=== PATIENT | female | born 1990 | race American Indian/Alaskan Native ===

== ENCOUNTER 2016-07-21 16:44 | Emergency (ER) | payer MEDICAID ==
[2016-07-21 17:18] VITALS: BP 130/82
[2016-07-21] MEDS ORDERED: NACL 0.9% 1000 ML IV ONE (18:00)
[2016-07-21] MEDS ORDERED: NACL 0.9% 1000 ML 1,000 ML ONE (18:13)
--- NOTE | 2016-07-21 18:30 | Emergency Department Report ---
Chief Complaint: Nausea/Vomiting/Diarrhea Stated Complaint: VOMITING Time Seen by Provider: 07/21/16 18:22 - HPI History of Present Illness: 26 y/o female arrive by EMS for for vomiting after drinking alcohol in moderate amount .pt current lethargy and not answer any question .pt just state she been drinking and do not feel well . - ROS Review of Systems: per HPI - Exam Vital Signs: Vital Signs 07/21/16 17:01 Temperature 98.2 F Pulse Rate 82 Respiratory 18 Rate Blood Pressure 130/82 O2 Sat by Pulse 100 Oximetry Physical Exam: GENERAL: The patient is well-developed and well-nourished. Patient is in NAD. HENT: Normocephalic. Atraumatic. Patient has moist mucous membranes. Throat: No erythema, swelling or exudates. EYES: Extraocular motions are intact, PERRL NECK: Supple. No meningitic signs are noted. There is no adenopathy noted. CHEST/LUNGS: Clear to auscultation bilaterally. No wheezing, rales or rhonchi noted. There is no respiratory distress noted. HEART/CARDIOVASCULAR: Regular rate and rhythm. Normal S1 S2. No murmurs, rubs , clicks, or gallops. ABDOMEN: Abdomen is soft, nontender.. Bowel sounds normoactive. There is no abdominal distention. Negative rebound tenderness. : Deferred. SKIN: There is no rash. There is no edema. There is no diaphoresis. NEURO: The patient is A&Ox3. The patient has no focal neurologic deficits. MUSCULOSKELETAL: There is no tenderness or deformity. There is no limitation range of motion. PSYCH: Pt has appropriate mood and affect. MSE screening note: Focused history and physical exam performed. Due to findings the following was ordered: ED Disposition for MSE Condition: Stable
[2016-07-21 19:24] LABS: Hematocrit 33.2 % (30.3-42.9); Hemoglobin 10.6 gm/dl (10.1-14.3); Mean Corpuscular HGB Conc 32 % (30-34); Mean Corpuscular Hemoglobin 27 pg (28-32); Mean Corpuscular Volume 85 fl (79-97); Platelet Count 313 K/mm3 (140-440); Red Blood Count 3.93 M/mm3 (3.65-5.03); Red Cell Distribution Width 16.4 % (13.2-15.2); White Blood Count 14.1 K/mm3 (4.5-11.0)
[2016-07-21 19:47] LABS: Alanine Aminotransferase 19 units/L (7-56); Albumin 4.2 g/dL (3.9-5); Albumin/Globulin Ratio 1.3 %; Alkaline Phosphatase 76 units/L (35-129); Amylase 37 units/L (27-131); Bilirubin,Total 0.4 mg/dL (0.1-1.2); Blood Urea Nitrogen 16 mg/dL (7-17); Calcium 8.5 mg/dL (8.4-10.2); Carbon Dioxide 21 mmol/L (22-30); Chloride 99.5 mmol/L (98-107); Glucose 296 mg/dL (65-100); Lipase 17 units/L (13-60); Potassium 4.2 mmol/L (3.6-5.0); Sodium 137 mmol/L (137-145); Total Protein 7.5 g/dL (6.3-8.2)
[2016-07-21 19:52] LABS: Bilirubin,Direct < 0.2 mg/dL (0-0.2); Bilirubin,Indirect 0.2 mg/dL
[2016-07-21 19:53] LABS: Anion Gap 21 mmol/L
[2016-07-21 21:52] LABS: Basophils % (Manual) 0 % (0.0-1.8); Blastocytes % (Manual) 0 %; Eosinophils % (Manual) 0 % (0.0-4.3)
[2016-07-21 21:53] LABS: Anisocytosis 1+; Diff Status Complete; Platelet Estimate Consistent w Auto
[2016-07-21 22:07] LABS: Bilirubin,Urine NEG (Negative); Blood,Urine NEG (Negative); Ketones,Urine 20 mg/dL (Negative); Leukocyte Esterase,Urine NEG (Negative); Nitrite,Urine NEG (Negative); Protein,Urine <15 mg/dL mg/dL (Negative); Urobilinogen,Urine < 2.0 mg/dL (<2.0); WBC,Urine < 1.0 /HPF (0.0-6.0)
--- NOTE | 2016-07-22 14:28 | ED Elopement Review ---
ED Pt Elopement review - Results review Lab results: Laboratory Tests 07/21/16 07/21/16 07/21/16 16:58 19:09 19:09 WBC 14.1 H RBC 3.93 Hgb 10.6 Hct 33.2 MCV 85 MCH 27 L MCHC 32 RDW 16.4 H Plt Count 313 Add Manual Diff Complete Total Counted 100 Seg Neutrophils % [employer] Seg Neuts % (Manual) 92.0 H Band Neutrophils % 0 Lymphocytes % (Manual) 5.0 L Reactive Lymphs % (Man) 0 Monocytes % (Manual) 3.0 Eosinophils % (Manual) 0 Basophils % (Manual) 0 Metamyelocytes % 0 Myelocytes % 0 Promyelocytes % 0 Blast Cells % 0 Nucleated RBC % Not Reportable Seg Neutrophils # Man 13.0 H Band Neutrophils # 0.0 Lymphocytes # (Manual) 0.7 L Abs React Lymphs (Man) 0.0 Monocytes # (Manual) 0.4 Eosinophils # (Manual) 0.0 Basophils # (Manual) 0.0 Metamyelocytes # 0.0 Myelocytes # 0.0 Promyelocytes # 0.0 Blast Cells # 0.0 WBC Morphology Not Reportable Hypersegmented Neuts Not Reportable Hyposegmented Neuts Not Reportable Hypogranular Neuts Not Reportable Smudge Cells Not Reportable Toxic Granulation Not Reportable Toxic Vacuolation Not Reportable Dohle Bodies Not Reportable Pelger-Huet Anomaly Not Reportable Alex Rods Not Reportable Platelet Estimate Consistent w auto Clumped Platelets Not Reportable Plt Clumps, EDTA Not Reportable Large Platelets Not Reportable Giant Platelets Not Reportable Platelet Satelliting Not Reportable Plt Morphology Comment Not Reportable RBC Morphology Not Reportable Dimorphic RBCs Not Reportable Polychromasia Not Reportable Hypochromasia Not Reportable Poikilocytosis Not Reportable Anisocytosis 1+ Microcytosis Not Reportable Macrocytosis Not Reportable Spherocytes Not Reportable Pappenheimer Bodies Not Reportable Sickle Cells Not Reportable Target Cells Not Reportable Tear Drop Cells Not Reportable Ovalocytes Not Reportable Helmet Cells Not Reportable Barillas-Sunsites Bodies Not Reportable [place] Rings Not Reportable [place] Cells Not Reportable Bite Cells Not Reportable Crenated Cell Not Reportable Elliptocytes Not Reportable Acanthocytes (Spur) Not Reportable Rouleaux Not Reportable Hemoglobin C Crystals Not Reportable Schistocytes Not Reportable Malaria parasites Not Reportable Pérez Bodies Not Reportable Hem Pathologist Commnt No Sodium 137 Potassium 4.2 Chloride 99.5 Carbon Dioxide 21 L Anion Gap 21 BUN 16 Creatinine 0.8 Estimated GFR > 60 BUN/Creatinine Ratio 20.00 Glucose 296 H POC Glucose 344 H Calcium 8.5 Total Bilirubin 0.4 Direct Bilirubin < 0.2 Indirect Bilirubin 0.2 AST 35 ALT 19 Alkaline Phosphatase 76 Total Protein 7.5 Albumin 4.2 Albumin/Globulin Ratio 1.3 Amylase 37 Lipase 17 Urine Color Urine Turbidity Urine pH Ur Specific [place] Urine Protein Urine Glucose (UA) Urine Ketones Urine Blood Urine Nitrite Urine Bilirubin Urine Urobilinogen Ur Leukocyte Esterase Urine WBC (Auto) Urine RBC (Auto) U Epithel Cells (Auto) Urine HCG, Qual Plasma/Serum Alcohol 07/21/16 07/21/16 19:09 21:35 WBC RBC Hgb Hct MCV MCH MCHC RDW Plt Count Add Manual Diff Total Counted Seg Neutrophils % Seg Neuts % (Manual) Band Neutrophils % Lymphocytes % (Manual) Reactive Lymphs % (Man) Monocytes % (Manual) Eosinophils % (Manual) Basophils % (Manual) Metamyelocytes % Myelocytes % Promyelocytes % Blast Cells % Nucleated RBC % Seg Neutrophils # Man Band Neutrophils # Lymphocytes # (Manual) Abs React Lymphs (Man) Monocytes # (Manual) Eosinophils # (Manual) Basophils # (Manual) Metamyelocytes # Myelocytes # Promyelocytes # Blast Cells # WBC Morphology Hypersegmented Neuts Hyposegmented Neuts Hypogranular Neuts Smudge Cells Toxic Granulation Toxic Vacuolation Dohle Bodies Pelger-Huet Anomaly Alex Rods Platelet Estimate Clumped Platelets Plt Clumps, EDTA Large Platelets Giant Platelets Platelet Satelliting Plt Morphology Comment RBC Morphology Dimorphic RBCs Polychromasia Hypochromasia Poikilocytosis Anisocytosis Microcytosis Macrocytosis Spherocytes Pappenheimer Bodies Sickle Cells Target Cells Tear Drop Cells Ovalocytes Helmet Cells Barillas-Sunsites Bodies [place] Rings Marci Cells Bite Cells Crenated Cell Elliptocytes Acanthocytes (Spur) Rouleaux Hemoglobin C Crystals Schistocytes Malaria parasites Pérez Bodies Hem Pathologist Commnt Sodium Potassium Chloride Carbon Dioxide Anion Gap BUN Creatinine Estimated GFR BUN/Creatinine Ratio Glucose POC Glucose Calcium Total Bilirubin Direct Bilirubin Indirect Bilirubin AST ALT Alkaline Phosphatase Total Protein Albumin Albumin/Globulin Ratio Amylase Lipase Urine Color Straw Urine Turbidity Clear Urine pH 6.0 Ur Specific [place] 1.028 Urine Protein <15 mg/dl Urine Glucose (UA) >=500 Urine Ketones 20 Urine Blood Neg Urine Nitrite Neg Urine Bilirubin Neg Urine Urobilinogen < 2.0 Ur Leukocyte Esterase Neg Urine WBC (Auto) < 1.0 Urine RBC (Auto) 1.0 U Epithel Cells (Auto) 1.0 Urine HCG, Qual Negative Plasma/Serum Alcohol < 0.01 - Call Back decision Pt Call Back Decision: No action required
== END 2016-07-22 00:52 | disposition left against medical advice (07) ==
LOC: ED 16:44
DX: R11.10 Vomiting, unspecified (principal); F10.10 Alcohol abuse, uncomplicated; Z53.21 Procedure and treatment not carried out due to patient leaving prior to being seen by health care provider
CPT/HCPCS: 36415; 80053; 80074; 81001; 81025; 82150; 82962; 83690; 85007; 85025; G0480; J7030; 80320

== ENCOUNTER 2016-09-07 09:41 | Inpatient (IN) | payer MEDICAID ==
--- NOTE | 2016-09-07 10:48 | Emergency Department Report ---
Chief Complaint: Abdominal Pain Stated Complaint: ABD /N/V Time Seen by Provider: 09/07/16 10:43 - HPI History of Present Illness: 26-year-old -[place] female comes in for nausea vomiting abdominal pains 2 days ago. Does have a past medical history of diabetes. Denies any fever or chills. [id number] glucose 241. Patient reports that she's had morphine and Zofran in the EMS truck. - Exam Vital Signs: Vital Signs 09/07/16 10:31 Temperature 98.5 F Pulse Rate 104 H Respiratory 20 Rate Blood Pressure 126/104 O2 Sat by Pulse 95 Oximetry Physical Exam: Patient is alert and oriented actively vomiting in exam room. Cardio: Tachycardic Respiratory: Clear to auscultation Lung: Tender to touch active bowel sounds nondistended MSE screening note: Focused history and physical exam performed. Due to findings the following was ordered: Labs ordered for patient should be evaluated the main ER ED Disposition for MSE Condition: Stable Instructions: Abdominal Pain (ED)
[2016-09-07 11:18] LABS: Basophils % (Auto) 0.1 % (0.0-1.8); Hematocrit 37.9 % (30.3-42.9); Mean Corpuscular HGB Conc 32 % (30-34); Mean Corpuscular Hemoglobin 26 pg (28-32); Mean Corpuscular Volume 84 fl (79-97); Platelet Count 395 K/mm3 (140-440); Red Blood Count 4.52 M/mm3 (3.65-5.03); White Blood Count 19.3 K/mm3 (4.5-11.0)
[2016-09-07 11:36] LABS: Albumin 4.8 g/dL (3.9-5); Albumin/Globulin Ratio 1.2 %; BUN/Creatinine Ratio 16.25; Bilirubin,Total 0.4 mg/dL (0.1-1.2); Calcium 9.3 mg/dL (8.4-10.2); Chloride 102.4 mmol/L (98-107); Potassium 4.6 mmol/L (3.6-5.0); Total Protein 8.8 g/dL (6.3-8.2)
[2016-09-07] MEDS ORDERED: DILAUDID IV ONE ×2 (11:59→17:04)
[2016-09-07] MEDS ORDERED: ZOFRAN IV ONE ×2 (11:59→17:09)
[2016-09-07] MEDS ORDERED: NACL 0.9% 500 ML IV SCH (12:00)
--- NOTE | 2016-09-07 12:01 | Emergency Department Report ---
ED Abdominal Pain HPI - General Chief Complaint: Abdominal Pain Stated Complaint: ABD /N/V Time Seen by Provider: 09/07/16 10:43 Source: patient Mode of arrival: Wheelchair Limitations: Physical Limitation - History of Present Illness Initial Comments: This is a 26-year-old female. She is previously unknown to me. Past medical history of type 1 diabetes. She reports that her primary care doctor is at the [facility] Patient reports no history of abdominal surgeries. She presents to the ER with diffuse abdominal pain, nausea and vomiting for 3 days. Symptoms are constant. They worsen when she attempts to eat. Decreases with rest. Decrease is laying on her side. Positive lethargy. Denies irritative urinary symptoms. Reports she is not . Has a distant history of chlamydia. The patient is sexually active with one male partner, positive intermittent condom use. MD Complaint: abdominal pain -: Gradual Location: diffuse Severity scale (0 -10): 10 Quality: aching Consistency: constant Improves With: rest Worsens With: eating Associated Symptoms: nausea, vomiting, diarrhea, anorexia - Related Data Home Medications Medication Instructions Recorded Confirmed Last Taken Insulin Glargine [Lantus VIAL] 22 units SUB-Q QHS 09/07/16 09/07/16 Unknown Insulin Lispro [HumaLOG VIAL] 0 units SUB-Q TIDHS 09/07/16 09/07/16 Unknown Allergies Allergy/AdvReac Type Severity Reaction Status Date / Time No Known Allergies Allergy Unverified 07/21/16 17:01 ED Review of Systems ROS: Stated complaint: ABD /N/V Other details as noted in HPI Constitutional: malaise, weakness Eyes: denies: vision change ENT: denies: epistaxis Respiratory: denies: orthopnea Cardiovascular: denies: chest pain Gastrointestinal: abdominal pain, nausea, vomiting Genitourinary: as per HPI. denies: frequency Musculoskeletal: as per HPI Skin: denies: lesions Neurological: weakness Psychiatric: as per HPI ED Past Medical Hx - Medications Home Medications: Home Medications Medication Instructions Recorded Confirmed Last Taken Type Insulin Glargine [Lantus VIAL] 22 units SUB-Q QHS 09/07/16 09/07/16 Unknown History Insulin Lispro [HumaLOG VIAL] 0 units SUB-Q TIDHS 09/07/16 09/07/16 Unknown History ED Physical Exam - General Limitations: No Limitations General appearance: alert, in no apparent distress - Head Head exam: Present: atraumatic, normocephalic - Eye Eye exam: Present: normal appearance, EOMI. Absent: nystagmus - ENT ENT exam: Present: normal exam, normal orophraynx, mucous membranes moist, normal external ear exam - Neck Neck exam: Present: normal inspection, full ROM. Absent: tenderness, meningismus - Respiratory Respiratory exam: Present: normal lung sounds bilaterally. Absent: respiratory distress, wheezes, rales, rhonchi, stridor, decreased breath sounds - Cardiovascular Cardiovascular Exam: Present: normal rhythm, tachycardia, normal heart sounds. Absent: bradycardia, systolic murmur, diastolic murmur, rubs, gallop - GI/Abdominal GI/Abdominal exam: Present: soft, tenderness, normal bowel sounds. Absent: distended, guarding, rebound, rigid, pulsatile mass - External exam: Present: normal external exam Speculum exam: Present: normal speculum exam, other (tampon is removed). Absent : vaginal bleeding Bi-manual exam: Present: normal bi-manual exam, other (escorted by nurse Jerson Duron during gynecologic exam.). Absent: cervical motion tendernes, adnexal tenderness, adnexal mass - Extremities Exam Extremities exam: Present: normal inspection, full ROM, normal capillary refill. Absent: tenderness, pedal edema, joint swelling, calf tenderness - Back Exam Back exam: Present: normal inspection, full ROM. Absent: tenderness, CVA tenderness (R), CVA tenderness (L), muscle spasm, paraspinal tenderness, vertebral tenderness - Neurological Exam Neurological exam: Present: alert, oriented X3, other (Extraocular movements intact. Tongue midline. No facial droop. Facial sensation intact to light touch in the V1, V2, V3 distribution bilaterally. 5 and 5 strength in 4 extremities.. Sensation is intact to light touch in 4 extremities.). Absent: motor sensory deficit - Psychiatric Psychiatric exam: Present: anxious - Skin Skin exam: Present: warm, dry, intact, normal color. Absent: rash ED Course Vital Signs 09/07/16 09/07/16 09/07/16 10:31 11:57 12:56 Temperature 98.5 F Pulse Rate 104 H 91 H Pulse Rate [ Right] Respiratory 20 16 16 Rate Blood Pressure 126/104 Blood Pressure 114/67 [Left] Blood Pressure [Right Arm] O2 Sat by Pulse 95 100 Oximetry 09/07/16 09/07/16 09/07/16 13:11 13:26 14:00 Temperature Pulse Rate 90 Pulse Rate [ Right] Respiratory 16 16 16 Rate Blood Pressure Blood Pressure 138/76 [Left] Blood Pressure [Right Arm] O2 Sat by Pulse 98 100 Oximetry 09/07/16 09/07/16 09/07/16 15:00 17:00 18:10 Temperature 98 F 98 F 98.1 F Pulse Rate 90 88 Pulse Rate [ 80 Right] Respiratory 16 16 16 Rate Blood Pressure Blood Pressure 110/63 116/78 [Left] Blood Pressure 110/72 [Right Arm] O2 Sat by Pulse 100 100 98 Oximetry - Reevaluation(s) Reevaluation #1: 09/07/16 12:10 Differential diagnosis: Diabetic gastroparesis, diabetic ketoacidosis, cyclic vomiting syndrome, cannabinoid hyperemesis syndrome, urinary tract infection, , pelvic inflammatory disease, generalized peritonitis, appendicitis, colitis Assessment and plan: 26-year-old female who probably has new onset diabetic gastroparesis. She is afebrile, tachycardic, has a leukocytosis, and acute renal insufficiency. Bili minimally tender diffusely. She reports that she is not . She is clinically sober. Denies cannabinoid use. We will treat her symptomatically with IV fluids, pain medication, nausea medication. We will perform a gynecologic examination. A noncontrast CT scan of the abdomen and pelvis has been ordered and is pending. Patient will be admitted for intractable nausea and vomiting, acute renal insufficiency, leukocytosis. Reevaluation #2: 09/07/16 13:55 d/w Dr Joseph, who accepts patient to his service Gynecologic examination is benign. Doubt PID. ED Medical Decision Making - Lab Data Result diagrams: 09/07/16 11:03 09/07/16 11:03 Vital Signs 09/07/16 09/07/16 10:31 11:57 Temperature 98.5 F Pulse Rate 104 H 91 H Respiratory 20 16 Rate Blood Pressure 126/104 Blood Pressure 114/67 [Left] O2 Sat by Pulse 95 100 Oximetry Labs 09/07/16 09/07/16 09/07/16 10:34 11:03 11:03 WBC 19.3 H RBC 4.52 Hgb 12.0 Hct 37.9 MCV 84 MCH 26 L MCHC 32 RDW 18.0 H Plt Count 395 Lymph % (Auto) 5.9 L [place] % (Auto) 7.8 H Eos % (Auto) 0.0 Baso % (Auto) 0.1 Lymph # 1.1 L [place] # 1.5 H Eos # 0.0 Baso # 0.0 Seg Neutrophils % 86.2 H Seg Neutrophils # 16.6 H Sodium 144 Potassium 4.6 Chloride 102.4 Carbon Dioxide 17 L Anion Gap 29 BUN 26 H Creatinine 1.6 H Estimated GFR 48 BUN/Creatinine Ratio 16.25 Glucose 238 H POC Glucose 241 H Calcium 9.3 Total Bilirubin 0.4 AST 29 ALT 28 Alkaline Phosphatase 102 Total Protein 8.8 H Albumin 4.8 Albumin/Globulin Ratio 1.2 Lipase 13 - Radiology Data Radiology results: report reviewed, image reviewed Noncontrast CT scan of the abdomen and pelvis is negative for acute disease Critical care attestation.: If time is entered above; I have spent that time in minutes in the direct care of this critically ill patient, excluding procedure time. ED Disposition Clinical Impression: Metabolic acidosis, Renal insufficiency, Abdominal pain Disposition: OP ADMITTED IP TO THIS HOSP Is pt being admited?: Yes Condition: Good
--- NOTE | 2016-09-07 12:07 | Admit Criteria Form ---
Admission Criteria Documentation: ABDOMINAL PAIN Clinical Indications for Admission to Inpatient Care (Place 'X' for any and all applicable criteria): Admission is indicated for ANY ONE of the following(1)(2)(3)(4)(5): [X ]I. Inpatient admission required rather than observation care (Also use Abdominal Pain: Observation Care, as appropriate) because of ANY ONE of the following: [X ]a) Severe pain requiring acute inpatient management [ ]b) Identification of etiology/finding that requires inpatient care (eg, aortic dissection, free air) [ ]c) Absent bowel sounds with complete ileus(6) [ ]d) Suspected toxic megacolon [ ]e) Severe electrolyte abnormalities requiring inpatient care [ ]f) High fever or infection requiring inpatient admission as indicated by ANY ONE of following(7)(8): [ ] i) Appropriate outpatient or observational care antimicrobial treatment unavailable, not effective, or not feasible [ ] ii) Documented bacteremia [ ] iii) Temperature > 104.9 degrees F (oral) [ ] iv) T >103.1 F (oral) or < 96.8 F(rectal) that does not respond to all emergency treatment measures [ ]g) Signs of intestinal obstruction [B] [ ]h) Hemodynamic instability [ ]i) IV fluid to replace significant ongoing losses (greater than 3 L/m2 per day) (12)(13) [ ]j) Percutaneous or open drainage (eg, abscess, biliary tract ) procedures [ ]k) Parenteral nutrition regimen that must be implemented on inpatient basis [ ]l) Other condition,treatment or monitoring requiring inpatient admission. [ ]II. Peritoneal signs present [ ]III. Surgery needed that cannot be performed on an ambulatory basis. [ ]IV. Evaluation requires patient to not eat or drink for extended period ( eg, more than 24 hours). [ ]V. Contraindications and/or Inappropriate clinical situations for Observational Care in patients with abdominal pain, when ANY ONE of the following is required: [ ]a) Thorough evaluation is required to prevent catastrophic events due to delays in diagnosing (e.g.Mesenteric ischemia) 1,3 [ ]b) Patient with severe pathology or with chronic symptoms unlikely to improve in the ED stay (3) [X ]. General contraindications and/or Inappropriate clinical situations for Observational Care in patients with abdominal pain, when ANY ONE of the following is required: [X ]a) Prediction of prolongation of LOS based on ANY ONE of the following may be considered as a contraindication for observational care 2, 3, 4, 5, 6, 7, 8, 9, 10, 11 [ ]i) Age > 65 yrs. [X ]ii) Patient arriving by ambulance [ ]iii) Patient with high acuity [ ]iv) Patient requiring vital sign monitoring [ ]v) Patient on IV medication [ ]b) Systolic blood pressures 180mmHg 3,12 [ ]c) Patient with altered mental status including delirium and other alteration of consciousness, (3) [ ]d) Patient whose discharge disposition will be to a correction home or rehabilitation home should not be managed in Emergency Department Observation Unit. CMS rule requires 3 days hospital stay before such placement.3,13 [ ]e) Patient with failure to thrive due to broad array of etiologies 3,16,17 [ ]f) Inability to ambulate 3,14 Extended stay beyond goal length of stay may be needed for(2)(3): [ ]a) Persistent abdominal pain with suspected intra-abdominal process [ ]b) Diagnosed condition requiring continued stay (e.g., pancreatitis, complicated diverticulitis) [ ]c) Surgery (e.g., colectomy) The original [email or web address] content created by [facility] has been revised. The portions of the content which have been revised are identified through the use of italic text or in bold, and [facility] has neither reviewed nor approved the modified material.All other unmodified content is copyright [facility]. Please see references footnoted in the original [facility] edition 2016 Admission Criteria Met: Yes
[2016-09-07] MEDS ORDERED: NACL 0.9% 1000 ML 1,000 ML ONE (12:55)
--- NOTE | 2016-09-07 14:07 | Cat Scan Report ---
CT ABDOMEN AND PELVIS WITHOUT CONTRAST INDICATION: Abdominal pain. Diabetic ketoacidosis versus cyclic vomiting syndrome. COMPARISON: None similar. FINDINGS: Noncontrast abdomen and pelvis CT performed. LUNG BASES: Normal heart size. Possible anemia. Nonspecific distal esophageal wall thickening, not excluded for gastroesophageal reflux and/or hiatal hernia, amongst others. ABDOMEN: Please note that sensitivity to detect small visceral lesions is limited due to the absence of intravenous or oral contrast. Some motion and streak artifact from extrinsic leads partly limits exam. However, grossly unremarkable unenhanced liver, spleen, gallbladder, pancreas, adrenals, nonaneurysmal abdominal aorta, IVC, kidneys and bowel. Possible normal appendix extending into the right hemipelvis. Usual colonic stool. Slight outward bowing at the umbilicus with subjacent nonobstructive small bowel. PELVIS: Urinary bladder, possibly retroverted uterus and the rectosigmoid grossly unremarkable. No free fluid or size significant adenopathy. Unremarkable bones. CONCLUSION: No acute significant abdomen or pelvic CT abnormality with few incidental findings, as above. Please correlate. Thank you for the opportunity to participate in this patient's care.
[2016-09-07 14:37] LABS: Urine Drugs of Abuse Note Disclamer
[2016-09-07 14:44] LABS: Bilirubin,Urine NEG (Negative); Blood,Urine SM (Negative); Ketones,Urine 80 mg/dL (Negative); Leukocyte Esterase,Urine NEG (Negative); Mucus,Urine FEW /HPF; Nitrite,Urine NEG (Negative); RBC,Urine < 1.0 /HPF (0.0-6.0); Urobilinogen,Urine < 2.0 mg/dL (<2.0)
[2016-09-07] MEDS ORDERED: DILAUDID ONE (17:03)
[2016-09-07] MEDS ORDERED: ZOFRAN ONE (17:03)
[2016-09-07] MEDS ORDERED: D50W (25GM) IV PRN (20:24)
[2016-09-07] MEDS: DILAUDID IV PRN (20:53)
[2016-09-07] MEDS: ZOFRAN IV PRN (20:53)
[2016-09-07] MEDS ORDERED: NACL 0.9% 1000 ML 1,000 ML IV SCH (21:00)
--- NOTE | 2016-09-07 21:14 | Event Note ---
Date: 09/07/16 See H/p in reports
[2016-09-08] MEDS: ZOFRAN IV PRN ×5 (00:38→22:17)
[2016-09-08] MEDS: DILAUDID IV PRN ×4 (00:40→10:53)
[2016-09-08] MEDS: LOVENOX SUB-Q SCH ×2 (00:43→10:53)
[2016-09-08] MEDS: NOVOLOG SUB-Q SCH ×3 (07:28→17:21)
[2016-09-08] MEDS: FLAGYL 500 MG/100 ML 500 MG/100 ML BAG IV SCH ×3 (10:52→23:12)
[2016-09-08 10:58] LABS: Hematocrit 37.1 % (30.3-42.9); Hemoglobin 11.4 gm/dl (10.1-14.3); Mean Corpuscular HGB Conc 31 % (30-34); Mean Corpuscular Hemoglobin 26 pg (28-32); Mean Corpuscular Volume 86 fl (79-97); Platelet Count 350 K/mm3 (140-440); Red Blood Count 4.32 M/mm3 (3.65-5.03); Red Cell Distribution Width 17.6 % (13.2-15.2); White Blood Count 15.1 K/mm3 (4.5-11.0)
[2016-09-08 11:04] LABS: BUN/Creatinine Ratio 11.42; Calcium 9.2 mg/dL (8.4-10.2); Chloride 101.7 mmol/L (98-107)
[2016-09-08] MEDS ORDERED: DILAUDID IV PRN (11:05)
--- NOTE | 2016-09-08 12:01 | History and Physical Report ---
CHIEF COMPLAINT: Abdominal pain for 3 days, nausea and vomiting for 3 days. HISTORY OF PRESENT ILLNESS: A 26-year-old -[place] female with history of insulin-dependent diabetes, comes in for nausea and vomiting for 3 days and severe abdominal pain. Abdominal pain localized to the epigastric region. Pain is about 10 on a scale of 1-10. No SCDs. Had similar symptoms before. No workup for gastroparesis was done. The patient has insulin-dependent diabetes for the past few years, juvenile onset. The patient on Lantus 22 units at nighttime and Humalog before each meal. PAST MEDICAL HISTORY: As mentioned significant for; 1. Insulin-dependent diabetes. 2. Possible gastroparesis. PAST SURGICAL HISTORY: None. FAMILY HISTORY: Significant for hypertension. CURRENT MEDICATIONS: Lantus 22 units and Humalog on a sliding scale before each meal. REVIEW OF SYSTEMS: Significant for; CONSTITUTIONAL: No weight loss, no weight gain. HEENT: No sore throat, no postnasal drip. CARDIOVASCULAR AND RESPIRATORY: No shortness of breath, no chest pain, no palpitations, no cough. GASTROINTESTINAL: As mentioned in history of present illness, epigastric pain, severe, and also nausea and vomiting x 3-4 times. GENITOURINARY: No dysuria, no flank pain. MUSCULOSKELETAL: No joint pains. CENTRAL NERVOUS SYSTEM: No syncope, no seizures. SKIN: No rashes. PSYCHIATRIC: No homicidal or suicidal tendencies. A 14-point review of systems done otherwise negative, other than the history of present illness. PHYSICAL EXAMINATION: GENERAL: Young female, cooperative during examination. VITAL SIGNS: Blood pressure is 116/56, temperature is 98, pulse is 78, respirations are 20. HEENT: Unremarkable. Pupils equal and reactive. NECK: Supple, no lymphadenopathy, no thyromegaly. LUNGS: Clear to auscultation and percussion. Good air entry. CARDIOVASCULAR: S1, S2 heard. No gallop, no murmur, no rub. Apical impulse in left fifth intercostal space in midclavicular line. ABDOMEN: Tenderness present in the epigastric region. Bowel sounds are normal. EXTREMITIES: Good pedal pulses. No pedal edema. CENTRAL NERVOUS SYSTEM: Alert and oriented x 4, nonfocal exam. SKIN: Normal. LABORATORY DATA: Significant for white count of 19,300, H and H is 12 and 37.9, platelet count is 395,000. Glucose is 238, BUN and creatinine is 26 and 1.6, total protein is 8.8. Urine is negative except for glucose of more than 500. Drug screen is positive for marijuana. ASSESSMENT AND PLAN: 1. Acute gastroparesis with dehydration. IV fluids, keep the patient on clear liquids. Gastric emptying scan ordered. 2. Leukocytosis, etiology unclear. CT of the abdomen is negative. 3. Metabolic acidosis, pH is 7.288, mild. We will probably correct with sliding scale insulin and IV fluids. 4. Hypertension, reasonably well controlled. Continue antihypertensives if necessary. 5. Deep venous thrombosis prophylaxis, Lovenox 40 mg subcutaneous daily. 6. Pain management. The patient on Dilaudid 1 mg q.3h. p.r.n. and Zofran 8 mg IV q.4h. p.r.n. In summary, the patient has gastroparesis, leukocytosis of which etiology is not clear. At this point, I feel it is stress induced. No antibiotics were started. We will repeat CBC for the white count. Gastric emptying scan to be checked. Diabetes to be well controlled, so the gastroparesis symptoms do not happen on a recurrent basis PROGNOSIS: Fair. JOB# [id number] LAKEISHA/QUINTEN
--- NOTE | 2016-09-08 12:42 | Progress Note ---
Assessment and Plan Assessment and plan: Acute gastroparesis Nausea/vomiting and abdominal pain, could be gastritis DM type 1 Leukocytosis, likley stress induced LORNA, likley due to dehydration Bacterial vaginosis GI and DVT Px Plan: Cont iv fluid hydration as needed pain meds gastric emptying study Place on reglan, carafate CT abdomen has no acute finding start on clear liquid start on flagyl IV History Interval history: Patient seen and examined. Medical records and medication list reviewed. No acute event overnight noted by the RN. Patient c/o abdominal pain Hospitalist Physical - Physical exam Narrative exam: GENERAL: AAF lying on bed appeared to be in mild discomfort. HEENT: Normocephalic. Atraumatic. No conjunctival congestion or icterus. Patient has moist mucous membranes. NECK: Supple. Trachea midline. CHEST/LUNGS: Clear to auscultated bilaterally, breathing nonlabored. No wheezes crackles or rhonchi. HEART/CARDIOVASCULAR: Regular in rate and rhythm. S1 and S2 positive. ABDOMEN: Abdomen is soft, mild diffuse tender. Patient has normal bowel sounds. SKIN: There is no rash. Warm and dry. NEURO: No focal motor deficit. Follows command. MUSCULOSKELETAL: No joint effusion or tenderness. EXTRIMITY: No edema, no cyanosis or clubbing. PSYCH: Cooperative. - Constitutional Vitals: Temp Pulse Resp BP Pulse Ox 98.6 F 78 16 129/58 98 09/08/16 08:00 09/08/16 08:00 09/08/16 08:00 09/08/16 08:00 09/08/16 08:00 Results - Labs CBC & Chem 7: 09/08/16 10:21 09/08/16 10:21 Labs: Laboratory Last Values WBC 15.1 K/mm3 (4.5-11.0) H 09/08/16 10:21 RBC 4.32 M/mm3 (3.65-5.03) 09/08/16 10:21 Hgb 11.4 gm/dl (10.1-14.3) 09/08/16 10:21 Hct 37.1 % (30.3-42.9) 09/08/16 10:21 MCV 86 fl (79-97) 09/08/16 10:21 MCH 26 pg (28-32) L 09/08/16 10:21 MCHC 31 % (30-34) 09/08/16 10:21 RDW 17.6 % (13.2-15.2) H 09/08/16 10:21 Plt Count 350 K/mm3 (140-440) 09/08/16 10:21 Lymph % (Auto) 5.9 % (13.4-35.0) L 09/07/16 11:03 [place] % (Auto) 7.8 % (0.0-7.3) H 09/07/16 11:03 Eos % (Auto) 0.0 % (0.0-4.3) 09/07/16 11:03 Baso % (Auto) 0.1 % (0.0-1.8) 09/07/16 11:03 Lymph # 1.1 K/mm3 (1.2-5.4) L 09/07/16 11:03 [place] # 1.5 K/mm3 (0.0-0.8) H 09/07/16 11:03 Eos # 0.0 K/mm3 (0.0-0.4) 09/07/16 11:03 Baso # 0.0 K/mm3 (0.0-0.1) 09/07/16 11:03 Seg Neutrophils % 86.2 % (40.0-70.0) H 09/07/16 11:03 Seg Neutrophils # 16.6 K/mm3 (1.8-7.7) H 09/07/16 11:03 VBG pH 7.288 (7.320-7.420) L 09/07/16 12:18 Sodium 139 mmol/L (137-145) 09/08/16 10:21 Potassium 4.0 mmol/L (3.6-5.0) 09/08/16 10:21 Chloride 101.7 mmol/L (98-107) 09/08/16 10:21 Carbon Dioxide 14 mmol/L (22-30) L 09/08/16 10:21 Anion Gap 27 mmol/L 09/08/16 10:21 BUN 16 mg/dL (7-17) 09/08/16 10:21 Creatinine 1.4 mg/dL (0.7-1.2) H 09/08/16 10:21 Estimated GFR 56 ml/min 09/08/16 10:21 BUN/Creatinine Ratio 11.42 % 09/08/16 10:21 Glucose 231 mg/dL (65-100) H 09/08/16 10:21 POC Glucose 330 (70-105) H 09/08/16 12:00 Lactic Acid 1.4 mmol/L (0.7-2.0) 09/07/16 12:18 Calcium 9.2 mg/dL (8.4-10.2) 09/08/16 10:21 Total Bilirubin 0.4 mg/dL (0.1-1.2) 09/07/16 11:03 AST 29 units/L (5-40) 09/07/16 11:03 ALT 28 units/L (7-56) 09/07/16 11:03 Alkaline Phosphatase 102 units/L (35-129) 09/07/16 11:03 Total Protein 8.8 g/dL (6.3-8.2) H 09/07/16 11:03 Albumin 4.8 g/dL (3.9-5) 09/07/16 11:03 Albumin/Globulin Ratio 1.2 % 09/07/16 11:03 Lipase 13 units/L (13-60) 09/07/16 11:03 HCG, Quant < 2 mIU/mL (0-4) 09/07/16 12:18 Urine Color Yellow (Yellow) 09/07/16 13:08 Urine Turbidity Clear (Clear) 09/07/16 13:08 Urine pH 6.0 (5.0-7.0) 09/07/16 13:08 Ur Specific [place] 1.026 (1.003-1.030) 09/07/16 13:08 Urine Protein 100 mg/dl mg/dL (Negative) 09/07/16 13:08 Urine Glucose (UA) >=500 mg/dL (Negative) 09/07/16 13:08 Urine Ketones 80 mg/dL (Negative) 09/07/16 13:08 Urine Blood Sm (Negative) 09/07/16 13:08 Urine Nitrite Neg (Negative) 09/07/16 13:08 Urine Bilirubin Neg (Negative) 09/07/16 13:08 Urine Urobilinogen < 2.0 mg/dL (<2.0) 09/07/16 13:08 Ur Leukocyte Esterase Neg (Negative) 09/07/16 13:08 Urine WBC (Auto) 2.0 /HPF (0.0-6.0) 09/07/16 13:08 Urine RBC (Auto) < 1.0 /HPF (0.0-6.0) 09/07/16 13:08 U Epithel Cells (Auto) 1.0 /HPF (0-13.0) 09/07/16 13:08 Urine Mucus Few /HPF 09/07/16 13:08 Urine Opiates Screen Presumptive negative 09/07/16 13:08 Urine Methadone Screen Presumptive negative 09/07/16 13:08 Ur Barbiturates Screen Presumptive negative 09/07/16 13:08 Ur Phencyclidine Scrn Presumptive negative 09/07/16 13:08 Ur Amphetamines Screen Presumptive negative 09/07/16 13:08 U Benzodiazepines Scrn Presumptive negative 09/07/16 13:08 Urine Cocaine Screen Presumptive negative 09/07/16 13:08 U Marijuana (THC) Screen Presumptive positive 09/07/16 13:08 Drugs of Abuse Note Disclamer 09/07/16 13:08
[2016-09-08] MEDS: REGLAN IV SCH (16:08)
[2016-09-08] MEDS: NACL 0.45% 1000 ML 1,000 ML IV SCH (16:29)
[2016-09-08 17:52] LABS: Creatine Kinase 91 units/L (30-135)
[2016-09-08] MEDS: CARAFATE PO SCH ×2 (18:43→22:17)
[2016-09-08] MEDS ORDERED: INSULIN GLARGINE 22 UNIT SUB-Q SCH (22:00)
[2016-09-08] MEDS: PERCOCET 5/325 PO PRN (22:17)
[2016-09-08] MEDS ORDERED: MORPHINE IV ONE (22:46)
[2016-09-09] MEDS: REGLAN IV SCH ×5 (00:43→21:31)
[2016-09-09] MEDS: NOVOLOG SUB-Q SCH ×5 (01:21→22:57)
[2016-09-09] MEDS: LEVEMIR SUB-Q SCH ×2 (01:22→22:57)
[2016-09-09] MEDS: AMBIEN PO PRN (01:53)
[2016-09-09] MEDS: ZOFRAN IV PRN (05:48)
[2016-09-09] MEDS: FLAGYL 500 MG/100 ML 500 MG/100 ML BAG IV SCH ×3 (05:48→21:30)
[2016-09-09 07:55] LABS: Basophils % (Auto) 0.3 % (0.0-1.8); Hematocrit 36.1 % (30.3-42.9); Hemoglobin 11.3 gm/dl (10.1-14.3); Mean Corpuscular HGB Conc 31 % (30-34); Mean Corpuscular Hemoglobin 26 pg (28-32); Mean Corpuscular Volume 84 fl (79-97); Platelet Count 333 K/mm3 (140-440); Red Blood Count 4.29 M/mm3 (3.65-5.03); White Blood Count 10.9 K/mm3 (4.5-11.0)
[2016-09-09] MEDS: CARAFATE PO SCH ×4 (08:12→22:56)
[2016-09-09] MEDS: NACL 0.45% 1000 ML 1,000 ML IV SCH (08:27)
--- NOTE | 2016-09-09 08:38 | Progress Note ---
Assessment and Plan Assessment and plan: Acute gastroparesis Nausea/vomiting and abdominal pain, could be due to gastritis DM type 1 Leukocytosis, likley stress induced LORNA, likley due to dehydration Bacterial vaginosis GI and DVT Px Plan: Cont iv fluid hydration as needed pain meds gastric emptying study tomorrow cont on reglan, carafate, protonix CT abdomen has no acute finding cont on clear liquid cont on flagyl IV Cont subqu insulin History Interval history: Patient seen and examined. Medical records and medication list reviewed. No acute event overnight noted by the RN. Patient had poor oral intake, but tolerated clear liquid Hospitalist Physical - Physical exam Narrative exam: GENERAL: AAF lying on bed appeared to be in mild discomfort. HEENT: Normocephalic. Atraumatic. No conjunctival congestion or icterus. Patient has moist mucous membranes. NECK: Supple. Trachea midline. CHEST/LUNGS: Clear to auscultated bilaterally, breathing nonlabored. No wheezes crackles or rhonchi. HEART/CARDIOVASCULAR: Regular in rate and rhythm. S1 and S2 positive. ABDOMEN: Abdomen is soft, mild diffuse tender. Patient has normal bowel sounds. SKIN: There is no rash. Warm and dry. NEURO: No focal motor deficit. Follows command. MUSCULOSKELETAL: No joint effusion or tenderness. EXTRIMITY: No edema, no cyanosis or clubbing. PSYCH: Cooperative. - Constitutional Vitals: Temp Pulse Resp BP Pulse Ox 98.4 F 83 18 105/56 97 09/08/16 22:52 09/08/16 22:52 09/08/16 23:08 09/08/16 22:52 09/08/16 22:52 Results - Labs CBC & Chem 7: 09/09/16 06:52 09/08/16 10:21 Labs: Laboratory Last Values WBC 10.9 K/mm3 (4.5-11.0) 09/09/16 06:52 RBC 4.29 M/mm3 (3.65-5.03) 09/09/16 06:52 Hgb 11.3 gm/dl (10.1-14.3) 09/09/16 06:52 Hct 36.1 % (30.3-42.9) 09/09/16 06:52 MCV 84 fl (79-97) 09/09/16 06:52 MCH 26 pg (28-32) L 09/09/16 06:52 MCHC 31 % (30-34) 09/09/16 06:52 RDW 18.0 % (13.2-15.2) H 09/09/16 06:52 Plt Count 333 K/mm3 (140-440) 09/09/16 06:52 Lymph % (Auto) 25.7 % (13.4-35.0) 09/09/16 06:52 [place] % (Auto) 7.6 % (0.0-7.3) H 09/09/16 06:52 Eos % (Auto) 0.0 % (0.0-4.3) 09/09/16 06:52 Baso % (Auto) 0.3 % (0.0-1.8) 09/09/16 06:52 Lymph # 2.8 K/mm3 (1.2-5.4) 09/09/16 06:52 [place] # 0.8 K/mm3 (0.0-0.8) 09/09/16 06:52 Eos # 0.0 K/mm3 (0.0-0.4) 09/09/16 06:52 Baso # 0.0 K/mm3 (0.0-0.1) 09/09/16 06:52 Seg Neutrophils % 66.4 % (40.0-70.0) 09/09/16 06:52 Seg Neutrophils # 7.3 K/mm3 (1.8-7.7) 09/09/16 06:52 VBG pH 7.288 (7.320-7.420) L 09/07/16 12:18 Sodium 139 mmol/L (137-145) 09/08/16 10:21 Potassium 4.0 mmol/L (3.6-5.0) 09/08/16 10:21 Chloride 101.7 mmol/L (98-107) 09/08/16 10:21 Carbon Dioxide 14 mmol/L (22-30) L 09/08/16 10:21 Anion Gap 27 mmol/L 09/08/16 10:21 BUN 16 mg/dL (7-17) 09/08/16 10:21 Creatinine 1.4 mg/dL (0.7-1.2) H 09/08/16 10:21 Estimated GFR 56 ml/min 09/08/16 10:21 BUN/Creatinine Ratio 11.42 % 09/08/16 10:21 Glucose 231 mg/dL (65-100) H 09/08/16 10:21 POC Glucose 148 (70-105) H 09/09/16 06:20 Lactic Acid 1.4 mmol/L (0.7-2.0) 09/07/16 12:18 Calcium 9.2 mg/dL (8.4-10.2) 09/08/16 10:21 Total Bilirubin 0.4 mg/dL (0.1-1.2) 09/07/16 11:03 AST 29 units/L (5-40) 09/07/16 11:03 ALT 28 units/L (7-56) 09/07/16 11:03 Alkaline Phosphatase 102 units/L (35-129) 09/07/16 11:03 Total Creatine Kinase 91 units/L (30-135) 09/08/16 17:14 CK-MB (CK-2) 3.0 ng/mL (0.0-4.0) 09/08/16 17:14 CK-MB (CK-2) Rel Index 3.2 (0-4) 09/08/16 17:14 Troponin T < 0.010 ng/mL (0.00-0.029) 09/08/16 17:14 Total Protein 8.8 g/dL (6.3-8.2) H 09/07/16 11:03 Albumin 4.8 g/dL (3.9-5) 09/07/16 11:03 Albumin/Globulin Ratio 1.2 % 09/07/16 11:03 Lipase 13 units/L (13-60) 09/07/16 11:03 HCG, Quant < 2 mIU/mL (0-4) 09/07/16 12:18 Urine Color Yellow (Yellow) 09/07/16 13:08 Urine Turbidity Clear (Clear) 09/07/16 13:08 Urine pH 6.0 (5.0-7.0) 09/07/16 13:08 Ur Specific [place] 1.026 (1.003-1.030) 09/07/16 13:08 Urine Protein 100 mg/dl mg/dL (Negative) 09/07/16 13:08 Urine Glucose (UA) >=500 mg/dL (Negative) 09/07/16 13:08 Urine Ketones 80 mg/dL (Negative) 09/07/16 13:08 Urine Blood Sm (Negative) 09/07/16 13:08 Urine Nitrite Neg (Negative) 09/07/16 13:08 Urine Bilirubin Neg (Negative) 09/07/16 13:08 Urine Urobilinogen < 2.0 mg/dL (<2.0) 09/07/16 13:08 Ur Leukocyte Esterase Neg (Negative) 09/07/16 13:08 Urine WBC (Auto) 2.0 /HPF (0.0-6.0) 09/07/16 13:08 Urine RBC (Auto) < 1.0 /HPF (0.0-6.0) 09/07/16 13:08 U Epithel Cells (Auto) 1.0 /HPF (0-13.0) 09/07/16 13:08 Urine Mucus Few /HPF 09/07/16 13:08 Urine Opiates Screen Presumptive negative 09/07/16 13:08 Urine Methadone Screen Presumptive negative 09/07/16 13:08 Ur Barbiturates Screen Presumptive negative 09/07/16 13:08 Ur Phencyclidine Scrn Presumptive negative 09/07/16 13:08 Ur Amphetamines Screen Presumptive negative 09/07/16 13:08 U Benzodiazepines Scrn Presumptive negative 09/07/16 13:08 Urine Cocaine Screen Presumptive negative 09/07/16 13:08 U Marijuana (THC) Screen Presumptive positive 09/07/16 13:08 Drugs of Abuse Note Disclamer 09/07/16 13:08 - Imaging and Cardiology CT scan - abdomen: report reviewed
[2016-09-09] MEDS: LOVENOX SUB-Q SCH (10:01)
[2016-09-09] MEDS: D5W/0.45% NACL/KCL 10 MEQ 10 MEQ/1,000 ML BAG IV SCH (14:58)
[2016-09-09] MEDS: PERCOCET 5/325 PO PRN (16:55)
[2016-09-10 05:43] LABS: Anion Gap 20 mmol/L; Blood Urea Nitrogen 12 mg/dL (7-17); Calcium 8.6 mg/dL (8.4-10.2); Carbon Dioxide 22 mmol/L (22-30); Chloride 105.9 mmol/L (98-107); Glucose 176 mg/dL (65-100); Potassium 3.5 mmol/L (3.6-5.0); Sodium 144 mmol/L (137-145)
[2016-09-10] MEDS: FLAGYL 500 MG/100 ML 500 MG/100 ML BAG IV SCH ×3 (05:48→21:56)
[2016-09-10] MEDS: ZOFRAN IV PRN (05:53)
[2016-09-10] MEDS: D5W/0.45% NACL/KCL 10 MEQ 10 MEQ/1,000 ML BAG IV SCH (06:24)
--- NOTE | 2016-09-10 09:44 | Nuclear Medicine Report ---
NUCLEAR MEDICINE GASTRIC EMPTYING SCAN History: Gastroparesis. Findings: Anterior abdominal imaging was performed for 90 minutes following 1 mCi of technetium 99m sulfur colloid in oatmeal. Half life for gastric emptying measures 42 minutes. There is no scintigraphic evidence for reflux disease. Impression: Normal gastric emptying.
[2016-09-10] MEDS: NOVOLOG SUB-Q SCH ×3 (09:48→18:31)
[2016-09-10] MEDS: LOVENOX SUB-Q SCH (09:54)
[2016-09-10] MEDS: PROTONIX IV SCH ×3 (09:54→22:00)
[2016-09-10] MEDS: CARAFATE PO SCH ×4 (09:54→22:00)
[2016-09-10] MEDS: REGLAN IV SCH ×4 (09:54→22:00)
--- NOTE | 2016-09-10 13:54 | Consultation ---
History of Present Illness - Reason for Consult Consult date: 09/10/16 N/V - History of Present Illness See dictation. Medications and Allergies Allergies Allergy/AdvReac Type Severity Reaction Status Date / Time No Known Allergies Allergy Unverified 07/21/16 17:01 Home Medications Medication Instructions Recorded Confirmed Last Taken Type Insulin Glargine [Lantus VIAL] 22 units SUB-Q QHS 09/07/16 09/07/16 Unknown History Insulin Lispro [HumaLOG VIAL] 0 units SUB-Q TIDHS 09/07/16 09/07/16 Unknown History Active Meds: Active Medications Dextrose (D50w (25gm)) 25 gm IV PRN PRN PRN Reason: Hypoglycemia Enoxaparin Sodium (Lovenox) 40 mg SUB-Q QDAY [facility] Last Admin: 09/10/16 09:54 Dose: 40 mg Metronidazole (Flagyl 500 Mg/100 Ml) 500 mg in 100 mls @ 100 mls/hr IV Q8HR [facility] Last Admin: 09/10/16 05:48 Dose: 100 mls/hr Potassium Chloride/Dextrose/Sod Cl (D5w/0.45% Nacl/Kcl 10 Meq) 10 meq in 1,000 mls @ 75 mls/hr IV DIRECT [facility] Last Admin: 09/10/16 06:24 Dose: 75 mls/hr Insulin Aspart (Novolog) 0 units SUB-Q ACHS [facility] PRN Reason: Protocol Last Admin: 09/10/16 12:34 Dose: 4 units Insulin Detemir (Levemir) 22 units SUB-Q QHS [facility] Last Admin: 09/09/16 22:57 Dose: 22 units Metoclopramide HCl (Reglan) 10 mg IV ACHS [facility] Last Admin: 09/10/16 12:44 Dose: 10 mg Ondansetron HCl (Zofran) 8 mg IV Q4H PRN PRN Reason: nausea Last Admin: 09/10/16 05:53 Dose: 8 mg Oxycodone/Acetaminophen (Percocet 5/325) 1 tab PO Q4H PRN PRN Reason: Pain, Moderate (4-6) Last Admin: 09/09/16 16:55 Dose: 1 tab Pantoprazole Sodium (Protonix) 40 mg IV BID [facility] Last Admin: 09/10/16 12:38 Dose: 40 mg Sucralfate (Carafate) 1 gm PO ACHS [facility] Last Admin: 09/10/16 09:54 Dose: 1 gm Zolpidem Tartrate (Ambien) 5 mg PO QHS PRN PRN Reason: Sleep Last Admin: 09/09/16 01:53 Dose: 5 mg Exam - Constitutional Vitals: Temp Pulse Resp BP Pulse Ox 98.7 F 77 18 113/62 99 09/09/16 22:59 09/09/16 22:59 09/09/16 22:59 09/09/16 22:59 09/09/16 22:59 Results - Labs CBC & Chem 7: 09/09/16 06:52 09/10/16 05:01 Labs: Abnormal lab results 09/09/16 09/09/16 09/10/16 Range/Units 17:18 21:22 05:01 Potassium 3.5 L (3.6-5.0) mmol/L Glucose 176 H (65-100) mg/dL POC Glucose 284 H 261 H (70-105) 09/10/16 Range/Units 06:32 Potassium (3.6-5.0) mmol/L Glucose (65-100) mg/dL POC Glucose 228 H (70-105) Assessment and Plan N/V - etiology unclear. No prior hx of DM-associated complications. - check GB ultrasound
--- NOTE | 2016-09-10 16:25 | Progress Note ---
Assessment and Plan Assessment and plan: Nausea/vomiting and abdominal pain, could be due to gastritis Acute gastroparesis, rulled out by normal gastric emptying dtudy DM type 1 Leukocytosis, likley stress induced LORNA, likley due to dehydration/vasomotor nephropathy, resolved Bacterial vaginosis GI and DVT Px Plan: Cont iv fluid hydration as needed pain meds gastric emptying study was normal today cont on reglan, carafate, protonix CT abdomen has no acute finding cont on clear liquid cont on flagyl IV Cont subqu insulin consulted GI today, recommended abdominal US her lipase was normal History Interval history: Patient seen and examined. Medical records and medication list reviewed. No acute event overnight noted by the RN. Patient cont to have poor oral intake, poorly tolerating clear liquid gastric emptying study was normal this am Hospitalist Physical - Physical exam Narrative exam: GENERAL: AAF lying on bed appeared to be in mild discomfort. HEENT: Normocephalic. Atraumatic. No conjunctival congestion or icterus. Patient has moist mucous membranes. NECK: Supple. Trachea midline. CHEST/LUNGS: Clear to auscultated bilaterally, breathing nonlabored. No wheezes crackles or rhonchi. HEART/CARDIOVASCULAR: Regular in rate and rhythm. S1 and S2 positive. ABDOMEN: Abdomen is soft, mild diffuse tender. Patient has normal bowel sounds. SKIN: There is no rash. Warm and dry. NEURO: No focal motor deficit. Follows command. MUSCULOSKELETAL: No joint effusion or tenderness. EXTRIMITY: No edema, no cyanosis or clubbing. PSYCH: Cooperative. - Constitutional Vitals: Temp Pulse Resp BP Pulse Ox 98.7 F 77 18 113/62 99 09/09/16 22:59 09/09/16 22:59 09/09/16 22:59 09/09/16 22:59 09/09/16 22:59 Results - Labs CBC & Chem 7: 09/09/16 06:52 09/10/16 05:01 Labs: Laboratory Last Values WBC 10.9 K/mm3 (4.5-11.0) 09/09/16 06:52 RBC 4.29 M/mm3 (3.65-5.03) 09/09/16 06:52 Hgb 11.3 gm/dl (10.1-14.3) 09/09/16 06:52 Hct 36.1 % (30.3-42.9) 09/09/16 06:52 MCV 84 fl (79-97) 09/09/16 06:52 MCH 26 pg (28-32) L 09/09/16 06:52 MCHC 31 % (30-34) 09/09/16 06:52 RDW 18.0 % (13.2-15.2) H 09/09/16 06:52 Plt Count 333 K/mm3 (140-440) 09/09/16 06:52 Lymph % (Auto) 25.7 % (13.4-35.0) 09/09/16 06:52 [place] % (Auto) 7.6 % (0.0-7.3) H 09/09/16 06:52 Eos % (Auto) 0.0 % (0.0-4.3) 09/09/16 06:52 Baso % (Auto) 0.3 % (0.0-1.8) 09/09/16 06:52 Lymph # 2.8 K/mm3 (1.2-5.4) 09/09/16 06:52 [place] # 0.8 K/mm3 (0.0-0.8) 09/09/16 06:52 Eos # 0.0 K/mm3 (0.0-0.4) 09/09/16 06:52 Baso # 0.0 K/mm3 (0.0-0.1) 09/09/16 06:52 Seg Neutrophils % 66.4 % (40.0-70.0) 09/09/16 06:52 Seg Neutrophils # 7.3 K/mm3 (1.8-7.7) 09/09/16 06:52 VBG pH 7.288 (7.320-7.420) L 09/07/16 12:18 Sodium 144 mmol/L (137-145) 09/10/16 05:01 Potassium 3.5 mmol/L (3.6-5.0) L 09/10/16 05:01 Chloride 105.9 mmol/L (98-107) 09/10/16 05:01 Carbon Dioxide 22 mmol/L (22-30) D 09/10/16 05:01 Anion Gap 20 mmol/L 09/10/16 05:01 BUN 12 mg/dL (7-17) 09/10/16 05:01 Creatinine 1.0 mg/dL (0.7-1.2) 09/10/16 05:01 Estimated GFR > 60 ml/min 09/10/16 05:01 BUN/Creatinine Ratio 12.00 % 09/10/16 05:01 Glucose 176 mg/dL (65-100) H 09/10/16 05:01 POC Glucose 228 (70-105) H 09/10/16 06:32 Lactic Acid 1.4 mmol/L (0.7-2.0) 09/07/16 12:18 Calcium 8.6 mg/dL (8.4-10.2) 09/10/16 05:01 Total Bilirubin 0.4 mg/dL (0.1-1.2) 09/07/16 11:03 AST 29 units/L (5-40) 09/07/16 11:03 ALT 28 units/L (7-56) 09/07/16 11:03 Alkaline Phosphatase 102 units/L (35-129) 09/07/16 11:03 Total Creatine Kinase 91 units/L (30-135) 09/08/16 17:14 CK-MB (CK-2) 3.0 ng/mL (0.0-4.0) 09/08/16 17:14 CK-MB (CK-2) Rel Index 3.2 (0-4) 09/08/16 17:14 Troponin T < 0.010 ng/mL (0.00-0.029) 09/08/16 17:14 Total Protein 8.8 g/dL (6.3-8.2) H 09/07/16 11:03 Albumin 4.8 g/dL (3.9-5) 09/07/16 11:03 Albumin/Globulin Ratio 1.2 % 09/07/16 11:03 Lipase 13 units/L (13-60) 09/07/16 11:03 TSH 1.510 mlU/mL (0.270-4.200) 09/09/16 14:04 HCG, Quant < 2 mIU/mL (0-4) 09/07/16 12:18 Urine Color Yellow (Yellow) 09/07/16 13:08 Urine Turbidity Clear (Clear) 09/07/16 13:08 Urine pH 6.0 (5.0-7.0) 09/07/16 13:08 Ur Specific [place] 1.026 (1.003-1.030) 09/07/16 13:08 Urine Protein 100 mg/dl mg/dL (Negative) 09/07/16 13:08 Urine Glucose (UA) >=500 mg/dL (Negative) 09/07/16 13:08 Urine Ketones 80 mg/dL (Negative) 09/07/16 13:08 Urine Blood Sm (Negative) 09/07/16 13:08 Urine Nitrite Neg (Negative) 09/07/16 13:08 Urine Bilirubin Neg (Negative) 09/07/16 13:08 Urine Urobilinogen < 2.0 mg/dL (<2.0) 09/07/16 13:08 Ur Leukocyte Esterase Neg (Negative) 09/07/16 13:08 Urine WBC (Auto) 2.0 /HPF (0.0-6.0) 09/07/16 13:08 Urine RBC (Auto) < 1.0 /HPF (0.0-6.0) 09/07/16 13:08 U Epithel Cells (Auto) 1.0 /HPF (0-13.0) 09/07/16 13:08 Urine Mucus Few /HPF 09/07/16 13:08 Urine Opiates Screen Presumptive negative 09/07/16 13:08 Urine Methadone Screen Presumptive negative 09/07/16 13:08 Ur Barbiturates Screen Presumptive negative 09/07/16 13:08 Ur Phencyclidine Scrn Presumptive negative 09/07/16 13:08 Ur Amphetamines Screen Presumptive negative 09/07/16 13:08 U Benzodiazepines Scrn Presumptive negative 09/07/16 13:08 Urine Cocaine Screen Presumptive negative 09/07/16 13:08 U Marijuana (THC) Screen Presumptive positive 09/07/16 13:08 Drugs of Abuse Note Disclamer 09/07/16 13:08
[2016-09-10] MEDS: KCL 10MEQ/100ML 10 MEQ/100 ML BAG IV SCH (23:27)
[2016-09-10] MEDS: LEVEMIR SUB-Q SCH (23:31)
[2016-09-11] MEDS: NOVOLOG SUB-Q SCH ×3 (01:05→12:38)
[2016-09-11] MEDS: ZOFRAN IV PRN (01:59)
[2016-09-11] MEDS: PERCOCET 5/325 PO PRN (01:59)
[2016-09-11] MEDS: AMBIEN PO PRN (02:00)
--- NOTE | 2016-09-11 02:28 | Consultation ---
REASON FOR CONSULTATION: Nausea and vomiting. HISTORY OF PRESENT ILLNESS: The patient is a 26-year-old woman with type 1 diabetes since the age of 18. She was in her usual state of good health until 09/06/2016, when she noted feeling weak and then developing recurrent bouts of nausea and vomiting. Because of these ongoing symptoms, she presented to the Emergency Room and was admitted with ketones noted in her urine and an elevated glucose. She had a CT that was normal and she has had a gastric emptying study that was normal as well. She has persistent symptoms and states that anytime she tries to drink liquids, she becomes nauseated and vomits. She had complained of diffuse abdominal discomfort. Of note, she denies any prior similar symptoms. She states that her diabetes has been relatively well controlled in the past. She denies any fried or fatty food intolerance in the past. There has been no GERD symptoms. Her bowel movements are regular on a daily basis with no GI bleeding and no change. There have been no fevers, chills, or sweats. ALLERGIES: She has no known drug allergies. MEDICATIONS: At home, she is on insulin. PAST MEDICAL HISTORY: She denies any other significant past medical or surgical history. FAMILY HISTORY: Notable for diabetes. SOCIAL HISTORY: She denies ethanol usage and tobacco usage. REVIEW OF SYSTEMS: Essentially as noted above. Negative for cough, hemoptysis, dysuria, hematuria, chest pain, weight loss, or shortness of breath. PHYSICAL EXAMINATION: GENERAL: This is a young black female lying in bed in no apparent distress. VITAL SIGNS: Temperature 97.4, pulse 80, blood pressure 120/69. HEENT: She is anicteric and pupils are round and reactive. Oropharynx is clear. LUNGS: Clear bilaterally to auscultation. CARDIOVASCULAR: Regular with no extra heart sounds. ABDOMEN: Soft with good bowel sounds and no organomegaly or tenderness to palpation. RECTAL: Deferred. EXTREMITIES: Reveal no cyanosis, clubbing, or edema. NEUROLOGIC: She is alert, oriented x 3. Grossly nonfocal. LABORATORY DATA: White count is , hemoglobin 11.3, hematocrit 36.1, MCV of 84, platelet count of 333,000. Earlier in the admission, her white count was 19.3 on 09/07/2016. Sodium is 144, potassium 3.5, chloride 106, bicarbonate 22, BUN is 12, creatinine 1.0, glucose is 176. Liver enzymes were normal on admission with an AST of 29, ALT of 28, alkaline phosphatase 102, and a total bilirubin of 0.4. Her albumin was 4.8, lipase was normal at 13 on admission. Tox screen was positive for marijuana. CT was normal of the abdomen and pelvis. IMPRESSION: Nausea/vomiting -- etiology unclear. The patient is a diabetic and diabetic enteropathy or neuropathy certainly needs to be considered. However, other possibilities including biliary colic also need to be excluded. Peptic ulcer disease is less likely though I agree with empiric use of the pantoprazole. No other clear etiology is noted. PLAN: 1. Check gallbladder ultrasound. 2. Continue IV hydration and conservative management. 3. If ultrasound negative, we will do a HIDA scan with CCK. 4. May consider possible EGD in the future. JOB# [id number] HRC/NTS
[2016-09-11] MEDS: KCL 10MEQ/100ML 10 MEQ/100 ML BAG IV SCH (03:28)
[2016-09-11] MEDS: FLAGYL 500 MG/100 ML 500 MG/100 ML BAG IV SCH (05:33)
[2016-09-11 06:49] LABS: Anion Gap 20 mmol/L; Blood Urea Nitrogen 10 mg/dL (7-17); Calcium 8.4 mg/dL (8.4-10.2); Carbon Dioxide 22 mmol/L (22-30); Chloride 106.7 mmol/L (98-107); Glucose 128 mg/dL (65-100); Potassium 3.2 mmol/L (3.6-5.0); Sodium 145 mmol/L (137-145)
[2016-09-11] MEDS ORDERED: POTASSIUM CHLORIDE PO ONE (08:00)
--- NOTE | 2016-09-11 08:24 | Ultrasound Report ---
RIGHT UPPER QUADRANT ULTRASOUND: HISTORY: Nausea and vomiting. Technique: Transabdominal ultrasound imaging with Doppler interrogation. FINDINGS: The gallbladder is sonolucent with no evidence of stones, polyps or wall thickening. The common duct is normal in caliber. Images of the liver parenchyma, pancreas, right kidney and aorta are within normal limits. No perihepatic ascites. IMPRESSION: Unremarkable right upper quadrant ultrasound.
[2016-09-11] MEDS: CARAFATE PO SCH (10:24)
[2016-09-11] MEDS: PROTONIX IV SCH (10:25)
[2016-09-11] MEDS: REGLAN IV SCH (10:25)
--- NOTE | 2016-09-11 10:32 | Discharge Summary ---
Providers - Providers Date of Admission: 09/07/16 13:56 Date of discharge: 09/11/16 Attending physician: PANCHO RODRIGUEZ 09/10/16 10:34 Consult to Physician [CONS] Routine Consulting Provider: ANNE GALLARDO Reason For Exam: intractable nausea and vomiting Place consult to:: pest control supervisor GI Notified:: yes Phone number called:: [phone] Was contact made?: Yes If yes, spoke with:: Juan Time called:: 10:42 Primary care physician: [employer] Hospitalization Condition: Good Hospital course: Nausea/vomiting and abdominal pain, could be due to gastritis Acute gastroparesis, normal gastric emptying study but on Reglan, so false negative is possible DM type 1 Leukocytosis, likley stress induced==>SIRS poa LORNA, likley due to dehydration/vasomotor nephropathy, resolved Bacterial vaginosis GI and DVT Px Disposition: STILL A PATIENT Time spent for discharge: 32 minutes Core Measure Documentation - Palliative Care Palliative Care/ Comfort Measures: Not Applicable - Core Measures Any of the following diagnoses?: none - VTE Discharge Requirements Deep Vein Thrombosis/Pulmonary Embolism Present on Admission: No Has pt received <5 days of overlap therapy or INR<2.0: No Anticoagulant overlap therapy prescribed at discharge: No Contraindication No Overlap Therapy order at DC: Not Indicated Exam - Physical Exam Narrative exam: Pt asked, "can i go home today?" tolerating a diet - Constitutional Vitals: Temp Pulse Resp BP Pulse Ox 98.2 F 70 16 102/59 98 09/11/16 07:44 09/11/16 07:44 09/11/16 07:44 09/11/16 07:44 09/11/16 07:44 General appearance: Present: no acute distress - EENT Eyes: Present: PERRL, EOM intact ENT: hearing intact, clear oral mucosa, dentition normal - Neck Neck: Present: supple, normal ROM - Respiratory Respiratory effort: normal Respiratory: bilateral: CTA - Cardiovascular Rhythm: regular Heart Sounds: Present: S1 & S2 - Extremities Extremities: no ischemia, No edema Peripheral Pulses: within normal limits - Abdominal General gastrointestinal: Present: soft, tender, non-distended, normal bowel sounds. Absent: distended, rigid Localized gastrointestinal: tender: diffuse - Integumentary Integumentary: Present: clear, warm, dry - Musculoskeletal Musculoskeletal: strength equal bilaterally - Psychiatric Psychiatric: appropriate mood/affect - Neurologic Neurologic: CNII-XII intact, no focal deficits - Allied Health Allied health notes reviewed: nursing Plan Activity: advance as tolerated (no strenous activity until cleared by pcp) Diet: diabetic, clear liquids, advance as tolerated Follow up with: PRIMARY CARE, [Primary Care Provider] - 3-5 Days Prescriptions: oxyCODONE /ACETAMINOPHEN [Percocet 5/325 mg] 1 tab PO Q4H PRN #30 tablet PRN Reason: Pain , Severe (7-10) Pantoprazole [Protonix] 40 mg PO QDAY #30 tablet Sucralfate [Carafate] 1 gm PO ACHS #1 bottle
[2016-09-11] MEDS: LOVENOX SUB-Q SCH (10:34)
[2016-09-11] MEDS: POTASSIUM CHLORIDE PO ONE ×2 (11:21→11:26)
--- NOTE | 2016-09-11 11:24 | Gastroenterology Progress Note ---
Assessment and Plan 1. N/V Unclear etiology but appears to have resolved on clears. Last WBC WNL. No further N/V. Advance diet as rick. GB US negative. GES negative ( on Reglan). Patient wants to go home and has discharge orders. Office information provided to patient and she will follow up in office in 2 weeks. All questions answered. Subjective Date of service: 09/11/16 Interval history: Patient reports she is having no further N/V. Tolerating clear liquid diet well. Wants to go home. Objective - Constitutional Vitals: Temp Pulse Resp BP Pulse Ox 98.2 F 70 16 102/59 98 09/11/16 07:44 09/11/16 07:44 09/11/16 07:44 09/11/16 07:44 09/11/16 07:44 General appearance: no acute distress - Respiratory Respiratory: bilateral: CTA - Cardiovascular Rhythm: regular Heart Sounds: Present: S1 & S2 - Gastrointestinal General gastrointestinal: Present: soft, non-tender, normal bowel sounds - Integumentary Integumentary: Present: warm, dry - Psychiatric Psychiatric: cooperative - Labs CBC & Chem 7: 09/09/16 06:52 09/11/16 06:11 Labs: Laboratory Results - last 24 hr 09/10/16 09/10/16 09/11/16 12:26 17:23 00:53 Sodium Potassium Chloride Carbon Dioxide Anion Gap BUN Creatinine Estimated GFR BUN/Creatinine Ratio Glucose POC Glucose 248 H 312 H 272 H Calcium 09/11/16 09/11/16 06:11 06:32 Sodium 145 Potassium 3.2 L Chloride 106.7 Carbon Dioxide 22 Anion Gap 20 BUN 10 Creatinine 1.0 Estimated GFR > 60 BUN/Creatinine Ratio 10.00 Glucose 128 H POC Glucose 123 H Calcium 8.4
[2016-09-11 13:22] VITALS: BP 127/74
== END 2016-09-11 14:00 | disposition home or self-care (01) | DRG 391 ==
LOC: ED 09:41 → 3A 13:56
PROVIDERS: ADMIT Internal Medicine; ATTEND Internal Medicine
DX: K29.70 Gastritis, unspecified, without bleeding (principal); N17.0 Acute kidney failure with tubular necrosis; E10.43 Type 1 diabetes mellitus with diabetic autonomic (poly)neuropathy; K31.84 Gastroparesis; N76.0 Acute vaginitis; E86.0 Dehydration; D72.829 Elevated white blood cell count, unspecified; K27.9 Peptic ulcer, site unspecified, unspecified as acute or chronic, without hemorrhage or perforation; F12.90 Cannabis use, unspecified, uncomplicated; R65.10 Systemic inflammatory response syndrome (SIRS) of non-infectious origin without acute organ dysfunction; Z79.4 Long term (current) use of insulin; Z82.49 Family history of ischemic heart disease and other diseases of the circulatory system
CPT/HCPCS: 36415; 74176; 76705; 78264; 80048; 80053; 80307; 81001; 82140; 82550; 82553; 82805; 82962; 83690; 84443; 84484; 84702; 85025; 85027; 87210; 87591; 93005; 93010; 96361; 96374; 96375; 96376; A9541; C9113; J1170; J1650; J1815; J1818; J2270; J2405; J2765; J3480; J7030; J7040

== ENCOUNTER 2016-10-11 15:03 | Inpatient (IN) | payer MEDICAID ==
[2016-10-11] MEDS ORDERED: ATIVAN IV ONE (15:33)
[2016-10-11] MEDS ORDERED: NACL 0.9% 1000 ML 1,000 ML IV ONE ×4 (15:33→17:29)
[2016-10-11] MEDS ORDERED: D50W (25GM) IV PRN ×2 (15:41→22:28)
[2016-10-11 16:41] LABS: Mean Corpuscular HGB Conc 26 % (30-34); Mean Corpuscular Volume 99 fl (79-97); Platelet Count 403 K/mm3 (140-440); Red Blood Count 4.12 M/mm3 (3.65-5.03); Red Cell Distribution Width 18.2 % (13.2-15.2)
[2016-10-11 16:43] LABS: INR 1.35 (0.87-1.13)
[2016-10-11 16:44] LABS: Partial Thromboplastin Time 27.7 Sec. (24.2-36.6)
[2016-10-11 16:45] LABS: Alanine Aminotransferase 27 units/L (7-56); Albumin 4.7 g/dL (3.9-5); Albumin/Globulin Ratio 1.4 %; Alkaline Phosphatase 133 units/L (35-129); Bilirubin,Total 0.2 mg/dL (0.1-1.2); Hematocrit 40.6 % (30.3-42.9); Hemoglobin 10.6 gm/dl (10.1-14.3); Mean Corpuscular Hemoglobin 26 pg (28-32); Phosphorous 11.6 mg/dL (2.5-4.5); White Blood Count 56.1 K/mm3 (4.5-11.0)
[2016-10-11 16:47] LABS: Bilirubin,Direct < 0.2 mg/dL (0-0.2)
[2016-10-11 16:49] LABS: Urine Drugs of Abuse Note Disclamer
--- NOTE | 2016-10-11 16:54 | XRay Report ---
CHEST ONE VIEW INDICATION: Difficulty breathing. COMPARISON: None similar. FINDINGS: Portable, single, frontal chest radiograph demonstrates normal cardiomediastinal silhouette. Clear lungs. Mild patient tilt. Unremarkable bones. Extrinsic EKG leads. CONCLUSION: No acute disease in the chest. Thank you for the opportunity to participate in this patient's care.
[2016-10-11 16:55] LABS: Anion Gap 49 mmol/L; BUN/Creatinine Ratio 15.45; Blood Urea Nitrogen 34 mg/dL (7-17); Chloride 80.6 mmol/L (98-107); Sodium 126 mmol/L (137-145)
[2016-10-11 16:56] LABS: Calcium 8.8 mg/dL (8.4-10.2)
[2016-10-11 16:59] LABS: Carbon Dioxide 4 mmol/L (22-30); Glucose 1061 mg/dL (65-100); Potassium 7.9 mmol/L (3.6-5.0)
[2016-10-11] MEDS ORDERED: VANCOMYCIN PHARMACY TO DOSE IV SCH (17:00)
[2016-10-11] MEDS ORDERED: NovoLIN R 100 UNITS in NACL 0.9% 99 ML IV SCH (17:00)
--- NOTE | 2016-10-11 17:03 | Admit Criteria Form ---
Admission Criteria Documentation: INTENSIVE CARE UNIT ADMISSION Intensive Care Admission Guidelines ( Place 'X' for any and all applicable criteria): Admission to ICU may be indicated when need is demonstrated by ANY ONE of the following (1)(2)(3)(4)(5)(6)(7)(8)(9) : [ ]I. Vital sign abnormalities, including ANY ONE of the following: [ ]a) Systolic arterial pressure less than 90 mm Hg, or 20 mm Hg below the patient's usual pressure [ ]b) Diastolic arterial pressure greater than 120 mm Hg [ ]c) Mean arterial pressure less than 70 mm Hg [A] [ ]d) Pulse less than 40 or greater than 140 beats per minute (in adult) [ ]e) Respiratory rate greater than 35 or less than 8 breaths per minute [X]II. Laboratory findings (new), including ANY ONE of the following (10): [ ]a) Saturation of arterial oxygen less than 88% or partial pressure of oxygen less than 60 mm Hg (8.0 kPa) despite oxygen supplementation [ ]b) Rising partial pressure of carbon dioxide with respiratory acidosis [ ]c) pH less than 7.2 or greater than 7.65 [X]d) Serum glucose greater than 800 mg/dL (44.4 mmol/L) [ ]e) Serum sodium less than 110 mEq/L (mmol/L) or greater than 160 mEq/L (mmol/L) [X]f) Serum potassium less than 2 mEq/L (mmol/L) or greater than 7 mEq /L (mmol/L) [ ]g) Serum calcium greater than 15 mg/dL (3.75 mmol/L) [ ]h) Serum phosphorus less than 1 mg/dL (0.32 mmol/L) [ ]i) Toxic drug level or poisoning causing or likely to cause neurologic or Hemodynamic instability [ ]j) Less severe laboratory abnormalities contributing to ANY ONE of the following: [ ]i) Seizure [ ]ii) Altered mental status [ ]iii) Muscle weakness [ ]iv) Arrhythmias [ ]v) Hemodynamic instability [ ]vi) Other significant clinical manifestations [ ]III. Electrocardiogram (or cardiac monitoring) findings, including ANY ONE of the following: [ ]a) Inherently unstable or life-threatening arrhythmia (eg, sustained ventricular tachycardia, ventricular fibrillation, asystole) [ ]b) Arrhythmia causing severe hypotension (eg, bradycardia, tachycardia) [ ]c) Complete heart block causing severe hypotension [ ]d) Other findings indicative of a need for intensive care (eg , GA) [ ]IV.Physical findings, including ANY ONE of the following: [ ]a) Threatened airway [ ]b) Sudden altered mental status [ ]c) Repeated or prolonged seizures [ ]d) Coma [ ]e) New-onset anuria (urine output <0.1 mL/kg/hr over 4 h) [ ]f) Cyanosis (new) [ ]g) Cardiac tamponade [ ]h) Status post respiratory or cardiac arrest [ ]i) Severe bolanos (eg, partial thickness bolanos over more than 10% of body surface, third-degree bolanos) [ ]j) Findings consistent with abdominal emergency (eg, peritoneal signs) [ ]V.Imaging findings, such as dissecting aneurysm or ruptured viscus [ ].Specific intervention or monitoring needed, as indicated by ANY ONE of the following: [ ]a) New need for assisted ventilation, invasive or noninvasive(11) [ ]b) New need for intubation (eg, to protect airway) [ ]c) New tracheostomy (less than 48 hours old) [ ]d) Hourly vital signs or neurologic checks [ ]e) Pulmonary artery line monitoring needed [ ]f) Continuous arterial line monitoring needed [ ]g) Continuous IV vasoactive drugs [ ]h) Continuous IV antiarrhythmics [ ]i) Large volume IV fluid resuscitation (eg, greater than 6 L per day ) [ ]j) Large or rapid transfusion needs (eg, more than 6 units within 24 hours) [ ]k) High-risk IV treatment, such as bolus IV medicatns or mannitol infusion [ ]l) Acute cardiac pacing [ ]m) Intra-aortic balloon pump [ ]n) Ventricular assist device [ ]o) Cardioversion [ ]p) Pericardiocentesis [ ]q) Hemodialysis in unstable patient [ ]r) Continuous renal replacement therapy (eg, continuous veno-venous hemofiltration) [ ]s) Peritoneal dialysis initiation [ ]t) Emergency bronchoscopic therapy (eg, for hemoptysis) [ ]u) Emergency endoscopic therapy for bleeding [ ]v) Balloon tamponade for variceal bleeding [ ]w) Intracranial pressure monitoring or tissue oxygen monitoring [ ]x) Ventriculostomy monitoring [ ]y) Treatment of ongoing seizures [ ]z) Induced hypothermia or coma [ ]aa) Ongoing frequent testing and treatment for acute conditions, including ANY ONE of the following: [ ]i) Correction of severe metabolic acidosis/ alkalosis [ ]ii). Severe fluid overload [ ]iii) Cerebral edema [ ]iv) Monitoring or suctioning for respiratory insufficiency or acidosis [ ]v) Monitoring for active bleeding [ ]bb) Rapid desensitization for high-risk hypersensitivity reaction to required medication (eg, penicillin)(12) [ ]cc) Other need for treatment or monitoring not available outside the ICU [ ]VII.Cardiology diagnoses or procedures, including ANY ONE of the following (13)(14)(15)(16)(17): [ ]a) Chest pain with ANY ONE of the following: [ ]i) Hemodynamic instability [ ]ii) Suspicion of diagnoses needing ICU care (eg, aortic dissection) [ ]iii) New unstable or symptomatic arrhythmia or ECG finding (eg, ventricular tachycardia, ventricular fibrillation, advanced heart block) [ ]iv) Syncope or near-syncope [ ]v) SBP less than 100 mm Hg [ ]vi) Pulmonary edema thought to be due to ischemia [ ]vii) New or worsening mitral regurgitation murmur, S3 , or rales [ ]b) Acute GA with complications as indicated by ANY ONE of the following: [ ]i) Persistent chest pain [ ]ii) Hemodynamic instability [ ]iii) New unstable or symptomatic arrhythmia or ECG finding (eg, ventricular tachycardia, ventricular fibrillation, advanced heart block) [ ]iv) Syncope or near-syncope [ ]v) Pulmonary edema thought to be due to ischemia [ ]vi) New or worsening mitral regurgitation murmur, S3 , or rales [ ]vii) New-onset bundle branch block [ ]viii) Hemorrhagic complication (eg, intracranial or access site bleed following thrombolysis) [ ]c) Cardiac arrhythmia or conduction defect with Hemodynamic instability [ ]d) Complication of cardiac ablation, including ANY ONE of the following(18): [ ]i) Pericardial tamponade [ ]ii) Hemodynamic instability [ ]iii) Thromboembolic stroke [ ]iv) Aortic valve injury [ ]v) Vascular injuries [ ]vi) Esophageal perforation [ ]vii) Severe arrhythmia [ ]viii) Air embolism [ ]ix) Other severe complication [ ]e) Cardiogenic shock [ ]f) Hypertensive emergency, with need for ANY ONE of the following(19): [ ]i) IV antihypertensive therapy [ ]ii) Invasive hemodynamic monitoring (eg, arterial line) [ ]g) Pericardial tamponade [ ]h) Severe heart failure, with ANY ONE of the following(15): [ ]i) Respiratory failure [ ]ii) Cardiogenic shock [ ]iii) Severe arrhythmias [ ]iv) Evidence of cardiac ischemia [ ]i Myocarditis, with ANY ONE of the following [ ]i) Hemodynamic instability [ ]ii) Respiratory failure [ ]iii) Severe arrhythmias [ ]iv) Need for cardiac assist device (eg, left ventricular assist device or extracorporeal membrane oxygenator) [ ]j) Status post cardiac arrest(20) [ ]VIII. Cardiovascular Surgery diagnoses or procedures, including ANY ONE of the following.(21)(22): [ ]a) Acute aortic dissection [ ]b) Aortic surgery for ANY ONE of the following: [ ]i) Thoracic aneurysm [ ]ii) Abdominal aneurysm with ANY ONE of the following(23): [ ]1) Emergency repair [ ]2) Severe cardiopulmonary disease [ ]3) Dialysis-dependent renal failure [ ]4) Need for IV blood pressure control [ ]5) Need for ongoing ventilatory support [ ]6) Perioperative complications, including ANY ONE of the following: [ ]A. Sustained Hemodynamic instability [ ]B. Cardiac ischemia or arrhythmia [ ]C. Hypothermia (less than 35 degrees C (95 degrees F)) [ ]D. Blood transfusion greater than 3 L [ ]iii) Aortic coarctation operative excision or repair [ ]iv) Aortofemoral or aortoiliac bypass with ANY ONE of the following: [ ]1) Continued intubation [ ]2) Hemodynamic instability [ ]3) Need for IV blood pressure control [ ]4) Severe cardiopulmonary disease [ ]c) Cardiac surgery [ ]d) Carotid endarterectomy or stent placement with ANY ONE of the following: [ ]i) Blood pressure <100/60 mm Hg or >160/90 mm Hg despite 4 h of postanesthetic management [ ]ii) New or progressive neurologic defect [ ]iii) Chest pain [ ]iv) Continued intubation [ ]v) Heart failure [ ]vi) Airway compromise by hematoma or vocal cord paralysis [ ]vi) Need for IV blood pressure control [ ]e) Heart transplant [ ]f) Infrainguinal peripheral vascular surgery with ANY ONE of the following: [ ]i) Hemodynamic instability [ ]ii) Acute complications such as persistent chest pain or respiratory distress [ ]iii) Requirement for IV antiarrhythmic or vasoactive agent [ ]iv) Requirement for pulmonary artery catheter [ ]v) Severe hypertension despite 6 hours of recovery room management [ ]g) Complications of any surgery requiring ICU intervention as indicated by ANY ONE of the following(24): [ ]i) Hemodynamic instability [ ]ii) Myocardial infarction with complications (eg, severe arrhythmia, hypotension) [ ]iii) Excessive bleeding or severe coagulopathy [ ]iv) Respiratory failure [ ]v) Renal failure [ ]vi) Airway instability or obstruction [ ]vii) Neurologic deterioration [ ]viii) Infection with likelihood of sepsis syndrome or significant fluid shifts [ ]IX.Endocrinology diagnoses or procedures, including ANY ONE of the following(25)(26): [ ]a) Adrenal crisis with Hemodynamic instability(27) [ ]b) Pheochromocytoma with ANY ONE of the following(28): [ ]i) Hypertensive crisis [ ]ii) Postoperative Hemodynamic instability [ ]iii) Need for IV vasoactive therapy [ ]iv) Need for invasive arterial or central venous pressure monitoring [ ]v) Organ ischemia [ ]c) Diabetic hyperosmolar state with obtundation or coma [X]d) Diabetic ketoacidosis with ANY ONE of the following: [ ]i) Serum pH less than 7.10 or bicarbonate level less than 10 mEq/L (mmol/L) [X]ii) Rapidly changing electrolytes [ ]iii) Hypotension [X]iv) Requirement for large-volume fluid resuscitation [ ]v) Respiratory insufficiency [ ]vi) Life-threatening cardiac dysrhythmias [ ]vii) Obtundation [X]viii) Severe precipitating condition such as sepsis, stroke, or acute GA [ ]e) Severe hypoglycemia requiring continuous glucose infusion with frequent adjustment or glucagon infusion [ ]f) Hyperthyroidism associated with thyroid storm (also known as thyrotoxic crisis)(29) [ ]g) Myxedema with life-threatening neurologic, cardiovascular, electrolyte, or renal dysfunction(29) [ ]h) Diabetes insipidus that cannot be controlled with routine medication (30) [ ]X. Gastroenterology diagnoses or procedures, including ANY ONE of the following: [ ]a) Esophageal perforation(31) [ ]b) Severe caustic esophageal injury(31) [ ]c) Liver disease complications with ANY ONE of the following(32): [ ]i) Severe hepatic encephalopathy (eg, stage 3 (somnolent) or higher) [ ]ii) Type 1 hepatorenal syndrome [ ]iii) Other cirrhosis-associated causes of acute renal failure ( eg, severe hypovolemia, acute tubular necrosis, abdominal compartment syndrome) [ ]iv) Hemodynamic instability [ ]v) Respiratory insufficiency due to severe ascites [ ]vi) Sepsis due to spontaneous bacterial peritonitis [ ]d) Fulminant hepatic failure when aggressive intervention or transplant is anticipated (32) [ ]e) Gastrointestinal hemorrhage (upper or lower) with ANY ONE of the following(33)(34): [ ]i) Active ongoing bleeding [ ]ii) Transfusion requirement greater than 2 units of packed red cells [ ]iii) Bleeding ulcer or nonbleeding visible vessel seen on endoscopy [ ]iv) Bleeding ulcer, visible blood vessel, bleeding (or recently bleeding) esophageal varices seen on endoscopy [ ]v) Hypotension [ ]vi) Syncope [ ]vii) Coagulopathy [ ]viii) Hepatic cirrhosis [ ]ix) Abnormal mental status [ ]x) Unstable comorbid condition or end organ dysfunction [ ]xi) Ischemia due to poor perfusion [ ]xii) Need for hemodynamic monitoring (eg, for patients with heart failure or valvular disease) [ ]f) Severe pancreatitis indicated by ANY ONE of the following (35)(36): [ ]i) Requirement for aggressive fluid resuscitation [ ]ii) Life-threatening electrolyte abnormality [ ]iii) SBP less than 90 mm Hg [ ]iv) Persistent tachycardia greater than 120 beats per minute [ ]v) Patients at high risk of rapid deterioration, including ANY ONE of the following: [ ]1) Calculated Frankford II score greater than 8 [ ]2) Age older than 55 years [ ]3) BMI greater than 30 [ ]4) Greater than 30% pancreatic necrosis on CT scan [ ]5) Admission hematocrit greater than 47% (0.47) [ ]vi) Organ failure as indicated by ANY ONE of the following: [ ]1) Serum creatinine greater than 1.9 mg/dL (168 micromoles/L) [ ]2) Requirement for mechanical ventilation [ ]3) Urine output less than 50 mL/hour [ ]4) Arterial partial pressure of oxygen less than 60 mm Hg (8.0 kPa) despite supplemental oxygen [ ]5) PiO2/FiO2 ratio less than 300 [ ]vii) Expanding pseudocyst [ ]viii) Infected pancreas [ ]ix) Pleural effusion [ ]x) Encephalopathy [ ]xi) Severe comorbidities [ ]XI. General Surgery diagnoses or procedures, including ANY ONE of the following (9)(24)(37): [ ]a) Acute abdominal catastrophe (eg, ischemic bowel, perforated viscus, abdominal compartment syndrome) [ ]b) Complications of any surgery requiring ICU intervention as indicated by ANY ONE of the following: [ ]i) Hemodynamic instability [ ]ii) GA with complications (eg, severe arrhythmia, hypotension) [ ]iii) Excessive bleeding or severe coagulopathy [ ]iv) Respiratory failure [ ]v) Renal failure [ ]vi) Airway instability or obstruction [ ]vii) Neurologic deterioration [ ]viii) Infection with likelihood of sepsis syndrome or significant fluid shifts [ ]c) Multiple trauma with complicating features as indicated by ANY ONE of the following(38): [ ]i) Impending acute respiratory failure due to lung contusion, unstable chest wall, aspiration, or hemorrhage [ ]ii) Facial or neck injury threatening airway patency [ ]iii) Cardiac contusion [ ]iv) Pericardial effusion [ ]v) Bronchial tear [ ]vi) Hemodynamic instability [ ]vii) Rhabdomyolisis requiring large volume IV fluid resuscitation [ ]viii)Other significant complicating feature [ ]d) Organ transplant(39)(40) [ ]e) Esophagectomy(31) [ ]f) Whipple procedure [ ]g) Preoperative or postoperative patients requiring ICU intervention, such as hemodynamic optimization, pulmonary artery monitoring, mechanical ventilation, or extensive nursing care [ ]h) Obesity surgery patients with ANY ONE of the following(41): [ ]i) ICU management needs for comorbid conditions, such as sleep apnea or airway management needs [ ]ii) Failed postoperative extubation [ ]iii) Intraoperative complications [X]XII. Nephrology diagnoses or procedures, including acute, or acute on chronic renal insufficiency with ANY ONE of the following(44)(45): [X]a) Life-threatening electrolyte or acid-base disorder [ ]b) Acute pulmonary edema [ ]c) Hypotension or significant volume depletion [ ]d) Hypertensive emergency [ ]e) Underlying critical illness contributing to renal failure (eg, septic shock, hepatorenal syndrome) [ ]f) Need for continuous renal replacement therapy [ ]XIII. Neurology diagnoses or procedures, including ANY ONE of the following (46)(47) [B] : [ ]a) Intracranial hypertension requiring ANY ONE of the following(49 ): [ ]i) Induced barbiturate coma [ ]ii) Pharmacologic paralysis or deep sedation and mechanical ventilation [ ]iii) Intracranial pressure or cerebral perfusion pressure monitoring [ ]iv) IV mannitol or hypertonic saline [ ]v) Frequent serum osmolality measurements [ ]b) Seizures with ANY ONE of the following(50): [ ]i) Status epilepticus [ ]ii) Airway compromise requiring or likely to require mechanical ventilation [ ]iii) Severe electrolyte abnormalities causing seizures [ ]c) Progressive acute neurologic dysfunction requiring or likely to require ANY ONE of the following: [ ]i) Mechanical ventilation [ ]ii) Intracranial pressure or cerebral perfusion pressure monitoring [ ]d) Meningitis with obtundation or respiratory insufficiency [C])(51 ) [ ]e) Stroke with ANY ONE of the following(52)(53): [ ]i) Need for observation after thrombolysis [ ]ii) Altered mental status [ ]iii) Need for mechanical ventilation [ ]iv) Elevated intracranial pressure [ ]v) Hypertensive emergency [ ]vi) High risk of progressive infarction or deterioration based on CT scan or MRI [ ]vii) Hemorrhage [ ]f) Acute coma [ ]g) Acute spontaneous intracranial hemorrhage(53)(54) [ ]h) Drug ingestion with ANY ONE of the following(56)(57): [ ]i) Hemodynamic instability [ ]ii) Respiratory depression (partial pressure of carbon dioxide >45 mm Hg (6.0 kPa), new) [ ]iii) Patient requires or is likely to require mechanical ventilation. [ ]iv) Arrhythmias [ ]v) Seizures [ ]vi) Altered mental status (Renault coma scale score less than 12, new) [ ]vii) Significant risk for acute deterioration (eg, toxic level of hypotension or arrhythmia-producing drug) [ ]viii) Drug-induced hypothermia or hyperthermia [ ]ix) Increasing metabolic acidosis [ ]x) Severe hypoglycemia requiring glucose infusion with frequent adjustment or glucagon administration [ ]xi) Ongoing antidote administration (eg, continuous naloxone infusion, organophosphate toxicity treatment) [ ]xii) Emergency intervention need (eg, dialysis, hemoperfusion, restraints) [ ]i) Brain with preparation for organ donation [ ]j) Traumatic brain injury with ANY ONE of the following(55): [ ]i) Altered mental status (eg, new onset Elma coma scale score less than 10) [ ]ii) Cerebral edema [ ]iii) Cerebral hemorrhage [ ]iv) Increased intracranial pressure [ ]XIV. Neurosurgery diagnoses or procedures, including ANY ONE of the following(49)(58)(59): [ ]a) Emergency craniotomy for tumor, hematoma, or trauma [ ]b) Elective craniotomy for posterior fossa tumor [ ]c) Elective craniotomy (supratentorial) for tumor with ANY ONE of the following: [ ]i) Postoperative neurologic deficit or impaired consciousness 6 hours after completion of procedure [ ]ii) SBP less than 110 mm Hg or greater than 180 mm Hg despite therapy [ ]iii) Extensive operative blood loss [ ]iv) High anesthesia risk (eg, [place] [employer] score greater than 3 [ ]d) Craniotomy for aneurysm with ANY ONE of the following: [ ]i) Postoperative neurologic deficit or impaired consciousness 6 hours after completion of procedure [ ]ii) Preoperative Wong-Martínez grade 3 or higher [ ]iii) SBP less than 110 mm Hg or greater than 180 mm Hg despite therapy [ ]iv) Intracranial pressure monitoring [ ]e) Acute spinal cord injury [ ]f) Subarachnoid hemorrhage [ ]g) Traumatic brain injury with ANY ONE of the following: [ ]i) Acute mental status change (Renault coma scale score less than 10) [ ]ii) CT scan showing cerebral edema or hemorrhage [ ]iii) Intracranial pressure monitoring [ ]h) Complications of any surgery requiring ICU intervention as indicated by ANY ONE of the following(60): [ ]i) Hemodynamic instability [ ]ii) GA with complications (eg, severe arrhythmia, hypotension) [ ]iii) Excessive bleeding or severe coagulopathy [ ]iv) Respiratory failure [ ] v) Renal failure [ ]vi) Airway instability or obstruction [ ]vii) Neurologic deterioration [ ]viii) Infection with likelihood of sepsis syndrome or significant fluid shifts [ ]i) Preoperative or postoperative patients requiring ICU intervention, such as hemodynamic optimization, pulmonary artery monitoring, mechanical ventilation, or extensive nursing care [ ]XV.Obstetrics and Gynecology diagnoses or procedures, including ANY ONE of the ffg. (61)(62)(63): [ ]a) Severe peripartum condition as indicated by ANY ONE of the following: [ ]i) Eclampsia [ ]ii) Hypertensive emergency [ ]iii) HELLP syndrome (hemolysis, elevated liver enzymes, and low platelet count) [ ]iv) Pulmonary edema [ ]v) Respiratory failure [ ]vi) Pulmonary embolism [ ]vii) Anaphylactoid syndrome of (amniotic fluid embolus) [ ]viii) Ovarian hyperstimulation syndrome [D] [ ]ix) Acute fatty liver of (hepatic failure) [ ]x) Complications such as placental abruption or severe hemorrhage [ ]xi) Sepsis (eg, puerperal sepsis, chorioamnionitis, septic ) [ ]xii) cardiomyopathy with severe congestive heart failure (eg, respiratory failure, cardiogenic shock) [ ]b) Ruptured ectopic [ ]c) Complications of any surgery requiring ICU intervention as indicated by ANY ONE of the following: [ ]i) Hemodynamic instability [ ]ii) GA with complications (eg, severe arrhythmia, hypotension) [ ]iii) Excessive bleeding or severe coagulopathy [ ]iv) Respiratory failure [ ]v) Renal failure [ ]vi) Airway instability or obstruction [ ]vii) Neurologic deterioration [ ]viii) Infection with likelihood of sepsis syndrome or significant fluid shifts [ ]d) Preoperative or postoperative patients requiring ICU intervention , such as hemodynamic optimization, pulmonary artery monitoring, mechanical ventilation, or extensive nursing care [ ]XVI.Ophthalmology diagnoses or procedures, including ANY ONE of the following (64): [ ]a) Complications of any surgery requiring ICU intervention, such as ANY ONE of the following: [ ]i) Hemodynamic instability [ ]ii) GA with complications (eg, severe arrhythmia, hypotension) [ ]iii) Excessive bleeding or severe coagulopathy [ ]iv) Respiratory failure [ ]v) Renal failure [ ]vi) Airway instability or obstruction [ ]vii) Neurologic deterioration [ ]viii) Infection with likelihood of sepsis syndrome or significant fluid shifts [ ]b) Preoperative or postoperative patients requiring ICU intervention , such as hemodynamic optimization, pulmonary artery monitoring, mechanical ventilation, or extensive nursing care [ ]XVII.Orthopedics diagnoses or procedures, including ANY ONE of the following [phone]): [ ]a) Complications of any surgery requiring ICU intervention as indicated by ANY ONE of the following: [ ]i) Hemodynamic instability [ ]ii) GA with complications (eg, severe arrhythmia, hypotension) [ ]iii) Excessive bleeding or severe coagulopathy [ ]iv) Respiratory failure [ ]v) Renal failure [ ]vi) Airway instability or obstruction [ ] vii) Neurologic deterioration [ ]viii) Infection with likelihood of sepsis syndrome or significant fluid shifts [ ]b) Multiple trauma with complicating features as indicated by ANY ONE of the following(38): [ ]i) Impending acute respiratory failure due to lung contusion, unstable chest wall, pneumothorax, aspiration, or hemorrhage [ ]ii) Facial or neck injury threatening airway patency [ ]iii) Cardiac contusion [ ]iv) Rhabdomyolysis requiring large volume IV fluid resuscitation [ ]v) Pericardial effusion [ ]vi) Bronchial tear [ ]vii) Hemodynamic instability [ ]viii) Other significant complicating feature [ ]c) Threatened compartment syndrome [ ]d) Severe bolanos with ANY ONE of the following(68)(69)(70): [ ]i) Hypotension or requirement for aggressive fluid resuscitation [ ]ii) Respiratory insufficiency with requirement for high- flow oxygen or mechanical ventilation [ ]iii) Carbon monoxide poisoning [ ]iv) Life-threatening cardiac, renal, pulmonary, or neurologic dysfunction [ ]v) High-voltage (eg, 1000 volts or more) electrical burn [ ]vi) Requirement for frequent or intensive debridement and dressing changes; examples include: [ ]1) Partial thickness bolanos greater than 10% of body surface [ ]2) Bolanos on face, hands, feet, genitalia, perineum , or major joints [ ]3) Third-degree bolanos [ ]4) Any burn greater than 15% of body surface area [ ]vii) Inhalation lung injury [ ]viii) Concomitant trauma or other medical condition requiring ICU care [ ]e) Preoperative or postoperative patients requiring ICU intervention , such as hemodynamic optimization, pulmonary artery monitoring, mechanical ventilation, or extensive nursing care [ ]XVIII.Otolaryngology diagnoses or procedures, including ANY ONE of the following (71)(72): [ ]a) Complications of any surgery requiring ICU intervention as indicated by ANY ONE of the following: [ ]i) Hemodynamic instability [ ]ii) GA with complications (eg, severe arrhythmia, hypotension) [ ]iii) Excessive bleeding or severe coagulopathy [ ]iv) Respiratory failure [ ]v) Renal failure [ ]vi) Airway instability or obstruction [ ]vii) Neurologic deterioration [ ]viii) Infection with likelihood of sepsis syndrome or significant fluid shifts [ ]b) Airway or hemodynamic compromise that persists after 3 hours of observation in postanesthesia care unit following nasal, palate (eg, uvulopalatopharyngoplasty or palatoplasty), or tongue surgery for sleep apnea [ ]c) Preoperative or postoperative patient requiring ICU intervention, such as hemodynamic optimization, pulmonary artery monitoring, mechanical ventilation, or extensive nursing care [ ]d) Symptomatic upper airway compromise (eg, laryngeal edema, mass) [ ]e) Other airway-compromising procedure (eg, posterior nasal packing) [ ]XIX.Thoracic Surgery and Pulmonary Disease Diagnosis or procedures, including ANY ONE of the following(6): [ ]a) Asthma with ANY ONE of the following(73)(74): [ ]i) Impending or actual respiratory arrest [ ]ii) Need for mechanical ventilation [ ]iii) Peak expiratory flow rate less than 30% of predicted or personal best [ ]iv) Peak expiratory flow rate or FEV1 less than 40% predicted after 1 hour of initial treatment [ ]v) Acidosis [ ]vi) Persistent or worsening hypoxia after initial treatment [ ]vii) Hypercapnia (eg, partial pressure of carbon dioxide greater than 43 mm Hg (5.7 kPa)) [ ]viii) Severe drowsiness, confusion, or coma [ ]ix) Requiring continuous inhaled bronchodilator [ ]b) COPD with ANY ONE of the following(75): [ ]i) Need for assisted ventilation [ ]ii) Hemodynamic instability [ ]iii) Severe dyspnea unresponsive to initial treatment [ ]iv) Change in level of consciousness [ ]v) Persistent findings despite oxygen and outpatient management, including ANY ONE of the following: [ ]1) Partial pressure of oxygen less than 40 mm Hg ( 5.3 kPa) [ ]2) Partial pressure of carbon dioxide greater than 60 mm Hg (8.0 kPa) [ ]3) pH less than 7.25 [ ]4) Worsening hypoxemia or acidosis [ ]c) Cor pulmonale with ANY ONE of the following(75)(76)(77): [ ]i) Hemodynamic instability [ ]ii) Need for IV inotropic or vasoactive agent [ ]iii) Need for invasive hemodynamic monitoring (eg, central venous, pulmonary artery, or arterial catheter) [ ]iv) Hypoxemia with partial pressure of oxygen less than 40 mm Hg (5.3 kPa) [ ]v) Worsening hypoxemia or acidosis despite oxygen therapy [ ]vi) Need for assisted ventilation [ ]vii) Need for right ventricular assist device [ ]viii) Unstable atrial tachyarrhythmia [ ]ix) Need for inhaled nitric oxide [ ]d) Aspiration pneumonia with ANY ONE of the following(78): [ ]i) Acute respiratory distress syndrome (PaO2/FiO2 ratio of 300 or less) [ ]ii) Impending or actual respiratory arrest [ ]iii) Need for invasive or noninvasive mechanical ventilation [ ]e) Pneumocystis jiroveci pneumonia with ANY ONE of the following(79): [ ]i) Impending or actual respiratory arrest [ ]ii) Hypoxia (eg, PO260 mmGh (8.0 kPa) or less despite oxygen therapy) [ ]iii) Need for invasive or noninvasive mechanical ventilation [ ]f) Pneumonia with ANY ONE of the following(80)(81)(82): [ ]i) Need for invasive or noninvasive assisted ventilation [ ]ii) Hemodynamic instability [ ]iii) Severity factors as indicated by 3 or MORE of the following: [ ]1) Respiratory rate 30 breaths per minute or greater [ ]2) PaO2/FiO2 ratio of 250 or less [ ]3) Multilobed infiltrates [ ]4) Altered mental status [ ]5) BUN 20 mg/dL (7.1 mmol/L) or greater [ ]6) WBC count less than 4000/mm3 (4 x109/L) [ ]7) Platelet count <100,000/mm3 (100 x109/L) [ ]8) Temperature less than 36 degrees C (96.8 degrees F ) [ ]9) Hypotension requiring aggressive fluid resuscitation [ ]g) Pulmonary hypertension requiring initiation of parenteral pulmonary vasodilator or trial of inhaled nitric oxide (eg, need for right heart catheterization)(76) [ ]h) Impending respiratory failure as indicated by ANY ONE of the following: [ ]i) Respiratory rate greater than 30 or partial pressure of oxygen less than 60 mm Hg (8.0 kPa) on 50% oxygen or more [ ]ii) Partial pressure of carbon dioxide greater than 45 mm Hg (6.0 kPa) with pH less than 7.35 [ ]i) Respiratory failure with ANY ONE of the following (47): [ ]i) Need for invasive or noninvasive mechanical ventilation [ ]ii) High likelihood of requiring mechanical ventilation within 24 hours [ ]iii) Observation in the first several hours immediately after extubation from mechanical ventilation [ ]iv) Need for close observation and aggressive therapy, such as suctioning, chest physiotherapy, or inhalation treatments at intervals less than 1 hour [ ]v) Pharmacologic ventilatory paralysis [ ]j) Venous thromboembolism with need for systemic or catheter- directed thrombolysis (eg, for limb-threatening thrombosis, phlegmasia cerulea dolens) (83) [ ]k) Pulmonary embolus with ANY ONE of the following(83): [ ]i) Hypotension [ ]ii) Severe hypoxia [ ]iii) Dangerous arrhythmia [ ]iv) Bleeding [ ]v) Need for systemic or catheter-directed thrombolysis [ ]l) Lobectomy or other major thoracic surgery [ ]m) Lung transplant [ ]n) Symptomatic upper airway obstruction (eg, laryngeal edema, mass) [ ]o) Massive hemoptysis [ ]p) Infection or thrombosis of an intravenous device with ANY ONE of the following(6)(84): [ ]i) Hemodynamic instability [ ]ii) Requirement for frequent hemodynamic measurements [ ]iii) Shock [ ]iv) End organ dysfunction [ ] v) Acute renal failure due to missed dialysis [ ]vi) Unstable acute complication (eg, pericardial tamponade , tension pneumothorax) [ ]q) Traumatic rib fracture or fractures with ANY ONE of the following(85): [ ]i) Injury severity score of 19 or greater [ ]ii) Respiratory insufficiency [ ]iii) Flail chest [ ]iv) Sternum fracture [ ]v) Vascular injury (eg, heart or great vessels) [ ]r) Pleural effusion with ANY ONE of the following(86): [ ]i) Respiratory insufficiency [ ]ii) Hemothorax with active ongoing bleeding [ ]iii) Hemodynamic instability [ ]iv) Unstable comorbid condition (eg, sepsis or heart failure [ ]XX. Urology diagnoses or procedures, including ANY ONE of the following ( 87)(88): [ ]a) Renal transplant [ ]b) Complications of any surgery requiring ICU intervention as indicated by ANY ONE of the following: [ ]i) Hemodynamic instability [ ]ii) GA with complications (eg, severe arrhythmia, hypotension) [ ]iii) Excessive bleeding or severe coagulopathy [ ]iv) Respiratory failure [ ]v) Renal failure [ ]vi) Airway instability or obstruction [ ]vii) Neurologic deterioration [ ]viii) Infection with likelihood of sepsis syndrome or significant fluid shifts [ ]c) Preoperative or postoperative patients requiring ICU intervention , such as hemodynamic optimization, pulmonary artery monitoring, mechanical ventilation , or extensive nursing care [ ]XXI.Infectious Disease diagnoses or procedures, with ANY ONE of the following (6)(43): [ ]a) Hemodynamic instability [ ]b) Shock [ ]c) Requirement for frequent hemodynamic measurements (eg, arterial catheter, pulmonary artery catheter) [X]d) Sepsis or suspected sepsis with end organ dysfunction (eg, acute kidney injury, acute respiratory distress syndrome) [ ]e) Necrotizing soft tissue infection [ ] XXII.Hematology - Oncology diagnoses or procedures, including chemotherapy administration with ANY ONE of the following(42): [ ]a) Hemodynamic instability [ ]b) Tumor lysis syndrome with ANY ONE of the following : [ ]1) Acute kidney injury [ ]2) Severe electrolyte abnormality [ ]3) Cardiac dysrhythmia [ X]XXIII. Systemic conditions, including ANY ONE of the following: [X ]a) Severe electrolyte or metabolic disturbance causing or likely to cause ANY ONE of the following(10)(89)(90): [ ]i) Life-threatening cardiac dysrhythmia [ ]ii) Respiratory insufficiency [X ]iii) Altered mental status [ ]iv) Seizures [ ]v) Hemodynamic instability [ ]vi) Muscular weakness [ ]b) Environmental injuries such as hypothermia, hyperthermia, electrical injuries, or near drowning(70)(91)(92) The original [employer] content created by [employer] has been revised. The portions of the content which have been revised are identified through the use of italic text or in bold, and [facility] has neither reviewed nor approved the modified material. All other unmodified content is copyright [facility]. Please see references footnoted in the original [facility] edition 2016 Admission Criteria Met: Yes
[2016-10-11 17:07] LABS: Basophils % (Manual) 0 % (0.0-1.8); Blastocytes % (Manual) 0 %; Eosinophils % (Manual) 0 % (0.0-4.3); Total Cells Counted Percent 6.5
[2016-10-11 17:08] LABS: Anisocytosis 1+; Elliptocytes 1+; Giant Platelets Few
--- NOTE | 2016-10-11 17:08 | Emergency Department Report ---
ED General Adult HPI - General Chief complaint: Altered Mental Status Stated complaint: ALTERED MENTAL STATUS Time Seen by Provider: 10/11/16 15:22 Source: EMS Mode of arrival: Stretcher Limitations: Altered Mental Status - History of Present Illness Initial comments: The patient is unable to provide any historical information. She is altered and does not really respond even to name. She has however awake and moving all her extremities. According to triage "EMS states the family said patient has not been feeling well for a couple of days." Apparently she is a type I diabetic. Is uncertain whether she has been compliant with her insulin but this would appear to be doubtful. It is surprising that she went into the medical system with this degree of illness on the above basis. Is unknown as to what her home situation is. -: days(s) - Related Data Home Medications Medication Instructions Recorded Confirmed Last Taken Insulin Glargine [Lantus VIAL] 22 units SUB-Q QHS 09/07/16 09/07/16 Unknown Insulin Lispro [HumaLOG VIAL] 0 units SUB-Q TIDHS 09/07/16 09/07/16 Unknown Previous Rx's Medication Instructions Recorded Last Taken Type Pantoprazole [Protonix] 40 mg PO QDAY #30 tablet 09/11/16 Unknown Rx Sucralfate [Carafate] 1 gm PO ACHS #1 bottle 09/11/16 Unknown Rx oxyCODONE /ACETAMINOPHEN [Percocet 1 tab PO Q4H PRN #30 tablet 09/11/16 Unknown Rx 5/325 mg] Allergies Allergy/AdvReac Type Severity Reaction Status Date / Time No Known Allergies Allergy Unverified 07/21/16 17:01 ED Review of Systems ROS: Stated complaint: ALTERED MENTAL STATUS Other details as noted in HPI Comment: Unobtainable due to pts medical conditions ED Past Medical Hx - Past Medical History Previous Medical History?: Yes Hx Diabetes: Yes - Surgical History Past Surgical History?: No - Social History Smoking Status: Unknown if ever smoked Substance Use Type: Other (unknown) Other Social History: Current information is that the patient resides with family - Medications Home Medications: Home Medications Medication Instructions Recorded Confirmed Last Taken Type Insulin Glargine [Lantus VIAL] 22 units SUB-Q QHS 09/07/16 09/07/16 Unknown History Insulin Lispro [HumaLOG VIAL] 0 units SUB-Q TIDHS 09/07/16 09/07/16 Unknown History Pantoprazole [Protonix] 40 mg PO QDAY #30 tablet 09/11/16 Unknown Rx Sucralfate [Carafate] 1 gm PO ACHS #1 bottle 09/11/16 Unknown Rx oxyCODONE /ACETAMINOPHEN [Percocet 1 tab PO Q4H PRN #30 tablet 09/11/16 Unknown Rx 5/325 mg] ED Physical Exam - General Limitations: Altered Mental Status General appearance: lethargic - Head Head exam: Present: atraumatic, normocephalic - Eye Eye exam: Present: PERRL, EOMI, scleral icterus - ENT ENT exam: Present: mucous membranes dry - Neck Neck exam: Present: normal inspection. Absent: tenderness, meningismus - Respiratory Respiratory exam: Present: normal lung sounds bilaterally, other (tachypnea) - Cardiovascular Cardiovascular Exam: Present: tachycardia. Absent: systolic murmur, diastolic murmur - GI/Abdominal GI/Abdominal exam: Present: soft, normal bowel sounds. Absent: distended, tenderness, guarding, rebound, rigid - Extremities Exam Extremities exam: Present: normal inspection. Absent: calf tenderness - Back Exam Back exam: Present: normal inspection - Neurological Exam Neurological exam: Present: altered, CN II-XII intact (as testable). Absent: motor sensory deficit (right being movements extremities appear to have normal strength. Which are all to stimuli.) - Psychiatric Psychiatric exam: Present: agitated, flat affect - Skin Skin exam: Present: warm, dry, intact, normal color. Absent: rash ED Course Vital Signs 10/11/16 10/11/16 15:13 16:51 Temperature 97.4 F L Pulse Rate 121 H Respiratory 32 H Rate Blood Pressure 140/56 O2 Sat by Pulse 99 100 Oximetry - Reevaluation(s) Reevaluation #1: The patient was given a fluid bolus. An EKG showed evidence of hyperkalemia. Thereby I immediately ordered an insulin drip as the patient was obviously in sparkle DKA. Unfortunately this did not arrive in the emergency department as soon as I would have liked it to. Therefore I gave the patient 10 units of IV insulin prior to the initiation of the triple. Patient really is quite acidotic and her sugar is extremely high. I think the bolus will be of benefit anyway. The patient had a remarkable elevation of her lactic acid level. Her chest x- ray shows no evidence of infection. I do not have a urinalysis result as of yet. She was treated empirically with Zosyn and vancomycin. On reexamination, the patient appears able to maintain her airway. Her pulse oximetry is 100%. Blood pressure is normal. She is tachycardic. She will be admitted to the ICU by Dr. Nichole. She will be closely monitored. 10/11/16 17:59 ED Medical Decision Making - Lab Data Result diagrams: 10/11/16 15:36 10/11/16 15:36 Laboratory Results - last 24 hr 10/11/16 10/11/16 10/11/16 15:36 15:36 15:36 WBC 56.1 H* RBC 4.12 Hgb 10.6 Hct 40.6 MCV 99 H MCH 26 L MCHC 26 L RDW 18.2 H Plt Count 403 Lymph # Book Canvasser PT INR APTT Sodium Potassium Chloride Carbon Dioxide Anion Gap BUN Creatinine Estimated GFR BUN/Creatinine Ratio Glucose Lactic Acid 8.1 H* Calcium Phosphorus Magnesium 2.9 H Total Bilirubin Direct Bilirubin Indirect Bilirubin AST ALT Alkaline Phosphatase NT-Pro-B Natriuret Pep Total Protein Albumin Albumin/Globulin Ratio TSH Salicylates Acetaminophen Plasma/Serum Alcohol 10/11/16 10/11/16 10/11/16 15:36 15:36 15:36 WBC RBC Hgb Hct MCV MCH MCHC RDW Plt Count Lymph # PT INR APTT Sodium Potassium Chloride Carbon Dioxide Anion Gap BUN Creatinine Estimated GFR BUN/Creatinine Ratio Glucose Lactic Acid Calcium Phosphorus Magnesium Total Bilirubin Direct Bilirubin Indirect Bilirubin AST ALT Alkaline Phosphatase NT-Pro-B Natriuret Pep Total Protein Albumin Albumin/Globulin Ratio TSH 1.060 Salicylates < 0.3 L Acetaminophen < 15.0 Plasma/Serum Alcohol 10/11/16 10/11/16 10/11/16 15:36 15:36 15:36 WBC RBC Hgb Hct MCV MCH MCHC RDW Plt Count Lymph # PT 16.6 H INR 1.35 H APTT 27.7 Sodium Potassium Chloride Carbon Dioxide Anion Gap BUN Creatinine Estimated GFR BUN/Creatinine Ratio Glucose Lactic Acid Calcium Phosphorus Magnesium Total Bilirubin Direct Bilirubin Indirect Bilirubin AST ALT Alkaline Phosphatase NT-Pro-B Natriuret Pep 176.4 Total Protein Albumin Albumin/Globulin Ratio TSH Salicylates Acetaminophen Plasma/Serum Alcohol < 0.01 10/11/16 15:36 WBC RBC Hgb Hct MCV MCH MCHC RDW Plt Count Lymph # PT INR APTT Sodium 126 L Potassium 7.9 H* Chloride 80.6 L Carbon Dioxide 4 L* Anion Gap 49 BUN 34 H Creatinine 2.2 H Estimated GFR 33 BUN/Creatinine Ratio 15.45 Glucose 1061 H* Lactic Acid Calcium 8.8 Phosphorus 11.6 H Magnesium Total Bilirubin 0.2 Direct Bilirubin < 0.2 Indirect Bilirubin 0.0 AST 47 H ALT 27 Alkaline Phosphatase 133 H NT-Pro-B Natriuret Pep Total Protein 8.0 Albumin 4.7 Albumin/Globulin Ratio 1.4 TSH Salicylates Acetaminophen Plasma/Serum Alcohol - EKG Data -: EKG Interpreted by Me EKG shows normal: sinus rhythm Rate: tachycardia - EKG Data Interpretation: other (incomplete right bundle branch block with evidence of hyperkalemia) - Radiology Data interpreted by me: Chest x-ray shows no acute disease Critical Care Time: Yes Critical care time in (mins) excluding proc time.: 90 Critical care attestation.: If time is entered above; I have spent that time in minutes in the direct care of this critically ill patient, excluding procedure time. ED Disposition Clinical Impression: Lactic acidosis, Hyperkalemia, Renal insufficiency DKA, type 1 Qualifiers: Diabetes mellitus complication detail: with coma Qualified Code(s): E10.11 - Type 1 diabetes mellitus with ketoacidosis with coma Leukocytosis Qualifiers: Leukocytosis type: unspecified Qualified Code(s): D72.829 - Elevated white blood cell count, unspecified Altered mental status Qualifiers: Altered mental status type: delirium Qualified Code(s): R41.0 - Disorientation , unspecified Disposition: OP ADMITTED IP TO THIS HOSP Is pt being admited?: Yes Does the pt Need Aspirin: Yes Condition: Stable Instructions: Diabetes Mellitus Type 2 in Adults (ED) Referrals: PRIMARY CARE, [Primary Care Provider] - 3-5 Days Time of Disposition: 18:04
[2016-10-11 17:09] LABS: Diff Status Complete; Platelet Estimate Consistent w Auto; Poikilocytosis 1+
[2016-10-11] MEDS ORDERED: MILK OF MAGNESIA PO PRN (17:17)
[2016-10-11] MEDS ORDERED: TYLENOL PO PRN (17:17)
[2016-10-11] MEDS ORDERED: DULCOLAX PR PRN (17:17)
--- NOTE | 2016-10-11 17:21 | History and Physical Report ---
History of Present Illness Chief complaint: confused History of present illness: 26 YO Female with DM, GERD presents to ED for evaluation. Pt is confused and unable to provide history. Pt seen and evaluated in ED and found to be in acute distress. Pt found to have DKA with serum glucose of 1061. Pt started on insulin drip and admitted to ICU. Pt is able to protect her airwary, Pt has positive gag reflex. Past History Past Medical History: GERD, hypertension Past Surgical History: No surgical history, Other (reviewed) Social history: single. denies: smoking, alcohol abuse Family history: diabetes, hypertension Medications and Allergies Allergies Allergy/AdvReac Type Severity Reaction Status Date / Time No Known Allergies Allergy Unverified 07/21/16 17:01 Home Medications Medication Instructions Recorded Confirmed Last Taken Type Insulin Glargine [Lantus VIAL] 22 units SUB-Q QHS 09/07/16 09/07/16 Unknown History Insulin Lispro [HumaLOG VIAL] 0 units SUB-Q TIDHS 09/07/16 09/07/16 Unknown History Pantoprazole [Protonix] 40 mg PO QDAY #30 tablet 09/11/16 Unknown Rx Sucralfate [Carafate] 1 gm PO ACHS #1 bottle 09/11/16 Unknown Rx oxyCODONE /ACETAMINOPHEN [Percocet 1 tab PO Q4H PRN #30 tablet 09/11/16 Unknown Rx 5/325 mg] Active Meds: Active Medications Acetaminophen (Tylenol) 650 mg PO Q4H PRN PRN Reason: Pain MILD(1-3)/Fever >100.5/HAHN Bisacodyl (Dulcolax) 10 mg RI QDAY PRN PRN Reason: Constipation unrelieved by MOM Dextrose (D50w (25gm)) 0 ml IV ONCE PRN PRN Reason: Hypoglycemia Insulin Human Regular 100 (units/ Sodium Chloride) 100 mls @ 1 mls/hr IV TITR NAREN; 1 UNITS/HR PRN Reason: Protocol Piperacillin Sod/Tazobactam Sod (Zosyn/Ns 3.375gm/50ml) 3.375 gm in 50 mls @ 100 mls/hr IV Q6HR NAREN PRN Reason: Protocol Vancomycin HCl (Vancomycin/Ns 1 Gm/250 Ml) 1 gm in 250 mls @ 166.667 mls/hr IV ONCE ONE Stop: 10/11/16 19:29 Levofloxacin/Dextrose (Levaquin 750mg/150ml) 750 mg in 150 mls @ 100 mls/hr IV Q24HR NAREN PRN Reason: Protocol Sodium Chloride (Nacl 0.9% 1000 Ml) 1,000 mls @ 999 mls/hr IV BOLUS ONE Stop: 10/11/16 18:15 Piperacillin Sod/Tazobactam Sod (Zosyn/Ns 4.5gm/100ml) 4.5 gm in 100 mls @ 200 mls/hr IV Q6HR NAREN PRN Reason: Protocol Magnesium Hydroxide (Milk Of Magnesia) 30 ml PO Q4H PRN PRN Reason: Constipation Ondansetron HCl (Zofran) 4 mg IV Q8H PRN PRN Reason: N/V unrelieved by Penny Vancomycin HCl (Vancomycin Pharmacy To Dose) 1 each IV PKCONSULT NAREN PRN Reason: Protocol Review of Systems ROS unobtainable: due to mental status Exam - Constitutional Vitals: Temp Pulse Resp BP Pulse Ox 97.4 F L 121 H 32 H 140/56 100 10/11/16 15:13 10/11/16 15:13 10/11/16 15:13 10/11/16 15:13 10/11/16 16:51 General appearance: Present: severe distress - EENT Eyes: Present: PERRL ENT: hearing intact, clear oral mucosa - Neck Neck: Present: supple, normal ROM - Respiratory Respiratory: bilateral: diminished - Cardiovascular Heart Sounds: Present: S1 & S2. Absent: rub, click - Extremities Extremities: pulses symmetrical, No edema Peripheral Pulses: within normal limits - Abdominal General gastrointestinal: Present: soft, non-tender, non-distended, normal bowel sounds Female genitourinary: Present: normal - Integumentary Integumentary: Present: clear, warm, dry, decreased turgor - Musculoskeletal Musculoskeletal: generalized weakness - Psychiatric Psychiatric: no intact judgment & insight, no memory intact - Neurologic Neurologic: CNII-XII intact, moves all extremities Results - Labs CBC & Chem 7: 10/11/16 15:36 10/11/16 15:36 Labs: Abnormal lab results 10/11/16 10/11/16 10/11/16 Range/Units 15:36 15:36 15:36 WBC 56.1 H* (4.5-11.0) K/mm3 MCV 99 H (79-97) fl MCH 26 L (28-32) pg MCHC 26 L (30-34) % RDW 18.2 H (13.2-15.2) % Lymphocytes % (Manual) 12.5 L (13.4-35.0) % Seg Neutrophils # Man 37.6 H (1.8-7.7) K/mm3 Lymphocytes # (Manual) 7.0 H (1.2-5.4) K/mm3 Monocytes # (Manual) 2.0 H (0.0-0.8) K/mm3 PT (12.2-14.9) Sec. INR (0.87-1.13) Sodium (137-145) mmol/L Potassium (3.6-5.0) mmol/L Chloride (98-107) mmol/L Carbon Dioxide (22-30) mmol/L BUN (7-17) mg/dL Creatinine (0.7-1.2) mg/dL Glucose (65-100) mg/dL Lactic Acid 8.1 H* (0.7-2.0) mmol/L Phosphorus (2.5-4.5) mg/dL Magnesium 2.9 H (1.7-2.3) mg/dL AST (5-40) units/L Alkaline Phosphatase (35-129) units/L Salicylates (2.8-20.0) mg/dL 10/11/10/11/16 10/11/16 Range/Units 15:36 15:36 15:36 WBC (4.5-11.0) K/mm3 MCV (79-97) fl MCH (28-32) pg MCHC (30-34) % RDW (13.2-15.2) % Lymphocytes % (Manual) (13.4-35.0) % Seg Neutrophils # Man (1.8-7.7) K/mm3 Lymphocytes # (Manual) (1.2-5.4) K/mm3 Monocytes # (Manual) (0.0-0.8) K/mm3 PT 16.6 H (12.2-14.9) Sec. INR 1.35 H (0.87-1.13) Sodium 126 L (137-145) mmol/L Potassium 7.9 H* (3.6-5.0) mmol/L Chloride 80.6 L (98-107) mmol/L Carbon Dioxide 4 L* (22-30) mmol/L BUN 34 H (7-17) mg/dL Creatinine 2.2 H (0.7-1.2) mg/dL Glucose 1061 H* (65-100) mg/dL Lactic Acid (0.7-2.0) mmol/L Phosphorus 11.6 H (2.5-4.5) mg/dL Magnesium (1.7-2.3) mg/dL AST 47 H (5-40) units/L Alkaline Phosphatase 133 H (35-129) units/L Salicylates < 0.3 L (2.8-20.0) mg/dL Assessment and Plan - Patient Problems (1) Sepsis Current Visit: Yes Status: Acute Qualifiers: Sepsis type: S Plan to address problem: Sepsis Protocol: IV ABX, IVF, supportive care, uop q shift, serial lactate level (2) DKA (diabetic ketoacidoses) Current Visit: Yes Status: Acute Qualifiers: Diabetes mellitus type: D Diabetes mellitus complication detail: D Plan to address problem: DKA protocol, Insulin drip, monitor anion gap, IVF, supportive care. (3) Lactic acidosis Current Visit: Yes Status: Acute Plan to address problem: Treat DKA and sepsis, serial lactate levels (4) Acute renal failure (ARF) Current Visit: Yes Status: Acute Qualifiers: Acute renal failure type: A Plan to address problem: IVF, uop q shift, supportive care, repeat bmp in am. (5) Metabolic encephalopathy Current Visit: Yes Status: Acute Plan to address problem: Treat DKA/Sepsis, restraints, supportive care. (6) Hyperkalemia Current Visit: Yes Status: Acute Plan to address problem: treat dka, recheck with serial bmp (7) DVT prophylaxis Current Visit: Yes Status: Acute
[2016-10-11 17:31] LABS: Bilirubin,Urine NEG (Negative); Blood,Urine MOD (Negative); Ketones,Urine 80 mg/dL (Negative); Leukocyte Esterase,Urine NEG (Negative); Mucus,Urine FEW /HPF; Nitrite,Urine NEG (Negative); Protein,Urine <15 mg/dL mg/dL (Negative); Urobilinogen,Urine < 2.0 mg/dL (<2.0); WBC,Urine < 1.0 /HPF (0.0-6.0)
[2016-10-11] MEDS ORDERED: ZOSYN/NS 4.5GM/100ML 4.5 GM/100 ML VIAL IV SCH (18:00)
[2016-10-11] MEDS ORDERED: VANCOMYCIN/NS 1 GM/250 ML 1 GM/250 ML BAG IV ONE ×2 (18:00→18:15)
[2016-10-11 19:29] LABS: Calcium 8.4 mg/dL (8.4-10.2); Chloride 135.6 mmol/L (98-107)
[2016-10-11] MEDS: ZOSYN/NS 3.375GM/50ML 3.375 GM/50 ML BAG IV SCH (19:33)
[2016-10-11 19:36] LABS: Potassium 8.2 mmol/L (3.6-5.0)
[2016-10-11] MEDS ORDERED: LEVAQUIN 750MG/150ML 750 MG/150 ML BAG IV SCH (20:00)
[2016-10-11 20:18] LABS: Mean Corpuscular HGB Conc 29 % (30-34); Mean Corpuscular Volume 89 fl (79-97); Platelet Count 306 K/mm3 (140-440); Red Blood Count 3.59 M/mm3 (3.65-5.03); Red Cell Distribution Width 17.3 % (13.2-15.2)
[2016-10-11 20:31] LABS: Hemoglobin 9.2 gm/dl (10.1-14.3)
[2016-10-11 20:32] LABS: Mean Corpuscular Hemoglobin 26 pg (28-32)
[2016-10-11 20:35] LABS: White Blood Count 51.7 K/mm3 (4.5-11.0)
[2016-10-11 20:36] LABS: Hematocrit 31.8 % (30.3-42.9)
[2016-10-11 20:52] LABS: Albumin 3.7 g/dL (3.9-5); Albumin/Globulin Ratio 1.4 %; Alkaline Phosphatase 95 units/L (35-129); BUN/Creatinine Ratio 17.64; Bilirubin,Total < 0.2 mg/dL (0.1-1.2); Blood Urea Nitrogen 30 mg/dL (7-17); Calcium 7.1 mg/dL (8.4-10.2); Chloride 107.1 mmol/L (98-107); Total Protein 6.3 g/dL (6.3-8.2)
[2016-10-11 20:58] LABS: Sodium 139 mmol/L (137-145)
[2016-10-11 20:59] LABS: Anion Gap 34 mmol/L; Carbon Dioxide 4 mmol/L (22-30); Potassium 6.3 mmol/L (3.6-5.0)
[2016-10-11 21:00] LABS: Alanine Aminotransferase 22 units/L (7-56); Glucose 551 mg/dL (65-100)
[2016-10-11 21:21] LABS: Anisocytosis 1+; Basophils % (Manual) 0 % (0.0-1.8); Blastocytes % (Manual) 0 %; Eosinophils % (Manual) 0 % (0.0-4.3); Hypochromasia 1+; Poikilocytosis 1+; Total Cells Counted Percent 5.5
[2016-10-11 21:22] LABS: Diff Status Complete; Elliptocytes 1+; Platelet Estimate Consistent w Auto
--- NOTE | 2016-10-11 22:47 | Consultation ---
History of Present Illness - History of Present Illness thank you for the consultation Patient was evaluated in the ER at 945 Case was also discussed with patient's mother at bedside and ER nurse As well as treating physician Dr. Nichole Renal failure likely acute in a patient who has been admitted with severe hyperglycemia and diabetic ketoacidosis Severe hyperkalemia with EKG changes currently improving with correction of acidosis as well as insulin deficiency Diabetic ketoacidosis severe with lactic acidosis; patient needs more IV hydration normal saline peripheral 200 cc an hour as tolerated, she also needs initiation off insulin drip at 4 units an hour at least for now, her gap needs to be corrected over the next several hours her electrolytes should be checked every 4 hours, close monitoring is required Encephalopathy likely resulting from above Severe leukocytosis patient likely will benefit from dai culture empiric antibiotic, very likely could be a stress response and dehydration issue When her blood sugars around 200 range it can be changed to D5 to continue for correction of Maintain strict intake and output avoid any follow-up nonsteroidal drugs including Vikram inhibitors and angiotensin receptor kirstie Patient has history of diabetes mellitus type 1 which has been followed at [facility] when she was young, she will need to establish an internal medicine physician as well as an manager materials management locally as well discussed with mother Severe volume depletion resulting from diabetic ketoacidosis as well as dehydration \patient does not require renal replacement therapy at this time Her overall prognosis is guarded she is critically ill, mortality risk is high this was clearly discussedwith patient's mother who was clearly explained about this Continue with supportive care We'll continue to follow and make recommendation from renal standpoint Past History Past Medical History: GERD, hypertension Past Surgical History: No surgical history, Other (reviewed) Social history: single. denies: smoking, alcohol abuse Family history: diabetes, hypertension Medications and Allergies Allergies Allergy/AdvReac Type Severity Reaction Status Date / Time No Known Allergies Allergy Unverified 07/21/16 17:01 Home Medications Medication Instructions Recorded Confirmed Last Taken Type Insulin Glargine [Lantus VIAL] 22 units SUB-Q QHS 09/07/16 09/07/16 Unknown History Insulin Lispro [HumaLOG VIAL] 0 units SUB-Q TIDHS 09/07/16 09/07/16 Unknown History Pantoprazole [Protonix] 40 mg PO QDAY #30 tablet 09/11/16 Unknown Rx Sucralfate [Carafate] 1 gm PO ACHS #1 bottle 09/11/16 Unknown Rx oxyCODONE /ACETAMINOPHEN [Percocet 1 tab PO Q4H PRN #30 tablet 09/11/16 Unknown Rx 5/325 mg] Active Meds: Active Medications Acetaminophen (Tylenol) 650 mg PO Q4H PRN PRN Reason: Pain MILD(1-3)/Fever >100.5/HAHN Bisacodyl (Dulcolax) 10 mg RI QDAY PRN PRN Reason: Constipation unrelieved by MOM Dextrose (D50w (25gm)) 0 ml IV ONCE PRN PRN Reason: Hypoglycemia Piperacillin Sod/Tazobactam Sod (Zosyn/Ns 3.375gm/50ml) 3.375 gm in 50 mls @ 100 mls/hr IV Q6HR NAREN PRN Reason: Protocol Last Admin: 10/11/16 19:33 Dose: 100 mls/hr Levofloxacin/Dextrose (Levaquin 750mg/150ml) 750 mg in 150 mls @ 100 mls/hr IV Q48H NAREN PRN Reason: Protocol Last Admin: 10/11/16 20:37 Dose: 100 mls/hr Vancomycin HCl 750 mg/ Sodium (Chloride) 250 mls @ 166.667 mls/hr IV Q36H NAREN Insulin Human Regular 100 (units/ Sodium Chloride) 100 mls @ 1 mls/hr IV TITR NAREN; 1 UNITS/HR PRN Reason: Protocol Dextrose/Sodium Chloride (D5/0.45ns) 1,000 mls @ 125 mls/hr IV DIRECT NAREN Magnesium Hydroxide (Milk Of Magnesia) 30 ml PO Q4H PRN PRN Reason: Constipation Ondansetron HCl (Zofran) 4 mg IV Q8H PRN PRN Reason: N/V unrelieved by Reglan Vancomycin HCl (Vancomycin Pharmacy To Dose) 1 each IV PKCONSULT NAREN PRN Reason: Protocol Exam - Vital Signs Vital signs: Vital Signs Temp Pulse Resp BP Pulse Ox 97.4 F L 121 H 32 H 140/56 99 10/11/16 15:13 10/11/16 15:13 10/11/16 15:13 10/11/16 15:13 10/11/16 15:13 Results - Lab Results 10/11/16 20:00 10/11/16 20:00 Most recent lab results Calcium 7.1 mg/dL (8.4-10.2) L D 10/11/16 20:00 Phosphorus 11.6 mg/dL (2.5-4.5) H 10/11/16 15:36 Magnesium 2.9 mg/dL (1.7-2.3) H 10/11/16 15:36
[2016-10-12] MEDS: NovoLIN R 100 UNITS in NACL 0.9% 99 ML IV SCH ×2 (00:10→21:26)
[2016-10-12 00:21] LABS: Albumin 4.4 g/dL (3.9-5); Albumin/Globulin Ratio 1.8 %; BUN/Creatinine Ratio 15.62; Bilirubin,Total 0.2 mg/dL (0.1-1.2); Calcium 8.2 mg/dL (8.4-10.2); Chloride 108.9 mmol/L (98-107); Total Protein 6.8 g/dL (6.3-8.2)
[2016-10-12] MEDS ORDERED: NACL 0.9% 500 ML 500 ML ONE (00:24)
[2016-10-12 00:25] LABS: Potassium 6.6 mmol/L (3.6-5.0)
[2016-10-12 00:35] LABS: Magnesium 2.3 mg/dL (1.7-2.3); Phosphorous 2.8 mg/dL (2.5-4.5)
[2016-10-12] MEDS ORDERED: STERILE WATER IV SCH (01:00)
[2016-10-12] MEDS ORDERED: SODIUM BICARBONATE IV SCH (01:00)
[2016-10-12] MEDS ORDERED: ATIVAN IV PRN (01:09)
[2016-10-12] MEDS: MORPHINE IV PRN ×2 (02:02→13:35)
[2016-10-12] MEDS: ZOSYN/NS 3.375GM/50ML 3.375 GM/50 ML BAG IV SCH ×2 (02:41→07:09)
[2016-10-12 05:20] LABS: BUN/Creatinine Ratio 14.11; Calcium 8.7 mg/dL (8.4-10.2); Potassium 5.9 mmol/L (3.6-5.0)
[2016-10-12 07:52] LABS: BUN/Creatinine Ratio 12.94; Calcium 9.1 mg/dL (8.4-10.2); Chloride 117.3 mmol/L (98-107)
[2016-10-12 08:13] LABS: BUN/Creatinine Ratio 14.37; Chloride 117.4 mmol/L (98-107); Potassium 4.9 mmol/L (3.6-5.0)
[2016-10-12] MEDS ORDERED: SODIUM BICARBONATE 150 MEQ in D5W 1,000 ML IV SCH (09:00)
--- NOTE | 2016-10-12 09:07 | Progress Note ---
Assessment and Plan Assessment and plan: --Diabetic ketoacidosis With high anion, continue nothing by mouth status, insulin drip per protocol Rigorous IV hydration, closely monitor her electrolytes and correct as needed Hemoglobin A1c, supportive care --Hyperkalemia Corrected, closely monitor potassium levels --Acute renal failure pre renal secondary to ATN Mild improvement, closely monitor renal function, rigorous IV hydration Avoid nephrotoxic medications, nephrology following --Hypernatremia; corrected Continue current management --Leukocytosis, trending down Rule out sepsis, empiric IV antibiotics, blood and urine cultures --Lactic acidosis, supportive care Secondary to sepsis --Non-compliance Counseling done patient strongly advised to comply with diet and medications --DVT prophylaxis; with heparin DC planning per case management Closely monitor the patient had just the management as needed consults and recommendations noted and appreciated Patient's condition treatment plan discussed in detail with the patient family member at the bedside as well as the nurse Critical care time 31 minutes History Interval history: patient seen and evaluated in ICU this morning medical records reviewed Patient is admitted with severe diabetic ketoacidosis, insulin drip nothing by mouth status Multiple electrolyte abnormalities Patient is sleeping easily awakens, dehydrated not in acute distress Denies any nausea vomiting, denies headache or dizziness Hospitalist Physical - Constitutional Vitals: Temp Pulse Resp BP Pulse Ox 98.3 F 100 H 20 97/39 100 10/12/16 08:00 10/12/16 08:23 10/12/16 08:23 10/12/16 08:10 10/12/16 08:23 General appearance: Present: mild distress, well-nourished, other (dehydrated) - EENT Eyes: Present: PERRL, EOM intact - Neck Neck: Present: supple, normal ROM - Respiratory Respiratory effort: normal Respiratory: bilateral: diminished, negative: rales, rhonchi, wheezing - Cardiovascular Rhythm: regular Heart Sounds: Present: S1 & S2 - Extremities Extremities: no ischemia, pulses intact, pulses symmetrical Peripheral Pulses: within normal limits - Abdominal General gastrointestinal: soft, non-tender, non-distended, normal bowel sounds - Integumentary Integumentary: Present: clear, warm - Psychiatric Psychiatric: appropriate mood/affect, cooperative - Neurologic Neurologic: CNII-XII intact, moves all extremities Results - Labs CBC & Chem 7: 10/12/16 14:04 10/12/16 07:43 Labs: Laboratory Last Values WBC 51.7 K/mm3 (4.5-11.0) H* 10/11/16 20:00 RBC 3.59 M/mm3 (3.65-5.03) L 10/11/16 20:00 Hgb 9.2 gm/dl (10.1-14.3) L 10/11/16 20:00 Hct 31.8 % (30.3-42.9) D 10/11/16 20:00 MCV 89 fl (79-97) D 10/11/16 20:00 MCH 26 pg (28-32) L 10/11/16 20:00 MCHC 29 % (30-34) L 10/11/16 20:00 RDW 17.3 % (13.2-15.2) H 10/11/16 20:00 Plt Count 306 K/mm3 (140-440) 10/11/16 20:00 Lymph # Vp Transportation 10/11/16 20:00 Add Manual Diff Complete 10/11/16 20:00 Total Counted 200 10/11/16 20:00 Seg Neuts % (Manual) 72.0 % (40.0-70.0) H 10/11/16 20:00 Band Neutrophils % 9.5 % 10/11/16 20:00 Lymphocytes % (Manual) 12.0 % (13.4-35.0) L 10/11/16 20:00 Reactive Lymphs % (Man) 0 % 10/11/16 20:00 Monocytes % (Manual) 3.0 % (0.0-7.3) 10/11/16 20:00 Eosinophils % (Manual) 0 % (0.0-4.3) 10/11/16 20:00 Basophils % (Manual) 0 % (0.0-1.8) 10/11/16 20:00 Metamyelocytes % 2.5 % 10/11/16 20:00 Myelocytes % 1.0 % 10/11/16 20:00 Promyelocytes % 0 % 10/11/16 20:00 Blast Cells % 0 % 10/11/16 20:00 Nucleated RBC % Not Reportable 10/11/16 20:00 Seg Neutrophils # Man 37.2 K/mm3 (1.8-7.7) H 10/11/16 20:00 Band Neutrophils # 4.9 K/mm3 03/30/17 20:00 Lymphocytes # (Manual) 6.2 K/mm3 (1.2-5.4) H 10/11/16 20:00 Abs React Lymphs (Man) 0.0 K/mm3 10/11/16 20:00 Monocytes # (Manual) 1.6 K/mm3 (0.0-0.8) H 10/11/16 20:00 Eosinophils # (Manual) 0.0 K/mm3 (0.0-0.4) 10/11/16 20:00 Basophils # (Manual) 0.0 K/mm3 (0.0-0.1) 10/11/16 20:00 Metamyelocytes # 1.3 K/mm3 10/11/16 20:00 Myelocytes # 0.5 K/mm3 10/11/16 20:00 Promyelocytes # 0.0 K/mm3 10/11/16 20:00 Blast Cells # 0.0 K/mm3 10/11/16 20:00 WBC Morphology Not Reportable 10/11/16 20:00 Hypersegmented Neuts Not Reportable 10/11/16 20:00 Hyposegmented Neuts Not Reportable 10/11/16 20:00 Hypogranular Neuts Not Reportable 10/11/16 20:00 Smudge Cells Not Reportable 10/11/16 20:00 Toxic Granulation Not Reportable 10/11/16 20:00 Toxic Vacuolation Not Reportable 10/11/16 20:00 Dohle Bodies Not Reportable 10/11/16 20:00 Pelger-Huet Anomaly Not Reportable 10/11/16 20:00 Alex Rods Not Reportable 10/11/16 20:00 Platelet Estimate Consistent w auto 10/11/16 20:00 Clumped Platelets Not Reportable 10/11/16 20:00 Plt Clumps, EDTA Not Reportable 10/11/16 20:00 Large Platelets Not Reportable 10/11/16 20:00 Giant Platelets Not Reportable 10/11/16 20:00 Platelet Satelliting Not Reportable 10/11/16 20:00 Plt Morphology Comment Not Reportable 10/11/16 20:00 RBC Morphology Not Reportable 10/11/16 20:00 Dimorphic RBCs Not Reportable 10/11/16 20:00 Polychromasia Not Reportable 10/11/16 20:00 Hypochromasia 1+ 10/11/16 20:00 Poikilocytosis 1+ 10/11/16 20:00 Anisocytosis 1+ 10/11/16 20:00 Microcytosis Not Reportable 10/11/16 20:00 Macrocytosis Not Reportable 10/11/16 20:00 Spherocytes Not Reportable 10/11/16 20:00 Pappenheimer Bodies Not Reportable 10/11/16 20:00 Sickle Cells Not Reportable 10/11/16 20:00 Target Cells Not Reportable 10/11/16 20:00 Tear Drop Cells Not Reportable 10/11/16 20:00 Ovalocytes Not Reportable 10/11/16 20:00 Helmet Cells Not Reportable 10/11/16 20:00 [place] Bodies Not Reportable 10/11/16 20:00 [place] Rings Not Reportable 10/11/16 20:00 [place] Cells Not Reportable 10/11/16 20:00 Bite Cells Not Reportable 10/11/16 20:00 Crenated Cell Not Reportable 10/11/16 20:00 Elliptocytes 1+ 10/11/16 20:00 Acanthocytes (Spur) Not Reportable 10/11/16 20:00 Rouleaux Not Reportable 10/11/16 20:00 Hemoglobin C Crystals Not Reportable 10/11/16 20:00 Schistocytes Not Reportable 10/11/16 20:00 Malaria parasites Not Reportable 10/11/16 20:00 Pérez Bodies Not Reportable 10/11/16 20:00 Hem Pathologist Commnt No 10/11/16 20:00 PT 16.6 Sec. (12.2-14.9) H 10/11/16 15:36 INR 1.35 (0.87-1.13) H 10/11/16 15:36 APTT 27.7 Sec. (24.2-36.6) 10/11/16 15:36 Sodium 149 mmol/L (137-145) H 10/12/16 07:43 Potassium 4.9 mmol/L (3.6-5.0) 10/12/16 07:43 Chloride 117.4 mmol/L (98-107) H 10/12/16 07:43 Carbon Dioxide 6 mmol/L (22-30) L* 10/12/16 07:43 Anion Gap 31 mmol/L 10/12/16 07:43 BUN 23 mg/dL (7-17) H 10/12/16 07:43 Creatinine 1.6 mg/dL (0.7-1.2) H 10/12/16 07:43 Estimated GFR 48 ml/min 10/12/16 07:43 BUN/Creatinine Ratio 14.37 % 10/12/16 07:43 Glucose 104 mg/dL (65-100) H 10/12/16 07:43 POC Glucose < 40 (70-105) L 10/12/16 07:49 Lactic Acid 3.1 mmol/L (0.7-2.0) H* 10/11/16 20:00 Calcium 9.0 mg/dL (8.4-10.2) 10/12/16 07:43 Phosphorus 2.8 mg/dL (2.5-4.5) D 10/11/16 23:43 Magnesium 2.3 mg/dL (1.7-2.3) 10/11/16 23:43 Total Bilirubin 0.2 mg/dL (0.1-1.2) 10/11/16 23:43 Direct Bilirubin < 0.2 mg/dL (0-0.2) 10/11/16 15:36 Indirect Bilirubin 0.0 mg/dL 10/11/16 15:36 AST 37 units/L (5-40) 10/11/16 23:43 ALT 22 units/L (7-56) 10/11/16 23:43 Alkaline Phosphatase 105 units/L (35-129) 10/11/16 23:43 NT-Pro-B Natriuret Pep 176.4 pg/mL (0-450) 10/11/16 15:36 Total Protein 6.8 g/dL (6.3-8.2) 10/11/16 23:43 Albumin 4.4 g/dL (3.9-5) 10/11/16 23:43 Albumin/Globulin Ratio 1.8 % 10/11/16 23:43 TSH 1.060 mlU/mL (0.270-4.200) 10/11/16 15:36 Urine Color Colorless (Yellow) 10/11/16 16:25 Urine Turbidity Clear (Clear) 10/11/16 16:25 Urine pH 5.0 (5.0-7.0) 10/11/16 16:25 Ur Specific [place] 1.017 (1.003-1.030) 10/11/16 16:25 Urine Protein <15 mg/dl mg/dL (Negative) 10/11/16 16:25 Urine Glucose (UA) >=500 mg/dL (Negative) 10/11/16 16:25 Urine Ketones 80 mg/dL (Negative) 10/11/16 16:25 Urine Blood Mod (Negative) 10/11/16 16:25 Urine Nitrite Neg (Negative) 10/11/16 16:25 Urine Bilirubin Neg (Negative) 10/11/16 16:25 Urine Urobilinogen < 2.0 mg/dL (<2.0) 10/11/16 16:25 Ur Leukocyte Esterase Neg (Negative) 10/11/16 16:25 Urine WBC (Auto) < 1.0 /HPF (0.0-6.0) 10/11/16 16:25 Urine RBC (Auto) 1.0 /HPF (0.0-6.0) 10/11/16 16:25 Urine Mucus Few /HPF 10/11/16 16:25 Urine HCG, Qual Negative (Negative) 10/11/16 16:25 Salicylates < 0.3 mg/dL (2.8-20.0) L 10/11/16 15:36 Urine Opiates Screen Presumptive negative 10/11/16 16:25 Urine Methadone Screen Presumptive negative 10/11/16 16:25 Acetaminophen < 15.0 ug/mL (10.0-30.0) 10/11/16 15:36 Ur Barbiturates Screen Presumptive negative 10/11/16 16:25 Ur Phencyclidine Scrn Presumptive negative 10/11/16 16:25 Ur Amphetamines Screen Presumptive negative 10/11/16 16:25 U Benzodiazepines Scrn Presumptive negative 10/11/16 16:25 Urine Cocaine Screen Presumptive negative 10/11/16 16:25 U Marijuana (THC) Screen Presumptive negative 10/11/16 16:25 Drugs of Abuse Note Disclamer 10/11/16 16:25 Plasma/Serum Alcohol < 0.01 gm% (0-0.07) 10/11/16 15:36 Blood Type B POSITIVE 10/11/16 15:53 Antibody Screen Positive 10/11/16 15:53 Antibody Identification Anti-E 10/11/16 15:53 Crossmatch See Detail 10/11/16 15:53
--- NOTE | 2016-10-12 09:11 | Event Note ---
Date: 10/12/16 Reviewed notes from nephrology. No need for hemodialysis at this time. Please reconsult [facility] if this changes for dialysis catheter access.
[2016-10-12] MEDS ORDERED: LEVAQUIN 750MG/150ML 750 MG/150 ML BAG IV SCH (10:00)
--- NOTE | 2016-10-12 11:43 | Progress Note ---
Assessment and Plan Acute kidney failure in a patient who has history of long-standing poorly controlled diabetes type 1 severe hyperkalemia currently improving well metabolic acidosis mostly resulting from diabetic ketoacidosis Severe dehydration clinically improving may need increase hydration Plan of care was discussed with patient's grandmother Overall prognosis is guarded at this time severe diabetic ketoacidosis suggest correcting acidosis with ongoing insulin drip as well as D5 or D10 solution whatever is needed Encephalopathy appears to be multifactorial at this time Overall patient appears to be doing better from renal standpoint no need for acute emergent renal replacement therapy her diabetes ketoacidosis needs to be treated aggressively Subjective Interval history: patient was seen today for follow up in the ICU setting Her grandmother is at the bedside Events of 24 hours vitals labs intake output medications were reviewed Patient presented with severe hyperkalemia and metabolic acidosis and encephalopathy Has a history of long-standing type 1 diabetes she has been out of her medication for last 2 days Objective - Vital Signs Vital signs: Vital Signs - 12hr 10/11/16 10/12/16 10/12/16 23:50 00:00 00:10 Temperature Pulse Rate 123 H 125 H 123 H Pulse Rate [ From Monitor] Respiratory 31 H 21 31 H Rate Blood Pressure 121/43 123/51 123/51 O2 Sat by Pulse 100 100 100 Oximetry 10/12/16 10/12/16 10/12/16 00:15 00:20 00:30 Temperature 98.5 F Pulse Rate 121 H 131 H 123 H Pulse Rate [ From Monitor] Respiratory 20 21 29 H Rate Blood Pressure 129/51 123/51 123/51 O2 Sat by Pulse 100 100 100 Oximetry 10/12/16 10/12/16 10/12/16 00:40 00:45 00:50 Temperature 98.5 F 98.2 F Pulse Rate 126 H 120 H 123 H Pulse Rate [ From Monitor] Respiratory 28 H 21 27 H Rate Blood Pressure 129/49 129/49 129/49 O2 Sat by Pulse 100 100 100 Oximetry 10/12/16 10/12/16 10/12/16 01:00 01:10 01:20 Temperature Pulse Rate 126 H 126 H 123 H Pulse Rate [ From Monitor] Respiratory 36 H 25 H 20 Rate Blood Pressure 124/52 124/52 124/52 O2 Sat by Pulse 100 100 100 Oximetry 10/12/16 10/12/16 10/12/16 01:30 01:40 01:50 Temperature Pulse Rate 121 H 123 H 126 H Pulse Rate [ From Monitor] Respiratory 30 H 36 H 37 H Rate Blood Pressure 124/52 124/52 124/52 O2 Sat by Pulse 100 100 100 Oximetry 10/12/16 10/12/16 10/12/16 02:00 02:10 02:20 Temperature Pulse Rate 121 H 121 H 121 H Pulse Rate [ From Monitor] Respiratory 24 32 H 31 H Rate Blood Pressure 131/52 131/52 131/52 O2 Sat by Pulse 100 100 100 Oximetry 10/12/16 10/12/16 10/12/16 02:30 02:32 02:40 Temperature Pulse Rate 121 H 122 H Pulse Rate [ From Monitor] Respiratory 27 H 15 31 H Rate Blood Pressure 131/52 131/52 O2 Sat by Pulse 100 100 Oximetry 10/12/16 10/12/16 10/12/16 02:50 03:00 03:10 Temperature Pulse Rate 123 H 123 H 122 H Pulse Rate [ From Monitor] Respiratory 21 24 31 H Rate Blood Pressure 131/52 145/72 145/72 O2 Sat by Pulse 100 100 100 Oximetry 10/12/16 10/12/16 10/12/16 03:20 03:30 03:40 Temperature Pulse Rate 121 H 118 H 117 H Pulse Rate [ From Monitor] Respiratory 31 H 28 H 28 H Rate Blood Pressure 145/72 145/72 145/72 O2 Sat by Pulse 100 100 100 Oximetry 10/12/16 10/12/16 10/12/16 03:50 04:00 04:10 Temperature Pulse Rate 118 H 116 H 116 H Pulse Rate [ From Monitor] Respiratory 27 H 25 H 25 H Rate Blood Pressure 145/72 120/70 120/70 O2 Sat by Pulse 100 100 Oximetry 10/12/16 10/12/16 10/12/16 04:20 04:21 04:30 Temperature 98.3 F Pulse Rate 119 H 115 H Pulse Rate [ From Monitor] Respiratory 20 22 Rate Blood Pressure 120/70 120/70 O2 Sat by Pulse 100 100 Oximetry 10/12/16 10/12/16 10/12/16 04:40 04:50 05:00 Temperature Pulse Rate 112 H 114 H 113 H Pulse Rate [ From Monitor] Respiratory 22 22 21 Rate Blood Pressure 120/70 120/70 113/64 O2 Sat by Pulse 100 100 Oximetry 0310/12/16 10/12/16 05:10 05:20 05:30 Temperature Pulse Rate 114 H 112 H 113 H Pulse Rate [ From Monitor] Respiratory 23 21 21 Rate Blood Pressure 113/64 113/64 113/64 O2 Sat by Pulse 100 100 100 Oximetry 10/12/16 10/12/16 10/12/16 05:40 05:50 06:00 Temperature Pulse Rate 112 H 113 H 110 H Pulse Rate [ From Monitor] Respiratory 19 21 15 Rate Blood Pressure 113/64 113/64 115/60 O2 Sat by Pulse 100 100 100 Oximetry 10/12/16 10/12/16 10/12/16 06:10 06:20 06:30 Temperature Pulse Rate 113 H 110 H 108 H Pulse Rate [ From Monitor] Respiratory 20 22 19 Rate Blood Pressure 115/60 115/60 115/60 O2 Sat by Pulse 100 100 100 Oximetry 10/12/16 10/12/16 10/12/16 06:40 06:50 07:00 Temperature Pulse Rate 106 H 108 H 107 H Pulse Rate [ From Monitor] Respiratory 21 20 19 Rate Blood Pressure 115/60 115/60 115/61 O2 Sat by Pulse 100 100 Oximetry 10/12/16 10/12/16 10/12/16 07:10 07:20 07:30 Temperature Pulse Rate 106 H 107 H 105 H Pulse Rate [ From Monitor] Respiratory 17 19 17 Rate Blood Pressure 115/61 115/61 115/61 O2 Sat by Pulse 100 100 100 Oximetry 10/12/16 10/12/16 10/12/16 07:40 07:50 08:00 Temperature 98.3 F Pulse Rate 107 H 107 H 101 H Pulse Rate [ From Monitor] Respiratory 24 25 H 22 Rate Blood Pressure 115/61 115/61 97/39 O2 Sat by Pulse 100 100 99 Oximetry 10/12/16 10/12/16 10/12/16 08:10 08:23 09:29 Temperature Pulse Rate 98 H Pulse Rate [ 100 H From Monitor] Respiratory 21 20 Rate Blood Pressure 97/39 O2 Sat by Pulse 100 100 100 Oximetry - General Appearance General appearance: appears stated age EENT: mucous membranes moist Neck: no JVD Respiratory: Present: Clear to Ascultation Cardiology: regular Gastrointestinal: normal (nontender abdomen) Neurologic: other (encephalopathic) - Lab 10/12/16 14:04 10/12/16 17:02 Most recent lab results Calcium 9.0 mg/dL (8.4-10.2) 10/12/16 07:43 Phosphorus 2.8 mg/dL (2.5-4.5) D 10/11/16 23:43 Magnesium 2.3 mg/dL (1.7-2.3) 10/11/16 23:43
[2016-10-12] MEDS ORDERED: PROVENTIL IH ONE (12:00)
[2016-10-12] MEDS: ZOFRAN IV PRN (12:22)
[2016-10-12] MEDS: D5/0.45NS 1,000 ML IV SCH ×2 (12:29→20:28)
--- NOTE | 2016-10-12 13:39 | Consultation ---
History of Present Illness - Reason for Consult Consult date: 10/12/16 DKA Requesting physician: LUIS FELIPE PEREZ - History of Present Illness 26 y/o female, admitted with DKA Past History Past Medical History: GERD, hypertension Past Surgical History: No surgical history, Other (reviewed) Social history: single. denies: smoking, alcohol abuse Family history: diabetes, hypertension Medications and Allergies Allergies Allergy/AdvReac Type Severity Reaction Status Date / Time No Known Allergies Allergy Unverified 07/21/16 17:01 Home Medications Medication Instructions Recorded Confirmed Last Taken Type Insulin Glargine [Lantus VIAL] 22 units SUB-Q QHS 09/07/16 09/07/16 Unknown History Insulin Lispro [HumaLOG VIAL] 0 units SUB-Q TIDHS 09/07/16 09/07/16 Unknown History Pantoprazole [Protonix] 40 mg PO QDAY #30 tablet 09/11/16 Unknown Rx Sucralfate [Carafate] 1 gm PO ACHS #1 bottle 09/11/16 Unknown Rx oxyCODONE /ACETAMINOPHEN [Percocet 1 tab PO Q4H PRN #30 tablet 09/11/16 Unknown Rx 5/325 mg] Active Meds: Active Medications Acetaminophen (Tylenol) 650 mg PO Q4H PRN PRN Reason: Pain MILD(1-3)/Fever >100.5/HAHN Bisacodyl (Dulcolax) 10 mg [place] QDAY PRN PRN Reason: Constipation unrelieved by MOM Dextrose (D50w (25gm)) 0 ml IV ONCE PRN PRN Reason: Hypoglycemia Last Admin: 10/12/16 07:59 Dose: 50 ml Insulin Human Regular 100 (units/ Sodium Chloride) 100 mls @ 1 mls/hr IV TITR NAREN; 1 UNITS/HR PRN Reason: Protocol Last Titration: 10/12/16 12:00 Dose: 11 units/hr, 11 mls/hr Dextrose/Sodium Chloride (D5/0.45ns) 1,000 mls @ 125 mls/hr IV DIRECT NAREN Last Admin: 10/12/16 12:29 Dose: 125 mls/hr Levofloxacin/Dextrose (Levaquin 750mg/150ml) 750 mg in 150 mls @ 100 mls/hr IV Q24HR NAREN PRN Reason: Protocol Last Admin: 10/12/16 10:16 Dose: 100 mls/hr Lorazepam (Ativan) 1 mg IV Q4H PRN PRN Reason: Agitation Last Admin: 10/12/16 02:01 Dose: 1 mg Magnesium Hydroxide (Milk Of Magnesia) 30 ml PO Q4H PRN PRN Reason: Constipation Morphine Sulfate (Morphine) 2 mg IV Q4H PRN PRN Reason: Pain, Moderate (4-6) Last Admin: 10/12/16 13:35 Dose: 2 mg Ondansetron HCl (Zofran) 4 mg IV Q8H PRN PRN Reason: N/V unrelieved by Penny Last Admin: 10/12/16 12:22 Dose: 4 mg Exam - Constitutional Vitals: Temp Pulse Resp BP Pulse Ox 98.4 F 101 H 22 127/82 100 10/12/16 12:00 10/12/16 13:10 10/12/16 13:10 10/12/16 13:10 10/12/16 13:10 Results - Labs CBC & Chem 7: 10/11/16 20:00 10/12/16 07:43 Labs: Abnormal lab results 10/11/16 10/11/16 10/11/16 Range/Units 18:42 18:43 18:43 WBC (4.5-11.0) K/mm3 RBC (3.65-5.03) M/mm3 Hgb (10.1-14.3) gm/dl MCH (28-32) pg MCHC (30-34) % RDW (13.2-15.2) % Seg Neuts % (Manual) (40.0-70.0) % Lymphocytes % (Manual) (13.4-35.0) % Seg Neutrophils # Man (1.8-7.7) K/mm3 Lymphocytes # (Manual) (1.2-5.4) K/mm3 Monocytes # (Manual) (0.0-0.8) K/mm3 Sodium 172 H* D (137-145) mmol/L Potassium 8.2 H* (3.6-5.0) mmol/L Chloride 135.6 H (98-107) mmol/L Carbon Dioxide 3 L* (22-30) mmol/L BUN 34 H (7-17) mg/dL Creatinine 2.0 H (0.7-1.2) mg/dL Glucose 855 H* (65-100) mg/dL POC Glucose > 500 H (70-105) Lactic Acid 4.7 H* (0.7-2.0) mmol/L Calcium (8.4-10.2) mg/dL AST (5-40) units/L Albumin (3.9-5) g/dL 10/11/16 10/11/16 10/11/16 Range/Units 20:00 20:00 20:00 WBC 51.7 H* (4.5-11.0) K/mm3 RBC 3.59 L (3.65-5.03) M/mm3 Hgb 9.2 L (10.1-14.3) gm/dl MCH 26 L (28-32) pg MCHC 29 L (30-34) % RDW 17.3 H (13.2-15.2) % Seg Neuts % (Manual) 72.0 H (40.0-70.0) % Lymphocytes % (Manual) 12.0 L (13.4-35.0) % Seg Neutrophils # Man 37.2 H (1.8-7.7) K/mm3 Lymphocytes # (Manual) 6.2 H (1.2-5.4) K/mm3 Monocytes # (Manual) 1.6 H (0.0-0.8) K/mm3 Sodium (137-145) mmol/L Potassium 6.3 H* D (3.6-5.0) mmol/L Chloride 107.1 H (98-107) mmol/L Carbon Dioxide 4 L* (22-30) mmol/L BUN 30 H (7-17) mg/dL Creatinine 1.7 H (0.7-1.2) mg/dL Glucose 551 H* (65-100) mg/dL POC Glucose (70-105) Lactic Acid 3.1 H* (0.7-2.0) mmol/L Calcium 7.1 L D (8.4-10.2) mg/dL AST 48 H (5-40) units/L Albumin 3.7 L (3.9-5) g/dL 10/11/16 10/11/16 10/11/16 Range/Units 20:52 22:58 23:43 WBC (4.5-11.0) K/mm3 RBC (3.65-5.03) M/mm3 Hgb (10.1-14.3) gm/dl MCH (28-32) pg MCHC (30-34) % RDW (13.2-15.2) % Seg Neuts % (Manual) (40.0-70.0) % Lymphocytes % (Manual) (13.4-35.0) % Seg Neutrophils # Man (1.8-7.7) K/mm3 Lymphocytes # (Manual) (1.2-5.4) K/mm3 Monocytes # (Manual) (0.0-0.8) K/mm3 Sodium (137-145) mmol/L Potassium 6.6 H* (3.6-5.0) mmol/L Chloride 108.9 H (98-107) mmol/L Carbon Dioxide 4 L* (22-30) mmol/L BUN 25 H (7-17) mg/dL Creatinine 1.6 H (0.7-1.2) mg/dL Glucose 456 H (65-100) mg/dL POC Glucose > 500 H 381 H (70-105) Lactic Acid (0.7-2.0) mmol/L Calcium 8.2 L D (8.4-10.2) mg/dL AST (5-40) units/L Albumin (3.9-5) g/dL 10/12/16 10/12/16 10/12/16 Range/Units 00:17 01:32 03:37 WBC (4.5-11.0) K/mm3 RBC (3.65-5.03) M/mm3 Hgb (10.1-14.3) gm/dl MCH (28-32) pg MCHC (30-34) % RDW (13.2-15.2) % Seg Neuts % (Manual) (40.0-70.0) % Lymphocytes % (Manual) (13.4-35.0) % Seg Neutrophils # Man (1.8-7.7) K/mm3 Lymphocytes # (Manual) (1.2-5.4) K/mm3 Monocytes # (Manual) (0.0-0.8) K/mm3 Sodium (137-145) mmol/L Potassium (3.6-5.0) mmol/L Chloride (98-107) mmol/L Carbon Dioxide (22-30) mmol/L BUN (7-17) mg/dL Creatinine (0.7-1.2) mg/dL Glucose (65-100) mg/dL POC Glucose 409 H 438 H 327 H (70-105) Lactic Acid (0.7-2.0) mmol/L Calcium (8.4-10.2) mg/dL AST (5-40) units/L Albumin (3.9-5) g/dL 10/12/16 10/12/16 10/12/16 Range/Units 04:19 04:27 06:46 WBC (4.5-11.0) K/mm3 RBC (3.65-5.03) M/mm3 Hgb (10.1-14.3) gm/dl MCH (28-32) pg MCHC (30-34) % RDW (13.2-15.2) % Seg Neuts % (Manual) (40.0-70.0) % Lymphocytes % (Manual) (13.4-35.0) % Seg Neutrophils # Man (1.8-7.7) K/mm3 Lymphocytes # (Manual) (1.2-5.4) K/mm3 Monocytes # (Manual) (0.0-0.8) K/mm3 Sodium 146 H (137-145) mmol/L Potassium 5.9 H (3.6-5.0) mmol/L Chloride 113.0 H (98-107) mmol/L Carbon Dioxide 3 L* (22-30) mmol/L BUN 24 H (7-17) mg/dL Creatinine 1.7 H (0.7-1.2) mg/dL Glucose 313 H (65-100) mg/dL POC Glucose 297 H 205 H (70-105) Lactic Acid (0.7-2.0) mmol/L Calcium (8.4-10.2) mg/dL AST (5-40) units/L Albumin (3.9-5) g/dL 10/12/16 10/12/16 10/12/16 Range/Units 07:09 07:43 07:49 WBC (4.5-11.0) K/mm3 RBC (3.65-5.03) M/mm3 Hgb (10.1-14.3) gm/dl MCH (28-32) pg MCHC (30-34) % RDW (13.2-15.2) % Seg Neuts % (Manual) (40.0-70.0) % Lymphocytes % (Manual) (13.4-35.0) % Seg Neutrophils # Man (1.8-7.7) K/mm3 Lymphocytes # (Manual) (1.2-5.4) K/mm3 Monocytes # (Manual) (0.0-0.8) K/mm3 Sodium 148 H 149 H (137-145) mmol/L Potassium (3.6-5.0) mmol/L Chloride 117.3 H 117.4 H (98-107) mmol/L Carbon Dioxide 8 L* 6 L* (22-30) mmol/L BUN 22 H 23 H (7-17) mg/dL Creatinine 1.7 H 1.6 H (0.7-1.2) mg/dL Glucose 104 H (65-100) mg/dL POC Glucose < 40 L (70-105) Lactic Acid (0.7-2.0) mmol/L Calcium (8.4-10.2) mg/dL AST (5-40) units/L Albumin (3.9-5) g/dL 10/12/16 10/12/16 10/12/16 Range/Units 08:24 09:02 12:06 WBC (4.5-11.0) K/mm3 RBC (3.65-5.03) M/mm3 Hgb (10.1-14.3) gm/dl MCH (28-32) pg MCHC (30-34) % RDW (13.2-15.2) % Seg Neuts % (Manual) (40.0-70.0) % Lymphocytes % (Manual) (13.4-35.0) % Seg Neutrophils # Man (1.8-7.7) K/mm3 Lymphocytes # (Manual) (1.2-5.4) K/mm3 Monocytes # (Manual) (0.0-0.8) K/mm3 Sodium (137-145) mmol/L Potassium (3.6-5.0) mmol/L Chloride (98-107) mmol/L Carbon Dioxide (22-30) mmol/L BUN (7-17) mg/dL Creatinine (0.7-1.2) mg/dL Glucose (65-100) mg/dL POC Glucose 161 H 144 H 118 H (70-105) Lactic Acid (0.7-2.0) mmol/L Calcium (8.4-10.2) mg/dL AST (5-40) units/L Albumin (3.9-5) g/dL Assessment and Plan 26 y/o female with diabetic ketoacidosis, electrolyte imbalance, acute renal failure and severe metabolic acidosis 1. Continue insulin drip until anion gap closes 2. Once closed then, start long acting insulin 3. Continue NPO status 4. Follow up renal recs 5. Correct hyperkalemia CCT 31 minutes
[2016-10-12] MEDS ORDERED: HALDOL IV PRN (14:09)
[2016-10-12 14:33] LABS: Mean Corpuscular HGB Conc 30 % (30-34); Mean Corpuscular Hemoglobin 26 pg (28-32); Mean Corpuscular Volume 86 fl (79-97); Platelet Count 292 K/mm3 (140-440); Red Cell Distribution Width 16.8 % (13.2-15.2)
[2016-10-12 14:39] LABS: Hematocrit 43.2 % (30.3-42.9); Hemoglobin 13.2 gm/dl (10.1-14.3); White Blood Count 41.7 K/mm3 (4.5-11.0)
[2016-10-12 16:19] LABS: Basophils % (Manual) 0 % (0.0-1.8); Blastocytes % (Manual) 0 %; Eosinophils % (Manual) 0 % (0.0-4.3); Total Cells Counted Percent 4.5
[2016-10-12 16:20] LABS: Ovalocytes 1+
[2016-10-12 16:21] LABS: Anisocytosis 1+; Diff Status Complete; Platelet Estimate Consistent w Auto
[2016-10-12 17:44] LABS: Calcium 8.8 mg/dL (8.4-10.2); Chloride 112.7 mmol/L (98-107)
[2016-10-13 00:19] LABS: BUN/Creatinine Ratio 10.71; Calcium 8.9 mg/dL (8.4-10.2); Chloride 112.9 mmol/L (98-107); Potassium 3.8 mmol/L (3.6-5.0)
[2016-10-13] MEDS: D5/0.45NS 1,000 ML IV SCH ×3 (05:29→22:25)
[2016-10-13 05:31] LABS: Alanine Aminotransferase 20 units/L (7-56); Albumin 3.8 g/dL (3.9-5); Albumin/Globulin Ratio 1.4 %; Alkaline Phosphatase 89 units/L (35-129); Anion Gap 21 mmol/L; Bilirubin,Total 0.3 mg/dL (0.1-1.2); Blood Urea Nitrogen 12 mg/dL (7-17); Calcium 8.8 mg/dL (8.4-10.2); Carbon Dioxide 15 mmol/L (22-30); Chloride 115.6 mmol/L (98-107); Glucose 107 mg/dL (65-100); Magnesium 1.7 mg/dL (1.7-2.3); Potassium 3.5 mmol/L (3.6-5.0); Sodium 148 mmol/L (137-145); Total Protein 6.6 g/dL (6.3-8.2)
[2016-10-13] MEDS ORDERED: VANCOMYCIN VIAL 750 MG in NACL 0.9% 250ML 250 ML IV SCH (08:00)
[2016-10-13 08:58] LABS: Alanine Aminotransferase 20 units/L (7-56); Albumin 3.8 g/dL (3.9-5); Albumin/Globulin Ratio 1.5 %; Alkaline Phosphatase 84 units/L (35-129); Anion Gap 16 mmol/L; BUN/Creatinine Ratio 9.16; Bilirubin,Total 0.3 mg/dL (0.1-1.2); Blood Urea Nitrogen 11 mg/dL (7-17); Calcium 8.7 mg/dL (8.4-10.2); Carbon Dioxide 17 mmol/L (22-30); Chloride 116.5 mmol/L (98-107); Glucose 97 mg/dL (65-100); Potassium 3.1 mmol/L (3.6-5.0); Sodium 146 mmol/L (137-145); Total Protein 6.3 g/dL (6.3-8.2)
[2016-10-13] MEDS ORDERED: LOVENOX SUB-Q SCH (10:00)
[2016-10-13] MEDS ORDERED: D50W (25GM) IV PRN (10:41)
[2016-10-13] MEDS: LOVENOX SUB-Q SCH (10:50)
[2016-10-13] MEDS: LEVAQUIN 500MG/100ML 500 MG/100 ML BAG IV SCH (10:50)
[2016-10-13] MEDS: PROTONIX IV SCH (10:51)
--- NOTE | 2016-10-13 11:32 | Consultation ---
REASON FOR CONSULTATION: Management of acute renal failure with severe hyperkalemia, metabolic acidosis in a patient who is currently admitted with uncontrolled diabetes, severe metabolic acidosis and diabetic ketoacidosis. SOURCE OF INFORMATION: From the patient's mother as well as the ER physician, and Dr. Nichole. HISTORY OF PRESENT ILLNESS: The patient is a 26-year-old -[place] female, who used to be followed by [facility] for diabetes mellitus type 1. The patient has been out of her medication according to mother the last 2 days and was brought in to the ER with altered mental status. Further workup revealed that the patient was in acute severe renal failure with creatinine of 2.2, potassium was noted to be 7.9 with a bicarbonate of 4. Blood sugar was noted to be around 1061. White cell count was 56.1 thousand. The patient received large amount of IV fluids, was hemodynamically stable, but was not able to provide any history. Most of the history was obtained from the patient's mother. The patient does not have any prior history of chronic kidney disease, any known hematuria, proteinuria, or pyuria, etc. PAST MEDICAL HISTORY: Significant for type 1 diabetes mellitus. CURRENT ALLERGIES: None. HOME MEDICATIONS: Insulin as well as pantoprazole, Carafate, oxycodone in the past. SOCIAL HISTORY: Unable to obtain. FAMILY HISTORY: Unable to obtain due to encephalopathy. REVIEW OF SYSTEMS: Unable to obtain due encephalopathy, but according to mother the patient has not had any fever, chills, or any signs of infection; otherwise, complete review of systems is obtained, pertinent positive mentioned above in review of systems. PHYSICAL EXAMINATION: GENERAL: The patient is a 26-year-old -[place] female, who is lying comfortably in bed, does not appear in acute distress. VITAL SIGNS: Reviewed from this admission. HEENT: Normocephalic and atraumatic skull. Extraocular movements could not be tested. The patient appears to be encephalopathic. NECK: Supple without any thyromegaly or JVD. CHEST: Essentially clear to auscultation anteriorly and posteriorly. HEART: Regular rate. S1, S2 heard. No S3 or S4. ABDOMEN: Soft, nontender. No voluntary guarding or rebound. No organomegaly. No masses. EXTREMITIES: The patient does not have any edema. Peripheral pulses are palpable. No acute discoloration or cyanosis. ENDOCRINE: Thyroid not enlarged. PSYCHIATRIC: The patient does not appear to be exhibiting any evidence of agitation or aggression noted at this time. LABORATORY DATA: Labs and x-rays were reviewed from this admission as mentioned above also other labs are reviewed from the chart as well. ASSESSMENT AND PLAN: 1. Renal failure, likely acute in nature. The patient who has been admitted with severe hyperglycemia and diabetic ketoacidosis, needs aggressive hydration, which is currently being provided. 2. Severe hyperkalemia with EKG changes, currently improving, correction of acidosis as well as insulin deficiency needs to be rectified immediately and aggressively. 3. Diabetic ketoacidosis with lactic acidosis. The patient requires more IV hydration, suggest on starting her on 200 mL of normal saline as tolerated. Followup on labs every 2-4 hours. She is also in need for initiation of insulin drip at least units an hour to adjust depending on her anion gap that needs to be corrected. 4. Encephalopathy, likely resulting from above. 5. Severe leukocytosis, likely resulting from severe dehydration, could be signs of infection, suggest panculture and antibiotic; could also be due to . 6. When blood sugar is around 200 her IV fluid should be changed to D5 or D10 depending on the rate of correction of acidosis. This can be adjusted. 7. Maintain strict intake and output, currently it does not require any form of renal replacement therapy. Discussed with the patient's mother. Plan of care discussed at length with the patient's nurse, ICU. The patient's nurse, patient's mother at the bedside at this time, I have suggested that the patient should be started on 200 mL of normal saline for now, repeat electrolytes, frequently her potassium is coming down satisfactory. As far as acidosis is concerned, this needs to be corrected aggressively with ongoing use of insulin as well as dextrose as needed per ICU team as well as Hospital Medicine. We will continue to monitor renal function, intake and output; avoid any form of nonsteroidal drug, WILFRED inhibitors, angiotensin receptor kirstie. We will continue to follow and make recommendations from Renal standpoint. Case was specifically discussed with Dr. Milo Nichole, about the plan of care. JOB# [id number] SS/NTS
--- NOTE | 2016-10-13 11:40 | Progress Note ---
Assessment and Plan Impression * Nonoliguric acute kidney injury secondary to prerenal azotemia due to dehydration * Dehydration * Severe hyperkalemia - resolved * Metabolic acidosis secondary to diabetic ketoacidosis * Encephalopathy Plan: * Renal function stable, lightly improved * Continue IVF - D5W 1/2 NS * Tight glyecmic control * Avoid nephrotoxins * Strict I/O Subjective Date of service: 10/13/16 Interval history: No acute events overnight. Objective - Vital Signs Vital signs: Vital Signs - 12hr 10/12/16 10/12/16 10/13/16 23:40 23:50 00:00 Temperature 98.2 F Pulse Rate 107 H 108 H 103 H Respiratory 19 19 14 Rate Blood Pressure 109/65 109/65 105/60 O2 Sat by Pulse 99 99 98 Oximetry 10/13/16 10/13/16 10/13/16 00:10 00:20 00:30 Temperature Pulse Rate 97 H 104 H 103 H Respiratory 14 18 16 Rate Blood Pressure 105/60 105/60 105/60 O2 Sat by Pulse 100 100 100 Oximetry 10/13/16 10/13/16 10/13/16 00:40 00:50 01:00 Temperature Pulse Rate 100 H 97 H 105 H Respiratory 20 17 17 Rate Blood Pressure 105/60 105/60 117/74 O2 Sat by Pulse 100 100 100 Oximetry 10/13/16 10/13/16 10/13/16 01:10 01:20 01:30 Temperature Pulse Rate 101 H 97 H 104 H Respiratory 19 29 H 19 Rate Blood Pressure 117/74 117/74 117/74 O2 Sat by Pulse 100 99 99 Oximetry 10/13/16 10/13/16 10/13/16 01:40 01:50 02:00 Temperature Pulse Rate 105 H 106 H 105 H Respiratory 19 20 19 Rate Blood Pressure 117/74 117/74 107/57 O2 Sat by Pulse 99 99 Oximetry 10/13/16 10/13/16 10/13/16 02:10 02:20 02:30 Temperature Pulse Rate 103 H 98 H 96 H Respiratory 19 18 18 Rate Blood Pressure 107/57 107/57 107/57 O2 Sat by Pulse 99 100 100 Oximetry 10/13/16 10/13/16 10/13/16 02:40 02:50 03:00 Temperature Pulse Rate 97 H 98 H 96 H Respiratory 19 18 18 Rate Blood Pressure 107/57 107/57 118/65 O2 Sat by Pulse 100 100 Oximetry 10/13/16 10/13/16 10/13/16 03:10 03:20 03:30 Temperature Pulse Rate 102 H 96 H 93 H Respiratory 16 18 14 Rate Blood Pressure 118/65 118/65 118/65 O2 Sat by Pulse 100 100 100 Oximetry 10/13/16 10/13/16 10/13/16 03:40 03:50 04:00 Temperature 99.0 F Pulse Rate 96 H 97 H 96 H Respiratory 19 18 17 Rate Blood Pressure 118/65 118/65 109/67 O2 Sat by Pulse 98 100 Oximetry 10/13/16 10/13/16 10/13/16 04:10 04:20 04:30 Temperature Pulse Rate 93 H 96 H 98 H Respiratory 13 19 19 Rate Blood Pressure 109/67 109/67 109/67 O2 Sat by Pulse 100 100 99 Oximetry 10/13/16 10/13/16 10/13/16 04:40 04:50 04:53 Temperature Pulse Rate 102 H 102 H Respiratory 19 20 Rate Blood Pressure 109/67 109/67 O2 Sat by Pulse 98 98 98 Oximetry 10/13/16 10/13/16 10/13/16 05:00 05:10 05:20 Temperature Pulse Rate 101 H 103 H 105 H Respiratory 19 19 10 L Rate Blood Pressure 115/62 115/62 115/62 O2 Sat by Pulse 96 98 98 Oximetry 10/13/16 10/13/16 10/13/16 05:30 05:40 05:50 Temperature Pulse Rate 106 H 98 H 97 H Respiratory 13 17 19 Rate Blood Pressure 115/62 115/62 115/62 O2 Sat by Pulse 98 99 98 Oximetry 10/13/16 10/13/16 10/13/16 06:00 06:10 06:20 Temperature Pulse Rate 96 H 98 H 96 H Respiratory 16 17 17 Rate Blood Pressure 109/62 109/62 109/62 O2 Sat by Pulse 97 98 98 Oximetry 10/13/16 10/13/16 10/13/16 06:30 06:40 06:50 Temperature Pulse Rate 95 H 96 H 93 H Respiratory 15 15 16 Rate Blood Pressure 109/62 109/62 109/62 O2 Sat by Pulse 98 98 99 Oximetry 10/13/16 10/13/16 10/13/16 07:00 07:10 07:20 Temperature Pulse Rate 91 H 97 H 97 H Respiratory 15 18 18 Rate Blood Pressure 107/68 107/68 107/68 O2 Sat by Pulse 98 98 98 Oximetry 10/13/16 10/13/16 10/13/16 07:30 07:40 07:50 Temperature Pulse Rate 97 H 97 H 97 H Respiratory 17 22 15 Rate Blood Pressure 107/68 107/68 107/68 O2 Sat by Pulse 98 98 99 Oximetry 10/13/16 10/13/16 10/13/16 08:00 08:10 08:20 Temperature 98.7 F Pulse Rate 92 H 96 H 93 H Respiratory 16 16 17 Rate Blood Pressure 115/65 115/65 115/65 O2 Sat by Pulse 98 99 99 Oximetry 10/13/16 10/13/16 10/13/16 08:30 08:40 08:50 Temperature Pulse Rate 89 92 H 90 Respiratory 16 16 16 Rate Blood Pressure 115/65 115/65 115/65 O2 Sat by Pulse 100 98 99 Oximetry 10/13/16 10/13/16 10/13/16 09:00 09:10 09:20 Temperature Pulse Rate 91 H 94 H 93 H Respiratory 17 13 20 Rate Blood Pressure 106/65 106/65 115/65 O2 Sat by Pulse 98 100 99 Oximetry 10/13/16 10/13/16 10/13/16 09:30 09:40 09:50 Temperature Pulse Rate 92 H 86 86 Respiratory 18 12 17 Rate Blood Pressure 115/65 115/65 106/65 O2 Sat by Pulse 100 100 100 Oximetry 10/13/16 10/13/16 10/13/16 10:00 10:10 10:20 Temperature Pulse Rate 85 89 88 Respiratory 17 18 16 Rate Blood Pressure 118/70 118/70 118/70 O2 Sat by Pulse 100 99 Oximetry 10/13/16 10/13/16 10:30 10:40 Temperature Pulse Rate 90 89 Respiratory 17 17 Rate Blood Pressure 118/70 118/70 O2 Sat by Pulse 100 100 Oximetry - General Appearance General appearance: well-developed, well-nourished EENT: ATNC Respiratory: Present: Clear to Ascultation Cardiology: regular, S1S2 Gastrointestinal: normal Integumentary: no rash Neurologic: other (unresponsive) Musculoskeletal: other (no edema) - Lab 10/12/16 14:04 10/13/16 08:26 Most recent lab results Calcium 8.7 mg/dL (8.4-10.2) 10/13/16 08:26 Phosphorus 1.0 mg/dL (2.5-4.5) L D 10/13/16 04:13 Magnesium 1.7 mg/dL (1.7-2.3) 10/13/16 04:13
--- NOTE | 2016-10-13 12:43 | Progress Note ---
Assessment and Plan 26 y/o female with diabetic ketoacidosis, electrolyte imbalance, acute renal failure and severe metabolic acidosis 1. Start long acting insulin 2. Feed patient 3. Supplies for cycle 4. Stable for transfer out of unit CCT 31 minutes Subjective Date of service: 10/13/16 Interval history: No acute events. Anion Gap has closed. Per family/friend, patient has just started her cycle as well. Objective - Constitutional Vitals: Vital Signs - 12hr 10/13/16 10/13/16 10/13/16 00:50 01:00 01:10 Temperature Pulse Rate 97 H 105 H 101 H Respiratory 17 17 19 Rate Blood Pressure 105/60 117/74 117/74 O2 Sat by Pulse 100 100 100 Oximetry 10/13/16 10/13/16 10/13/16 01:20 01:30 01:40 Temperature Pulse Rate 97 H 104 H 105 H Respiratory 29 H 19 19 Rate Blood Pressure 117/74 117/74 117/74 O2 Sat by Pulse 99 99 99 Oximetry 10/13/16 10/13/16 10/13/16 01:50 02:00 02:10 Temperature Pulse Rate 106 H 105 H 103 H Respiratory 20 19 19 Rate Blood Pressure 117/74 107/57 107/57 O2 Sat by Pulse 99 99 Oximetry 10/13/16 10/13/16 10/13/16 02:20 02:30 02:40 Temperature Pulse Rate 98 H 96 H 97 H Respiratory 18 18 19 Rate Blood Pressure 107/57 107/57 107/57 O2 Sat by Pulse 100 100 100 Oximetry 10/13/16 10/13/16 10/13/16 02:50 03:00 03:10 Temperature Pulse Rate 98 H 96 H 102 H Respiratory 18 18 16 Rate Blood Pressure 107/57 118/65 118/65 O2 Sat by Pulse 100 100 Oximetry 10/13/16 10/13/16 10/13/16 03:20 03:30 03:40 Temperature Pulse Rate 96 H 93 H 96 H Respiratory 18 14 19 Rate Blood Pressure 118/65 118/65 118/65 O2 Sat by Pulse 100 100 98 Oximetry 10/13/16 10/13/16 10/13/16 03:50 04:00 04:10 Temperature 99.0 F Pulse Rate 97 H 96 H 93 H Respiratory 18 17 13 Rate Blood Pressure 118/65 109/67 109/67 O2 Sat by Pulse 100 100 Oximetry 10/13/16 10/13/16 10/13/16 04:20 04:30 04:40 Temperature Pulse Rate 96 H 98 H 102 H Respiratory 19 19 19 Rate Blood Pressure 109/67 109/67 109/67 O2 Sat by Pulse 100 99 98 Oximetry 10/13/16 10/13/16 10/13/16 04:50 04:53 05:00 Temperature Pulse Rate 102 H 101 H Respiratory 20 19 Rate Blood Pressure 109/67 115/62 O2 Sat by Pulse 98 98 96 Oximetry 10/13/16 10/13/16 10/13/16 05:10 05:20 05:30 Temperature Pulse Rate 103 H 105 H 106 H Respiratory 19 10 L 13 Rate Blood Pressure 115/62 115/62 115/62 O2 Sat by Pulse 98 98 98 Oximetry 10/13/16 10/13/16 10/13/16 05:40 05:50 06:00 Temperature Pulse Rate 98 H 97 H 96 H Respiratory 17 19 16 Rate Blood Pressure 115/62 115/62 109/62 O2 Sat by Pulse 99 98 97 Oximetry 10/13/16 10/13/16 10/13/16 06:10 06:20 06:30 Temperature Pulse Rate 98 H 96 H 95 H Respiratory 17 17 15 Rate Blood Pressure 109/62 109/62 109/62 O2 Sat by Pulse 98 98 98 Oximetry 10/13/16 10/13/16 10/13/16 06:40 06:50 07:00 Temperature Pulse Rate 96 H 93 H 91 H Respiratory 15 16 15 Rate Blood Pressure 109/62 109/62 107/68 O2 Sat by Pulse 98 99 98 Oximetry 10/13/16 10/13/16 10/13/16 07:10 07:20 07:30 Temperature Pulse Rate 97 H 97 H 97 H Respiratory 18 18 17 Rate Blood Pressure 107/68 107/68 107/68 O2 Sat by Pulse 98 98 98 Oximetry 10/13/16 10/13/16 10/13/16 07:40 07:50 08:00 Temperature 98.7 F Pulse Rate 97 H 97 H 92 H Respiratory 22 15 16 Rate Blood Pressure 107/68 107/68 115/65 O2 Sat by Pulse 98 99 98 Oximetry 10/13/16 10/13/16 10/13/16 08:10 08:20 08:30 Temperature Pulse Rate 96 H 93 H 89 Respiratory 16 17 16 Rate Blood Pressure 115/65 115/65 115/65 O2 Sat by Pulse 99 99 100 Oximetry 10/13/16 10/13/16 10/13/16 08:40 08:50 09:00 Temperature Pulse Rate 92 H 90 91 H Respiratory 16 16 17 Rate Blood Pressure 115/65 115/65 106/65 O2 Sat by Pulse 98 99 98 Oximetry 10/13/16 10/13/16 10/13/16 09:10 09:20 09:30 Temperature Pulse Rate 94 H 93 H 92 H Respiratory 13 20 18 Rate Blood Pressure 106/65 115/65 115/65 O2 Sat by Pulse 100 99 100 Oximetry 10/13/16 10/13/16 10/13/16 09:40 09:50 10:00 Temperature Pulse Rate 86 86 85 Respiratory 12 17 17 Rate Blood Pressure 115/65 106/65 118/70 O2 Sat by Pulse 100 100 Oximetry 10/13/16 10/13/16 10/13/16 10:10 10:20 10:30 Temperature Pulse Rate 89 88 90 Respiratory 18 16 17 Rate Blood Pressure 118/70 118/70 118/70 O2 Sat by Pulse 100 99 100 Oximetry 10/13/16 10:40 Temperature Pulse Rate 89 Respiratory 17 Rate Blood Pressure 118/70 O2 Sat by Pulse 100 Oximetry - Labs CBC & Chem 7: 10/12/16 14:04 10/13/16 08:26 Labs: Abnormal lab results 10/12/16 10/12/16 10/12/16 Range/Units 13:38 14:04 14:33 WBC 41.7 H* (4.5-11.0) K/mm3 Hct 43.2 H D (30.3-42.9) % MCH 26 L (28-32) pg RDW 16.8 H (13.2-15.2) % Seg Neuts % (Manual) 86.5 H (40.0-70.0) % Lymphocytes % (Manual) 5.0 L (13.4-35.0) % Seg Neutrophils # Man 36.1 H (1.8-7.7) K/mm3 Monocytes # (Manual) 1.3 H (0.0-0.8) K/mm3 Sodium (137-145) mmol/L Potassium (3.6-5.0) mmol/L Chloride (98-107) mmol/L Carbon Dioxide (22-30) mmol/L BUN (7-17) mg/dL Creatinine (0.7-1.2) mg/dL Glucose (65-100) mg/dL POC Glucose 187 H 211 H (70-105) Hemoglobin A1c (4-6) % Phosphorus (2.5-4.5) mg/dL Albumin (3.9-5) g/dL 10/12/16 10/12/16 10/12/16 Range/Units 15:05 15:52 17:02 WBC (4.5-11.0) K/mm3 Hct (30.3-42.9) % MCH (28-32) pg RDW (13.2-15.2) % Seg Neuts % (Manual) (40.0-70.0) % Lymphocytes % (Manual) (13.4-35.0) % Seg Neutrophils # Man (1.8-7.7) K/mm3 Monocytes # (Manual) (0.0-0.8) K/mm3 Sodium (137-145) mmol/L Potassium (3.6-5.0) mmol/L Chloride (98-107) mmol/L Carbon Dioxide 13 L D (22-30) mmol/L BUN 18 H (7-17) mg/dL Creatinine 1.5 H (0.7-1.2) mg/dL Glucose 169 H (65-100) mg/dL POC Glucose 192 H 184 H (70-105) Hemoglobin A1c (4-6) % Phosphorus (2.5-4.5) mg/dL Albumin (3.9-5) g/dL 10/12/16 10/12/16 10/12/16 Range/Units 17:02 17:06 18:01 WBC (4.5-11.0) K/mm3 Hct (30.3-42.9) % MCH (28-32) pg RDW (13.2-15.2) % Seg Neuts % (Manual) (40.0-70.0) % Lymphocytes % (Manual) (13.4-35.0) % Seg Neutrophils # Man (1.8-7.7) K/mm3 Monocytes # (Manual) (0.0-0.8) K/mm3 Sodium (137-145) mmol/L Potassium (3.6-5.0) mmol/L Chloride (98-107) mmol/L Carbon Dioxide (22-30) mmol/L BUN (7-17) mg/dL Creatinine (0.7-1.2) mg/dL Glucose (65-100) mg/dL POC Glucose 189 H 168 H (70-105) Hemoglobin A1c 10.1 H (4-6) % Phosphorus (2.5-4.5) mg/dL Albumin (3.9-5) g/dL 10/12/16 10/12/16 10/12/16 Range/Units 19:55 21:01 22:01 WBC (4.5-11.0) K/mm3 Hct (30.3-42.9) % MCH (28-32) pg RDW (13.2-15.2) % Seg Neuts % (Manual) (40.0-70.0) % Lymphocytes % (Manual) (13.4-35.0) % Seg Neutrophils # Man (1.8-7.7) K/mm3 Monocytes # (Manual) (0.0-0.8) K/mm3 Sodium (137-145) mmol/L Potassium (3.6-5.0) mmol/L Chloride (98-107) mmol/L Carbon Dioxide (22-30) mmol/L BUN (7-17) mg/dL Creatinine (0.7-1.2) mg/dL Glucose (65-100) mg/dL POC Glucose 227 H 302 H 296 H (70-105) Hemoglobin A1c (4-6) % Phosphorus (2.5-4.5) mg/dL Albumin (3.9-5) g/dL 10/12/16 10/12/16 10/13/16 Range/Units 23:05 23:19 00:13 WBC (4.5-11.0) K/mm3 Hct (30.3-42.9) % MCH (28-32) pg RDW (13.2-15.2) % Seg Neuts % (Manual) (40.0-70.0) % Lymphocytes % (Manual) (13.4-35.0) % Seg Neutrophils # Man (1.8-7.7) K/mm3 Monocytes # (Manual) (0.0-0.8) K/mm3 Sodium 148 H (137-145) mmol/L Potassium (3.6-5.0) mmol/L Chloride 112.9 H (98-107) mmol/L Carbon Dioxide 12 L (22-30) mmol/L BUN (7-17) mg/dL Creatinine 1.4 H (0.7-1.2) mg/dL Glucose 276 H (65-100) mg/dL POC Glucose 259 H 191 H (70-105) Hemoglobin A1c (4-6) % Phosphorus (2.5-4.5) mg/dL Albumin (3.9-5) g/dL 10/13/16 10/13/16 10/13/16 Range/Units 01:09 02:18 03:23 WBC (4.5-11.0) K/mm3 Hct (30.3-42.9) % MCH (28-32) pg RDW (13.2-15.2) % Seg Neuts % (Manual) (40.0-70.0) % Lymphocytes % (Manual) (13.4-35.0) % Seg Neutrophils # Man (1.8-7.7) K/mm3 Monocytes # (Manual) (0.0-0.8) K/mm3 Sodium (137-145) mmol/L Potassium (3.6-5.0) mmol/L Chloride (98-107) mmol/L Carbon Dioxide (22-30) mmol/L BUN (7-17) mg/dL Creatinine (0.7-1.2) mg/dL Glucose (65-100) mg/dL POC Glucose 143 H 110 H 109 H (70-105) Hemoglobin A1c (4-6) % Phosphorus (2.5-4.5) mg/dL Albumin (3.9-5) g/dL 10/13/16 10/13/16 10/13/16 Range/Units 04:04 04:13 06:25 WBC (4.5-11.0) K/mm3 Hct (30.3-42.9) % MCH (28-32) pg RDW (13.2-15.2) % Seg Neuts % (Manual) (40.0-70.0) % Lymphocytes % (Manual) (13.4-35.0) % Seg Neutrophils # Man (1.8-7.7) K/mm3 Monocytes # (Manual) (0.0-0.8) K/mm3 Sodium 148 H (137-145) mmol/L Potassium 3.5 L (3.6-5.0) mmol/L Chloride 115.6 H (98-107) mmol/L Carbon Dioxide 15 L (22-30) mmol/L BUN (7-17) mg/dL Creatinine (0.7-1.2) mg/dL Glucose 107 H (65-100) mg/dL POC Glucose 115 H 131 H (70-105) Hemoglobin A1c (4-6) % Phosphorus 1.0 L D (2.5-4.5) mg/dL Albumin 3.8 L (3.9-5) g/dL 10/13/16 10/13/16 10/13/16 Range/Units 08:26 09:43 10:34 WBC (4.5-11.0) K/mm3 Hct (30.3-42.9) % MCH (28-32) pg RDW (13.2-15.2) % Seg Neuts % (Manual) (40.0-70.0) % Lymphocytes % (Manual) (13.4-35.0) % Seg Neutrophils # Man (1.8-7.7) K/mm3 Monocytes # (Manual) (0.0-0.8) K/mm3 Sodium 146 H (137-145) mmol/L Potassium 3.1 L (3.6-5.0) mmol/L Chloride 116.5 H (98-107) mmol/L Carbon Dioxide 17 L (22-30) mmol/L BUN (7-17) mg/dL Creatinine (0.7-1.2) mg/dL Glucose (65-100) mg/dL POC Glucose 148 H 223 H (70-105) Hemoglobin A1c (4-6) % Phosphorus (2.5-4.5) mg/dL Albumin 3.8 L (3.9-5) g/dL
[2016-10-13] MEDS: ZOFRAN IV PRN (14:20)
[2016-10-13] MEDS ORDERED: K-DUR PO ONE (16:39)
[2016-10-13] MEDS: LEVEMIR SUB-Q SCH (22:27)
[2016-10-14] MEDS: ZOFRAN IV PRN ×2 (05:36→23:47)
[2016-10-14] MEDS: MORPHINE IV PRN ×3 (05:36→23:47)
[2016-10-14] MEDS: D5/0.45NS 1,000 ML IV SCH ×2 (09:46→19:28)
[2016-10-14] MEDS: LEVAQUIN 500MG/100ML 500 MG/100 ML BAG IV SCH (09:47)
[2016-10-14] MEDS: LOVENOX SUB-Q SCH (09:48)
[2016-10-14] MEDS: PROTONIX IV SCH (09:49)
--- NOTE | 2016-10-14 09:54 | Progress Note ---
Assessment and Plan Assessment and plan: 1. DKA. Patient has been transferred from the ICU to medical floor. Patient currently off IV insulin drip and tolerating long-acting insulin. 2. Sepsis. Etiology is unknown. Patient with a significant leukocytosis of greater than 40,000. Blood cultures thus far negative. Continue to follow blood and urine cultures. 3. Toxic metabolic encephalopathy. Etiology secondary to 1 and 2. Continue to treat underlying causes. Improving. History Interval history: 26-year-old female admitted with sepsis and DKA. Patient transferred to the floor on 10/13/16. No new issues overnight. Hospitalist Physical - Constitutional Vitals: Temp Pulse Resp BP Pulse Ox 98.1 F 82 20 123/64 100 10/14/16 08:15 10/14/16 08:15 10/14/16 08:15 10/14/16 08:15 10/14/16 08:15 General appearance: Present: mild distress, well-nourished, other (dehydrated) - EENT Eyes: Present: PERRL, EOM intact ENT: hearing intact, clear oral mucosa, dentition normal - Neck Neck: Present: supple, normal ROM - Respiratory Respiratory effort: normal Respiratory: bilateral: CTA - Cardiovascular Rhythm: regular Heart Sounds: Present: S1 & S2. Absent: gallop, rub - Extremities Extremities: no ischemia, No edema, Full ROM - Abdominal General gastrointestinal: soft, non-tender, non-distended, normal bowel sounds - Integumentary Integumentary: Present: clear, warm, dry - Neurologic Neurologic: CNII-XII intact, moves all extremities Results - Labs CBC & Chem 7: 10/12/16 14:04 10/13/16 08:26 Labs: Laboratory Last Values WBC 41.7 K/mm3 (4.5-11.0) H* 10/12/16 14:04 RBC 5.00 M/mm3 (3.65-5.03) 10/12/16 14:04 Hgb 13.2 gm/dl (10.1-14.3) D 10/12/16 14:04 Hct 43.2 % (30.3-42.9) H D 10/12/16 14:04 MCV 86 fl (79-97) D 10/12/16 14:04 MCH 26 pg (28-32) L 10/12/16 14:04 MCHC 30 % (30-34) 10/12/16 14:04 RDW 16.8 % (13.2-15.2) H 10/12/16 14:04 Plt Count 292 K/mm3 (140-440) 10/12/16 14:04 Lymph # Director Voice 10/11/16 20:00 Add Manual Diff Complete 10/12/16 14:04 Total Counted 200 10/12/16 14:04 Seg Neuts % (Manual) 86.5 % (40.0-70.0) H 10/12/16 14:04 Band Neutrophils % 3.5 % 10/12/16 14:04 Lymphocytes % (Manual) 5.0 % (13.4-35.0) L 10/12/16 14:04 Reactive Lymphs % (Man) 0 % 10/12/16 14:04 Monocytes % (Manual) 3.0 % (0.0-7.3) 10/12/16 14:04 Eosinophils % (Manual) 0 % (0.0-4.3) 10/12/16 14:04 Basophils % (Manual) 0 % (0.0-1.8) 10/12/16 14:04 Metamyelocytes % 1.5 % 10/12/16 14:04 Myelocytes % 0.5 % 10/12/16 14:04 Promyelocytes % 0 % 10/12/16 14:04 Blast Cells % 0 % 10/12/16 14:04 Nucleated RBC % Not Reportable 10/12/16 14:04 Seg Neutrophils # Man 36.1 K/mm3 (1.8-7.7) H 10/12/16 14:04 Band Neutrophils # 1.5 K/mm3 10/12/16 14:04 Lymphocytes # (Manual) 2.1 K/mm3 (1.2-5.4) 10/12/16 14:04 Abs React Lymphs (Man) 0.0 K/mm3 10/12/16 14:04 Monocytes # (Manual) 1.3 K/mm3 (0.0-0.8) H 10/12/16 14:04 Eosinophils # (Manual) 0.0 K/mm3 (0.0-0.4) 10/12/16 14:04 Basophils # (Manual) 0.0 K/mm3 (0.0-0.1) 10/12/16 14:04 Metamyelocytes # 0.6 K/mm3 10/12/16 14:04 Myelocytes # 0.2 K/mm3 10/12/16 14:04 Promyelocytes # 0.0 K/mm3 10/12/16 14:04 Blast Cells # 0.0 K/mm3 10/12/16 14:04 Pathologist Review 10/11/16 15:36 WBC Morphology Not Reportable 10/12/16 14:04 Hypersegmented Neuts Not Reportable 10/12/16 14:04 Hyposegmented Neuts Not Reportable 10/12/16 14:04 Hypogranular Neuts Not Reportable 10/12/16 14:04 Smudge Cells Not Reportable 10/12/16 14:04 Toxic Granulation Not Reportable 10/12/16 14:04 Toxic Vacuolation Not Reportable 10/12/16 14:04 Dohle Bodies Not Reportable 10/12/16 14:04 Pelger-Huet Anomaly Not Reportable 10/12/16 14:04 Alex Rods Not Reportable 10/12/16 14:04 Platelet Estimate Consistent w auto 10/12/16 14:04 Clumped Platelets Not Reportable 10/12/16 14:04 Plt Clumps, EDTA Not Reportable 10/12/16 14:04 Large Platelets Not Reportable 10/12/16 14:04 Giant Platelets Not Reportable 10/12/16 14:04 Platelet Satelliting Not Reportable 10/12/16 14:04 Plt Morphology Comment Not Reportable 10/12/16 14:04 RBC Morphology Not Reportable 10/12/16 14:04 Dimorphic RBCs Not Reportable 10/12/16 14:04 Polychromasia Not Reportable 10/12/16 14:04 Hypochromasia Not Reportable 10/12/16 14:04 Poikilocytosis Not Reportable 10/12/16 14:04 Anisocytosis 1+ 10/12/16 14:04 Microcytosis Not Reportable 10/12/16 14:04 Macrocytosis Not Reportable 10/12/16 14:04 Spherocytes Not Reportable 10/12/16 14:04 Pappenheimer Bodies Not Reportable 10/12/16 14:04 Sickle Cells Not Reportable 10/12/16 14:04 Target Cells Not Reportable 10/12/16 14:04 Tear Drop Cells Not Reportable 10/12/16 14:04 Ovalocytes 1+ 10/12/16 14:04 Helmet Cells Not Reportable 10/12/16 14:04 [place] Bodies Not Reportable 10/12/16 14:04 [place] Rings Not Reportable 10/12/16 14:04 Marci Cells Not Reportable 10/12/16 14:04 Bite Cells Not Reportable 10/12/16 14:04 Crenated Cell Not Reportable 10/12/16 14:04 Elliptocytes Not Reportable 10/12/16 14:04 Acanthocytes (Spur) Not Reportable 10/12/16 14:04 Rouleaux Not Reportable 10/12/16 14:04 Hemoglobin C Crystals Not Reportable 10/12/16 14:04 Schistocytes Not Reportable 10/12/16 14:04 Malaria parasites Not Reportable 10/12/16 14:04 Pérez Bodies Not Reportable 10/12/16 14:04 Hem Pathologist Commnt No 10/12/16 14:04 PT 16.6 Sec. (12.2-14.9) H 10/11/16 15:36 INR 1.35 (0.87-1.13) H 10/11/16 15:36 APTT 27.7 Sec. (24.2-36.6) 10/11/16 15:36 Sodium 146 mmol/L (137-145) H 10/13/16 08:26 Potassium 3.1 mmol/L (3.6-5.0) L 10/13/16 08:26 Chloride 116.5 mmol/L (98-107) H 10/13/16 08:26 Carbon Dioxide 17 mmol/L (22-30) L 10/13/16 08:26 Anion Gap 16 mmol/L 10/13/16 08:26 BUN 11 mg/dL (7-17) 10/13/16 08:26 Creatinine 1.2 mg/dL (0.7-1.2) 10/13/16 08:26 Estimated GFR > 60 ml/min 10/13/16 08:26 BUN/Creatinine Ratio 9.16 % 10/13/16 08:26 Glucose 97 mg/dL (65-100) 10/13/16 08:26 POC Glucose 291 (70-105) H 10/14/16 06:52 Hemoglobin A1c 10.1 % (4-6) H 10/12/16 17:02 Lactic Acid 1.1 mmol/L (0.7-2.0) 10/13/16 04:13 Calcium 8.7 mg/dL (8.4-10.2) 10/13/16 08:26 Phosphorus 1.0 mg/dL (2.5-4.5) L D 10/13/16 04:13 Magnesium 1.7 mg/dL (1.7-2.3) 10/13/16 04:13 Total Bilirubin 0.3 mg/dL (0.1-1.2) 10/13/16 08:26 Direct Bilirubin < 0.2 mg/dL (0-0.2) 10/11/16 15:36 Indirect Bilirubin 0.0 mg/dL 10/11/16 15:36 AST 39 units/L (5-40) 10/13/16 08:26 ALT 20 units/L (7-56) 10/13/16 08:26 Alkaline Phosphatase 84 units/L (35-129) 10/13/16 08:26 NT-Pro-B Natriuret Pep 176.4 pg/mL (0-450) 10/11/16 15:36 Total Protein 6.3 g/dL (6.3-8.2) 10/13/16 08:26 Albumin 3.8 g/dL (3.9-5) L 10/13/16 08:26 Albumin/Globulin Ratio 1.5 % 10/13/16 08:26 TSH 1.060 mlU/mL (0.270-4.200) 10/11/16 15:36 Urine Color Colorless (Yellow) 10/11/16 16:25 Urine Turbidity Clear (Clear) 10/11/16 16:25 Urine pH 5.0 (5.0-7.0) 10/11/16 16:25 Ur Specific [place] 1.017 (1.003-1.030) 10/11/16 16:25 Urine Protein <15 mg/dl mg/dL (Negative) 10/11/16 16:25 Urine Glucose (UA) >=500 mg/dL (Negative) 10/11/16 16:25 Urine Ketones 80 mg/dL (Negative) 10/11/16 16:25 Urine Blood Mod (Negative) 10/11/16 16:25 Urine Nitrite Neg (Negative) 10/11/16 16:25 Urine Bilirubin Neg (Negative) 10/11/16 16:25 Urine Urobilinogen < 2.0 mg/dL (<2.0) 10/11/16 16:25 Ur Leukocyte Esterase Neg (Negative) 10/11/16 16:25 Urine WBC (Auto) < 1.0 /HPF (0.0-6.0) 10/11/16 16:25 Urine RBC (Auto) 1.0 /HPF (0.0-6.0) 10/11/16 16:25 Urine Mucus Few /HPF 10/11/16 16:25 Urine HCG, Qual Negative (Negative) 10/11/16 16:25 Salicylates < 0.3 mg/dL (2.8-20.0) L 10/11/16 15:36 Urine Opiates Screen Presumptive negative 10/11/16 16:25 Urine Methadone Screen Presumptive negative 10/11/16 16:25 Acetaminophen < 15.0 ug/mL (10.0-30.0) 10/11/16 15:36 Ur Barbiturates Screen Presumptive negative 10/11/16 16:25 Ur Phencyclidine Scrn Presumptive negative 10/11/16 16:25 Ur Amphetamines Screen Presumptive negative 10/11/16 16:25 U Benzodiazepines Scrn Presumptive negative 10/11/16 16:25 Urine Cocaine Screen Presumptive negative 10/11/16 16:25 U Marijuana (THC) Screen Presumptive negative 10/11/16 16:25 Drugs of Abuse Note Disclamer 10/11/16 16:25 Plasma/Serum Alcohol < 0.01 gm% (0-0.07) 10/11/16 15:36 Blood Type B POSITIVE 10/11/16 15:53 Antibody Screen Positive 10/11/16 15:53 Antibody Identification Anti-E 10/11/16 15:53 Crossmatch See Detail 10/11/16 15:53
--- NOTE | 2016-10-14 09:56 | Progress Note ---
Assessment and Plan 1. DKA. Patient will be transitioned from IV insulin to long-acting insulin. Patient will be transferred to the floor. 2. Sepsis. Etiology is unknown. Patient with a significant leukocytosis. Blood cultures thus far negative. Continue to follow blood and urine cultures. 3. Toxic metabolic encephalopathy. Etiology secondary to 1 and 2. Continue to treat underlying causes. Improving. Subjective Date of service: 10/13/16 Principal diagnosis: sepsis and DKA Interval history: 26-year-old female admitted with sepsis and DKA. Patient transferred to the floor on 10/13/16. No new issues overnight. Objective - Constitutional Vitals: Vital Signs - 12hr 10/14/16 10/14/16 04:00 08:15 Temperature 98.1 F 98.1 F Pulse Rate [ 82 From Monitor] Pulse Rate [ 79 Right] Respiratory 18 20 Rate Blood Pressure 134/87 Blood Pressure 123/64 [Left Arm] O2 Sat by Pulse 100 Oximetry General appearance: Present: no acute distress, well-nourished - EENT Eyes: PERRL, EOM intact ENT: hearing intact, clear oral mucosa Ears: bilateral: normal - Neck Neck: supple, normal ROM - Respiratory Respiratory effort: normal Respiratory: bilateral: CTA - Breasts Breasts: normal - Cardiovascular Rhythm: regular Heart Sounds: Present: S1 & S2. Absent: gallop, rub Extremities: pulses intact, No edema, normal color, Full ROM - Gastrointestinal General gastrointestinal: Present: soft, non-tender, non-distended, normal bowel sounds - Genitourinary Female genitourinary: normal - Integumentary Integumentary: clear, warm, dry - Musculoskeletal Musculoskeletal: 1, strength equal bilaterally - Neurologic Neurologic: moves all extremities - Psychiatric Psychiatric: memory intact, appropriate mood/affect, intact judgment & insight - Labs CBC & Chem 7: 10/12/16 14:04 10/13/16 08:26 Labs: Abnormal lab results 10/13/16 10/13/16 10/14/16 Range/Units 10:34 21:12 06:52 POC Glucose 223 H 254 H 291 H (70-105)
[2016-10-14 11:16] LABS: Basophils % (Auto) 0.6 % (0.0-1.8); Hematocrit 41.5 % (30.3-42.9); Hemoglobin 13.4 gm/dl (10.1-14.3); Mean Corpuscular HGB Conc 32 % (30-34); Mean Corpuscular Hemoglobin 27 pg (28-32); Mean Corpuscular Volume 82 fl (79-97); Platelet Count 258 K/mm3 (140-440); Red Blood Count 5.03 M/mm3 (3.65-5.03); Red Cell Distribution Width 17.6 % (13.2-15.2); White Blood Count 11.4 K/mm3 (4.5-11.0)
[2016-10-14 11:27] LABS: Anion Gap 19 mmol/L; Blood Urea Nitrogen 12 mg/dL (7-17); Calcium 8.5 mg/dL (8.4-10.2); Carbon Dioxide 20 mmol/L (22-30); Chloride 107.8 mmol/L (98-107); Glucose 339 mg/dL (65-100); Potassium 3.6 mmol/L (3.6-5.0); Sodium 143 mmol/L (137-145)
--- NOTE | 2016-10-14 11:30 | Progress Note ---
Assessment and Plan Impression * Nonoliguric acute kidney injury secondary to prerenal azotemia due to dehydration * Dehydration * Severe hyperkalemia - resolved * Metabolic acidosis secondary to diabetic ketoacidosis * Encephalopathy Plan: * Renal function stable,improved * Continue IVF - D5W 1/2 NS * Tight glyecmic control * Avoid nephrotoxins * Strict I/O * Will follow peripherally Subjective Date of service: 10/14/16 Principal diagnosis: sepsis and DKA Interval history: Patient seen without complaint. Objective - Vital Signs Vital signs: Vital Signs - 12hr 10/14/16 10/14/16 04:00 08:15 Temperature 98.1 F 98.1 F Pulse Rate [ 82 From Monitor] Pulse Rate [ 79 Right] Respiratory 18 20 Rate Blood Pressure 134/87 Blood Pressure 123/64 [Left Arm] O2 Sat by Pulse 100 Oximetry - General Appearance General appearance: well-developed, well-nourished EENT: ATNC Respiratory: Present: Clear to Ascultation Cardiology: regular, S1S2 Gastrointestinal: normal, no tenderness, no distended Integumentary: no rash Psychiatric: cooperative - Lab 10/14/16 10:21 10/14/16 10:21 Most recent lab results Calcium 8.5 mg/dL (8.4-10.2) 10/14/16 10:21 Phosphorus 1.0 mg/dL (2.5-4.5) L D 10/13/16 04:13 Magnesium 1.7 mg/dL (1.7-2.3) 10/13/16 04:13
[2016-10-14] MEDS: LEVEMIR SUB-Q SCH (23:37)
[2016-10-15] MEDS: D5/0.45NS 1,000 ML IV SCH ×2 (02:05→23:19)
[2016-10-15] MEDS: MORPHINE IV PRN ×4 (04:11→23:16)
--- NOTE | 2016-10-15 08:14 | Discharge Summary ---
Providers - Providers Date of Admission: 10/11/16 16:17 Date of discharge: 10/16/16 Attending physician: FANY DAMON 10/11/16 19:38 Consult to Physician [CONS] Routine Consulting Provider: KATALINA MANCILLA Reason For Exam: ARF, Hypernatremia Place consult to:: Nephrology Notified:: dr woods Phone number called:: -- Was contact made?: Yes Time called:: 08:42 10/11/16 19:55 Consult to Physician [CONS] Routine Consulting Provider: MARIE GLASS Reason For Exam: dialysis access Place consult to:: answering service Notified:: yes Time called:: 19:58 Primary care physician: [employer]ER Hospitalization Reason for admission: DKA Condition: Stable Hospital course: This is a 29-year-old female with significant past medical history of diabetes mellitus who presented through the [facility] department with sepsis, toxic metabolic encephalopathy, LORNA and DKA. Patient was initially treated with IV fluid hydration and IV drip. Patient was transitioned to long-acting insulin once the anion gap closed and was transferred to the floor. Patient was treated with IV antibiotics and blood cultures were found to be negative. Patient was seen by nephrology consultation for non-oliguric acute kidney injury secondary to prerenal azotemia/vasomotor nephropathy due to dehydration. Patient's encephalopathy resolved after the DKA, LORNA and sepsis were adequately treated. Patient is felt to have received maximal hospital benefit to be discharged home. Dedicated discharge time 32 minutes. Disposition: DISCHARGED TO HOME OR SELFCARE Time spent for discharge: 32 - Discharge Diagnoses (1) Acute renal failure (ARF) Status: Acute Qualifiers: Acute renal failure type: A (2) Altered mental status Status: Acute Qualifiers: Altered mental status type: delirium Coma depth: C Coma timing: C Qualified Code(s): R41.0 - Disorientation, unspecified (3) DKA (diabetic ketoacidoses) Status: Acute Qualifiers: Diabetes mellitus type: D Diabetes mellitus complication detail: D (4) DKA, type 1 Status: Acute Qualifiers: Diabetes mellitus complication detail: with coma Qualified Code(s): E10.11 - Type 1 diabetes mellitus with ketoacidosis with coma (5) Metabolic encephalopathy Status: Acute (6) Sepsis Status: Acute Qualifiers: Sepsis type: S (7) Renal insufficiency Status: Acute (8) LORNA (acute kidney injury) Status: Acute (9) Vasomotor nephropathy Status: Acute Core Measure Documentation - Palliative Care Palliative Care/ Comfort Measures: Not Applicable - Core Measures Any of the following diagnoses?: none Exam - Constitutional Vitals: Temp Pulse Resp BP Pulse Ox 98.6 F 78 20 102/59 100 10/14/16 20:00 10/14/16 20:00 10/14/16 20:00 10/14/16 20:00 10/14/16 20:00 General appearance: Present: no acute distress, well-nourished - EENT Eyes: Present: PERRL ENT: hearing intact, clear oral mucosa - Neck Neck: Present: supple, normal ROM - Respiratory Respiratory effort: normal Respiratory: bilateral: CTA - Cardiovascular Heart Sounds: Present: S1 & S2. Absent: rub, click - Extremities Extremities: pulses symmetrical, No edema Peripheral Pulses: within normal limits - Abdominal General gastrointestinal: Present: soft, non-tender, non-distended, normal bowel sounds Female genitourinary: Present: normal - Integumentary Integumentary: Present: clear, warm, dry - Musculoskeletal Musculoskeletal: gait normal, strength equal bilaterally - Psychiatric Psychiatric: appropriate mood/affect, intact judgment & insight - Neurologic Neurologic: CNII-XII intact, moves all extremities Plan Activity: no restrictions Weight Bearing Status: Full Weight Bearing Diet: diabetic Follow up with: PRIMARY CARE, [Primary Care Provider] - 3-5 Days Prescriptions: Cefuroxime Axetil [Ceftin] 500 mg PO Q12H #14 tablet Insulin Detemir [Levemir] 22 units SUB-Q QHS #30 units oxyCODONE /ACETAMINOPHEN [Percocet 5/325 mg] 1 tab PO Q4H PRN #30 tablet PRN Reason: Pain , Severe (7-10) Pantoprazole [Protonix TAB] 40 mg PO QDAY #30 tablet Sucralfate [Carafate] 1 gm PO ACHS #1 bottle
[2016-10-15 08:30] LABS: Basophils % (Auto) 0.3 % (0.0-1.8); Eosinophils % (Auto) 0.3 % (0.0-4.3); Hemoglobin 12.7 gm/dl (10.1-14.3); Mean Corpuscular HGB Conc 33 % (30-34); Mean Corpuscular Hemoglobin 26 pg (28-32); Mean Corpuscular Volume 81 fl (79-97); Platelet Count 218 K/mm3 (140-440); Red Blood Count 4.82 M/mm3 (3.65-5.03); Red Cell Distribution Width 16.7 % (13.2-15.2); White Blood Count 8.9 K/mm3 (4.5-11.0)
[2016-10-15 08:49] LABS: Anion Gap 15 mmol/L; BUN/Creatinine Ratio 11.25; Blood Urea Nitrogen 9 mg/dL (7-17); Calcium 8.5 mg/dL (8.4-10.2); Carbon Dioxide 23 mmol/L (22-30); Chloride 108.2 mmol/L (98-107); Glucose 233 mg/dL (65-100); Sodium 143 mmol/L (137-145)
[2016-10-15] MEDS: LEVAQUIN 500MG/100ML 500 MG/100 ML BAG IV SCH (09:21)
[2016-10-15] MEDS: LOVENOX SUB-Q SCH (09:23)
[2016-10-15] MEDS: PROTONIX PO SCH (09:24)
[2016-10-15] MEDS: ZOFRAN IV PRN ×2 (09:26→23:17)
--- NOTE | 2016-10-15 14:15 | Progress Note ---
Assessment and Plan Assessment and plan: 1. DKA. Continue long-acting insulin and sliding scale. 2. Sepsis. Etiology is unknown. Patient with a significant leukocytosis that is now resolving. Blood cultures thus far negative. Continue to follow blood and urine cultures. 3. Toxic metabolic encephalopathy. Etiology secondary to 1 and 2. Continue to treat underlying causes. Improving. 4. Nausea and vomiting. Antiemetics and check KUB to rule out obstruction. 5. Dyspnea. Patient saturating well. Check chest x-ray. - Patient Problems (1) Acute renal failure (ARF) Current Visit: Yes Status: Acute Qualifiers: Acute renal failure type: A (2) Altered mental status Current Visit: Yes Status: Acute Qualifiers: Altered mental status type: delirium Coma depth: C Coma timing: C Qualified Code(s): R41.0 - Disorientation, unspecified (3) DKA (diabetic ketoacidoses) Current Visit: Yes Status: Acute Qualifiers: Diabetes mellitus type: D Diabetes mellitus complication detail: D (4) DKA, type 1 Current Visit: Yes Status: Acute Qualifiers: Diabetes mellitus complication detail: with coma Qualified Code(s): E10.11 - Type 1 diabetes mellitus with ketoacidosis with coma (5) Metabolic encephalopathy Current Visit: Yes Status: Acute (6) Sepsis Current Visit: Yes Status: Acute Qualifiers: Sepsis type: S (7) Renal insufficiency Current Visit: No Status: Acute (8) LORNA (acute kidney injury) Current Visit: Yes Status: Acute (9) Vasomotor nephropathy Current Visit: Yes Status: Acute History Interval history: 26-year-old female admitted with sepsis and DKA. Patient was planned for discharge today however had nausea and vomiting 3. Nursing reports bilious vomiting of approximately 200 mL. Patient also complains of shortness of breath. Hospitalist Physical - Constitutional Vitals: Temp Pulse Resp BP Pulse Ox 98.7 F 66 18 124/85 98 10/15/16 08:00 10/15/16 08:00 10/15/16 08:00 10/15/16 08:00 10/15/16 08:00 General appearance: Present: no acute distress, well-nourished Results - Labs CBC & Chem 7: 10/15/16 08:01 10/15/16 08:01 Labs: Laboratory Last Values WBC 8.9 K/mm3 (4.5-11.0) 10/15/16 08:01 RBC 4.82 M/mm3 (3.65-5.03) 10/15/16 08:01 Hgb 12.7 gm/dl (10.1-14.3) 10/15/16 08:01 Hct 39.0 % (30.3-42.9) 10/15/16 08:01 MCV 81 fl (79-97) 10/15/16 08:01 MCH 26 pg (28-32) L 10/15/16 08:01 MCHC 33 % (30-34) 10/15/16 08:01 RDW 16.7 % (13.2-15.2) H 10/15/16 08:01 Plt Count 218 K/mm3 (140-440) 10/15/16 08:01 Lymph % (Auto) 21.3 % (13.4-35.0) 10/15/16 08:01 [place] % (Auto) 3.9 % (0.0-7.3) 10/15/16 08:01 Eos % (Auto) 0.3 % (0.0-4.3) 10/15/16 08:01 Baso % (Auto) 0.3 % (0.0-1.8) 10/15/16 08:01 Lymph # 1.9 K/mm3 (1.2-5.4) 10/15/16 08:01 [place] # 0.4 K/mm3 (0.0-0.8) 10/15/16 08:01 Eos # 0.0 K/mm3 (0.0-0.4) 10/15/16 08:01 Baso # 0.0 K/mm3 (0.0-0.1) 10/15/16 08:01 Add Manual Diff Complete 10/12/16 14:04 Total Counted 200 10/12/16 14:04 Seg Neutrophils % 74.2 % (40.0-70.0) H 10/15/16 08:01 Seg Neuts % (Manual) 86.5 % (40.0-70.0) H 10/12/16 14:04 Band Neutrophils % 3.5 % 10/12/16 14:04 Lymphocytes % (Manual) 5.0 % (13.4-35.0) L 10/12/16 14:04 Reactive Lymphs % (Man) 0 % 10/12/16 14:04 Monocytes % (Manual) 3.0 % (0.0-7.3) 10/12/16 14:04 Eosinophils % (Manual) 0 % (0.0-4.3) 10/12/16 14:04 Basophils % (Manual) 0 % (0.0-1.8) 10/12/16 14:04 Metamyelocytes % 1.5 % 10/12/16 14:04 Myelocytes % 0.5 % 10/12/16 14:04 Promyelocytes % 0 % 10/12/16 14:04 Blast Cells % 0 % 10/12/16 14:04 Nucleated RBC % Not Reportable 10/12/16 14:04 Seg Neutrophils # 6.6 K/mm3 (1.8-7.7) 10/15/16 08:01 Seg Neutrophils # Man 36.1 K/mm3 (1.8-7.7) H 10/12/16 14:04 Band Neutrophils # 1.5 K/mm3 10/12/16 14:04 Lymphocytes # (Manual) 2.1 K/mm3 (1.2-5.4) 10/12/16 14:04 Abs React Lymphs (Man) 0.0 K/mm3 10/12/16 14:04 Monocytes # (Manual) 1.3 K/mm3 (0.0-0.8) H 10/12/16 14:04 Eosinophils # (Manual) 0.0 K/mm3 (0.0-0.4) 10/12/16 14:04 Basophils # (Manual) 0.0 K/mm3 (0.0-0.1) 10/12/16 14:04 Metamyelocytes # 0.6 K/mm3 10/12/16 14:04 Myelocytes # 0.2 K/mm3 10/12/16 14:04 Promyelocytes # 0.0 K/mm3 10/12/16 14:04 Blast Cells # 0.0 K/mm3 10/12/16 14:04 Pathologist Review 10/11/16 15:36 WBC Morphology Not Reportable 10/12/16 14:04 Hypersegmented Neuts Not Reportable 10/12/16 14:04 Hyposegmented Neuts Not Reportable 10/12/16 14:04 Hypogranular Neuts Not Reportable 10/12/16 14:04 Smudge Cells Not Reportable 10/12/16 14:04 Toxic Granulation Not Reportable 10/12/16 14:04 Toxic Vacuolation Not Reportable 10/12/16 14:04 Dohle Bodies Not Reportable 10/12/16 14:04 Pelger-Huet Anomaly Not Reportable 10/12/16 14:04 Alex Rods Not Reportable 10/12/16 14:04 Platelet Estimate Consistent w auto 10/12/16 14:04 Clumped Platelets Not Reportable 10/12/16 14:04 Plt Clumps, EDTA Not Reportable 10/12/16 14:04 Large Platelets Not Reportable 10/12/16 14:04 Giant Platelets Not Reportable 10/12/16 14:04 Platelet Satelliting Not Reportable 10/12/16 14:04 Plt Morphology Comment Not Reportable 10/12/16 14:04 RBC Morphology Not Reportable 10/12/16 14:04 Dimorphic RBCs Not Reportable 10/12/16 14:04 Polychromasia Not Reportable 10/12/16 14:04 Hypochromasia Not Reportable 10/12/16 14:04 Poikilocytosis Not Reportable 10/12/16 14:04 Anisocytosis 1+ 10/12/16 14:04 Microcytosis Not Reportable 10/12/16 14:04 Macrocytosis Not Reportable 10/12/16 14:04 Spherocytes Not Reportable 10/12/16 14:04 Pappenheimer Bodies Not Reportable 10/12/16 14:04 Sickle Cells Not Reportable 10/12/16 14:04 Target Cells Not Reportable 10/12/16 14:04 Tear Drop Cells Not Reportable 10/12/16 14:04 Ovalocytes 1+ 10/12/16 14:04 Helmet Cells Not Reportable 10/12/16 14:04 [place] Bodies Not Reportable 10/12/16 14:04 [place] Rings Not Reportable 10/12/16 14:04 Marci Cells Not Reportable 10/12/16 14:04 Bite Cells Not Reportable 10/12/16 14:04 Crenated Cell Not Reportable 10/12/16 14:04 Elliptocytes Not Reportable 10/12/16 14:04 Acanthocytes (Spur) Not Reportable 10/12/16 14:04 Rouleaux Not Reportable 10/12/16 14:04 Hemoglobin C Crystals Not Reportable 10/12/16 14:04 Schistocytes Not Reportable 10/12/16 14:04 Malaria parasites Not Reportable 10/12/16 14:04 Pérze Bodies Not Reportable 10/12/16 14:04 Hem Pathologist Commnt No 10/12/16 14:04 PT 16.6 Sec. (12.2-14.9) H 10/11/16 15:36 INR 1.35 (0.87-1.13) H 10/11/16 15:36 APTT 27.7 Sec. (24.2-36.6) 10/11/16 15:36 Sodium 143 mmol/L (137-145) 10/15/16 08:01 Potassium 3.0 mmol/L (3.6-5.0) L 10/15/16 08:01 Chloride 108.2 mmol/L (98-107) H 10/15/16 08:01 Carbon Dioxide 23 mmol/L (22-30) 10/15/16 08:01 Anion Gap 15 mmol/L 10/15/16 08:01 BUN 9 mg/dL (7-17) 10/15/16 08:01 Creatinine 0.8 mg/dL (0.7-1.2) 10/15/16 08:01 Estimated GFR > 60 ml/min 10/15/16 08:01 BUN/Creatinine Ratio 11.25 % 10/15/16 08:01 Glucose 233 mg/dL (65-100) H 10/15/16 08:01 POC Glucose 226 (70-105) H 10/15/16 05:42 Hemoglobin A1c 10.1 % (4-6) H 10/12/16 17:02 Lactic Acid 1.1 mmol/L (0.7-2.0) 10/13/16 04:13 Calcium 8.5 mg/dL (8.4-10.2) 10/15/16 08:01 Phosphorus 1.0 mg/dL (2.5-4.5) L D 10/13/16 04:13 Magnesium 1.7 mg/dL (1.7-2.3) 10/13/16 04:13 Total Bilirubin 0.3 mg/dL (0.1-1.2) 10/13/16 08:26 Direct Bilirubin < 0.2 mg/dL (0-0.2) 10/11/16 15:36 Indirect Bilirubin 0.0 mg/dL 10/11/16 15:36 AST 39 units/L (5-40) 10/13/16 08:26 ALT 20 units/L (7-56) 10/13/16 08:26 Alkaline Phosphatase 84 units/L (35-129) 10/13/16 08:26 NT-Pro-B Natriuret Pep 176.4 pg/mL (0-450) 10/11/16 15:36 Total Protein 6.3 g/dL (6.3-8.2) 10/13/16 08:26 Albumin 3.8 g/dL (3.9-5) L 10/13/16 08:26 Albumin/Globulin Ratio 1.5 % 10/13/16 08:26 TSH 1.060 mlU/mL (0.270-4.200) 10/11/16 15:36 Urine Color Colorless (Yellow) 10/11/16 16:25 Urine Turbidity Clear (Clear) 10/11/16 16:25 Urine pH 5.0 (5.0-7.0) 10/11/16 16:25 Ur Specific [place] 1.017 (1.003-1.030) 10/11/16 16:25 Urine Protein <15 mg/dl mg/dL (Negative) 10/11/16 16:25 Urine Glucose (UA) >=500 mg/dL (Negative) 10/11/16 16:25 Urine Ketones 80 mg/dL (Negative) 10/11/16 16:25 Urine Blood Mod (Negative) 10/11/16 16:25 Urine Nitrite Neg (Negative) 10/11/16 16:25 Urine Bilirubin Neg (Negative) 10/11/16 16:25 Urine Urobilinogen < 2.0 mg/dL (<2.0) 10/11/16 16:25 Ur Leukocyte Esterase Neg (Negative) 10/11/16 16:25 Urine WBC (Auto) < 1.0 /HPF (0.0-6.0) 10/11/16 16:25 Urine RBC (Auto) 1.0 /HPF (0.0-6.0) 10/11/16 16:25 Urine Mucus Few /HPF 10/11/16 16:25 Urine HCG, Qual Negative (Negative) 10/11/16 16:25 Salicylates < 0.3 mg/dL (2.8-20.0) L 10/11/16 15:36 Urine Opiates Screen Presumptive negative 10/11/16 16:25 Urine Methadone Screen Presumptive negative 10/11/16 16:25 Acetaminophen < 15.0 ug/mL (10.0-30.0) 10/11/16 15:36 Ur Barbiturates Screen Presumptive negative 10/11/16 16:25 Ur Phencyclidine Scrn Presumptive negative 10/11/16 16:25 Ur Amphetamines Screen Presumptive negative 10/11/16 16:25 U Benzodiazepines Scrn Presumptive negative 10/11/16 16:25 Urine Cocaine Screen Presumptive negative 10/11/16 16:25 U Marijuana (THC) Screen Presumptive negative 10/11/16 16:25 Drugs of Abuse Note Disclamer 10/11/16 16:25 Plasma/Serum Alcohol < 0.01 gm% (0-0.07) 10/11/16 15:36 Blood Type B POSITIVE 10/11/16 15:53 Antibody Screen Positive 10/11/16 15:53 Antibody Identification Anti-E 10/11/16 15:53 Crossmatch See Detail 10/11/16 15:53
--- NOTE | 2016-10-15 16:23 | XRay Report ---
One: History: Abdominal pain nausea and vomiting. Findings: No radiopaque calculus or abnormal calcification. No bowel distention or wall thickening. Impression: Essentially negative abdomen.
--- NOTE | 2016-10-15 16:24 | XRay Report ---
Chest 2 views: Compared to 10/01/16. Next History: Difficulty breathing. Findings: Normal cardiomediastinal silhouette. Trachea is midline. No consolidation, pneumothorax or pleural effusion. Impression: No acute cardiopulmonary findings.
[2016-10-15] MEDS: LEVEMIR SUB-Q SCH (22:56)
[2016-10-16 08:59] VITALS: BP 110/69
[2016-10-16] MEDS: LEVAQUIN 500MG/100ML 500 MG/100 ML BAG IV SCH (09:46)
[2016-10-16] MEDS: PROTONIX PO SCH (09:47)
[2016-10-16] MEDS: LOVENOX SUB-Q SCH (09:47)
[2016-10-17] MEDS ORDERED: LEVAQUIN PO SCH (10:00)
== END 2016-10-16 13:40 | disposition home or self-care (01) | DRG 871 ==
LOC: ED 15:03 → CC1 16:17 → 3A 10-13 14:06
PROVIDERS: ADMIT Internal Medicine; ATTEND Hospitalist
PROC: 30233N1 Transfusion of Nonautologous Red Blood Cells into Peripheral Vein, Percutaneous Approach (ICD-10-PCS; principal; 2016-10-11)
DX: A41.9 Sepsis, unspecified organism (principal); E10.11 Type 1 diabetes mellitus with ketoacidosis with coma; N17.0 Acute kidney failure with tubular necrosis; G92 Toxic encephalopathy; E87.5 Hyperkalemia; K21.9 Gastro-esophageal reflux disease without esophagitis; I10 Essential (primary) hypertension; E87.0 Hyperosmolality and hypernatremia; R11.2 Nausea with vomiting, unspecified; Z79.4 Long term (current) use of insulin; Z91.14 Patient's other noncompliance with medication regimen; Z82.49 Family history of ischemic heart disease and other diseases of the circulatory system; Z83.3 Family history of diabetes mellitus
CPT/HCPCS: 36415; 71010; 71020; 74000; 80048; 80053; 80074; 80307; 80320; 81001; 81025; 82010; 82140; 82962; 83036; 83735; 83880; 84100; 84443; 85007; 85025; 85610; 85730; 86850; 86870; 86900; 86901; 86902; 86922; 87040; 87086; 93005; 93010; 96361; 96365; 96366; 96367; 96368; 96375; 96376; 99291; 99292; C9113; G0480; J1630; J1650; J1815; J1818; J1956; J2060; J2270; J2405; J2543; J3370; J7030; J7040; J7070; P9016

== ENCOUNTER 2017-06-14 13:31 | Inpatient (IN) | payer MEDICAID ==
[2017-06-14 14:50] LABS: Basophils % (Auto) 0.4 % (0.0-1.8); Hematocrit 34.8 % (30.3-42.9); Hemoglobin 11.5 gm/dl (10.1-14.3); Mean Corpuscular HGB Conc 33 % (30-34); Mean Corpuscular Hemoglobin 29 pg (28-32); Mean Corpuscular Volume 88 fl (79-97); Platelet Count 170 K/mm3 (140-440); Red Blood Count 3.93 M/mm3 (3.65-5.03); Red Cell Distribution Width 12.7 % (13.2-15.2); White Blood Count 8.8 K/mm3 (4.5-11.0)
[2017-06-14 15:01] LABS: Bacteria,Urine 2+ /HPF (Negative); Bilirubin,Urine NEG (Negative); Blood,Urine LG (Negative); Ketones,Urine 20 mg/dL (Negative); Leukocyte Esterase,Urine SM (Negative); Mucus,Urine FEW /HPF; Nitrite,Urine NEG (Negative); Protein,Urine <15 mg/dL mg/dL (Negative); Urobilinogen,Urine < 2.0 mg/dL (<2.0)
[2017-06-14 15:14] LABS: Alanine Aminotransferase 23 units/L (7-56); Albumin 4.1 g/dL (3.9-5); Albumin/Globulin Ratio 1.5 %; Alkaline Phosphatase 66 units/L (35-129); Anion Gap 24 mmol/L; BUN/Creatinine Ratio 13; Blood Urea Nitrogen 10 mg/dL (7-17); Calcium 7.7 mg/dL (8.4-10.2); Carbon Dioxide 16 mmol/L (22-30); Chloride 103.5 mmol/L (98-107); Glucose 422 mg/dL (65-100); Potassium 3.7 mmol/L (3.6-5.0); Sodium 140 mmol/L (137-145); Total Protein 6.8 g/dL (6.3-8.2)
[2017-06-14] MEDS ORDERED: ZOFRAN IV ONE ×2 (16:32→21:18)
[2017-06-14] MEDS ORDERED: TORADOL IV ONE (16:33)
--- NOTE | 2017-06-14 16:35 | Emergency Department Report ---
HPI - General Chief Complaint: Nausea/Vomiting/Diarrhea Time Seen by Provider: 06/14/17 16:00 - HPI HPI: This is a 27-year-old female presents to the emergency department with her mother with complaint of a one-day history of some nausea, vomiting, abdominal discomfort and elevated blood sugar. The patient has a history of insulin dependent diabetes and GERD. She has been compliant with her insulin but was unable to take it today secondary to her current symptoms. She denies any fever, dysuria, vaginal bleeding or discharge. She has a primary care physician through and [facility]. No recent travel or sick contacts at home. ED Past Medical Hx - Past Medical History Hx Heart Attack/AMI: No Hx Congestive Heart Failure: No Hx Diabetes: Yes Hx GERD: Yes Hx Asthma: No Hx COPD: No - Social History Smoking Status: Never Smoker Substance Use Type: Alcohol - Medications Home Medications: Home Medications Medication Instructions Recorded Confirmed Last Taken Type Insulin Glargine [Lantus VIAL] 22 units SUB-Q QHS 09/07/16 09/07/16 Unknown History Insulin Lispro [HumaLOG VIAL] 0 units SUB-Q TIDHS 09/07/16 09/07/16 Unknown History Cefuroxime Axetil [Ceftin] 500 mg PO Q12H #14 tablet 10/15/16 Unknown Rx Insulin Detemir [Levemir] 22 units SUB-Q QHS #30 units 10/15/16 Unknown Rx Pantoprazole [Protonix TAB] 40 mg PO QDAY #30 tablet 10/15/16 Unknown Rx Sucralfate [Carafate] 1 gm PO ACHS #1 bottle 10/15/16 Unknown Rx oxyCODONE /ACETAMINOPHEN [Percocet 1 tab PO Q4H PRN #30 tablet 10/15/16 Unknown Rx 5/325 mg] ED Review of Systems ROS: Stated complaint: NAUSEA/EMESIS Other details as noted in HPI Comment: All other systems reviewed and negative Constitutional: denies: chills, fever Eyes: denies: eye pain, eye discharge, vision change ENT: denies: ear pain, throat pain Respiratory: denies: cough, shortness of breath, wheezing Cardiovascular: denies: chest pain, palpitations Gastrointestinal: abdominal pain, nausea, vomiting Genitourinary: denies: urgency, dysuria, discharge Musculoskeletal: denies: back pain, joint swelling, arthralgia Skin: denies: rash, lesions Neurological: denies: headache, weakness, paresthesias Physical Exam - Physical Exam Vital Signs: Vital Signs 06/14/17 06/14/17 06/14/17 14:00 14:15 14:30 Temperature 98.3 F Pulse Rate 89 74 Respiratory 20 13 18 Rate Blood Pressure 127/79 138/81 O2 Sat by Pulse 100 100 Oximetry 06/14/17 06/14/17 15:00 15:15 Temperature Pulse Rate 78 82 Respiratory 15 12 Rate Blood Pressure 120/85 136/83 O2 Sat by Pulse 99 99 Oximetry Physical Exam: GENERAL: Patient is ill-appearing. HENT: Normocephalic. Atraumatic. Patient has dry mucous membranes. EYES: Extraocular motions are intact. Pupils equal reactive to light bilaterally. NECK: Supple. Trachea is midline. CHEST/LUNGS: Clear to auscultation. There is no respiratory distress noted. HEART/CARDIOVASCULAR: Regular. There is no tachycardia. There is no gallop rub or murmur. ABDOMEN: Abdomen is soft, nontender. Patient has normal bowel sounds. There is no abdominal distention. SKIN: Skin is warm and dry. NEURO: The patient is very sleepy but is easily arousable and once she is awake she is alert and oriented. The patient is cooperative. The patient has no focal neurologic deficits. The patient has normal speech. MUSCULOSKELETAL: There is no tenderness or deformity. There is no limitation range of motion. There is no evidence of acute injury. ED Course Vital Signs 06/14/17 06/14/17 06/14/17 14:00 14:15 14:30 Temperature 98.3 F Pulse Rate 89 74 Respiratory 20 13 18 Rate Blood Pressure 127/79 138/81 O2 Sat by Pulse 100 100 Oximetry 06/14/17 06/14/17 15:00 15:15 Temperature Pulse Rate 78 82 Respiratory 15 12 Rate Blood Pressure 120/85 136/83 O2 Sat by Pulse 99 99 Oximetry ED Medical Decision Making - Lab Data Result diagrams: 06/14/17 14:30 06/14/17 14:30 - Radiology Data Radiology results: image reviewed interpreted by me: Abdominal x-ray shows nonspecific nonobstructive bowel gas. - Medical Decision Making The patient has been in the emergency department for multiple hours. We are able to get down the blood sugar to about 250 but the patient continued to have nausea and vomiting. The blood sugar was checked an hour or so later and it was back up to about 350. She was given some more IV insulin and more IV fluid and her blood sugar did go back down to about 290 but the patient still continues to have nausea and vomiting and does not lobe well enough for discharge home. She had a elevated anion gap of about 25 but there was no venous acidosis. She did have 20 ketones in the urine but this also could be contributed to the fact that she has had consistent vomiting. However at this point the patient will be placed on a insulin drip and we will attempt to close the gap. She will have repeat metabolic panels and Accu-Cheks. She will be admitted to the hospital and has been accepted for admission by the hospitalist , Dr. Mooney. - Differential Diagnosis DKA, HHNK, Food Poisoning, Viral Syndrome Critical Care Time: No Critical care attestation.: If time is entered above; I have spent that time in minutes in the direct care of this critically ill patient, excluding procedure time. ED Disposition Clinical Impression: Dehydration DKA, type 1 Qualifiers: Diabetes mellitus complication detail: without coma Qualified Code(s): E10.10 - Type 1 diabetes mellitus with ketoacidosis without coma Uncontrolled diabetes mellitus Qualifiers: Diabetes mellitus type: type 1 Diabetes mellitus complication status: with hyperglycemia Qualified Code(s): E10.65 - Type 1 diabetes mellitus with hyperglycemia Nausea & vomiting Qualifiers: Vomiting type: unspecified Vomiting Intractability: intractable Qualified Code( s): R11.2 - Nausea with vomiting, unspecified Disposition: -09 OP ADMIT IP TO THIS HOSP Is pt being admited?: Yes Condition: Fair Instructions: Diabetic Ketoacidosis (ED), Diabetes Mellitus Type 2 in Adults ( ED) Referrals: PRIMARY CARE, [Primary Care Provider] - 3-5 Days Time of Disposition: 02:06
[2017-06-14] MEDS ORDERED: NACL 0.9% 1000 ML 1,000 ML IV ONE ×2 (17:18→21:18)
[2017-06-14] MEDS ORDERED: REGLAN IV ONE (23:45)
--- NOTE | 2017-06-15 01:41 | XRay Report ---
FINAL REPORT PROCEDURE: XR ABDOMEN 2V TECHNIQUE: Abdominal series, including supine and upright AP views. HISTORY: Abd pain COMPARISON: No prior studies are available for comparison. FINDINGS: Bowel gas pattern:Nonobstructive . Masses or calcifications:None . Bony structures:No significant abnormality . Pneumoperitoneum:None . Other:No significant findings . IMPRESSION: No acute abnormality.
[2017-06-15] MEDS ORDERED: D50W (25GM) Syringe IV PRN (02:00)
[2017-06-15] MEDS ORDERED: NovoLIN R 100 UNITS in NACL 0.9% 99 ML IV SCH (02:00)
[2017-06-15 02:56] LABS: Anion Gap 28 mmol/L; BUN/Creatinine Ratio 14; Blood Urea Nitrogen 13 mg/dL (7-17); Calcium 8.3 mg/dL (8.4-10.2); Carbon Dioxide 14 mmol/L (22-30); Chloride 103.5 mmol/L (98-107); Glucose 260 mg/dL (65-100); Potassium 4.2 mmol/L (3.6-5.0); Sodium 141 mmol/L (137-145)
[2017-06-15] MEDS ORDERED: MILK OF MAGNESIA PO PRN (03:13)
[2017-06-15] MEDS ORDERED: D5/0.45NS 1,000 ML IV SCH (04:00)
[2017-06-15 04:21] LABS: BUN/Creatinine Ratio 17; Blood Urea Nitrogen 15 mg/dL (7-17); Calcium 8.7 mg/dL (8.4-10.2); Carbon Dioxide 10 mmol/L (22-30); Chloride 106.2 mmol/L (98-107); Glucose 318 mg/dL (65-100); Sodium 145 mmol/L (137-145)
[2017-06-15] MEDS: NACL 0.9% 1000 ML 1,000 ML IV SCH (04:28)
[2017-06-15 04:29] LABS: Anion Gap 34 mmol/L; Potassium 4.9 mmol/L (3.6-5.0)
--- NOTE | 2017-06-15 05:57 | History and Physical Report ---
History of Present Illness Date of examination: 06/15/17 Date of admission: 06/15/17 03:13 History of present illness: 27-year-old and a history of diabetes comes to the emergency room with complaints of persistent nausea and vomiting 2 days, unable to tolerate oral intake. Stated that she is compliant with medications Review Of Systems: Constitutional: no weight loss Ears, eyes, nose, mouth and throat: no nasal congestion, no nasal discharge, no sinus pressure, blurry vision, diplopia Neck: No neck pain or rigidity. Cardiovascular:no chest pain, orthopnea, palpitations Respiratory: No shortness of breath, cough Gastrointestinal: no abdominal pain, hematochezia Genitourinary : no dysuria, frequency , hematuria Musculoskeletal: no muscle ache Integumentary: no rash, no pruritis Neurological: no parathesias, focal weakness Endocrine: no cold or heat intolerance, no polyuria or polydipsia Hematologic/Lymphatic: no easy bruising, no easy bleeding, no gland swelling Allergic/Immunologic: no urticaria, no angioedema. PAST MEDICAL HISTORY:diabetes PAST SURGICAL HISTORY:none FAMILY HISTORY: Diabetes SOCIAL HISTORY: Denies alcohol, tobacco, drugs Medications and Allergies Allergies Allergy/AdvReac Type Severity Reaction Status Date / Time No Known Allergies Allergy Unverified 07/21/16 17:01 Home Medications Medication Instructions Recorded Confirmed Last Taken Type Insulin Glargine [Lantus VIAL] 22 units SUB-Q QHS 09/07/16 09/07/16 Unknown History Insulin Lispro [HumaLOG VIAL] 0 units SUB-Q TIDHS 09/07/16 09/07/16 Unknown History Cefuroxime Axetil [Ceftin] 500 mg PO Q12H #14 tablet 10/15/16 Unknown Rx Insulin Detemir [Levemir] 22 units SUB-Q QHS #30 units 10/15/16 Unknown Rx Pantoprazole [Protonix TAB] 40 mg PO QDAY #30 tablet 10/15/16 Unknown Rx Sucralfate [Carafate] 1 gm PO ACHS #1 bottle 10/15/16 Unknown Rx oxyCODONE /ACETAMINOPHEN [Percocet 1 tab PO Q4H PRN #30 tablet 10/15/16 Unknown Rx 5/325 mg] Active Meds: Active Medications Acetaminophen (Tylenol) 650 mg PO Q4H PRN PRN Reason: Pain MILD(1-3)/Fever >100.5/HAHN Dextrose (D50w (25gm) Syringe) 0 ml IV PRN PRN PRN Reason: Hypoglycemia Enoxaparin Sodium (Lovenox) 40 mg SUB-Q QDAY NAREN Insulin Human Regular 100 (units/ Sodium Chloride) 100 mls @ 1 mls/hr IV TITR NAREN; 1 UNITS/HR PRN Reason: Protocol Last Titration: 06/15/17 05:22 Dose: 7 units/hr, 7 mls/hr Dextrose/Sodium Chloride (D5/0.45ns) 1,000 mls @ 150 mls/hr IV DIRECT NAREN Sodium Chloride (Nacl 0.9% 1000 Ml) 1,000 mls @ 150 mls/hr IV DIRECT NAREN Last Admin: 06/15/17 04:28 Dose: 150 mls/hr Magnesium Hydroxide (Milk Of Magnesia) 30 ml PO Q4H PRN PRN Reason: Constipation Ondansetron HCl (Zofran) 4 mg IV Q4H PRN PRN Reason: N/V unrelieved by Reglan Exam - Physical Exam Narrative exam: Gen. appearance: Patient lying in bed in no acute distress HEENT: Normocephalic/atraumatic, pupils equal round reactive to light, extra alkaline movement intact, no scleral icterus, no JVD or thyromegaly or nodule, neck is supple, mucous membrane moist, no erythema or exudate Heart: S1-S2, regular rate and rhythm Lungs: Clear to auscultation bilateral breathing comfortable Abdomen: Positive bowel sounds, nontender, nondistended, no organomegaly Extremities: No edema, cyanosis, clubbing Neuro:: Oriented 3 , cranial nerves II-12 intact, speech, motor intact Skin: No rash, nodules, warm dry - Constitutional Vitals: Temp Pulse Resp BP Pulse Ox 98.3 F 91 H 18 121/63 100 06/14/17 14:15 06/15/17 05:13 06/15/17 05:13 06/15/17 05:00 06/15/17 05:00 Results - Labs CBC & Chem 7: 06/19/17 03:02 06/20/17 04:44 Labs: Abnormal lab results 06/14/17 06/14/17 06/14/17 Range/Units 14:30 14:30 14:46 RDW 12.7 L (13.2-15.2) % Lymph % (Auto) 12.0 L (13.4-35.0) % Lymph # 1.1 L (1.2-5.4) K/mm3 Seg Neutrophils % 85.1 H (40.0-70.0) % Carbon Dioxide 16 L (22-30) mmol/L Glucose 422 H (65-100) mg/dL POC Glucose 409 H (70-105) Calcium 7.7 L (8.4-10.2) mg/dL AST 45 H (5-40) units/L 06/14/17 06/15/17 06/15/17 Range/Units 18:15 00:35 01:36 RDW (13.2-15.2) % Lymph % (Auto) (13.4-35.0) % Lymph # (1.2-5.4) K/mm3 Seg Neutrophils % (40.0-70.0) % Carbon Dioxide (22-30) mmol/L Glucose (65-100) mg/dL POC Glucose 249 H 343 H 290 H (70-105) Calcium (8.4-10.2) mg/dL AST (5-40) units/L 06/15/17 06/15/17 06/15/17 Range/Units 02:14 03:45 04:12 RDW (13.2-15.2) % Lymph % (Auto) (13.4-35.0) % Lymph # (1.2-5.4) K/mm3 Seg Neutrophils % (40.0-70.0) % Carbon Dioxide 14 L 10 L (22-30) mmol/L Glucose 260 H 318 H (65-100) mg/dL POC Glucose 319 H (70-105) Calcium 8.3 L (8.4-10.2) mg/dL AST (5-40) units/L 06/15/17 Range/Units 05:24 RDW (13.2-15.2) % Lymph % (Auto) (13.4-35.0) % Lymph # (1.2-5.4) K/mm3 Seg Neutrophils % (40.0-70.0) % Carbon Dioxide (22-30) mmol/L Glucose (65-100) mg/dL POC Glucose 284 H (70-105) Calcium (8.4-10.2) mg/dL AST (5-40) units/L - Imaging and Cardiology Abdominal x-ray: image reviewed Assessment and Plan Assessment DKA Metabolic acidosis Plan Admit to medicine Heart IV fluids, insulin drip Monitor serial chemistry, fingersticks DVT prophylaxis, antiemetic
[2017-06-15 07:31] LABS: BUN/Creatinine Ratio 15; Blood Urea Nitrogen 15 mg/dL (7-17); Calcium 8.3 mg/dL (8.4-10.2); Carbon Dioxide 13 mmol/L (22-30); Chloride 108.1 mmol/L (98-107); Glucose 183 mg/dL (65-100); Sodium 144 mmol/L (137-145)
[2017-06-15 07:46] LABS: Anion Gap 28 mmol/L; Potassium 4.6 mmol/L (3.6-5.0)
[2017-06-15] MEDS: LOVENOX SUB-Q SCH (11:21)
--- NOTE | 2017-06-15 12:22 | Event Note ---
Date: 06/15/17 Admitted this morning with diabetic ketoacidosis, on insulin drip per protocol Seen and evaluated, medical records reviewed, agree with the current management Continue treatment for DKA protocol
--- NOTE | 2017-06-15 13:42 | Consultation ---
History of Present Illness Consult date: 06/15/17 Requesting physician: TRIPP TAPIA Reason for consult: other (DKA) History of present illness: PULMONARY/CCM CONSULT NOTE (Full dictation # [id number]) Please see dictated notes for full details Medications and Allergies Allergies Allergy/AdvReac Type Severity Reaction Status Date / Time No Known Allergies Allergy Unverified 07/21/16 17:01 Home Medications Medication Instructions Recorded Confirmed Last Taken Type Insulin Glargine [Lantus VIAL] 22 units SUB-Q QHS 09/07/16 09/07/16 Unknown History Insulin Lispro [HumaLOG VIAL] 0 units SUB-Q TIDHS 09/07/16 09/07/16 Unknown History Cefuroxime Axetil [Ceftin] 500 mg PO Q12H #14 tablet 10/15/16 Unknown Rx Insulin Detemir [Levemir] 22 units SUB-Q QHS #30 units 10/15/16 Unknown Rx Pantoprazole [Protonix TAB] 40 mg PO QDAY #30 tablet 10/15/16 Unknown Rx Sucralfate [Carafate] 1 gm PO ACHS #1 bottle 10/15/16 Unknown Rx oxyCODONE /ACETAMINOPHEN [Percocet 1 tab PO Q4H PRN #30 tablet 10/15/16 Unknown Rx 5/325 mg] Active Meds: Active Medications Acetaminophen (Tylenol) 650 mg PO Q4H PRN PRN Reason: Pain MILD(1-3)/Fever >100.5/HAHN Dextrose (D50w (25gm) Syringe) 0 ml IV PRN PRN PRN Reason: Hypoglycemia Enoxaparin Sodium (Lovenox) 40 mg SUB-Q QDAY NAREN Last Admin: 06/15/17 11:21 Dose: 40 mg Insulin Human Regular 100 (units/ Sodium Chloride) 100 mls @ 1 mls/hr IV TITR NAREN; 1 UNITS/HR PRN Reason: Protocol Last Titration: 06/15/17 11:20 Dose: 3 units/hr, 3 mls/hr Dextrose/Sodium Chloride (D5/0.45ns) 1,000 mls @ 150 mls/hr IV DIRECT NAREN Last Admin: 06/15/17 06:22 Dose: 150 mls/hr Sodium Chloride (Nacl 0.9% 1000 Ml) 1,000 mls @ 150 mls/hr IV DIRECT NAREN Last Infusion: 06/15/17 06:19 Dose: 0 mls/hr Magnesium Hydroxide (Milk Of Magnesia) 30 ml PO Q4H PRN PRN Reason: Constipation Ondansetron HCl (Zofran) 4 mg IV Q4H PRN PRN Reason: N/V unrelieved by Reglan Physical Examination Vital signs: Vital Signs Resp 20 06/14/17 14:00 Results - Laboratory Findings CBC and BMP: 06/19/17 03:02 06/19/17 03:02 Abnormal lab findings: Abnormal Labs 06/14/17 06/14/17 06/14/17 14:30 14:30 14:46 RDW 12.7 L Lymph % (Auto) 12.0 L Lymph # 1.1 L Seg Neutrophils % 85.1 H Chloride Carbon Dioxide 16 L Glucose 422 H POC Glucose 409 H Calcium 7.7 L AST 45 H 06/14/17 06/15/17 06/15/17 18:15 00:35 01:36 RDW Lymph % (Auto) Lymph # Seg Neutrophils % Chloride Carbon Dioxide Glucose POC Glucose 249 H 343 H 290 H Calcium AST 06/15/17 06/15/17 06/15/17 02:14 03:45 04:12 RDW Lymph % (Auto) Lymph # Seg Neutrophils % Chloride Carbon Dioxide 14 L 10 L Glucose 260 H 318 H POC Glucose 319 H Calcium 8.3 L AST 06/15/17 06/15/17 06/15/17 05:24 06:15 06:21 RDW Lymph % (Auto) Lymph # Seg Neutrophils % Chloride 108.1 H Carbon Dioxide 13 L Glucose 183 H POC Glucose 284 H 201 H Calcium 8.3 L AST 06/15/17 06/15/17 06/15/17 07:27 08:36 09:24 RDW Lymph % (Auto) Lymph # Seg Neutrophils % Chloride Carbon Dioxide Glucose POC Glucose 177 H 172 H 147 H Calcium AST 06/15/17 06/15/17 06/15/17 10:28 11:31 12:44 RDW Lymph % (Auto) Lymph # Seg Neutrophils % Chloride Carbon Dioxide Glucose POC Glucose 129 H 164 H 157 H Calcium AST 06/15/17 13:36 RDW Lymph % (Auto) Lymph # Seg Neutrophils % Chloride Carbon Dioxide Glucose POC Glucose 173 H Calcium AST
[2017-06-15] MEDS: ZOFRAN IV PRN ×3 (13:48→23:08)
[2017-06-15 14:40] LABS: Anion Gap 25 mmol/L; BUN/Creatinine Ratio 16; Blood Urea Nitrogen 14 mg/dL (7-17); Calcium 8.2 mg/dL (8.4-10.2); Carbon Dioxide 16 mmol/L (22-30); Chloride 102.4 mmol/L (98-107); Glucose 291 mg/dL (65-100); Potassium 4.3 mmol/L (3.6-5.0); Sodium 139 mmol/L (137-145)
[2017-06-15] MEDS: TYLENOL PO PRN (14:55)
[2017-06-15] MEDS: D5/0.45NS 1,000 ML IV SCH (16:05)
[2017-06-15] MEDS ORDERED: NACL 0.9% 500 ML 500 ML IV ONE (19:01)
--- NOTE | 2017-06-15 19:06 | Progress Note ---
Assessment and Plan Assessment and plan: --Diabetic ketoacidosis; secondary to non-compliance On insulin drip, vigorous IV hydration, blood sugars are reasonable level Start ADA diet as tolerated, breech with long-acting 7030 insulin, sliding scale coverage DC insulin drip, change IV fluids to normal saline, Accu-Cheks before every meal and at bedtime --Metabolic acidosis; rigorous IV hydration, supportive care, replacement with bicarbonate if needed --Medical noncompliance; counseling done advised to comply with medications, diet, follow-up visits Endocrine evaluation upon discharge, hemoglobin A1c 10.1, 10 months ago, check A1c --DVT prophylaxis; Lovenox --DC planning. Case management, home health nurse for monitoring upon discharge Closely monitor blood sugars, if reasonable levels, patient's admission can be downgraded to medical floor Critical care time 31 minutes The high probability of a clinically significant, sudden or life threatening deterioration of the [endocrine, metabolic] system(s) required my full and direct attention, intervention and personal management. The aggregate critical care time was [31 ] minutes. This time is in addition to time spent performing reported procedures but includes the following: [x] Data Review and interpretation [x] Patient assessment and monitoring of vital signs [x] Documentation, counseling [x] Medication orders and management History Interval history: Patient seen and examined in ER awaiting ICU placement admitted with diabetic ketoacidosis, on insulin drip Patient sugars are reasonable level, tolerating small amounts of food Anion gap significantly improved Patient wants to eat food Alert awake oriented 3 not in acute distress Hospitalist Physical - Constitutional Vitals: Temp Pulse Resp BP Pulse Ox 98.8 F 89 20 112/59 100 06/15/17 18:58 06/15/17 07:03 06/15/17 14:55 06/15/17 14:00 06/15/17 14:00 General appearance: Present: no acute distress, well-nourished, other ( dehydrated dehydrated) - EENT Eyes: Present: PERRL, EOM intact - Neck Neck: Present: supple, normal ROM - Respiratory Respiratory effort: normal Respiratory: bilateral: diminished, negative: rales, rhonchi, wheezing - Cardiovascular Rhythm: regular Heart Sounds: Present: S1 & S2 - Extremities Extremities: no ischemia, No edema Peripheral Pulses: within normal limits - Abdominal General gastrointestinal: soft, non-tender, non-distended, normal bowel sounds - Integumentary Integumentary: Present: clear, warm - Psychiatric Psychiatric: appropriate mood/affect, cooperative - Neurologic Neurologic: CNII-XII intact, moves all extremities Results - Labs CBC & Chem 7: 06/14/17 14:30 06/15/17 14:01 Labs: Laboratory Last Values WBC 8.8 K/mm3 (4.5-11.0) 06/14/17 14:30 RBC 3.93 M/mm3 (3.65-5.03) 06/14/17 14:30 Hgb 11.5 gm/dl (10.1-14.3) 06/14/17 14:30 Hct 34.8 % (30.3-42.9) 06/14/17 14:30 MCV 88 fl (79-97) 06/14/17 14:30 MCH 29 pg (28-32) 06/14/17 14:30 MCHC 33 % (30-34) 06/14/17 14:30 RDW 12.7 % (13.2-15.2) L 06/14/17 14:30 Plt Count 170 K/mm3 (140-440) 06/14/17 14:30 Lymph % (Auto) 12.0 % (13.4-35.0) L 06/14/17 14:30 [place] % (Auto) 2.5 % (0.0-7.3) 06/14/17 14:30 Eos % (Auto) 0.0 % (0.0-4.3) 06/14/17 14:30 Baso % (Auto) 0.4 % (0.0-1.8) 06/14/17 14:30 Lymph # 1.1 K/mm3 (1.2-5.4) L 06/14/17 14:30 [place] # 0.2 K/mm3 (0.0-0.8) 06/14/17 14:30 Eos # 0.0 K/mm3 (0.0-0.4) 06/14/17 14:30 Baso # 0.0 K/mm3 (0.0-0.1) 06/14/17 14:30 Seg Neutrophils % 85.1 % (40.0-70.0) H 06/14/17 14:30 Seg Neutrophils # 7.5 K/mm3 (1.8-7.7) 06/14/17 14:30 VBG pH 7.370 (7.320-7.420) 06/14/17 16:06 Sodium 139 mmol/L (137-145) 06/15/17 14:01 Potassium 4.3 mmol/L (3.6-5.0) 06/15/17 14:01 Chloride 102.4 mmol/L (98-107) 06/15/17 14:01 Carbon Dioxide 16 mmol/L (22-30) L 06/15/17 14:01 Anion Gap 25 mmol/L 06/15/17 14:01 BUN 14 mg/dL (7-17) 06/15/17 14:01 Creatinine 0.9 mg/dL (0.7-1.2) 06/15/17 14:01 Estimated GFR > 60 ml/min 06/15/17 14:01 BUN/Creatinine Ratio 16 % 06/15/17 14:01 Glucose 291 mg/dL (65-100) H 06/15/17 14:01 POC Glucose 141 (70-105) H 06/15/17 18:32 Calcium 8.2 mg/dL (8.4-10.2) L 06/15/17 14:01 Phosphorus 3.90 mg/dL (2.5-4.5) 06/15/17 02:14 Magnesium 1.80 mg/dL (1.7-2.3) 06/15/17 02:14 Total Bilirubin 0.30 mg/dL (0.1-1.2) 06/14/17 14:30 AST 45 units/L (5-40) H 06/14/17 14:30 ALT 23 units/L (7-56) 06/14/17 14:30 Alkaline Phosphatase 66 units/L (35-129) 06/14/17 14:30 Total Protein 6.8 g/dL (6.3-8.2) 06/14/17 14:30 Albumin 4.1 g/dL (3.9-5) 06/14/17 14:30 Albumin/Globulin Ratio 1.5 % 06/14/17 14:30 Urine Color Red (Yellow) 06/14/17 14:46 Urine Turbidity Clear (Clear) 06/14/17 14:46 Urine pH 7.0 (5.0-7.0) 06/14/17 14:46 Ur Specific [place] 1.028 (1.003-1.030) 06/14/17 14:46 Urine Protein <15 mg/dl mg/dL (Negative) 06/14/17 14:46 Urine Glucose (UA) >=500 mg/dL (Negative) 06/14/17 14:46 Urine Ketones 20 mg/dL (Negative) 06/14/17 14:46 Urine Blood Lg (Negative) 06/14/17 14:46 Urine Nitrite Neg (Negative) 06/14/17 14:46 Ur Reducing Substances Not Reportable 06/14/17 14:46 Urine Bilirubin Neg (Negative) 06/14/17 14:46 Urine Ictotest Not Reportable 06/14/17 14:46 Urine Urobilinogen < 2.0 mg/dL (<2.0) 06/14/17 14:46 Ur Leukocyte Esterase Sm (Negative) 06/14/17 14:46 Urine WBC (Auto) 2.0 /HPF (0.0-6.0) 06/14/17 14:46 Urine RBC (Auto) 3.0 /HPF (0.0-6.0) 06/14/17 14:46 U Epithel Cells (Auto) 2.0 /HPF (0-13.0) 06/14/17 14:46 Urine Bacteria (Auto) 2+ /HPF (Negative) 06/14/17 14:46 Urine Mucus Few /HPF 06/14/17 14:46 Urine HCG, Qual Negative (Negative) 06/14/17 14:46
[2017-06-15 19:26] LABS: Anion Gap 21 mmol/L; BUN/Creatinine Ratio 12; Blood Urea Nitrogen 12 mg/dL (7-17); Calcium 8.3 mg/dL (8.4-10.2); Carbon Dioxide 19 mmol/L (22-30); Chloride 105.5 mmol/L (98-107); Glucose 149 mg/dL (65-100); Potassium 3.3 mmol/L (3.6-5.0); Sodium 142 mmol/L (137-145)
[2017-06-15] MEDS ORDERED: NACL 0.9% 500 ML 500 ML ONE (22:31)
[2017-06-15] MEDS: NOVOLOG SUB-Q SCH (22:48)
[2017-06-16] MEDS: REGLAN IV PRN (00:01)
[2017-06-16 02:25] LABS: Anion Gap 26 mmol/L; BUN/Creatinine Ratio 12; Blood Urea Nitrogen 12 mg/dL (7-17); Calcium 7.9 mg/dL (8.4-10.2); Carbon Dioxide 14 mmol/L (22-30); Chloride 100.7 mmol/L (98-107); Glucose 396 mg/dL (65-100); Potassium 3.8 mmol/L (3.6-5.0); Sodium 137 mmol/L (137-145)
[2017-06-16 06:39] LABS: Magnesium 2.1 mg/dL (1.7-2.3)
[2017-06-16 06:42] LABS: Alanine Aminotransferase 21 units/L (7-56); Albumin 4.1 g/dL (3.9-5); Albumin/Globulin Ratio 1.8 %; Alkaline Phosphatase 71 units/L (35-129); Anion Gap 33 mmol/L; BUN/Creatinine Ratio 14; Blood Urea Nitrogen 15 mg/dL (7-17); Calcium 8.5 mg/dL (8.4-10.2); Carbon Dioxide 10 mmol/L (22-30); Chloride 99.4 mmol/L (98-107); Glucose 405 mg/dL (65-100); Sodium 138 mmol/L (137-145); Total Protein 6.4 g/dL (6.3-8.2)
[2017-06-16 07:10] LABS: Mean Corpuscular HGB Conc 31 % (30-34); Mean Corpuscular Hemoglobin 29 pg (28-32); Mean Corpuscular Volume 95 fl (79-97); Platelet Count 221 K/mm3 (140-440); Red Blood Count 4.25 M/mm3 (3.65-5.03); Red Cell Distribution Width 14.1 % (13.2-15.2); White Blood Count 16.8 K/mm3 (4.5-11.0)
[2017-06-16 07:11] LABS: Hematocrit 40.2 % (30.3-42.9); Hemoglobin 12.4 gm/dl (10.1-14.3)
[2017-06-16 08:58] LABS: Basophils % (Manual) 0 % (0.0-1.8); Blastocytes % (Manual) 0 %; Diff Status Complete; Eosinophils % (Manual) 0 % (0.0-4.3); Platelet Estimate Consistent w Auto; RBC Morphology Normal
[2017-06-16] MEDS: NOVOLOG SUB-Q SCH ×4 (09:28→22:24)
[2017-06-16] MEDS: NACL 0.9% 1000 ML 1,000 ML IV SCH ×2 (10:52→18:11)
[2017-06-16] MEDS: LOVENOX SUB-Q SCH (11:10)
[2017-06-16] MEDS: ZOFRAN IV PRN (11:10)
--- NOTE | 2017-06-16 13:03 | Progress Note ---
Assessment and Plan - Patient Problems (1) DKA, type 1 Current Visit: Yes Status: Acute Qualifiers: Diabetes mellitus complication detail: without coma Qualified Code(s): E10.10 - Type 1 diabetes mellitus with ketoacidosis without coma Plan to address problem: Patient was recently discontinued on insulin drip. Patient is started on long- acting insulin however appears to becoming more acidotic. Will await follow-up labs. May need to be placed back on insulin drip. Patient did miss one dose of long-acting insulin. Currently being treated with sliding scale. Electrolytes remained stable. (2) Dehydration Current Visit: Yes Status: Acute Plan to address problem: Resolved (3) Nausea & vomiting Current Visit: Yes Status: Acute Qualifiers: Vomiting type: unspecified Vomiting Intractability: intractable Qualified Code(s): R11.2 - Nausea with vomiting, unspecified Plan to address problem: Secondary to DKA resolving. (4) Uncontrolled diabetes mellitus Current Visit: Yes Status: Acute Qualifiers: Diabetes mellitus type: type 1 Diabetes mellitus complication status: with hyperglycemia Qualified Code(s): E10.65 - Type 1 diabetes mellitus with hyperglycemia Plan to address problem: Medical noncompliance. I can see how this will be at issue considering history today. (5) LORNA (acute kidney injury) Current Visit: No Status: Acute History Interval history: Patient today denies any concerns. Patient remains uncooperative. Not very forthcoming with history. Would just say him hungry and sleepy and lay back down. Hospitalist Physical - Constitutional Vitals: Temp Pulse Resp BP Pulse Ox 99 F 80 16 168/73 100 06/16/17 10:56 06/16/17 11:55 06/16/17 11:55 06/16/17 11:55 06/16/17 11:55 General appearance: Present: no acute distress, well-nourished, other ( dehydrated dehydrated) - EENT Eyes: Present: PERRL, EOM intact ENT: hearing intact, clear oral mucosa, dentition normal - Neck Neck: Present: supple, normal ROM - Respiratory Respiratory effort: normal Respiratory: bilateral: CTA - Cardiovascular Rhythm: regular Heart Sounds: Present: S1 & S2 - Extremities Extremities: no ischemia, pulses intact, pulses symmetrical Peripheral Pulses: within normal limits - Abdominal General gastrointestinal: soft, non-tender, non-distended - Psychiatric Psychiatric: appropriate mood/affect, agitated, other (noncooperative) - Neurologic Neurologic: CNII-XII intact Results - Labs CBC & Chem 7: 06/16/17 05:49 06/16/17 05:49 Labs: Laboratory Last Values WBC 16.8 K/mm3 (4.5-11.0) H 06/16/17 05:49 RBC 4.25 M/mm3 (3.65-5.03) 06/16/17 05:49 Hgb 12.4 gm/dl (10.1-14.3) 06/16/17 05:49 Hct 40.2 % (30.3-42.9) 06/16/17 05:49 MCV 95 fl (79-97) 06/16/17 05:49 MCH 29 pg (28-32) 06/16/17 05:49 MCHC 31 % (30-34) 06/16/17 05:49 RDW 14.1 % (13.2-15.2) 06/16/17 05:49 Plt Count 221 K/mm3 (140-440) 06/16/17 05:49 Lymph % (Auto) 12.0 % (13.4-35.0) L 06/14/17 14:30 [place] % (Auto) 2.5 % (0.0-7.3) 06/14/17 14:30 Eos % (Auto) 0.0 % (0.0-4.3) 06/14/17 14:30 Baso % (Auto) 0.4 % (0.0-1.8) 06/14/17 14:30 Lymph # 1.1 K/mm3 (1.2-5.4) L 06/14/17 14:30 [place] # 0.2 K/mm3 (0.0-0.8) 06/14/17 14:30 Eos # 0.0 K/mm3 (0.0-0.4) 06/14/17 14:30 Baso # 0.0 K/mm3 (0.0-0.1) 06/14/17 14:30 Add Manual Diff Complete 06/16/17 05:49 Total Counted 100 06/16/17 05:49 Seg Neutrophils % Bolt Labeler 06/16/17 05:49 Seg Neuts % (Manual) 94.0 % (40.0-70.0) H 06/16/17 05:49 Band Neutrophils % 0 % 06/16/17 05:49 Lymphocytes % (Manual) 4.0 % (13.4-35.0) L 06/16/17 05:49 Reactive Lymphs % (Man) 0 % 06/16/17 05:49 Monocytes % (Manual) 2.0 % (0.0-7.3) 06/16/17 05:49 Eosinophils % (Manual) 0 % (0.0-4.3) 06/16/17 05:49 Basophils % (Manual) 0 % (0.0-1.8) 06/16/17 05:49 Metamyelocytes % 0 % 06/16/17 05:49 Myelocytes % 0 % 06/16/17 05:49 Promyelocytes % 0 % 06/16/17 05:49 Blast Cells % 0 % 06/16/17 05:49 Nucleated RBC % Not Reportable 06/16/17 05:49 Seg Neutrophils # 7.5 K/mm3 (1.8-7.7) 06/14/17 14:30 Seg Neutrophils # Man 15.8 K/mm3 (1.8-7.7) H 06/16/17 05:49 Band Neutrophils # 0.0 K/mm3 06/16/17 05:49 Lymphocytes # (Manual) 0.7 K/mm3 (1.2-5.4) L 06/16/17 05:49 Abs React Lymphs (Man) 0.0 K/mm3 06/16/17 05:49 Monocytes # (Manual) 0.3 K/mm3 (0.0-0.8) 06/16/17 05:49 Eosinophils # (Manual) 0.0 K/mm3 (0.0-0.4) 06/16/17 05:49 Basophils # (Manual) 0.0 K/mm3 (0.0-0.1) 06/16/17 05:49 Metamyelocytes # 0.0 K/mm3 06/16/17 05:49 Myelocytes # 0.0 K/mm3 06/16/17 05:49 Promyelocytes # 0.0 K/mm3 06/16/17 05:49 Blast Cells # 0.0 K/mm3 06/16/17 05:49 WBC Morphology Not Reportable 06/16/17 05:49 Hypersegmented Neuts Not Reportable 06/16/17 05:49 Hyposegmented Neuts Not Reportable 06/16/17 05:49 Hypogranular Neuts Not Reportable 06/16/17 05:49 Smudge Cells Not Reportable 06/16/17 05:49 Toxic Granulation Not Reportable 06/16/17 05:49 Toxic Vacuolation Not Reportable 06/16/17 05:49 Dohle Bodies Not Reportable 06/16/17 05:49 Pelger-Huet Anomaly Not Reportable 06/16/17 05:49 Alex Rods Not Reportable 06/16/17 05:49 Platelet Estimate Consistent w auto 06/16/17 05:49 Clumped Platelets Not Reportable 06/16/17 05:49 Plt Clumps, EDTA Not Reportable 06/16/17 05:49 Large Platelets Not Reportable 06/16/17 05:49 Giant Platelets Not Reportable 06/16/17 05:49 Platelet Satelliting Not Reportable 06/16/17 05:49 Plt Morphology Comment Not Reportable 06/16/17 05:49 RBC Morphology Normal 06/16/17 05:49 Dimorphic RBCs Not Reportable 06/16/17 05:49 Polychromasia Not Reportable 06/16/17 05:49 Hypochromasia Not Reportable 06/16/17 05:49 Poikilocytosis Not Reportable 06/16/17 05:49 Anisocytosis Not Reportable 06/16/17 05:49 Microcytosis Not Reportable 06/16/17 05:49 Macrocytosis Not Reportable 06/16/17 05:49 Spherocytes Not Reportable 06/16/17 05:49 Pappenheimer Bodies Not Reportable 06/16/17 05:49 Sickle Cells Not Reportable 06/16/17 05:49 Target Cells Not Reportable 06/16/17 05:49 Tear Drop Cells Not Reportable 06/16/17 05:49 Ovalocytes Not Reportable 06/16/17 05:49 Helmet Cells Not Reportable 06/16/17 05:49 Barillas-Icard Bodies Not Reportable 06/16/17 05:49 Dawson Rings Not Reportable 06/16/17 05:49 Marci Cells Not Reportable 06/16/17 05:49 Bite Cells Not Reportable 06/16/17 05:49 Crenated Cell Not Reportable 06/16/17 05:49 Elliptocytes Not Reportable 06/16/17 05:49 Acanthocytes (Spur) Not Reportable 06/16/17 05:49 Rouleaux Not Reportable 06/16/17 05:49 Hemoglobin C Crystals Not Reportable 06/16/17 05:49 Schistocytes Not Reportable 06/16/17 05:49 Malaria parasites Not Reportable 06/16/17 05:49 Pérez Bodies Not Reportable 06/16/17 05:49 Hem Pathologist Commnt No 06/16/17 05:49 VBG pH 7.370 (7.320-7.420) 06/14/17 16:06 Sodium 138 mmol/L (137-145) 06/16/17 05:49 Potassium 4.0 mmol/L (3.6-5.0) 06/16/17 05:49 Chloride 99.4 mmol/L (98-107) 06/16/17 05:49 Carbon Dioxide 10 mmol/L (22-30) L 06/16/17 05:49 Anion Gap 33 mmol/L 06/16/17 05:49 BUN 15 mg/dL (7-17) 06/16/17 05:49 Creatinine 1.1 mg/dL (0.7-1.2) 06/16/17 05:49 Estimated GFR > 60 ml/min 06/16/17 05:49 BUN/Creatinine Ratio 14 % 06/16/17 05:49 Glucose 405 mg/dL (65-100) H 06/16/17 05:49 POC Glucose 287 (70-105) H 06/16/17 11:54 Hemoglobin A1c 11.2 % (4-6) H 06/16/17 05:49 Calcium 8.5 mg/dL (8.4-10.2) 06/16/17 05:49 Phosphorus 3.00 mg/dL (2.5-4.5) D 06/16/17 05:49 Magnesium 2.10 mg/dL (1.7-2.3) 06/16/17 05:49 Total Bilirubin 0.60 mg/dL (0.1-1.2) 06/16/17 05:49 AST 25 units/L (5-40) 06/16/17 05:49 ALT 21 units/L (7-56) 06/16/17 05:49 Alkaline Phosphatase 71 units/L (35-129) 06/16/17 05:49 Total Protein 6.4 g/dL (6.3-8.2) 06/16/17 05:49 Albumin 4.1 g/dL (3.9-5) 06/16/17 05:49 Albumin/Globulin Ratio 1.8 % 06/16/17 05:49 Urine Color Red (Yellow) 06/14/17 14:46 Urine Turbidity Clear (Clear) 06/14/17 14:46 Urine pH 7.0 (5.0-7.0) 06/14/17 14:46 Ur Specific [place] 1.028 (1.003-1.030) 06/14/17 14:46 Urine Protein <15 mg/dl mg/dL (Negative) 06/14/17 14:46 Urine Glucose (UA) >=500 mg/dL (Negative) 06/14/17 14:46 Urine Ketones 20 mg/dL (Negative) 06/14/17 14:46 Urine Blood Lg (Negative) 06/14/17 14:46 Urine Nitrite Neg (Negative) 06/14/17 14:46 Ur Reducing Substances Not Reportable 06/14/17 14:46 Urine Bilirubin Neg (Negative) 06/14/17 14:46 Urine Ictotest Not Reportable 06/14/17 14:46 Urine Urobilinogen < 2.0 mg/dL (<2.0) 06/14/17 14:46 Ur Leukocyte Esterase Sm (Negative) 06/14/17 14:46 Urine WBC (Auto) 2.0 /HPF (0.0-6.0) 06/14/17 14:46 Urine RBC (Auto) 3.0 /HPF (0.0-6.0) 06/14/17 14:46 U Epithel Cells (Auto) 2.0 /HPF (0-13.0) 06/14/17 14:46 Urine Bacteria (Auto) 2+ /HPF (Negative) 06/14/17 14:46 Urine Mucus Few /HPF 06/14/17 14:46 Urine HCG, Qual Negative (Negative) 06/14/17 14:46
--- NOTE | 2017-06-16 13:35 | Progress Note ---
Assessment and Plan DKA N&V Probable gastroparesis - continue long and short acting insulin therapy - continue IVF - follow electrolytes and correct as necessary - continue prn antiemetics - aspiration precautions - GI & VTE prophylaxis - flu & pneumovax per protocol ...transfer to ICU for IV insulin therapy if she decompensates further Subjective Date of service: 06/16/17 Principal diagnosis: DKA; N&V Interval history: Patient is seen today for: DKA Seen and examined at bedside; 24hour events reviewed; nursing and respiratory care staff consulted; no adverse overnight events reported to me; in bed; states still with abdominal discomfort; off IV insulin therapy; BG still intermittently high and anion gap appears to be rising again. Objective Vital Signs - 12hr 06/16/17 06/16/17 06/16/17 05:41 05:45 05:51 Temperature Pulse Rate 86 83 91 H Respiratory 20 18 18 Rate Blood Pressure 106/54 111/63 119/62 Blood Pressure [Left] O2 Sat by Pulse 100 99 100 Oximetry 06/16/17 06/16/17 06/16/17 05:55 06:00 06:05 Temperature Pulse Rate 93 H 87 87 Respiratory 16 19 21 Rate Blood Pressure 119/62 114/72 114/72 Blood Pressure [Left] O2 Sat by Pulse 100 99 100 Oximetry 06/16/17 06/16/17 06/16/17 06:11 06:15 06:21 Temperature Pulse Rate 87 87 87 Respiratory 20 25 H 21 Rate Blood Pressure 114/72 104/63 114/72 Blood Pressure [Left] O2 Sat by Pulse 100 100 99 Oximetry 06/16/17 06/16/17 06/16/17 06:25 06:30 06:35 Temperature Pulse Rate 86 87 88 Respiratory 21 22 21 Rate Blood Pressure 114/72 97/45 97/45 Blood Pressure [Left] O2 Sat by Pulse 99 99 99 Oximetry 06/16/17 06/16/17 06/16/17 06:41 06:45 06:51 Temperature Pulse Rate 90 88 88 Respiratory 22 22 22 Rate Blood Pressure 97/45 102/45 102/45 Blood Pressure [Left] O2 Sat by Pulse 99 99 98 Oximetry 06/16/17 06/16/17 06/16/17 06:55 07:00 07:05 Temperature Pulse Rate 89 85 97 H Respiratory 20 17 21 Rate Blood Pressure 102/45 101/48 89/31 Blood Pressure [Left] O2 Sat by Pulse 99 100 99 Oximetry 06/16/17 06/16/17 06/16/17 07:11 07:15 07:21 Temperature Pulse Rate 88 79 92 H Respiratory 20 16 18 Rate Blood Pressure 89/31 86/37 86/37 Blood Pressure [Left] O2 Sat by Pulse 100 100 99 Oximetry 06/16/17 06/16/17 06/16/17 07:25 07:30 07:35 Temperature Pulse Rate 82 98 H 84 Respiratory 18 18 19 Rate Blood Pressure 86/37 77/47 77/47 Blood Pressure [Left] O2 Sat by Pulse 99 100 100 Oximetry 06/16/17 06/16/17 06/16/17 07:41 07:45 07:51 Temperature Pulse Rate 85 90 102 H Respiratory 19 25 H 19 Rate Blood Pressure 77/47 77/47 Blood Pressure [Left] O2 Sat by Pulse 100 100 98 Oximetry 06/16/17 06/16/17 06/16/17 07:55 08:01 08:05 Temperature Pulse Rate 91 H 91 H 92 H Respiratory 20 21 23 Rate Blood Pressure Blood Pressure [Left] O2 Sat by Pulse 99 100 100 Oximetry 06/16/17 06/16/17 06/16/17 08:11 08:15 08:21 Temperature Pulse Rate 91 H 90 92 H Respiratory 22 20 22 Rate Blood Pressure Blood Pressure [Left] O2 Sat by Pulse 100 100 100 Oximetry 06/16/17 06/16/17 06/16/17 08:25 08:31 08:35 Temperature Pulse Rate 90 94 H 92 H Respiratory 21 21 14 Rate Blood Pressure Blood Pressure [Left] O2 Sat by Pulse 100 100 100 Oximetry 06/16/17 06/16/17 06/16/17 08:41 08:45 08:51 Temperature Pulse Rate 100 H 95 H 91 H Respiratory 16 21 20 Rate Blood Pressure 99/44 Blood Pressure [Left] O2 Sat by Pulse 99 100 100 Oximetry 06/16/17 06/16/17 06/16/17 08:55 09:00 09:05 Temperature Pulse Rate 92 H 93 H 94 H Respiratory 21 21 22 Rate Blood Pressure 99/44 86/43 86/43 Blood Pressure [Left] O2 Sat by Pulse 100 100 100 Oximetry 06/16/17 06/16/17 06/16/17 09:11 09:15 09:21 Temperature Pulse Rate 95 H 92 H 95 H Respiratory 19 14 21 Rate Blood Pressure 86/43 93/39 93/39 Blood Pressure [Left] O2 Sat by Pulse 99 99 99 Oximetry 06/16/17 06/16/17 06/16/17 09:25 09:30 09:35 Temperature Pulse Rate 100 H 93 H 104 H Respiratory 19 23 27 H Rate Blood Pressure 93/39 104/45 104/45 Blood Pressure [Left] O2 Sat by Pulse 99 100 100 Oximetry 06/16/17 06/16/17 06/16/17 09:41 09:45 10:27 Temperature 98.9 F Pulse Rate 94 H 92 H 92 H Respiratory 24 24 99 H Rate Blood Pressure 104/45 111/53 Blood Pressure 111/53 [Left] O2 Sat by Pulse 100 99 Oximetry 06/16/17 06/16/17 06/16/17 10:49 10:56 11:43 Temperature 99.0 F 99 F Pulse Rate 90 83 Respiratory 18 18 Rate Blood Pressure 128/73 111/53 Blood Pressure 128/73 [Left] O2 Sat by Pulse 100 100 100 Oximetry 06/16/17 06/16/17 06/16/17 11:45 11:51 11:55 Temperature Pulse Rate 100 H 80 Respiratory 19 16 Rate Blood Pressure 111/53 168/73 168/73 Blood Pressure [Left] O2 Sat by Pulse 100 100 Oximetry Constitutional: alert, appears uncomfortable Eyes: non-icteric ENT: oropharynx moist Neck: supple, no lymphadenopathy, no JVD, other (no thyromegaly) Effort: mildly labored Ascultation: Bilateral: clear Percussion: Bilateral: not dull Cardiovascular: regular rate and rhythm, other (no rubs / murmurs) Gastrointestinal: hypoactive bowel sounds, soft, tender (mild diffuse), non- distended, other (No HSM) Integumentary: normal Extremities: no cyanosis, no edema, pulses normal, no ischemia or petechiae Neurologic: normal mental status, non-focal exam, pupils equal and round, motor strength normal and Psychiatric: depressed CBC and BMP: 06/19/17 03:02 06/19/17 03:02 Abnormal lab findings: Abnormal Labs 06/14/17 06/14/17 06/14/17 14:30 14:30 14:46 WBC RDW 12.7 L Lymph % (Auto) 12.0 L Lymph # 1.1 L Seg Neutrophils % 85.1 H Seg Neuts % (Manual) Lymphocytes % (Manual) Seg Neutrophils # Man Lymphocytes # (Manual) Potassium Chloride Carbon Dioxide 16 L Glucose 422 H POC Glucose 409 H Hemoglobin A1c Calcium 7.7 L AST 45 H 06/14/17 06/15/17 06/15/17 18:15 00:35 01:36 WBC RDW Lymph % (Auto) Lymph # Seg Neutrophils % Seg Neuts % (Manual) Lymphocytes % (Manual) Seg Neutrophils # Man Lymphocytes # (Manual) Potassium Chloride Carbon Dioxide Glucose POC Glucose 249 H 343 H 290 H Hemoglobin A1c Calcium AST 06/15/17 06/15/17 06/15/17 02:14 03:45 04:12 WBC RDW Lymph % (Auto) Lymph # Seg Neutrophils % Seg Neuts % (Manual) Lymphocytes % (Manual) Seg Neutrophils # Man Lymphocytes # (Manual) Potassium Chloride Carbon Dioxide 14 L 10 L Glucose 260 H 318 H POC Glucose 319 H Hemoglobin A1c Calcium 8.3 L AST 06/15/17 06/15/17 06/15/17 05:24 06:15 06:21 WBC RDW Lymph % (Auto) Lymph # Seg Neutrophils % Seg Neuts % (Manual) Lymphocytes % (Manual) Seg Neutrophils # Man Lymphocytes # (Manual) Potassium Chloride 108.1 H Carbon Dioxide 13 L Glucose 183 H POC Glucose 284 H 201 H Hemoglobin A1c Calcium 8.3 L AST 06/15/17 06/15/17 06/15/17 07:27 08:36 09:24 WBC RDW Lymph % (Auto) Lymph # Seg Neutrophils % Seg Neuts % (Manual) Lymphocytes % (Manual) Seg Neutrophils # Man Lymphocytes # (Manual) Potassium Chloride Carbon Dioxide Glucose POC Glucose 177 H 172 H 147 H Hemoglobin A1c Calcium AST 06/15/17 06/15/17 06/15/17 10:28 11:31 12:44 WBC RDW Lymph % (Auto) Lymph # Seg Neutrophils % Seg Neuts % (Manual) Lymphocytes % (Manual) Seg Neutrophils # Man Lymphocytes # (Manual) Potassium Chloride Carbon Dioxide Glucose POC Glucose 129 H 164 H 157 H Hemoglobin A1c Calcium AST 06/15/17 06/15/17 06/15/17 13:36 14:01 14:26 WBC RDW Lymph % (Auto) Lymph # Seg Neutrophils % Seg Neuts % (Manual) Lymphocytes % (Manual) Seg Neutrophils # Man Lymphocytes # (Manual) Potassium Chloride Carbon Dioxide 16 L Glucose 291 H POC Glucose 173 H 288 H Hemoglobin A1c Calcium 8.2 L AST 06/15/17 06/15/17 06/15/17 15:26 16:25 17:30 WBC RDW Lymph % (Auto) Lymph # Seg Neutrophils % Seg Neuts % (Manual) Lymphocytes % (Manual) Seg Neutrophils # Man Lymphocytes # (Manual) Potassium Chloride Carbon Dioxide Glucose POC Glucose 286 H 200 H 114 H Hemoglobin A1c Calcium AST 06/15/17 06/15/17 06/15/17 18:32 18:50 20:05 WBC RDW Lymph % (Auto) Lymph # Seg Neutrophils % Seg Neuts % (Manual) Lymphocytes % (Manual) Seg Neutrophils # Man Lymphocytes # (Manual) Potassium 3.3 L D Chloride Carbon Dioxide 19 L Glucose 149 H POC Glucose 141 H 147 H Hemoglobin A1c Calcium 8.3 L AST 06/15/17 06/15/17 06/16/17 21:29 22:41 01:51 WBC RDW Lymph % (Auto) Lymph # Seg Neutrophils % Seg Neuts % (Manual) Lymphocytes % (Manual) Seg Neutrophils # Man Lymphocytes # (Manual) Potassium Chloride Carbon Dioxide 14 L Glucose 396 H POC Glucose 146 H 142 H Hemoglobin A1c Calcium 7.9 L AST 06/16/17 06/16/17 06/16/17 05:01 05:49 05:49 WBC 16.8 H RDW Lymph % (Auto) Lymph # Seg Neutrophils % Seg Neuts % (Manual) 94.0 H Lymphocytes % (Manual) 4.0 L Seg Neutrophils # Man 15.8 H Lymphocytes # (Manual) 0.7 L Potassium Chloride Carbon Dioxide Glucose POC Glucose 374 H Hemoglobin A1c 11.2 H Calcium AST 06/16/17 06/16/17 06/16/17 05:49 08:46 11:54 WBC RDW Lymph % (Auto) Lymph # Seg Neutrophils % Seg Neuts % (Manual) Lymphocytes % (Manual) Seg Neutrophils # Man Lymphocytes # (Manual) Potassium Chloride Carbon Dioxide 10 L Glucose 405 H POC Glucose 368 H 287 H Hemoglobin A1c Calcium AST Chest x-ray: image reviewed (no acute process)
[2017-06-16 15:33] LABS: Alanine Aminotransferase 22 units/L (7-56); Albumin 4.2 g/dL (3.9-5); Albumin/Globulin Ratio 1.8 %; Alkaline Phosphatase 70 units/L (35-129); Anion Gap 28 mmol/L; BUN/Creatinine Ratio 14; Blood Urea Nitrogen 17 mg/dL (7-17); Calcium 8.3 mg/dL (8.4-10.2); Carbon Dioxide 13 mmol/L (22-30); Chloride 103.5 mmol/L (98-107); Glucose 160 mg/dL (65-100); Potassium 4.6 mmol/L (3.6-5.0); Sodium 140 mmol/L (137-145); Total Protein 6.6 g/dL (6.3-8.2)
[2017-06-17] MEDS: NACL 0.9% 1000 ML 1,000 ML IV SCH ×2 (02:27→15:48)
[2017-06-17] MEDS: REGLAN IV PRN ×3 (05:33→18:36)
[2017-06-17] MEDS: TYLENOL PO PRN (05:33)
[2017-06-17] MEDS: NOVOLOG SUB-Q SCH ×3 (08:31→17:10)
[2017-06-17] MEDS: ZOFRAN IV PRN (08:32)
[2017-06-17] MEDS: LOVENOX SUB-Q SCH (10:17)
--- NOTE | 2017-06-17 11:28 | Progress Note ---
Assessment and Plan - Patient Problems (1) DKA, type 1 Current Visit: Yes Status: Acute Qualifiers: Diabetes mellitus complication detail: without coma Qualified Code(s): E10.10 - Type 1 diabetes mellitus with ketoacidosis without coma Plan to address problem: Patient remains acidotic with increased anion gap. It has improved from continued to 13. Patient is tolerating insulin now. Plan give patient is no longer acidotic tomorrow will discharge home with 35 units of Lantus in the evening and continue her sliding scale insulin. Discussed about noncompliance with patient and she understands. (2) Dehydration Current Visit: Yes Status: Acute Plan to address problem: Resolved secondary to prerenal azotemia (3) Nausea & vomiting Current Visit: Yes Status: Acute Qualifiers: Vomiting type: unspecified Vomiting Intractability: intractable Qualified Code(s): R11.2 - Nausea with vomiting, unspecified Plan to address problem: Due to hyperglycemia and DKA. Improving with current insulin dose. Follow-up chemistry in a.m. (4) Uncontrolled diabetes mellitus Current Visit: Yes Status: Acute Qualifiers: Diabetes mellitus type: type 1 Diabetes mellitus complication status: with hyperglycemia Qualified Code(s): E10.65 - Type 1 diabetes mellitus with hyperglycemia Plan to address problem: Improving with current long-acting insulin. We'll continue to increase insulin today. Change diet to clear liquid diet today. This is tolerated. (5) LORNA (acute kidney injury) Current Visit: No Status: Resolved History Interval history: Hospital course complicated by nausea and vomiting. Patient had Accu-Chek of 404. Head are much better than 118 205 and 124. His a.m. patient may not be able to tolerate regular diet at this particular time. Hospitalist Physical - Constitutional Vitals: Temp Pulse Resp BP Pulse Ox 98 F 97 H 16 107/42 95 06/17/17 08:00 06/17/17 08:00 06/17/17 08:00 06/17/17 08:00 06/17/17 08:50 General appearance: Present: no acute distress, well-nourished, other ( dehydrated dehydrated) - EENT Eyes: Present: PERRL, EOM intact ENT: hearing intact, clear oral mucosa, dentition normal - Neck Neck: Present: supple, normal ROM - Respiratory Respiratory effort: normal Respiratory: bilateral: CTA - Cardiovascular Rhythm: regular - Extremities Extremities: no ischemia, pulses intact, No edema - Abdominal General gastrointestinal: soft, non-tender, non-distended - Integumentary Integumentary: Present: clear, warm, dry - Psychiatric Psychiatric: appropriate mood/affect, cooperative - Neurologic Neurologic: CNII-XII intact Results - Labs CBC & Chem 7: 06/16/17 05:49 06/16/17 14:55 Labs: Laboratory Last Values WBC 16.8 K/mm3 (4.5-11.0) H 06/16/17 05:49 RBC 4.25 M/mm3 (3.65-5.03) 06/16/17 05:49 Hgb 12.4 gm/dl (10.1-14.3) 06/16/17 05:49 Hct 40.2 % (30.3-42.9) 06/16/17 05:49 MCV 95 fl (79-97) 06/16/17 05:49 MCH 29 pg (28-32) 06/16/17 05:49 MCHC 31 % (30-34) 06/16/17 05:49 RDW 14.1 % (13.2-15.2) 06/16/17 05:49 Plt Count 221 K/mm3 (140-440) 06/16/17 05:49 Lymph % (Auto) 12.0 % (13.4-35.0) L 06/14/17 14:30 [place] % (Auto) 2.5 % (0.0-7.3) 06/14/17 14:30 Eos % (Auto) 0.0 % (0.0-4.3) 06/14/17 14:30 Baso % (Auto) 0.4 % (0.0-1.8) 06/14/17 14:30 Lymph # 1.1 K/mm3 (1.2-5.4) L 06/14/17 14:30 [place]ley # 0.2 K/mm3 (0.0-0.8) 06/14/17 14:30 Eos # 0.0 K/mm3 (0.0-0.4) 06/14/17 14:30 Baso # 0.0 K/mm3 (0.0-0.1) 06/14/17 14:30 Add Manual Diff Complete 06/16/17 05:49 Total Counted 100 06/16/17 05:49 Seg Neutrophils % Barrel Cap Setter 06/16/17 05:49 Seg Neuts % (Manual) 94.0 % (40.0-70.0) H 06/16/17 05:49 Band Neutrophils % 0 % 06/16/17 05:49 Lymphocytes % (Manual) 4.0 % (13.4-35.0) L 06/16/17 05:49 Reactive Lymphs % (Man) 0 % 06/16/17 05:49 Monocytes % (Manual) 2.0 % (0.0-7.3) 06/16/17 05:49 Eosinophils % (Manual) 0 % (0.0-4.3) 06/16/17 05:49 Basophils % (Manual) 0 % (0.0-1.8) 06/16/17 05:49 Metamyelocytes % 0 % 06/16/17 05:49 Myelocytes % 0 % 06/16/17 05:49 Promyelocytes % 0 % 06/16/17 05:49 Blast Cells % 0 % 06/16/17 05:49 Nucleated RBC % Not Reportable 06/16/17 05:49 Seg Neutrophils # 7.5 K/mm3 (1.8-7.7) 06/14/17 14:30 Seg Neutrophils # Man 15.8 K/mm3 (1.8-7.7) H 06/16/17 05:49 Band Neutrophils # 0.0 K/mm3 06/16/17 05:49 Lymphocytes # (Manual) 0.7 K/mm3 (1.2-5.4) L 06/16/17 05:49 Abs React Lymphs (Man) 0.0 K/mm3 06/16/17 05:49 Monocytes # (Manual) 0.3 K/mm3 (0.0-0.8) 06/16/17 05:49 Eosinophils # (Manual) 0.0 K/mm3 (0.0-0.4) 06/16/17 05:49 Basophils # (Manual) 0.0 K/mm3 (0.0-0.1) 06/16/17 05:49 Metamyelocytes # 0.0 K/mm3 06/16/17 05:49 Myelocytes # 0.0 K/mm3 06/16/17 05:49 Promyelocytes # 0.0 K/mm3 06/16/17 05:49 Blast Cells # 0.0 K/mm3 06/16/17 05:49 WBC Morphology Not Reportable 06/16/17 05:49 Hypersegmented Neuts Not Reportable 06/16/17 05:49 Hyposegmented Neuts Not Reportable 06/16/17 05:49 Hypogranular Neuts Not Reportable 06/16/17 05:49 Smudge Cells Not Reportable 06/16/17 05:49 Toxic Granulation Not Reportable 06/16/17 05:49 Toxic Vacuolation Not Reportable 06/16/17 05:49 Dohle Bodies Not Reportable 06/16/17 05:49 Pelger-Huet Anomaly Not Reportable 06/16/17 05:49 Alex Rods Not Reportable 06/16/17 05:49 Platelet Estimate Consistent w auto 06/16/17 05:49 Clumped Platelets Not Reportable 06/16/17 05:49 Plt Clumps, EDTA Not Reportable 06/16/17 05:49 Large Platelets Not Reportable 06/16/17 05:49 Giant Platelets Not Reportable 06/16/17 05:49 Platelet Satelliting Not Reportable 06/16/17 05:49 Plt Morphology Comment Not Reportable 06/16/17 05:49 RBC Morphology Normal 06/16/17 05:49 Dimorphic RBCs Not Reportable 06/16/17 05:49 Polychromasia Not Reportable 06/16/17 05:49 Hypochromasia Not Reportable 06/16/17 05:49 Poikilocytosis Not Reportable 06/16/17 05:49 Anisocytosis Not Reportable 06/16/17 05:49 Microcytosis Not Reportable 06/16/17 05:49 Macrocytosis Not Reportable 06/16/17 05:49 Spherocytes Not Reportable 06/16/17 05:49 Pappenheimer Bodies Not Reportable 06/16/17 05:49 Sickle Cells Not Reportable 06/16/17 05:49 Target Cells Not Reportable 06/16/17 05:49 Tear Drop Cells Not Reportable 06/16/17 05:49 Ovalocytes Not Reportable 06/16/17 05:49 Helmet Cells Not Reportable 06/16/17 05:49 Barillas-Lannon Bodies Not Reportable 06/16/17 05:49 [place] Rings Not Reportable 06/16/17 05:49 Marci Cells Not Reportable 06/16/17 05:49 Bite Cells Not Reportable 06/16/17 05:49 Crenated Cell Not Reportable 06/16/17 05:49 Elliptocytes Not Reportable 06/16/17 05:49 Acanthocytes (Spur) Not Reportable 06/16/17 05:49 Rouleaux Not Reportable 06/16/17 05:49 Hemoglobin C Crystals Not Reportable 06/16/17 05:49 Schistocytes Not Reportable 06/16/17 05:49 Malaria parasites Not Reportable 06/16/17 05:49 Pérez Bodies Not Reportable 06/16/17 05:49 Hem Pathologist Commnt No 06/16/17 05:49 VBG pH 7.370 (7.320-7.420) 06/14/17 16:06 Sodium 140 mmol/L (137-145) 06/16/17 14:55 Potassium 4.6 mmol/L (3.6-5.0) 06/16/17 14:55 Chloride 103.5 mmol/L (98-107) 06/16/17 14:55 Carbon Dioxide 13 mmol/L (22-30) L 06/16/17 14:55 Anion Gap 28 mmol/L 06/16/17 14:55 BUN 17 mg/dL (7-17) 06/16/17 14:55 Creatinine 1.2 mg/dL (0.7-1.2) 06/16/17 14:55 Estimated GFR > 60 ml/min 06/16/17 14:55 BUN/Creatinine Ratio 14 % 06/16/17 14:55 Glucose 160 mg/dL (65-100) H 06/16/17 14:55 POC Glucose 424 (70-105) H 06/17/17 08:08 Hemoglobin A1c 11.2 % (4-6) H 06/16/17 05:49 Calcium 8.3 mg/dL (8.4-10.2) L 06/16/17 14:55 Phosphorus 3.00 mg/dL (2.5-4.5) D 06/16/17 05:49 Magnesium 2.10 mg/dL (1.7-2.3) 06/16/17 05:49 Total Bilirubin 0.40 mg/dL (0.1-1.2) 06/16/17 14:55 AST 24 units/L (5-40) 06/16/17 14:55 ALT 22 units/L (7-56) 06/16/17 14:55 Alkaline Phosphatase 70 units/L (35-129) 06/16/17 14:55 Total Protein 6.6 g/dL (6.3-8.2) 06/16/17 14:55 Albumin 4.2 g/dL (3.9-5) 06/16/17 14:55 Albumin/Globulin Ratio 1.8 % 06/16/17 14:55 Urine Color Red (Yellow) 06/14/17 14:46 Urine Turbidity Clear (Clear) 06/14/17 14:46 Urine pH 7.0 (5.0-7.0) 06/14/17 14:46 Ur Specific [place] 1.028 (1.003-1.030) 06/14/17 14:46 Urine Protein <15 mg/dl mg/dL (Negative) 06/14/17 14:46 Urine Glucose (UA) >=500 mg/dL (Negative) 06/14/17 14:46 Urine Ketones 20 mg/dL (Negative) 06/14/17 14:46 Urine Blood Lg (Negative) 06/14/17 14:46 Urine Nitrite Neg (Negative) 06/14/17 14:46 Ur Reducing Substances Not Reportable 06/14/17 14:46 Urine Bilirubin Neg (Negative) 06/14/17 14:46 Urine Ictotest Not Reportable 06/14/17 14:46 Urine Urobilinogen < 2.0 mg/dL (<2.0) 06/14/17 14:46 Ur Leukocyte Esterase Sm (Negative) 06/14/17 14:46 Urine WBC (Auto) 2.0 /HPF (0.0-6.0) 06/14/17 14:46 Urine RBC (Auto) 3.0 /HPF (0.0-6.0) 06/14/17 14:46 U Epithel Cells (Auto) 2.0 /HPF (0-13.0) 06/14/17 14:46 Urine Bacteria (Auto) 2+ /HPF (Negative) 06/14/17 14:46 Urine Mucus Few /HPF 06/14/17 14:46 Urine HCG, Qual Negative (Negative) 06/14/17 14:46
[2017-06-17 14:12] LABS: Alanine Aminotransferase 17 units/L (7-56); Albumin 3.9 g/dL (3.9-5); Albumin/Globulin Ratio 1.6 %; Alkaline Phosphatase 63 units/L (35-129); Anion Gap 28 mmol/L; BUN/Creatinine Ratio 13; Blood Urea Nitrogen 16 mg/dL (7-17); Carbon Dioxide 11 mmol/L (22-30); Chloride 102.4 mmol/L (98-107); Glucose 170 mg/dL (65-100); Potassium 3.9 mmol/L (3.6-5.0); Sodium 137 mmol/L (137-145); Total Protein 6.4 g/dL (6.3-8.2)
--- NOTE | 2017-06-17 20:03 | Progress Note ---
Assessment and Plan Patient complaining slight shortness of breath. O2 saturation 95% on room air.No acute respiratory distress. - Patient Problems (1) DKA, type 1 Current Visit: Yes Status: Acute Qualifiers: Diabetes mellitus complication detail: without coma Qualified Code(s): E10.10 - Type 1 diabetes mellitus with ketoacidosis without coma Plan to address problem: Still in DKA. Todays Bicarb is 11. Continue I/V fluids and insulin. Management as per primary care. (2) Acute renal failure (ARF) Current Visit: No Status: Acute Plan to address problem: Management as per nephrolo (3) Altered mental status Current Visit: No Status: Acute Qualifiers: Altered mental status type: delirium Qualified Code(s): R41.0 - Disorientation, unspecified Plan to address problem: Improving. Subjective Date of service: 06/17/17 Interval history: Patient complaining slight shortness of breath. O2 saturation 95% on room air.No acute respiratory distress. Objective Vital Signs - 12hr 06/17/17 06/17/17 08:50 16:30 Temperature 99.2 F Pulse Rate 89 Respiratory 16 Rate Blood Pressure 111/63 [Left] O2 Sat by Pulse 95 100 Oximetry Constitutional: no acute distress, alert Eyes: non-icteric ENT: oropharynx moist Neck: supple, no lymphadenopathy Ascultation: Bilateral: clear Cardiovascular: regular rate and rhythm Gastrointestinal: normoactive bowel sounds, soft, non-tender Integumentary: normal Extremities: no cyanosis, no edema Neurologic: normal mental status, non-focal exam, pupils equal and round, CN II- XII normal Psychiatric: anxious CBC and BMP: 06/16/17 05:49 06/17/17 13:28 Abnormal lab findings: Abnormal Labs 06/14/17 06/14/17 06/14/17 14:30 14:30 14:46 WBC RDW 12.7 L Lymph % (Auto) 12.0 L Lymph # 1.1 L Seg Neutrophils % 85.1 H Seg Neuts % (Manual) Lymphocytes % (Manual) Seg Neutrophils # Man Lymphocytes # (Manual) Potassium Chloride Carbon Dioxide 16 L Glucose 422 H POC Glucose 409 H Hemoglobin A1c Calcium 7.7 L AST 45 H 06/14/17 06/15/17 06/15/17 18:15 00:35 01:36 WBC RDW Lymph % (Auto) Lymph # Seg Neutrophils % Seg Neuts % (Manual) Lymphocytes % (Manual) Seg Neutrophils # Man Lymphocytes # (Manual) Potassium Chloride Carbon Dioxide Glucose POC Glucose 249 H 343 H 290 H Hemoglobin A1c Calcium AST 06/15/17 06/15/17 06/15/17 02:14 03:45 04:12 WBC RDW Lymph % (Auto) Lymph # Seg Neutrophils % Seg Neuts % (Manual) Lymphocytes % (Manual) Seg Neutrophils # Man Lymphocytes # (Manual) Potassium Chloride Carbon Dioxide 14 L 10 L Glucose 260 H 318 H POC Glucose 319 H Hemoglobin A1c Calcium 8.3 L AST 06/15/17 06/15/17 06/15/17 05:24 06:15 06:21 WBC RDW Lymph % (Auto) Lymph # Seg Neutrophils % Seg Neuts % (Manual) Lymphocytes % (Manual) Seg Neutrophils # Man Lymphocytes # (Manual) Potassium Chloride 108.1 H Carbon Dioxide 13 L Glucose 183 H POC Glucose 284 H 201 H Hemoglobin A1c Calcium 8.3 L AST 06/15/17 06/15/17 06/15/17 07:27 08:36 09:24 WBC RDW Lymph % (Auto) Lymph # Seg Neutrophils % Seg Neuts % (Manual) Lymphocytes % (Manual) Seg Neutrophils # Man Lymphocytes # (Manual) Potassium Chloride Carbon Dioxide Glucose POC Glucose 177 H 172 H 147 H Hemoglobin A1c Calcium AST 06/15/17 06/15/17 06/15/17 10:28 11:31 12:44 WBC RDW Lymph % (Auto) Lymph # Seg Neutrophils % Seg Neuts % (Manual) Lymphocytes % (Manual) Seg Neutrophils # Man Lymphocytes # (Manual) Potassium Chloride Carbon Dioxide Glucose POC Glucose 129 H 164 H 157 H Hemoglobin A1c Calcium AST 06/15/17 06/15/17 06/15/17 13:36 14:01 14:26 WBC RDW Lymph % (Auto) Lymph # Seg Neutrophils % Seg Neuts % (Manual) Lymphocytes % (Manual) Seg Neutrophils # Man Lymphocytes # (Manual) Potassium Chloride Carbon Dioxide 16 L Glucose 291 H POC Glucose 173 H 288 H Hemoglobin A1c Calcium 8.2 L AST 06/15/17 06/15/17 06/15/17 15:26 16:25 17:30 WBC RDW Lymph % (Auto) Lymph # Seg Neutrophils % Seg Neuts % (Manual) Lymphocytes % (Manual) Seg Neutrophils # Man Lymphocytes # (Manual) Potassium Chloride Carbon Dioxide Glucose POC Glucose 286 H 200 H 114 H Hemoglobin A1c Calcium AST 06/15/17 06/15/17 06/15/17 18:32 18:50 20:05 WBC RDW Lymph % (Auto) Lymph # Seg Neutrophils % Seg Neuts % (Manual) Lymphocytes % (Manual) Seg Neutrophils # Man Lymphocytes # (Manual) Potassium 3.3 L D Chloride Carbon Dioxide 19 L Glucose 149 H POC Glucose 141 H 147 H Hemoglobin A1c Calcium 8.3 L AST 06/15/17 06/15/17 06/16/17 21:29 22:41 01:51 WBC RDW Lymph % (Auto) Lymph # Seg Neutrophils % Seg Neuts % (Manual) Lymphocytes % (Manual) Seg Neutrophils # Man Lymphocytes # (Manual) Potassium Chloride Carbon Dioxide 14 L Glucose 396 H POC Glucose 146 H 142 H Hemoglobin A1c Calcium 7.9 L AST 06/16/17 06/16/17 06/16/17 05:01 05:49 05:49 WBC 16.8 H RDW Lymph % (Auto) Lymph # Seg Neutrophils % Seg Neuts % (Manual) 94.0 H Lymphocytes % (Manual) 4.0 L Seg Neutrophils # Man 15.8 H Lymphocytes # (Manual) 0.7 L Potassium Chloride Carbon Dioxide Glucose POC Glucose 374 H Hemoglobin A1c 11.2 H Calcium AST 06/16/17 06/16/17 06/16/17 05:49 08:46 11:54 WBC RDW Lymph % (Auto) Lymph # Seg Neutrophils % Seg Neuts % (Manual) Lymphocytes % (Manual) Seg Neutrophils # Man Lymphocytes # (Manual) Potassium Chloride Carbon Dioxide 10 L Glucose 405 H POC Glucose 368 H 287 H Hemoglobin A1c Calcium AST 06/16/17 06/16/17 06/16/17 14:55 16:29 21:22 WBC RDW Lymph % (Auto) Lymph # Seg Neutrophils % Seg Neuts % (Manual) Lymphocytes % (Manual) Seg Neutrophils # Man Lymphocytes # (Manual) Potassium Chloride Carbon Dioxide 13 L Glucose 160 H POC Glucose 118 H 265 H Hemoglobin A1c Calcium 8.3 L AST 06/17/17 06/17/17 06/17/17 05:55 08:08 11:02 WBC RDW Lymph % (Auto) Lymph # Seg Neutrophils % Seg Neuts % (Manual) Lymphocytes % (Manual) Seg Neutrophils # Man Lymphocytes # (Manual) Potassium Chloride Carbon Dioxide Glucose POC Glucose 406 H 424 H 234 H Hemoglobin A1c Calcium AST 06/17/17 06/17/17 06/17/17 13:28 16:22 18:28 WBC RDW Lymph % (Auto) Lymph # Seg Neutrophils % Seg Neuts % (Manual) Lymphocytes % (Manual) Seg Neutrophils # Man Lymphocytes # (Manual) Potassium Chloride Carbon Dioxide 11 L Glucose 170 H POC Glucose 67 L 157 H Hemoglobin A1c Calcium 8.0 L AST
[2017-06-18] MEDS: NOVOLOG SUB-Q SCH ×3 (00:23→12:18)
--- NOTE | 2017-06-18 01:09 | XRay Report ---
FINAL REPORT EXAM: XR CHEST ROUTINE 2V HISTORY: Possible aspiration. TECHNIQUE: PA and lateral views of the chest were submitted. FINDINGS: The heart size and mediastinum appear normal. The lungs are clear. Pleural fluid is not seen. The bones and soft tissues are well maintained IMPRESSION: Negative chest.
[2017-06-18] MEDS: TYLENOL PO PRN (04:11)
[2017-06-18] MEDS: ZOFRAN IV PRN ×2 (04:12→23:52)
[2017-06-18] MEDS: D5/0.45NS 1,000 ML IV SCH (04:13)
[2017-06-18 07:00] LABS: BUN/Creatinine Ratio 10; Blood Urea Nitrogen 11 mg/dL (7-17); Calcium 8.1 mg/dL (8.4-10.2); Chloride 95.9 mmol/L (98-107); Glucose 426 mg/dL (65-100); Potassium 4.4 mmol/L (3.6-5.0); Sodium 133 mmol/L (137-145)
[2017-06-18 07:07] LABS: Anion Gap 32 mmol/L; Carbon Dioxide 10 mmol/L (22-30)
[2017-06-18] MEDS ORDERED: NACL 0.9% 1000 ML 1,000 ML IV SCH (11:00)
[2017-06-18] MEDS ORDERED: D50W (25GM) Syringe IV PRN (11:54)
[2017-06-18] MEDS: LOVENOX SUB-Q SCH (12:17)
--- NOTE | 2017-06-18 12:24 | Progress Note ---
Assessment and Plan DKA N&V Probable gastroparesis - resume IV insulin therapy per DKA protocol - continue IVF per DKA protocol - follow electrolytes and correct as necessary - continue prn antiemetics - prn analgesia - continue aspiration precautions - continue GI & VTE prophylaxis - flu & pneumovax per protocol Subjective Date of service: 06/18/17 Principal diagnosis: DKA; N&V Interval history: Patient is seen today for: DKA Seen and examined at bedside; 24hour events reviewed; nursing and respiratory care staff consulted; no adverse overnight events reported to me; in bed; states still with abdominal discomfort; to resume IV insulin therapy; no emesis this am. Objective Vital Signs - 12hr 06/18/17 08:06 Temperature 99.0 F Pulse Rate 90 Respiratory 16 Rate Blood Pressure 126/70 O2 Sat by Pulse 98 Oximetry Constitutional: no acute distress, alert Eyes: non-icteric ENT: oropharynx moist Neck: supple, no lymphadenopathy Effort: mildly labored Ascultation: Bilateral: clear Percussion: Bilateral: not dull Cardiovascular: regular rate and rhythm, other (no rubs / murmurs) Gastrointestinal: hypoactive bowel sounds, soft, non-tender, other (No HSM) Integumentary: normal Extremities: no cyanosis, no edema, pulses normal, no ischemia or petechiae Neurologic: normal mental status, non-focal exam, pupils equal and round, CN II- XII normal Psychiatric: depressed CBC and BMP: 06/19/17 03:02 06/20/17 04:44 Abnormal lab findings: Abnormal Labs 06/14/17 06/14/17 06/14/17 14:30 14:30 14:46 WBC RDW 12.7 L Lymph % (Auto) 12.0 L Lymph # 1.1 L Seg Neutrophils % 85.1 H Seg Neuts % (Manual) Lymphocytes % (Manual) Seg Neutrophils # Man Lymphocytes # (Manual) Sodium Potassium Chloride Carbon Dioxide 16 L Glucose 422 H POC Glucose 409 H Hemoglobin A1c Calcium 7.7 L AST 45 H 06/14/17 06/15/17 06/15/17 18:15 00:35 01:36 WBC RDW Lymph % (Auto) Lymph # Seg Neutrophils % Seg Neuts % (Manual) Lymphocytes % (Manual) Seg Neutrophils # Man Lymphocytes # (Manual) Sodium Potassium Chloride Carbon Dioxide Glucose POC Glucose 249 H 343 H 290 H Hemoglobin A1c Calcium AST 06/15/17 06/15/17 06/15/17 02:14 03:45 04:12 WBC RDW Lymph % (Auto) Lymph # Seg Neutrophils % Seg Neuts % (Manual) Lymphocytes % (Manual) Seg Neutrophils # Man Lymphocytes # (Manual) Sodium Potassium Chloride Carbon Dioxide 14 L 10 L Glucose 260 H 318 H POC Glucose 319 H Hemoglobin A1c Calcium 8.3 L AST 06/15/17 06/15/17 06/15/17 05:24 06:15 06:21 WBC RDW Lymph % (Auto) Lymph # Seg Neutrophils % Seg Neuts % (Manual) Lymphocytes % (Manual) Seg Neutrophils # Man Lymphocytes # (Manual) Sodium Potassium Chloride 108.1 H Carbon Dioxide 13 L Glucose 183 H POC Glucose 284 H 201 H Hemoglobin A1c Calcium 8.3 L AST 06/15/17 06/15/17 06/15/17 07:27 08:36 09:24 WBC RDW Lymph % (Auto) Lymph # Seg Neutrophils % Seg Neuts % (Manual) Lymphocytes % (Manual) Seg Neutrophils # Man Lymphocytes # (Manual) Sodium Potassium Chloride Carbon Dioxide Glucose POC Glucose 177 H 172 H 147 H Hemoglobin A1c Calcium AST 06/15/17 06/15/17 06/15/17 10:28 11:31 12:44 WBC RDW Lymph % (Auto) Lymph # Seg Neutrophils % Seg Neuts % (Manual) Lymphocytes % (Manual) Seg Neutrophils # Man Lymphocytes # (Manual) Sodium Potassium Chloride Carbon Dioxide Glucose POC Glucose 129 H 164 H 157 H Hemoglobin A1c Calcium AST 06/15/17 06/15/17 06/15/17 13:36 14:01 14:26 WBC RDW Lymph % (Auto) Lymph # Seg Neutrophils % Seg Neuts % (Manual) Lymphocytes % (Manual) Seg Neutrophils # Man Lymphocytes # (Manual) Sodium Potassium Chloride Carbon Dioxide 16 L Glucose 291 H POC Glucose 173 H 288 H Hemoglobin A1c Calcium 8.2 L AST 06/15/17 06/15/17 06/15/17 15:26 16:25 17:30 WBC RDW Lymph % (Auto) Lymph # Seg Neutrophils % Seg Neuts % (Manual) Lymphocytes % (Manual) Seg Neutrophils # Man Lymphocytes # (Manual) Sodium Potassium Chloride Carbon Dioxide Glucose POC Glucose 286 H 200 H 114 H Hemoglobin A1c Calcium AST 06/15/17 06/15/17 06/15/17 18:32 18:50 20:05 WBC RDW Lymph % (Auto) Lymph # Seg Neutrophils % Seg Neuts % (Manual) Lymphocytes % (Manual) Seg Neutrophils # Man Lymphocytes # (Manual) Sodium Potassium 3.3 L D Chloride Carbon Dioxide 19 L Glucose 149 H POC Glucose 141 H 147 H Hemoglobin A1c Calcium 8.3 L AST 06/15/17 06/15/17 06/16/17 21:29 22:41 01:51 WBC RDW Lymph % (Auto) Lymph # Seg Neutrophils % Seg Neuts % (Manual) Lymphocytes % (Manual) Seg Neutrophils # Man Lymphocytes # (Manual) Sodium Potassium Chloride Carbon Dioxide 14 L Glucose 396 H POC Glucose 146 H 142 H Hemoglobin A1c Calcium 7.9 L AST 06/16/17 06/16/17 06/16/17 05:01 05:49 05:49 WBC 16.8 H RDW Lymph % (Auto) Lymph # Seg Neutrophils % Seg Neuts % (Manual) 94.0 H Lymphocytes % (Manual) 4.0 L Seg Neutrophils # Man 15.8 H Lymphocytes # (Manual) 0.7 L Sodium Potassium Chloride Carbon Dioxide Glucose POC Glucose 374 H Hemoglobin A1c 11.2 H Calcium AST 06/16/17 06/16/17 06/16/17 05:49 08:46 11:54 WBC RDW Lymph % (Auto) Lymph # Seg Neutrophils % Seg Neuts % (Manual) Lymphocytes % (Manual) Seg Neutrophils # Man Lymphocytes # (Manual) Sodium Potassium Chloride Carbon Dioxide 10 L Glucose 405 H POC Glucose 368 H 287 H Hemoglobin A1c Calcium AST 06/16/17 06/16/17 06/16/17 14:55 16:29 21:22 WBC RDW Lymph % (Auto) Lymph # Seg Neutrophils % Seg Neuts % (Manual) Lymphocytes % (Manual) Seg Neutrophils # Man Lymphocytes # (Manual) Sodium Potassium Chloride Carbon Dioxide 13 L Glucose 160 H POC Glucose 118 H 265 H Hemoglobin A1c Calcium 8.3 L AST 06/17/17 06/17/17 06/17/17 05:55 08:08 11:02 WBC RDW Lymph % (Auto) Lymph # Seg Neutrophils % Seg Neuts % (Manual) Lymphocytes % (Manual) Seg Neutrophils # Man Lymphocytes # (Manual) Sodium Potassium Chloride Carbon Dioxide Glucose POC Glucose 406 H 424 H 234 H Hemoglobin A1c Calcium AST 06/17/17 06/17/17 06/17/17 13:28 16:22 18:28 WBC RDW Lymph % (Auto) Lymph # Seg Neutrophils % Seg Neuts % (Manual) Lymphocytes % (Manual) Seg Neutrophils # Man Lymphocytes # (Manual) Sodium Potassium Chloride Carbon Dioxide 11 L Glucose 170 H POC Glucose 67 L 157 H Hemoglobin A1c Calcium 8.0 L AST 06/17/17 06/18/17 06/18/17 22:19 06:15 06:59 WBC RDW Lymph % (Auto) Lymph # Seg Neutrophils % Seg Neuts % (Manual) Lymphocytes % (Manual) Seg Neutrophils # Man Lymphocytes # (Manual) Sodium 133 L Potassium Chloride 95.9 L Carbon Dioxide 10 L Glucose 426 H POC Glucose 328 H 447 H Hemoglobin A1c Calcium 8.1 L AST Chest x-ray: pending Allied health notes reviewed: nursing
[2017-06-18] MEDS ORDERED: NovoLIN R 100 UNITS in NACL 0.9% 99 ML IV SCH (12:30)
[2017-06-18] MEDS: D5W/0.45% NACL/KCL 20 MEQ 20 MEQ/1,000 ML BAG IV SCH ×2 (13:11→20:30)
[2017-06-18 13:22] LABS: ISTAT Base Excess -17; ISTAT DEVICE 0; ISTAT HCO3 10.2; ISTAT PCO2 23.3 (35-45); ISTAT PH 7.249 (7.35-7.45); ISTAT PO2 109 (80-105); ISTAT SO2 98; ISTAT TCO2 11
--- NOTE | 2017-06-18 13:36 | Query- Renal Failure ---
Dear ___Esme Date:__06/18/2017 Renewals Specialist/CDS:__Monica Phone#:___[phone] Exercise your independent professional judgment when responding to query. Questions asked do not imply a particular answer is desired or expected. We greatly appreciate your clarification on this issue. Clinical Documentation States: 27 Year old female was admitted on 06/14/2017 with complaints of persistent nausea and vomiting 2 days, unable to tolerate oral intake. The Pulmonology (Dr. Florez) progress note on 06/17/2017 states "(2) Acute renal failure (ARF) Current Visit: No Status: Acute Plan to address problem: Management as per nephrology." Please clarify if you mean: Acute Renal Failure with or due to: [ ] Tubular Necrosis [ ] Medullary Necrosis [ ] Vasomotor Nephropathy [ ] Shock Kidney [ ] Tubular Nephrosis [ ] Renal Tubular Stasis [ ] Cortical Necrosis [ ] Acute Renal Failure (unspecified) [ ] Lower Tubular Nephrosis [ ] Other: [ ] Not Applicable Present on Admission: [ ] Yes (Y) [ ] Clinically undeterminable (W) [ ] No (N) Please also document response in your Progress Notes and/or Discharge Summary and indicate if the condition was present on admission. As far as I know the patient didn't have any Acute renal failure. Please send to the Dr who mentioned ARF in his note. ROM
--- NOTE | 2017-06-18 13:40 | Query-Altered Level of Consc. ---
Shira Ruffin____Esme Date:__06/18/2017 Carding Doubler/IRINA:____Monica Phone#:__[phone] Exercise your independent professional judgment when responding to this query. Questions asked do not imply a particular answer is desired or expected. We greatly appreciate your clarification on this issue. Clinical Documentation States: 27 Year old female was admitted on 06/14/2017 with complaints of persistent nausea and vomiting 2 days, unable to tolerate oral intake. The Pulmonology (Dr. Florez) progress note on 06/17/2017 states "(3) Altered mental status Current Visit: No Status: Acute Qualifiers: Altered mental status type: delirium Qualified Code(s): R41.0 - Disorientation, unspecified Plan to address problem: Improving." Please provide an appropriate diagnosis clarifying the Etiology and Acuity of this clinical scenario: [ x] Metabolic Encephalopathy [ ] Toxic Encephalopathy [ ] Toxic - Metabolic Encephalopathy [ ] Septic Encephalopathy with Sepsis [ ] Septic Encephalopathy without Sepsis [ ] Acute Hepatic Encephalopathy [ ] Subacute Hepatic Encephalopathy [ ] Other: [ ] Unable To Determine [ ]Comment/Explanation: Present on Admission: [x ] Yes (Y) [ ] Clinically undeterminable (W) [ ] No (N) Please also document response in your Progress Notes and/or Discharge Summary and indicate if the condition was present on admission. RADHAD
--- NOTE | 2017-06-18 15:24 | Progress Note ---
<SATNAM HERNANDEZ - Last Filed: 06/18/17 15:26> Assessment and Plan Assessment and plan: 27-year-old and a history of diabetes comes to the emergency room with complaints of persistent nausea and vomiting 2 days, unable to tolerate oral intake. Stated that she is compliant with medications (1) DKA, type 1 Current Visit: Yes Status: Acute Qualifiers: Diabetes mellitus complication detail: without coma Qualified Code(s): E10.10 - Type 1 diabetes mellitus with ketoacidosis without coma Plan to address problem: Patient remains acidotic with increased anion gap. Patient now on insulin drip in ICU NPO, continue DKA protocol until patient is no longer acidotic tomorrow likely to resume SSI. (2) Dehydration Current Visit: Yes Status: Acute Plan to address problem: Resolved secondary to prerenal azotemia (3) Nausea & vomiting Current Visit: Yes Status: Acute Qualifiers: Vomiting type: unspecified Vomiting Intractability: intractable Qualified Code(s): R11.2 - Nausea with vomiting, unspecified Plan to address problem: Due to hyperglycemia and DKA. Improving with current insulin dose. Follow-up chemistry in a.m. (4) Uncontrolled diabetes mellitus Current Visit: Yes Status: Acute Qualifiers: Diabetes mellitus type: type 1 Diabetes mellitus complication status: with hyperglycemia Qualified Code(s): E10.65 - Type 1 diabetes mellitus with hyperglycemia Plan to address problem: DKA protocol (5) LORNA (acute kidney injury) Current Visit: No Status: Resolved History Interval history: Patient difficult to arouse but does respond to name, lethargic . Nurse notes reviewed Hospitalist Physical - Constitutional Vitals: Temp Pulse Resp BP Pulse Ox 99.0 F 90 16 126/70 100 06/18/17 08:06 06/18/17 08:06 06/18/17 08:06 06/18/17 08:06 06/18/17 13:18 General appearance: Present: no acute distress, well-nourished, other ( dehydrated dehydrated) - EENT Eyes: Present: PERRL, EOM intact ENT: hearing intact, clear oral mucosa - Neck Neck: Present: supple, normal ROM - Respiratory Respiratory effort: normal Respiratory: bilateral: CTA - Cardiovascular Rhythm: regular Heart Sounds: Present: S1 & S2 - Extremities Extremities: no ischemia, No edema Peripheral Pulses: within normal limits - Abdominal General gastrointestinal: deferred - Psychiatric Psychiatric: appropriate mood/affect - Neurologic Neurologic: CNII-XII intact, moves all extremities - Allied Health Allied health notes reviewed: nursing Results - Labs CBC & Chem 7: 06/16/17 05:49 06/18/17 06:15 Labs: Laboratory Last Values WBC 16.8 K/mm3 (4.5-11.0) H 06/16/17 05:49 RBC 4.25 M/mm3 (3.65-5.03) 06/16/17 05:49 Hgb 12.4 gm/dl (10.1-14.3) 06/16/17 05:49 Hct 40.2 % (30.3-42.9) 06/16/17 05:49 MCV 95 fl (79-97) 06/16/17 05:49 MCH 29 pg (28-32) 06/16/17 05:49 MCHC 31 % (30-34) 06/16/17 05:49 RDW 14.1 % (13.2-15.2) 06/16/17 05:49 Plt Count 221 K/mm3 (140-440) 06/16/17 05:49 Lymph % (Auto) 12.0 % (13.4-35.0) L 06/14/17 14:30 [place] % (Auto) 2.5 % (0.0-7.3) 06/14/17 14:30 Eos % (Auto) 0.0 % (0.0-4.3) 06/14/17 14:30 Baso % (Auto) 0.4 % (0.0-1.8) 06/14/17 14:30 Lymph # 1.1 K/mm3 (1.2-5.4) L 06/14/17 14:30 [place] # 0.2 K/mm3 (0.0-0.8) 06/14/17 14:30 Eos # 0.0 K/mm3 (0.0-0.4) 06/14/17 14:30 Baso # 0.0 K/mm3 (0.0-0.1) 06/14/17 14:30 Add Manual Diff Complete 06/16/17 05:49 Total Counted 100 06/16/17 05:49 Seg Neutrophils % Material Control Specialist 06/16/17 05:49 Seg Neuts % (Manual) 94.0 % (40.0-70.0) H 06/16/17 05:49 Band Neutrophils % 0 % 06/16/17 05:49 Lymphocytes % (Manual) 4.0 % (13.4-35.0) L 06/16/17 05:49 Reactive Lymphs % (Man) 0 % 06/16/17 05:49 Monocytes % (Manual) 2.0 % (0.0-7.3) 06/16/17 05:49 Eosinophils % (Manual) 0 % (0.0-4.3) 06/16/17 05:49 Basophils % (Manual) 0 % (0.0-1.8) 06/16/17 05:49 Metamyelocytes % 0 % 06/16/17 05:49 Myelocytes % 0 % 06/16/17 05:49 Promyelocytes % 0 % 06/16/17 05:49 Blast Cells % 0 % 06/16/17 05:49 Nucleated RBC % Not Reportable 06/16/17 05:49 Seg Neutrophils # 7.5 K/mm3 (1.8-7.7) 06/14/17 14:30 Seg Neutrophils # Man 15.8 K/mm3 (1.8-7.7) H 06/16/17 05:49 Band Neutrophils # 0.0 K/mm3 06/16/17 05:49 Lymphocytes # (Manual) 0.7 K/mm3 (1.2-5.4) L 06/16/17 05:49 Abs React Lymphs (Man) 0.0 K/mm3 06/16/17 05:49 Monocytes # (Manual) 0.3 K/mm3 (0.0-0.8) 06/16/17 05:49 Eosinophils # (Manual) 0.0 K/mm3 (0.0-0.4) 06/16/17 05:49 Basophils # (Manual) 0.0 K/mm3 (0.0-0.1) 06/16/17 05:49 Metamyelocytes # 0.0 K/mm3 06/16/17 05:49 Myelocytes # 0.0 K/mm3 06/16/17 05:49 Promyelocytes # 0.0 K/mm3 06/16/17 05:49 Blast Cells # 0.0 K/mm3 06/16/17 05:49 WBC Morphology Not Reportable 06/16/17 05:49 Hypersegmented Neuts Not Reportable 06/16/17 05:49 Hyposegmented Neuts Not Reportable 06/16/17 05:49 Hypogranular Neuts Not Reportable 06/16/17 05:49 Smudge Cells Not Reportable 06/16/17 05:49 Toxic Granulation Not Reportable 06/16/17 05:49 Toxic Vacuolation Not Reportable 06/16/17 05:49 Dohle Bodies Not Reportable 06/16/17 05:49 Pelger-Huet Anomaly Not Reportable 06/16/17 05:49 Alex Rods Not Reportable 06/16/17 05:49 Platelet Estimate Consistent w auto 06/16/17 05:49 Clumped Platelets Not Reportable 06/16/17 05:49 Plt Clumps, EDTA Not Reportable 06/16/17 05:49 Large Platelets Not Reportable 06/16/17 05:49 Giant Platelets Not Reportable 06/16/17 05:49 Platelet Satelliting Not Reportable 06/16/17 05:49 Plt Morphology Comment Not Reportable 06/16/17 05:49 RBC Morphology Normal 06/16/17 05:49 Dimorphic RBCs Not Reportable 06/16/17 05:49 Polychromasia Not Reportable 06/16/17 05:49 Hypochromasia Not Reportable 06/16/17 05:49 Poikilocytosis Not Reportable 06/16/17 05:49 Anisocytosis Not Reportable 06/16/17 05:49 Microcytosis Not Reportable 06/16/17 05:49 Macrocytosis Not Reportable 06/16/17 05:49 Spherocytes Not Reportable 06/16/17 05:49 Pappenheimer Bodies Not Reportable 06/16/17 05:49 Sickle Cells Not Reportable 06/16/17 05:49 Target Cells Not Reportable 06/16/17 05:49 Tear Drop Cells Not Reportable 06/16/17 05:49 Ovalocytes Not Reportable 06/16/17 05:49 Helmet Cells Not Reportable 06/16/17 05:49 Barillas-Ursa Bodies Not Reportable 06/16/17 05:49 Como Rings Not Reportable 06/16/17 05:49 Marci Cells Not Reportable 06/16/17 05:49 Bite Cells Not Reportable 06/16/17 05:49 Crenated Cell Not Reportable 06/16/17 05:49 Elliptocytes Not Reportable 06/16/17 05:49 Acanthocytes (Spur) Not Reportable 06/16/17 05:49 Rouleaux Not Reportable 06/16/17 05:49 Hemoglobin C Crystals Not Reportable 06/16/17 05:49 Schistocytes Not Reportable 06/16/17 05:49 Malaria parasites Not Reportable 06/16/17 05:49 Pérez Bodies Not Reportable 06/16/17 05:49 Hem Pathologist Commnt No 06/16/17 05:49 POC ABG pH 7.249 (7.35-7.45) L 06/18/17 13:18 POC ABG pCO2 23.3 (35-45) L 06/18/17 13:18 POC ABG pO2 109 (80-105) H 06/18/17 13:18 POC ABG HCO3 10.2 06/18/17 13:18 POC ABG Total CO2 11 06/18/17 13:18 POC ABG O2 Sat 98 06/18/17 13:18 POC ABG Base Excess -17 06/18/17 13:18 VBG pH 7.370 (7.320-7.420) 06/14/17 16:06 FiO2 21 % 06/18/17 13:18 Sodium 133 mmol/L (137-145) L 06/18/17 06:15 Potassium 4.4 mmol/L (3.6-5.0) 06/18/17 06:15 Chloride 95.9 mmol/L (98-107) L 06/18/17 06:15 Carbon Dioxide 10 mmol/L (22-30) L 06/18/17 06:15 Anion Gap 32 mmol/L 06/18/17 06:15 BUN 11 mg/dL (7-17) 06/18/17 06:15 Creatinine 1.1 mg/dL (0.7-1.2) 06/18/17 06:15 Estimated GFR > 60 ml/min 06/18/17 06:15 BUN/Creatinine Ratio 10 % 06/18/17 06:15 Glucose 426 mg/dL (65-100) H 06/18/17 06:15 POC Glucose 447 (70-105) H 06/18/17 06:59 Hemoglobin A1c 11.2 % (4-6) H 06/16/17 05:49 Calcium 8.1 mg/dL (8.4-10.2) L 06/18/17 06:15 Phosphorus 3.00 mg/dL (2.5-4.5) D 06/16/17 05:49 Magnesium 2.10 mg/dL (1.7-2.3) 06/16/17 05:49 Total Bilirubin 0.40 mg/dL (0.1-1.2) 06/17/17 13:28 AST 14 units/L (5-40) 06/17/17 13:28 ALT 17 units/L (7-56) 06/17/17 13:28 Alkaline Phosphatase 63 units/L (35-129) 06/17/17 13:28 Total Protein 6.4 g/dL (6.3-8.2) 06/17/17 13:28 Albumin 3.9 g/dL (3.9-5) 06/17/17 13:28 Albumin/Globulin Ratio 1.6 % 06/17/17 13:28 Urine Color Red (Yellow) 06/14/17 14:46 Urine Turbidity Clear (Clear) 06/14/17 14:46 Urine pH 7.0 (5.0-7.0) 06/14/17 14:46 Ur Specific [place] 1.028 (1.003-1.030) 06/14/17 14:46 Urine Protein <15 mg/dl mg/dL (Negative) 06/14/17 14:46 Urine Glucose (UA) >=500 mg/dL (Negative) 06/14/17 14:46 Urine Ketones 20 mg/dL (Negative) 06/14/17 14:46 Urine Blood Lg (Negative) 06/14/17 14:46 Urine Nitrite Neg (Negative) 06/14/17 14:46 Ur Reducing Substances Not Reportable 06/14/17 14:46 Urine Bilirubin Neg (Negative) 06/14/17 14:46 Urine Ictotest Not Reportable 06/14/17 14:46 Urine Urobilinogen < 2.0 mg/dL (<2.0) 06/14/17 14:46 Ur Leukocyte Esterase Sm (Negative) 06/14/17 14:46 Urine WBC (Auto) 2.0 /HPF (0.0-6.0) 06/14/17 14:46 Urine RBC (Auto) 3.0 /HPF (0.0-6.0) 06/14/17 14:46 U Epithel Cells (Auto) 2.0 /HPF (0-13.0) 06/14/17 14:46 Urine Bacteria (Auto) 2+ /HPF (Negative) 06/14/17 14:46 Urine Mucus Few /HPF 06/14/17 14:46 Urine HCG, Qual Negative (Negative) 06/14/17 14:46 - Imaging and Cardiology Chest x-ray: report reviewed (Negative) <YESI LEWIS - Last Filed: 06/18/17 18:11> Assessment and Plan Assessment and plan: I saw and evaluated the patient. I agree with the findings and the plan of care as documented in the PA 's progress note, with the following corrections and additions. Patient is in DKA, and transferred to ICU and she is currently on insulin drip according to the care protocol, give her more IV normal saline, will follow closely, keep her nothing by mouth. Hospitalist Physical - Constitutional Vitals: Temp Pulse Resp BP Pulse Ox 99.0 F 90 16 126/70 100 06/18/17 08:06 06/18/17 08:06 06/18/17 08:06 06/18/17 08:06 06/18/17 13:18 Results - Labs CBC & Chem 7: 06/16/17 05:49 06/18/17 17:11 Labs: Laboratory Last Values WBC 16.8 K/mm3 (4.5-11.0) H 06/16/17 05:49 RBC 4.25 M/mm3 (3.65-5.03) 06/16/17 05:49 Hgb 12.4 gm/dl (10.1-14.3) 06/16/17 05:49 Hct 40.2 % (30.3-42.9) 06/16/17 05:49 MCV 95 fl (79-97) 06/16/17 05:49 MCH 29 pg (28-32) 06/16/17 05:49 MCHC 31 % (30-34) 06/16/17 05:49 RDW 14.1 % (13.2-15.2) 06/16/17 05:49 Plt Count 221 K/mm3 (140-440) 06/16/17 05:49 Lymph % (Auto) 12.0 % (13.4-35.0) L 06/14/17 14:30 [place] % (Auto) 2.5 % (0.0-7.3) 06/14/17 14:30 Eos % (Auto) 0.0 % (0.0-4.3) 06/14/17 14:30 Baso % (Auto) 0.4 % (0.0-1.8) 06/14/17 14:30 Lymph # 1.1 K/mm3 (1.2-5.4) L 06/14/17 14:30 [place] # 0.2 K/mm3 (0.0-0.8) 06/14/17 14:30 Eos # 0.0 K/mm3 (0.0-0.4) 06/14/17 14:30 Baso # 0.0 K/mm3 (0.0-0.1) 06/14/17 14:30 Add Manual Diff Complete 06/16/17 05:49 Total Counted 100 06/16/17 05:49 Seg Neutrophils % Material Control Specialist 06/16/17 05:49 Seg Neuts % (Manual) 94.0 % (40.0-70.0) H 06/16/17 05:49 Band Neutrophils % 0 % 06/16/17 05:49 Lymphocytes % (Manual) 4.0 % (13.4-35.0) L 06/16/17 05:49 Reactive Lymphs % (Man) 0 % 06/16/17 05:49 Monocytes % (Manual) 2.0 % (0.0-7.3) 06/16/17 05:49 Eosinophils % (Manual) 0 % (0.0-4.3) 06/16/17 05:49 Basophils % (Manual) 0 % (0.0-1.8) 06/16/17 05:49 Metamyelocytes % 0 % 06/16/17 05:49 Myelocytes % 0 % 06/16/17 05:49 Promyelocytes % 0 % 06/16/17 05:49 Blast Cells % 0 % 06/16/17 05:49 Nucleated RBC % Not Reportable 06/16/17 05:49 Seg Neutrophils # 7.5 K/mm3 (1.8-7.7) 06/14/17 14:30 Seg Neutrophils # Man 15.8 K/mm3 (1.8-7.7) H 06/16/17 05:49 Band Neutrophils # 0.0 K/mm3 06/16/17 05:49 Lymphocytes # (Manual) 0.7 K/mm3 (1.2-5.4) L 06/16/17 05:49 Abs React Lymphs (Man) 0.0 K/mm3 06/16/17 05:49 Monocytes # (Manual) 0.3 K/mm3 (0.0-0.8) 06/16/17 05:49 Eosinophils # (Manual) 0.0 K/mm3 (0.0-0.4) 06/16/17 05:49 Basophils # (Manual) 0.0 K/mm3 (0.0-0.1) 06/16/17 05:49 Metamyelocytes # 0.0 K/mm3 06/16/17 05:49 Myelocytes # 0.0 K/mm3 06/16/17 05:49 Promyelocytes # 0.0 K/mm3 06/16/17 05:49 Blast Cells # 0.0 K/mm3 06/16/17 05:49 WBC Morphology Not Reportable 06/16/17 05:49 Hypersegmented Neuts Not Reportable 06/16/17 05:49 Hyposegmented Neuts Not Reportable 06/16/17 05:49 Hypogranular Neuts Not Reportable 06/16/17 05:49 Smudge Cells Not Reportable 06/16/17 05:49 Toxic Granulation Not Reportable 06/16/17 05:49 Toxic Vacuolation Not Reportable 06/16/17 05:49 Dohle Bodies Not Reportable 06/16/17 05:49 Pelger-Huet Anomaly Not Reportable 06/16/17 05:49 Alex Rods Not Reportable 06/16/17 05:49 Platelet Estimate Consistent w auto 06/16/17 05:49 Clumped Platelets Not Reportable 06/16/17 05:49 Plt Clumps, EDTA Not Reportable 06/16/17 05:49 Large Platelets Not Reportable 06/16/17 05:49 Giant Platelets Not Reportable 06/16/17 05:49 Platelet Satelliting Not Reportable 06/16/17 05:49 Plt Morphology Comment Not Reportable 06/16/17 05:49 RBC Morphology Normal 06/16/17 05:49 Dimorphic RBCs Not Reportable 06/16/17 05:49 Polychromasia Not Reportable 06/16/17 05:49 Hypochromasia Not Reportable 06/16/17 05:49 Poikilocytosis Not Reportable 06/16/17 05:49 Anisocytosis Not Reportable 06/16/17 05:49 Microcytosis Not Reportable 06/16/17 05:49 Macrocytosis Not Reportable 06/16/17 05:49 Spherocytes Not Reportable 06/16/17 05:49 Pappenheimer Bodies Not Reportable 06/16/17 05:49 Sickle Cells Not Reportable 06/16/17 05:49 Target Cells Not Reportable 06/16/17 05:49 Tear Drop Cells Not Reportable 06/16/17 05:49 Ovalocytes Not Reportable 06/16/17 05:49 Helmet Cells Not Reportable 06/16/17 05:49 Barillas-Ursa Bodies Not Reportable 06/16/17 05:49 Como Rings Not Reportable 06/16/17 05:49 [place] Cells Not Reportable 06/16/17 05:49 Bite Cells Not Reportable 06/16/17 05:49 Crenated Cell Not Reportable 06/16/17 05:49 Elliptocytes Not Reportable 06/16/17 05:49 Acanthocytes (Spur) Not Reportable 06/16/17 05:49 Rouleaux Not Reportable 06/16/17 05:49 Hemoglobin C Crystals Not Reportable 06/16/17 05:49 Schistocytes Not Reportable 06/16/17 05:49 Malaria parasites Not Reportable 06/16/17 05:49 Pérez Bodies Not Reportable 06/16/17 05:49 Hem Pathologist Commnt No 06/16/17 05:49 POC ABG pH 7.249 (7.35-7.45) L 06/18/17 13:18 POC ABG pCO2 23.3 (35-45) L 06/18/17 13:18 POC ABG pO2 109 (80-105) H 06/18/17 13:18 POC ABG HCO3 10.2 06/18/17 13:18 POC ABG Total CO2 11 06/18/17 13:18 POC ABG O2 Sat 98 06/18/17 13:18 POC ABG Base Excess -17 06/18/17 13:18 VBG pH 7.370 (7.320-7.420) 06/14/17 16:06 FiO2 21 % 06/18/17 13:18 Sodium 138 mmol/L (137-145) 06/18/17 17:11 Potassium 4.0 mmol/L (3.6-5.0) 06/18/17 17:11 Chloride 101.9 mmol/L (98-107) 06/18/17 17:11 Carbon Dioxide 15 mmol/L (22-30) L 06/18/17 17:11 Anion Gap 25 mmol/L 06/18/17 17:11 BUN 9 mg/dL (7-17) 06/18/17 17:11 Creatinine 1.0 mg/dL (0.7-1.2) 06/18/17 17:11 Estimated GFR > 60 ml/min 06/18/17 17:11 BUN/Creatinine Ratio 9 % 06/18/17 17:11 Glucose 112 mg/dL (65-100) H 06/18/17 17:11 POC Glucose 111 (70-105) H 06/18/17 16:47 Hemoglobin A1c 11.2 % (4-6) H 06/16/17 05:49 Calcium 8.3 mg/dL (8.4-10.2) L 06/18/17 17:11 Phosphorus 3.00 mg/dL (2.5-4.5) D 06/16/17 05:49 Magnesium 2.10 mg/dL (1.7-2.3) 06/16/17 05:49 Total Bilirubin 0.40 mg/dL (0.1-1.2) 06/17/17 13:28 AST 14 units/L (5-40) 06/17/17 13:28 ALT 17 units/L (7-56) 06/17/17 13:28 Alkaline Phosphatase 63 units/L (35-129) 06/17/17 13:28 Total Protein 6.4 g/dL (6.3-8.2) 06/17/17 13:28 Albumin 3.9 g/dL (3.9-5) 06/17/17 13:28 Albumin/Globulin Ratio 1.6 % 06/17/17 13:28 Urine Color Red (Yellow) 06/14/17 14:46 Urine Turbidity Clear (Clear) 06/14/17 14:46 Urine pH 7.0 (5.0-7.0) 06/14/17 14:46 Ur Specific [place] 1.028 (1.003-1.030) 06/14/17 14:46 Urine Protein <15 mg/dl mg/dL (Negative) 06/14/17 14:46 Urine Glucose (UA) >=500 mg/dL (Negative) 06/14/17 14:46 Urine Ketones 20 mg/dL (Negative) 06/14/17 14:46 Urine Blood Lg (Negative) 06/14/17 14:46 Urine Nitrite Neg (Negative) 06/14/17 14:46 Ur Reducing Substances Not Reportable 06/14/17 14:46 Urine Bilirubin Neg (Negative) 06/14/17 14:46 Urine Ictotest Not Reportable 06/14/17 14:46 Urine Urobilinogen < 2.0 mg/dL (<2.0) 06/14/17 14:46 Ur Leukocyte Esterase Sm (Negative) 06/14/17 14:46 Urine WBC (Auto) 2.0 /HPF (0.0-6.0) 06/14/17 14:46 Urine RBC (Auto) 3.0 /HPF (0.0-6.0) 06/14/17 14:46 U Epithel Cells (Auto) 2.0 /HPF (0-13.0) 06/14/17 14:46 Urine Bacteria (Auto) 2+ /HPF (Negative) 06/14/17 14:46 Urine Mucus Few /HPF 06/14/17 14:46 Urine HCG, Qual Negative (Negative) 06/14/17 14:46
[2017-06-18 18:00] LABS: Anion Gap 25 mmol/L; BUN/Creatinine Ratio 9; Blood Urea Nitrogen 9 mg/dL (7-17); Calcium 8.3 mg/dL (8.4-10.2); Carbon Dioxide 15 mmol/L (22-30); Chloride 101.9 mmol/L (98-107); Glucose 112 mg/dL (65-100); Sodium 138 mmol/L (137-145)
[2017-06-18 19:40] LABS: Magnesium 1.8 mg/dL (1.7-2.3); Phosphorous 1.1 mg/dL (2.5-4.5)
[2017-06-18 21:28] LABS: Anion Gap 25 mmol/L; BUN/Creatinine Ratio 9; Blood Urea Nitrogen 9 mg/dL (7-17); Calcium 8.1 mg/dL (8.4-10.2); Carbon Dioxide 14 mmol/L (22-30); Chloride 100.6 mmol/L (98-107); Glucose 94 mg/dL (65-100); Potassium 3.7 mmol/L (3.6-5.0); Sodium 136 mmol/L (137-145)
[2017-06-19 04:13] LABS: Basophils % (Auto) 0.3 % (0.0-1.8); Eosinophils % (Auto) 0.3 % (0.0-4.3); Hematocrit 37.6 % (30.3-42.9); Hemoglobin 11.9 gm/dl (10.1-14.3); Mean Corpuscular HGB Conc 32 % (30-34); Mean Corpuscular Hemoglobin 28 pg (28-32); Mean Corpuscular Volume 89 fl (79-97); Platelet Count 278 K/mm3 (140-440); Red Blood Count 4.25 M/mm3 (3.65-5.03); White Blood Count 7.1 K/mm3 (4.5-11.0)
[2017-06-19 04:26] LABS: Anion Gap 24 mmol/L; BUN/Creatinine Ratio 7; Blood Urea Nitrogen 7 mg/dL (7-17); Calcium 8.4 mg/dL (8.4-10.2); Carbon Dioxide 15 mmol/L (22-30); Chloride 102.5 mmol/L (98-107); Glucose 128 mg/dL (65-100); Potassium 4.3 mmol/L (3.6-5.0); Sodium 137 mmol/L (137-145)
[2017-06-19] MEDS: D5W/0.45% NACL/KCL 20 MEQ 20 MEQ/1,000 ML BAG IV SCH (04:44)
--- NOTE | 2017-06-19 08:59 | Progress Note ---
Assessment and Plan - Patient Problems (1) DKA (diabetic ketoacidoses) Current Visit: No Status: Acute Plan to address problem: Continue current therapy per DKA protocol Follow up BMP, if anion gap has closed and blood glucose<250, start long acting insulin VTE prophylaxis diabetic education and life style modifications discussed. need for medical compliance discussed (2) Metabolic acidosis Current Visit: No Status: Acute Plan to address problem: Improving Once she is transitioned to subcut insulin, ok to transfer floor Subjective Date of service: 06/19/17 Principal diagnosis: Diabetic ketoacidosis Interval history: Seen and examined. Vitals, labs, medications, chart reviewed. Better glycemic control. Denies any chest pain, no shortness of breath, no fevers or chills. no nausea or vomiting, no abdominal pain Objective - Exam Narrative Exam: Gen. appearance: Patient lying in bed in no acute distress HEENT: Normocephalic/atraumatic, pupils equal round reactive to light, extra alkaline movement intact, no scleral icterus, no JVD or thyromegaly or nodule, neck is supple, mucous membrane moist, no erythema or exudate Heart: S1-S2, regular rate and rhythm Lungs: Clear to auscultation bilateral breathing comfortable Abdomen: Positive bowel sounds, nontender, nondistended, no organomegaly Extremities: No edema, cyanosis, clubbing Neuro:: Oriented 3 , cranial nerves II-12 intact, speech, motor intact Skin: No rash, nodules, warm dry Vital Signs - 12hr 06/18/17 06/19/17 06/19/17 21:05 00:44 07:52 Temperature 99.7 F H O2 Sat by Pulse 100 100 Oximetry Constitutional: no acute distress, alert Eyes: non-icteric ENT: oropharynx moist Neck: supple, no lymphadenopathy Ascultation: Bilateral: clear Cardiovascular: regular rate and rhythm Gastrointestinal: normoactive bowel sounds, soft, non-tender Integumentary: normal Extremities: no cyanosis, no edema Neurologic: normal mental status, non-focal exam, pupils equal and round, CN II- XII normal Psychiatric: anxious CBC and BMP: 06/19/17 03:02 06/19/17 16:11 ABG, PT/INR, D-dimer: ABG POC ABG pH 7.249 (7.35-7.45) L 06/18/17 13:18 POC ABG pCO2 23.3 (35-45) L 06/18/17 13:18 POC ABG pO2 109 (80-105) H 06/18/17 13:18 POC ABG HCO3 10.2 06/18/17 13:18 POC ABG Total CO2 11 06/18/17 13:18 POC ABG O2 Sat 98 06/18/17 13:18 Abnormal lab findings: Abnormal Labs 06/14/17 06/14/17 06/14/17 14:30 14:30 14:46 WBC RDW 12.7 L Lymph % (Auto) 12.0 L [place] % (Auto) Lymph # 1.1 L Seg Neutrophils % 85.1 H Seg Neuts % (Manual) Lymphocytes % (Manual) Seg Neutrophils # Man Lymphocytes # (Manual) POC ABG pH POC ABG pCO2 POC ABG pO2 Sodium Potassium Chloride Carbon Dioxide 16 L Glucose 422 H POC Glucose 409 H Hemoglobin A1c Calcium 7.7 L Phosphorus AST 45 H 06/14/17 06/15/17 06/15/17 18:15 00:35 01:36 WBC RDW Lymph % (Auto) [place] % (Auto) Lymph # Seg Neutrophils % Seg Neuts % (Manual) Lymphocytes % (Manual) Seg Neutrophils # Man Lymphocytes # (Manual) POC ABG pH POC ABG pCO2 POC ABG pO2 Sodium Potassium Chloride Carbon Dioxide Glucose POC Glucose 249 H 343 H 290 H Hemoglobin A1c Calcium Phosphorus AST 06/15/17 06/15/17 06/15/17 02:14 03:45 04:12 WBC RDW Lymph % (Auto) [place] % (Auto) Lymph # Seg Neutrophils % Seg Neuts % (Manual) Lymphocytes % (Manual) Seg Neutrophils # Man Lymphocytes # (Manual) POC ABG pH POC ABG pCO2 POC ABG pO2 Sodium Potassium Chloride Carbon Dioxide 14 L 10 L Glucose 260 H 318 H POC Glucose 319 H Hemoglobin A1c Calcium 8.3 L Phosphorus AST 06/15/17 06/15/17 06/15/17 05:24 06:15 06:21 WBC RDW Lymph % (Auto) [place] % (Auto) Lymph # Seg Neutrophils % Seg Neuts % (Manual) Lymphocytes % (Manual) Seg Neutrophils # Man Lymphocytes # (Manual) POC ABG pH POC ABG pCO2 POC ABG pO2 Sodium Potassium Chloride 108.1 H Carbon Dioxide 13 L Glucose 183 H POC Glucose 284 H 201 H Hemoglobin A1c Calcium 8.3 L Phosphorus AST 06/15/17 06/15/17 06/15/17 07:27 08:36 09:24 WBC RDW Lymph % (Auto) [place] % (Auto) Lymph # Seg Neutrophils % Seg Neuts % (Manual) Lymphocytes % (Manual) Seg Neutrophils # Man Lymphocytes # (Manual) POC ABG pH POC ABG pCO2 POC ABG pO2 Sodium Potassium Chloride Carbon Dioxide Glucose POC Glucose 177 H 172 H 147 H Hemoglobin A1c Calcium Phosphorus AST 06/15/17 06/15/17 06/15/17 10:28 11:31 12:44 WBC RDW Lymph % (Auto) [place] % (Auto) Lymph # Seg Neutrophils % Seg Neuts % (Manual) Lymphocytes % (Manual) Seg Neutrophils # Man Lymphocytes # (Manual) POC ABG pH POC ABG pCO2 POC ABG pO2 Sodium Potassium Chloride Carbon Dioxide Glucose POC Glucose 129 H 164 H 157 H Hemoglobin A1c Calcium Phosphorus AST 06/15/17 06/15/17 06/15/17 13:36 14:01 14:26 WBC RDW Lymph % (Auto) [place] % (Auto) Lymph # Seg Neutrophils % Seg Neuts % (Manual) Lymphocytes % (Manual) Seg Neutrophils # Man Lymphocytes # (Manual) POC ABG pH POC ABG pCO2 POC ABG pO2 Sodium Potassium Chloride Carbon Dioxide 16 L Glucose 291 H POC Glucose 173 H 288 H Hemoglobin A1c Calcium 8.2 L Phosphorus AST 06/15/17 06/15/17 06/15/17 15:26 16:25 17:30 WBC RDW Lymph % (Auto) [place] % (Auto) Lymph # Seg Neutrophils % Seg Neuts % (Manual) Lymphocytes % (Manual) Seg Neutrophils # Man Lymphocytes # (Manual) POC ABG pH POC ABG pCO2 POC ABG pO2 Sodium Potassium Chloride Carbon Dioxide Glucose POC Glucose 286 H 200 H 114 H Hemoglobin A1c Calcium Phosphorus AST 06/15/17 06/15/17 06/15/17 18:32 18:50 20:05 WBC RDW Lymph % (Auto) [place] % (Auto) Lymph # Seg Neutrophils % Seg Neuts % (Manual) Lymphocytes % (Manual) Seg Neutrophils # Man Lymphocytes # (Manual) POC ABG pH POC ABG pCO2 POC ABG pO2 Sodium Potassium 3.3 L D Chloride Carbon Dioxide 19 L Glucose 149 H POC Glucose 141 H 147 H Hemoglobin A1c Calcium 8.3 L Phosphorus AST 06/15/17 06/15/1717 21:29 22:41 01:51 WBC RDW Lymph % (Auto) [place] % (Auto) Lymph # Seg Neutrophils % Seg Neuts % (Manual) Lymphocytes % (Manual) Seg Neutrophils # Man Lymphocytes # (Manual) POC ABG pH POC ABG pCO2 POC ABG pO2 Sodium Potassium Chloride Carbon Dioxide 14 L Glucose 396 H POC Glucose 146 H 142 H Hemoglobin A1c Calcium 7.9 L Phosphorus AST 06/16/17 06/16/17 06/16/17 05:01 05:49 05:49 WBC 16.8 H RDW Lymph % (Auto) [place] % (Auto) Lymph # Seg Neutrophils % Seg Neuts % (Manual) 94.0 H Lymphocytes % (Manual) 4.0 L Seg Neutrophils # Man 15.8 H Lymphocytes # (Manual) 0.7 L POC ABG pH POC ABG pCO2 POC ABG pO2 Sodium Potassium Chloride Carbon Dioxide Glucose POC Glucose 374 H Hemoglobin A1c 11.2 H Calcium Phosphorus AST 06/16/17 06/16/17 06/16/17 05:49 08:46 11:54 WBC RDW Lymph % (Auto) [place] % (Auto) Lymph # Seg Neutrophils % Seg Neuts % (Manual) Lymphocytes % (Manual) Seg Neutrophils # Man Lymphocytes # (Manual) POC ABG pH POC ABG pCO2 POC ABG pO2 Sodium Potassium Chloride Carbon Dioxide 10 L Glucose 405 H POC Glucose 368 H 287 H Hemoglobin A1c Calcium Phosphorus AST 06/16/17 06/16/17 06/16/17 14:55 16:29 21:22 WBC RDW Lymph % (Auto) [place] % (Auto) Lymph # Seg Neutrophils % Seg Neuts % (Manual) Lymphocytes % (Manual) Seg Neutrophils # Man Lymphocytes # (Manual) POC ABG pH POC ABG pCO2 POC ABG pO2 Sodium Potassium Chloride Carbon Dioxide 13 L Glucose 160 H POC Glucose 118 H 265 H Hemoglobin A1c Calcium 8.3 L Phosphorus AST 06/17/17 06/17/17 06/17/17 05:55 08:08 11:02 WBC RDW Lymph % (Auto) [place] % (Auto) Lymph # Seg Neutrophils % Seg Neuts % (Manual) Lymphocytes % (Manual) Seg Neutrophils # Man Lymphocytes # (Manual) POC ABG pH POC ABG pCO2 POC ABG pO2 Sodium Potassium Chloride Carbon Dioxide Glucose POC Glucose 406 H 424 H 234 H Hemoglobin A1c Calcium Phosphorus AST 06/17/17 06/17/17 06/17/17 13:28 16:22 18:28 WBC RDW Lymph % (Auto) [place] % (Auto) Lymph # Seg Neutrophils % Seg Neuts % (Manual) Lymphocytes % (Manual) Seg Neutrophils # Man Lymphocytes # (Manual) POC ABG pH POC ABG pCO2 POC ABG pO2 Sodium Potassium Chloride Carbon Dioxide 11 L Glucose 170 H POC Glucose 67 L 157 H Hemoglobin A1c Calcium 8.0 L Phosphorus AST 06/17/17 06/18/17 06/18/17 22:19 06:15 06:59 WBC RDW Lymph % (Auto) [place] % (Auto) Lymph # Seg Neutrophils % Seg Neuts % (Manual) Lymphocytes % (Manual) Seg Neutrophils # Man Lymphocytes # (Manual) POC ABG pH POC ABG pCO2 POC ABG pO2 Sodium 133 L Potassium Chloride 95.9 L Carbon Dioxide 10 L Glucose 426 H POC Glucose 328 H 447 H Hemoglobin A1c Calcium 8.1 L Phosphorus AST 06/18/17 06/18/17 06/18/17 12:45 13:18 14:21 WBC RDW Lymph % (Auto) [place] % (Auto) Lymph # Seg Neutrophils % Seg Neuts % (Manual) Lymphocytes % (Manual) Seg Neutrophils # Man Lymphocytes # (Manual) POC ABG pH 7.249 L POC ABG pCO2 23.3 L POC ABG pO2 109 H Sodium Potassium Chloride Carbon Dioxide Glucose POC Glucose 176 H 165 H Hemoglobin A1c Calcium Phosphorus AST 06/18/17 06/18/17 06/18/17 15:55 16:47 17:11 WBC RDW Lymph % (Auto) [place] % (Auto) Lymph # Seg Neutrophils % Seg Neuts % (Manual) Lymphocytes % (Manual) Seg Neutrophils # Man Lymphocytes # (Manual) POC ABG pH POC ABG pCO2 POC ABG pO2 Sodium Potassium Chloride Carbon Dioxide Glucose POC Glucose 150 H 111 H Hemoglobin A1c Calcium Phosphorus 1.10 L AST 06/18/17 06/18/17 06/18/17 17:11 19:40 20:31 WBC RDW Lymph % (Auto) [place] % (Auto) Lymph # Seg Neutrophils % Seg Neuts % (Manual) Lymphocytes % (Manual) Seg Neutrophils # Man Lymphocytes # (Manual) POC ABG pH POC ABG pCO2 POC ABG pO2 Sodium Potassium Chloride Carbon Dioxide 15 L Glucose 112 H POC Glucose 116 H 153 H Hemoglobin A1c Calcium 8.3 L Phosphorus AST 06/18/17 06/18/17 06/18/17 20:36 21:42 23:09 WBC RDW Lymph % (Auto) [place] % (Auto) Lymph # Seg Neutrophils % Seg Neuts % (Manual) Lymphocytes % (Manual) Seg Neutrophils # Man Lymphocytes # (Manual) POC ABG pH POC ABG pCO2 POC ABG pO2 Sodium 136 L Potassium Chloride Carbon Dioxide 14 L Glucose POC Glucose 144 H 124 H Hemoglobin A1c Calcium 8.1 L Phosphorus AST 06/19/17 06/19/17 06/19/17 00:01 01:06 03:02 WBC RDW 13.0 L Lymph % (Auto) 42.0 H [place] % (Auto) 7.7 H Lymph # Seg Neutrophils % Seg Neuts % (Manual) Lymphocytes % (Manual) Seg Neutrophils # Man Lymphocytes # (Manual) POC ABG pH POC ABG pCO2 POC ABG pO2 Sodium Potassium Chloride Carbon Dioxide Glucose POC Glucose 136 H 131 H Hemoglobin A1c Calcium Phosphorus AST 06/19/17 06/19/17 06/19/17 03:02 03:25 04:39 WBC RDW Lymph % (Auto) [place] % (Auto) Lymph # Seg Neutrophils % Seg Neuts % (Manual) Lymphocytes % (Manual) Seg Neutrophils # Man Lymphocytes # (Manual) POC ABG pH POC ABG pCO2 POC ABG pO2 Sodium Potassium Chloride Carbon Dioxide 15 L Glucose 128 H POC Glucose 171 H 186 H Hemoglobin A1c Calcium Phosphorus AST 06/19/17 07:55 WBC RDW Lymph % (Auto) [place] % (Auto) Lymph # Seg Neutrophils % Seg Neuts % (Manual) Lymphocytes % (Manual) Seg Neutrophils # Man Lymphocytes # (Manual) POC ABG pH POC ABG pCO2 POC ABG pO2 Sodium Potassium Chloride Carbon Dioxide Glucose POC Glucose 170 H Hemoglobin A1c Calcium Phosphorus AST
[2017-06-19 11:37] LABS: Anion Gap 20 mmol/L; BUN/Creatinine Ratio 6; Blood Urea Nitrogen 5 mg/dL (7-17); Calcium 8.1 mg/dL (8.4-10.2); Carbon Dioxide 18 mmol/L (22-30); Chloride 101.5 mmol/L (98-107); Glucose 149 mg/dL (65-100); Potassium 3.4 mmol/L (3.6-5.0); Sodium 136 mmol/L (137-145)
[2017-06-19] MEDS ORDERED: LEVEMIR SUB-Q SCH ×2 (12:00→16:44)
[2017-06-19] MEDS: NOVOLOG SUB-Q SCH ×3 (13:00→23:05)
[2017-06-19] MEDS: LOVENOX SUB-Q SCH (13:00)
--- NOTE | 2017-06-19 14:15 | Progress Note ---
<SATNAM HERNANDEZ - Last Filed: 06/19/17 14:17> Assessment and Plan Assessment and plan: 27-year-old and a history of diabetes comes to the emergency room with complaints of persistent nausea and vomiting 2 days, unable to tolerate oral intake. Stated that she is compliant with medications DKA, type 1 Patient now on sliding scale insulin In ICU NPO, continue DKA protocol until patient is no longer acidotic Dehydration Resolved secondary to prerenal azotemia Nausea & vomiting Resolved Due to hyperglycemia and DKA. Improving with current insulin dose. Uncontrolled diabetes mellitus hyperglycemia Plan to address problem: DKA protocol LORNA (acute kidney injury) Resolved History Interval history: Patient awake and alert resting in bed. She denies SOB, CP, NVD. Nurse notes reviewed Hospitalist Physical - Constitutional Vitals: Temp Pulse Resp BP Pulse Ox 98.7 F 74 15 99/69 99 06/19/17 12:00 06/19/17 12:51 06/19/17 12:51 06/19/17 12:51 06/19/17 12:51 General appearance: Present: no acute distress, well-nourished, other ( dehydrated dehydrated) - EENT Eyes: Present: PERRL, EOM intact ENT: hearing intact, clear oral mucosa - Neck Neck: Present: supple, normal ROM - Respiratory Respiratory effort: normal Respiratory: bilateral: CTA - Cardiovascular Rhythm: regular Heart Sounds: Present: S1 & S2 - Extremities Extremities: no ischemia, pulses intact, No edema Peripheral Pulses: within normal limits - Integumentary Integumentary: Present: clear, warm, dry - Psychiatric Psychiatric: appropriate mood/affect, intact judgment & insight, cooperative - Neurologic Neurologic: CNII-XII intact, moves all extremities - Allied Health Allied health notes reviewed: nursing Results - Labs CBC & Chem 7: 06/19/17 03:02 06/19/17 11:09 Labs: Laboratory Last Values WBC 7.1 K/mm3 (4.5-11.0) 06/19/17 03:02 RBC 4.25 M/mm3 (3.65-5.03) 06/19/17 03:02 Hgb 11.9 gm/dl (10.1-14.3) 06/19/17 03:02 Hct 37.6 % (30.3-42.9) 06/19/17 03:02 MCV 89 fl (79-97) 06/19/17 03:02 MCH 28 pg (28-32) 06/19/17 03:02 MCHC 32 % (30-34) 06/19/17 03:02 RDW 13.0 % (13.2-15.2) L 06/19/17 03:02 Plt Count 278 K/mm3 (140-440) 06/19/17 03:02 Lymph % (Auto) 42.0 % (13.4-35.0) H 06/19/17 03:02 [place] % (Auto) 7.7 % (0.0-7.3) H 06/19/17 03:02 Eos % (Auto) 0.3 % (0.0-4.3) 06/19/17 03:02 Baso % (Auto) 0.3 % (0.0-1.8) 06/19/17 03:02 Lymph # 3.0 K/mm3 (1.2-5.4) 06/19/17 03:02 [place] # 0.5 K/mm3 (0.0-0.8) 06/19/17 03:02 Eos # 0.0 K/mm3 (0.0-0.4) 06/19/17 03:02 Baso # 0.0 K/mm3 (0.0-0.1) 06/19/17 03:02 Add Manual Diff Complete 06/16/17 05:49 Total Counted 100 06/16/17 05:49 Seg Neutrophils % 49.7 % (40.0-70.0) 06/19/17 03:02 Seg Neuts % (Manual) 94.0 % (40.0-70.0) H 06/16/17 05:49 Band Neutrophils % 0 % 06/16/17 05:49 Lymphocytes % (Manual) 4.0 % (13.4-35.0) L 06/16/17 05:49 Reactive Lymphs % (Man) 0 % 06/16/17 05:49 Monocytes % (Manual) 2.0 % (0.0-7.3) 06/16/17 05:49 Eosinophils % (Manual) 0 % (0.0-4.3) 06/16/17 05:49 Basophils % (Manual) 0 % (0.0-1.8) 06/16/17 05:49 Metamyelocytes % 0 % 06/16/17 05:49 Myelocytes % 0 % 06/16/17 05:49 Promyelocytes % 0 % 06/16/17 05:49 Blast Cells % 0 % 06/16/17 05:49 Nucleated RBC % Not Reportable 06/16/17 05:49 Seg Neutrophils # 3.5 K/mm3 (1.8-7.7) 06/19/17 03:02 Seg Neutrophils # Man 15.8 K/mm3 (1.8-7.7) H 06/16/17 05:49 Band Neutrophils # 0.0 K/mm3 06/16/17 05:49 Lymphocytes # (Manual) 0.7 K/mm3 (1.2-5.4) L 06/16/17 05:49 Abs React Lymphs (Man) 0.0 K/mm3 06/16/17 05:49 Monocytes # (Manual) 0.3 K/mm3 (0.0-0.8) 06/16/17 05:49 Eosinophils # (Manual) 0.0 K/mm3 (0.0-0.4) 06/16/17 05:49 Basophils # (Manual) 0.0 K/mm3 (0.0-0.1) 06/16/17 05:49 Metamyelocytes # 0.0 K/mm3 06/16/17 05:49 Myelocytes # 0.0 K/mm3 06/16/17 05:49 Promyelocytes # 0.0 K/mm3 06/16/17 05:49 Blast Cells # 0.0 K/mm3 06/16/17 05:49 WBC Morphology Not Reportable 06/16/17 05:49 Hypersegmented Neuts Not Reportable 06/16/17 05:49 Hyposegmented Neuts Not Reportable 06/16/17 05:49 Hypogranular Neuts Not Reportable 06/16/17 05:49 Smudge Cells Not Reportable 06/16/17 05:49 Toxic Granulation Not Reportable 06/16/17 05:49 Toxic Vacuolation Not Reportable 06/16/17 05:49 Dohle Bodies Not Reportable 06/16/17 05:49 Pelger-Huet Anomaly Not Reportable 06/16/17 05:49 Alex Rods Not Reportable 06/16/17 05:49 Platelet Estimate Consistent w auto 06/16/17 05:49 Clumped Platelets Not Reportable 06/16/17 05:49 Plt Clumps, EDTA Not Reportable 06/16/17 05:49 Large Platelets Not Reportable 06/16/17 05:49 Giant Platelets Not Reportable 06/16/17 05:49 Platelet Satelliting Not Reportable 06/16/17 05:49 Plt Morphology Comment Not Reportable 06/16/17 05:49 RBC Morphology Normal 06/16/17 05:49 Dimorphic RBCs Not Reportable 06/16/17 05:49 Polychromasia Not Reportable 06/16/17 05:49 Hypochromasia Not Reportable 06/16/17 05:49 Poikilocytosis Not Reportable 06/16/17 05:49 Anisocytosis Not Reportable 06/16/17 05:49 Microcytosis Not Reportable 06/16/17 05:49 Macrocytosis Not Reportable 06/16/17 05:49 Spherocytes Not Reportable 06/16/17 05:49 Pappenheimer Bodies Not Reportable 06/16/17 05:49 Sickle Cells Not Reportable 06/16/17 05:49 Target Cells Not Reportable 06/16/17 05:49 Tear Drop Cells Not Reportable 06/16/17 05:49 Ovalocytes Not Reportable 06/16/17 05:49 Helmet Cells Not Reportable 06/16/17 05:49 [place] Bodies Not Reportable 06/16/17 05:49 [place] Rings Not Reportable 06/16/17 05:49 [place] Cells Not Reportable 06/16/17 05:49 Bite Cells Not Reportable 06/16/17 05:49 Crenated Cell Not Reportable 06/16/17 05:49 Elliptocytes Not Reportable 06/16/17 05:49 Acanthocytes (Spur) Not Reportable 06/16/17 05:49 Rouleaux Not Reportable 06/16/17 05:49 Hemoglobin C Crystals Not Reportable 06/16/17 05:49 Schistocytes Not Reportable 06/16/17 05:49 Malaria parasites Not Reportable 06/16/17 05:49 Pérez Bodies Not Reportable 06/16/17 05:49 Hem Pathologist Commnt No 06/16/17 05:49 POC ABG pH 7.249 (7.35-7.45) L 06/18/17 13:18 POC ABG pCO2 23.3 (35-45) L 06/18/17 13:18 POC ABG pO2 109 (80-105) H 06/18/17 13:18 POC ABG HCO3 10.2 06/18/17 13:18 POC ABG Total CO2 11 06/18/17 13:18 POC ABG O2 Sat 98 06/18/17 13:18 POC ABG Base Excess -17 06/18/17 13:18 VBG pH 7.370 (7.320-7.420) 06/14/17 16:06 FiO2 21 % 06/18/17 13:18 Sodium 136 mmol/L (137-145) L 06/19/17 11:09 Potassium 3.4 mmol/L (3.6-5.0) L D 06/19/17 11:09 Chloride 101.5 mmol/L (98-107) 06/19/17 11:09 Carbon Dioxide 18 mmol/L (22-30) L 06/19/17 11:09 Anion Gap 20 mmol/L 06/19/17 11:09 BUN 5 mg/dL (7-17) L 06/19/17 11:09 Creatinine 0.9 mg/dL (0.7-1.2) 06/19/17 11:09 Estimated GFR > 60 ml/min 06/19/17 11:09 BUN/Creatinine Ratio 6 % 06/19/17 11:09 Glucose 149 mg/dL (65-100) H 06/19/17 11:09 POC Glucose 310 (70-105) H 06/19/17 13:07 Hemoglobin A1c 11.2 % (4-6) H 06/16/17 05:49 Calcium 8.1 mg/dL (8.4-10.2) L 06/19/17 11:09 Phosphorus 1.10 mg/dL (2.5-4.5) L 06/18/17 17:11 Magnesium 1.80 mg/dL (1.7-2.3) 06/18/17 17:11 Total Bilirubin 0.40 mg/dL (0.1-1.2) 06/17/17 13:28 AST 14 units/L (5-40) 06/17/17 13:28 ALT 17 units/L (7-56) 06/17/17 13:28 Alkaline Phosphatase 63 units/L (35-129) 06/17/17 13:28 Total Protein 6.4 g/dL (6.3-8.2) 06/17/17 13:28 Albumin 3.9 g/dL (3.9-5) 06/17/17 13:28 Albumin/Globulin Ratio 1.6 % 06/17/17 13:28 Urine Color Red (Yellow) 06/14/17 14:46 Urine Turbidity Clear (Clear) 06/14/17 14:46 Urine pH 7.0 (5.0-7.0) 06/14/17 14:46 Ur Specific [place] 1.028 (1.003-1.030) 06/14/17 14:46 Urine Protein <15 mg/dl mg/dL (Negative) 06/14/17 14:46 Urine Glucose (UA) >=500 mg/dL (Negative) 06/14/17 14:46 Urine Ketones 20 mg/dL (Negative) 06/14/17 14:46 Urine Blood Lg (Negative) 06/14/17 14:46 Urine Nitrite Neg (Negative) 06/14/17 14:46 Ur Reducing Substances Not Reportable 06/14/17 14:46 Urine Bilirubin Neg (Negative) 06/14/17 14:46 Urine Ictotest Not Reportable 06/14/17 14:46 Urine Urobilinogen < 2.0 mg/dL (<2.0) 06/14/17 14:46 Ur Leukocyte Esterase Sm (Negative) 06/14/17 14:46 Urine WBC (Auto) 2.0 /HPF (0.0-6.0) 06/14/17 14:46 Urine RBC (Auto) 3.0 /HPF (0.0-6.0) 06/14/17 14:46 U Epithel Cells (Auto) 2.0 /HPF (0-13.0) 06/14/17 14:46 Urine Bacteria (Auto) 2+ /HPF (Negative) 06/14/17 14:46 Urine Mucus Few /HPF 06/14/17 14:46 Urine HCG, Qual Negative (Negative) 06/14/17 14:46 <YESI LEWIS M - Last Filed: 06/19/17 16:08> Assessment and Plan Assessment and plan: I saw and evaluated the patient. I agree with the findings and the plan of care as documented in the PA's progress note, with the following corrections and additions. Patient tolerated liquid diet, will transfer her to the floor after repeat BMP is obtained. Hospitalist Physical - Constitutional Vitals: Temp Pulse Resp BP Pulse Ox 98.7 F 74 15 99/69 99 06/19/17 12:00 06/19/17 12:51 06/19/17 12:51 06/19/17 12:51 06/19/17 12:51 Results - Labs CBC & Chem 7: 06/19/17 03:02 06/19/17 11:09 Labs: Laboratory Last Values WBC 7.1 K/mm3 (4.5-11.0) 06/19/17 03:02 RBC 4.25 M/mm3 (3.65-5.03) 06/19/17 03:02 Hgb 11.9 gm/dl (10.1-14.3) 06/19/17 03:02 Hct 37.6 % (30.3-42.9) 06/19/17 03:02 MCV 89 fl (79-97) 06/19/17 03:02 MCH 28 pg (28-32) 06/19/17 03:02 MCHC 32 % (30-34) 06/19/17 03:02 RDW 13.0 % (13.2-15.2) L 06/19/17 03:02 Plt Count 278 K/mm3 (140-440) 06/19/17 03:02 Lymph % (Auto) 42.0 % (13.4-35.0) H 06/19/17 03:02 [place] % (Auto) 7.7 % (0.0-7.3) H 06/19/17 03:02 Eos % (Auto) 0.3 % (0.0-4.3) 06/19/17 03:02 Baso % (Auto) 0.3 % (0.0-1.8) 06/19/17 03:02 Lymph # 3.0 K/mm3 (1.2-5.4) 06/19/17 03:02 [place] # 0.5 K/mm3 (0.0-0.8) 06/19/17 03:02 Eos # 0.0 K/mm3 (0.0-0.4) 06/19/17 03:02 Baso # 0.0 K/mm3 (0.0-0.1) 06/19/17 03:02 Add Manual Diff Complete 06/16/17 05:49 Total Counted 100 06/16/17 05:49 Seg Neutrophils % 49.7 % (40.0-70.0) 06/19/17 03:02 Seg Neuts % (Manual) 94.0 % (40.0-70.0) H 06/16/17 05:49 Band Neutrophils % 0 % 06/16/17 05:49 Lymphocytes % (Manual) 4.0 % (13.4-35.0) L 06/16/17 05:49 Reactive Lymphs % (Man) 0 % 06/16/17 05:49 Monocytes % (Manual) 2.0 % (0.0-7.3) 06/16/17 05:49 Eosinophils % (Manual) 0 % (0.0-4.3) 06/16/17 05:49 Basophils % (Manual) 0 % (0.0-1.8) 06/16/17 05:49 Metamyelocytes % 0 % 06/16/17 05:49 Myelocytes % 0 % 06/16/17 05:49 Promyelocytes % 0 % 06/16/17 05:49 Blast Cells % 0 % 06/16/17 05:49 Nucleated RBC % Not Reportable 06/16/17 05:49 Seg Neutrophils # 3.5 K/mm3 (1.8-7.7) 06/19/17 03:02 Seg Neutrophils # Man 15.8 K/mm3 (1.8-7.7) H 06/16/17 05:49 Band Neutrophils # 0.0 K/mm3 06/16/17 05:49 Lymphocytes # (Manual) 0.7 K/mm3 (1.2-5.4) L 06/16/17 05:49 Abs React Lymphs (Man) 0.0 K/mm3 06/16/17 05:49 Monocytes # (Manual) 0.3 K/mm3 (0.0-0.8) 06/16/17 05:49 Eosinophils # (Manual) 0.0 K/mm3 (0.0-0.4) 06/16/17 05:49 Basophils # (Manual) 0.0 K/mm3 (0.0-0.1) 06/16/17 05:49 Metamyelocytes # 0.0 K/mm3 06/16/17 05:49 Myelocytes # 0.0 K/mm3 06/16/17 05:49 Promyelocytes # 0.0 K/mm3 06/16/17 05:49 Blast Cells # 0.0 K/mm3 06/16/17 05:49 WBC Morphology Not Reportable 06/16/17 05:49 Hypersegmented Neuts Not Reportable 06/16/17 05:49 Hyposegmented Neuts Not Reportable 06/16/17 05:49 Hypogranular Neuts Not Reportable 06/16/17 05:49 Smudge Cells Not Reportable 06/16/17 05:49 Toxic Granulation Not Reportable 06/16/17 05:49 Toxic Vacuolation Not Reportable 06/16/17 05:49 Dohle Bodies Not Reportable 06/16/17 05:49 Pelger-Huet Anomaly Not Reportable 06/16/17 05:49 Alex Rods Not Reportable 06/16/17 05:49 Platelet Estimate Consistent w auto 06/16/17 05:49 Clumped Platelets Not Reportable 06/16/17 05:49 Plt Clumps, EDTA Not Reportable 06/16/17 05:49 Large Platelets Not Reportable 06/16/17 05:49 Giant Platelets Not Reportable 06/16/17 05:49 Platelet Satelliting Not Reportable 06/16/17 05:49 Plt Morphology Comment Not Reportable 06/16/17 05:49 RBC Morphology Normal 06/16/17 05:49 Dimorphic RBCs Not Reportable 06/16/17 05:49 Polychromasia Not Reportable 06/16/17 05:49 Hypochromasia Not Reportable 06/16/17 05:49 Poikilocytosis Not Reportable 06/16/17 05:49 Anisocytosis Not Reportable 06/16/17 05:49 Microcytosis Not Reportable 06/16/17 05:49 Macrocytosis Not Reportable 06/16/17 05:49 Spherocytes Not Reportable 06/16/17 05:49 Pappenheimer Bodies Not Reportable 06/16/17 05:49 Sickle Cells Not Reportable 06/16/17 05:49 Target Cells Not Reportable 06/16/17 05:49 Tear Drop Cells Not Reportable 06/16/17 05:49 Ovalocytes Not Reportable 06/16/17 05:49 Helmet Cells Not Reportable 06/16/17 05:49 [place] Bodies Not Reportable 06/16/17 05:49 [place] Rings Not Reportable 06/16/17 05:49 [place] Cells Not Reportable 06/16/17 05:49 Bite Cells Not Reportable 06/16/17 05:49 Crenated Cell Not Reportable 06/16/17 05:49 Elliptocytes Not Reportable 06/16/17 05:49 Acanthocytes (Spur) Not Reportable 06/16/17 05:49 Rouleaux Not Reportable 06/16/17 05:49 Hemoglobin C Crystals Not Reportable 06/16/17 05:49 Schistocytes Not Reportable 06/16/17 05:49 Malaria parasites Not Reportable 06/16/17 05:49 Pérez Bodies Not Reportable 06/16/17 05:49 Hem Pathologist Commnt No 06/16/17 05:49 POC ABG pH 7.249 (7.35-7.45) L 06/18/17 13:18 POC ABG pCO2 23.3 (35-45) L 06/18/17 13:18 POC ABG pO2 109 (80-105) H 06/18/17 13:18 POC ABG HCO3 10.2 06/18/17 13:18 POC ABG Total CO2 11 06/18/17 13:18 POC ABG O2 Sat 98 06/18/17 13:18 POC ABG Base Excess -17 06/18/17 13:18 VBG pH 7.370 (7.320-7.420) 06/14/17 16:06 FiO2 21 % 06/18/17 13:18 Sodium 136 mmol/L (137-145) L 06/19/17 11:09 Potassium 3.4 mmol/L (3.6-5.0) L D 06/19/17 11:09 Chloride 101.5 mmol/L (98-107) 06/19/17 11:09 Carbon Dioxide 18 mmol/L (22-30) L 06/19/17 11:09 Anion Gap 20 mmol/L 06/19/17 11:09 BUN 5 mg/dL (7-17) L 06/19/17 11:09 Creatinine 0.9 mg/dL (0.7-1.2) 06/19/17 11:09 Estimated GFR > 60 ml/min 06/19/17 11:09 BUN/Creatinine Ratio 6 % 06/19/17 11:09 Glucose 149 mg/dL (65-100) H 06/19/17 11:09 POC Glucose 210 (70-105) H 06/19/17 14:52 Hemoglobin A1c 11.2 % (4-6) H 06/16/17 05:49 Calcium 8.1 mg/dL (8.4-10.2) L 06/19/17 11:09 Phosphorus 1.10 mg/dL (2.5-4.5) L 06/18/17 17:11 Magnesium 1.80 mg/dL (1.7-2.3) 06/18/17 17:11 Total Bilirubin 0.40 mg/dL (0.1-1.2) 06/17/17 13:28 AST 14 units/L (5-40) 06/17/17 13:28 ALT 17 units/L (7-56) 06/17/17 13:28 Alkaline Phosphatase 63 units/L (35-129) 06/17/17 13:28 Total Protein 6.4 g/dL (6.3-8.2) 06/17/17 13:28 Albumin 3.9 g/dL (3.9-5) 06/17/17 13:28 Albumin/Globulin Ratio 1.6 % 06/17/17 13:28 Urine Color Red (Yellow) 06/14/17 14:46 Urine Turbidity Clear (Clear) 06/14/17 14:46 Urine pH 7.0 (5.0-7.0) 06/14/17 14:46 Ur Specific [place] 1.028 (1.003-1.030) 06/14/17 14:46 Urine Protein <15 mg/dl mg/dL (Negative) 06/14/17 14:46 Urine Glucose (UA) >=500 mg/dL (Negative) 06/14/17 14:46 Urine Ketones 20 mg/dL (Negative) 06/14/17 14:46 Urine Blood Lg (Negative) 06/14/17 14:46 Urine Nitrite Neg (Negative) 06/14/17 14:46 Ur Reducing Substances Not Reportable 06/14/17 14:46 Urine Bilirubin Neg (Negative) 06/14/17 14:46 Urine Ictotest Not Reportable 06/14/17 14:46 Urine Urobilinogen < 2.0 mg/dL (<2.0) 06/14/17 14:46 Ur Leukocyte Esterase Sm (Negative) 06/14/17 14:46 Urine WBC (Auto) 2.0 /HPF (0.0-6.0) 06/14/17 14:46 Urine RBC (Auto) 3.0 /HPF (0.0-6.0) 06/14/17 14:46 U Epithel Cells (Auto) 2.0 /HPF (0-13.0) 06/14/17 14:46 Urine Bacteria (Auto) 2+ /HPF (Negative) 06/14/17 14:46 Urine Mucus Few /HPF 06/14/17 14:46 Urine HCG, Qual Negative (Negative) 06/14/17 14:46
[2017-06-19 16:33] LABS: BUN/Creatinine Ratio 6; Blood Urea Nitrogen 5 mg/dL (7-17); Calcium 8.2 mg/dL (8.4-10.2); Carbon Dioxide 25 mmol/L (22-30); Chloride 101.5 mmol/L (98-107); Glucose 206 mg/dL (65-100); Potassium 3.5 mmol/L (3.6-5.0); Sodium 136 mmol/L (137-145)
[2017-06-19 16:34] LABS: Anion Gap 13 mmol/L
--- NOTE | 2017-06-19 22:50 | Progress Note ---
Assessment and Plan Patient complaining slight shortness of breath. O2 saturation 100% on room air.No acute respiratory distress. - Patient Problems (1) DKA, type 1 Current Visit: Yes Status: Acute Qualifiers: Diabetes mellitus complication detail: without coma Qualified Code(s): E10.10 - Type 1 diabetes mellitus with ketoacidosis without coma Plan to address problem: Still in DKA. Todays Bicarb is 11. Continue I/V fluids and insulin. Management as per primary care. (2) Acute renal failure (ARF) Current Visit: No Status: Acute Plan to address problem: Management as per nephrolo (3) Altered mental status Current Visit: No Status: Acute Qualifiers: Altered mental status type: delirium Qualified Code(s): R41.0 - Disorientation, unspecified Plan to address problem: Improving. Subjective Date of service: 06/19/17 Principal diagnosis: Diabetic ketoacidosis Interval history: Patient complaining slight shortness of breath. O2 saturation 100% on room air.No acute respiratory distress. Objective Vital Signs - 12hr 06/19/17 06/19/17 06/19/17 10:51 11:00 11:11 Temperature Pulse Rate 73 82 70 Respiratory 15 12 15 Rate Blood Pressure 89/55 107/70 107/70 Blood Pressure [Left] O2 Sat by Pulse 98 96 100 Oximetry 06/19/17 06/19/17 06/19/17 11:21 11:31 11:41 Temperature Pulse Rate 74 72 70 Respiratory 15 13 16 Rate Blood Pressure 107/70 107/70 107/70 Blood Pressure [Left] O2 Sat by Pulse 100 99 99 Oximetry 06/19/17 06/19/17 06/19/17 11:51 12:00 12:11 Temperature 98.7 F Pulse Rate 70 74 79 Respiratory 18 14 18 Rate Blood Pressure 107/70 99/69 99/69 Blood Pressure [Left] O2 Sat by Pulse 84 100 99 Oximetry 06/19/17 06/19/17 06/19/17 12:21 12:31 12:41 Temperature Pulse Rate 69 72 74 Respiratory 16 18 17 Rate Blood Pressure 99/69 99/69 99/69 Blood Pressure [Left] O2 Sat by Pulse 98 98 99 Oximetry 06/19/17 06/19/17 06/19/17 12:51 16:00 20:00 Temperature 98 F 98.8 F Pulse Rate 74 78 Respiratory 15 14 Rate Blood Pressure 99/69 Blood Pressure 108/56 [Left] O2 Sat by Pulse 99 100 Oximetry Constitutional: no acute distress, alert Eyes: non-icteric ENT: oropharynx moist Neck: supple, no lymphadenopathy Effort: mildly labored Ascultation: Bilateral: diminished breath sounds Percussion: Bilateral: not dull Cardiovascular: regular rate and rhythm Gastrointestinal: normoactive bowel sounds, soft, non-tender Integumentary: normal Extremities: no cyanosis, no edema Neurologic: normal mental status, non-focal exam, pupils equal and round, CN II- XII normal Psychiatric: anxious CBC and BMP: 06/19/17 03:02 06/19/17 16:11 ABG, PT/INR, D-dimer: ABG POC ABG pH 7.249 (7.35-7.45) L 06/18/17 13:18 POC ABG pCO2 23.3 (35-45) L 06/18/17 13:18 POC ABG pO2 109 (80-105) H 06/18/17 13:18 POC ABG HCO3 10.2 06/18/17 13:18 POC ABG Total CO2 11 06/18/17 13:18 POC ABG O2 Sat 98 06/18/17 13:18 Abnormal lab findings: Abnormal Labs 06/14/17 06/14/17 06/14/17 14:30 14:30 14:46 WBC RDW 12.7 L Lymph % (Auto) 12.0 L Sharkey % (Auto) Lymph # 1.1 L Seg Neutrophils % 85.1 H Seg Neuts % (Manual) Lymphocytes % (Manual) Seg Neutrophils # Man Lymphocytes # (Manual) POC ABG pH POC ABG pCO2 POC ABG pO2 Sodium Potassium Chloride Carbon Dioxide 16 L BUN Glucose 422 H POC Glucose 409 H Hemoglobin A1c Calcium 7.7 L Phosphorus AST 45 H 06/14/17 06/15/17 06/15/17 18:15 00:35 01:36 WBC RDW Lymph % (Auto) Sharkey % (Auto) Lymph # Seg Neutrophils % Seg Neuts % (Manual) Lymphocytes % (Manual) Seg Neutrophils # Man Lymphocytes # (Manual) POC ABG pH POC ABG pCO2 POC ABG pO2 Sodium Potassium Chloride Carbon Dioxide BUN Glucose POC Glucose 249 H 343 H 290 H Hemoglobin A1c Calcium Phosphorus AST 06/15/17 06/15/17 06/15/17 02:14 03:45 04:12 WBC RDW Lymph % (Auto) Sharkey % (Auto) Lymph # Seg Neutrophils % Seg Neuts % (Manual) Lymphocytes % (Manual) Seg Neutrophils # Man Lymphocytes # (Manual) POC ABG pH POC ABG pCO2 POC ABG pO2 Sodium Potassium Chloride Carbon Dioxide 14 L 10 L BUN Glucose 260 H 318 H POC Glucose 319 H Hemoglobin A1c Calcium 8.3 L Phosphorus AST 06/15/17 06/15/17 06/15/17 05:24 06:15 06:21 WBC RDW Lymph % (Auto) Sharkey % (Auto) Lymph # Seg Neutrophils % Seg Neuts % (Manual) Lymphocytes % (Manual) Seg Neutrophils # Man Lymphocytes # (Manual) POC ABG pH POC ABG pCO2 POC ABG pO2 Sodium Potassium Chloride 108.1 H Carbon Dioxide 13 L BUN Glucose 183 H POC Glucose 284 H 201 H Hemoglobin A1c Calcium 8.3 L Phosphorus AST 06/15/17 06/15/17 06/15/17 07:27 08:36 09:24 WBC RDW Lymph % (Auto) Sharkey % (Auto) Lymph # Seg Neutrophils % Seg Neuts % (Manual) Lymphocytes % (Manual) Seg Neutrophils # Man Lymphocytes # (Manual) POC ABG pH POC ABG pCO2 POC ABG pO2 Sodium Potassium Chloride Carbon Dioxide BUN Glucose POC Glucose 177 H 172 H 147 H Hemoglobin A1c Calcium Phosphorus AST 06/15/17 06/15/17 06/15/17 10:28 11:31 12:44 WBC RDW Lymph % (Auto) Sharkey % (Auto) Lymph # Seg Neutrophils % Seg Neuts % (Manual) Lymphocytes % (Manual) Seg Neutrophils # Man Lymphocytes # (Manual) POC ABG pH POC ABG pCO2 POC ABG pO2 Sodium Potassium Chloride Carbon Dioxide BUN Glucose POC Glucose 129 H 164 H 157 H Hemoglobin A1c Calcium Phosphorus AST 06/15/17 06/15/17 06/15/17 13:36 14:01 14:26 WBC RDW Lymph % (Auto) Sharkey % (Auto) Lymph # Seg Neutrophils % Seg Neuts % (Manual) Lymphocytes % (Manual) Seg Neutrophils # Man Lymphocytes # (Manual) POC ABG pH POC ABG pCO2 POC ABG pO2 Sodium Potassium Chloride Carbon Dioxide 16 L BUN Glucose 291 H POC Glucose 173 H 288 H Hemoglobin A1c Calcium 8.2 L Phosphorus AST 06/15/17 06/15/17 06/15/17 15:26 16:25 17:30 WBC RDW Lymph % (Auto) Sharkey % (Auto) Lymph # Seg Neutrophils % Seg Neuts % (Manual) Lymphocytes % (Manual) Seg Neutrophils # Man Lymphocytes # (Manual) POC ABG pH POC ABG pCO2 POC ABG pO2 Sodium Potassium Chloride Carbon Dioxide BUN Glucose POC Glucose 286 H 200 H 114 H Hemoglobin A1c Calcium Phosphorus AST 06/15/17 06/15/17 06/15/17 18:32 18:50 20:05 WBC RDW Lymph % (Auto) Sharkey % (Auto) Lymph # Seg Neutrophils % Seg Neuts % (Manual) Lymphocytes % (Manual) Seg Neutrophils # Man Lymphocytes # (Manual) POC ABG pH POC ABG pCO2 POC ABG pO2 Sodium Potassium 3.3 L D Chloride Carbon Dioxide 19 L BUN Glucose 149 H POC Glucose 141 H 147 H Hemoglobin A1c Calcium 8.3 L Phosphorus AST 06/15/17 06/15/17 06/16/17 21:29 22:41 01:51 WBC RDW Lymph % (Auto) Sharkey % (Auto) Lymph # Seg Neutrophils % Seg Neuts % (Manual) Lymphocytes % (Manual) Seg Neutrophils # Man Lymphocytes # (Manual) POC ABG pH POC ABG pCO2 POC ABG pO2 Sodium Potassium Chloride Carbon Dioxide 14 L BUN Glucose 396 H POC Glucose 146 H 142 H Hemoglobin A1c Calcium 7.9 L Phosphorus AST 06/16/17 06/16/17 06/16/17 05:01 05:49 05:49 WBC 16.8 H RDW Lymph % (Auto) Sharkey % (Auto) Lymph # Seg Neutrophils % Seg Neuts % (Manual) 94.0 H Lymphocytes % (Manual) 4.0 L Seg Neutrophils # Man 15.8 H Lymphocytes # (Manual) 0.7 L POC ABG pH POC ABG pCO2 POC ABG pO2 Sodium Potassium Chloride Carbon Dioxide BUN Glucose POC Glucose 374 H Hemoglobin A1c 11.2 H Calcium Phosphorus AST 06/16/17 06/16/17 06/16/17 05:49 08:46 11:54 WBC RDW Lymph % (Auto) Sharkey % (Auto) Lymph # Seg Neutrophils % Seg Neuts % (Manual) Lymphocytes % (Manual) Seg Neutrophils # Man Lymphocytes # (Manual) POC ABG pH POC ABG pCO2 POC ABG pO2 Sodium Potassium Chloride Carbon Dioxide 10 L BUN Glucose 405 H POC Glucose 368 H 287 H Hemoglobin A1c Calcium Phosphorus AST 06/16/17 06/16/17 06/16/17 14:55 16:29 21:22 WBC RDW Lymph % (Auto) Sharkey % (Auto) Lymph # Seg Neutrophils % Seg Neuts % (Manual) Lymphocytes % (Manual) Seg Neutrophils # Man Lymphocytes # (Manual) POC ABG pH POC ABG pCO2 POC ABG pO2 Sodium Potassium Chloride Carbon Dioxide 13 L BUN Glucose 160 H POC Glucose 118 H 265 H Hemoglobin A1c Calcium 8.3 L Phosphorus AST 06/17/17 06/17/17 06/17/17 05:55 08:08 11:02 WBC RDW Lymph % (Auto) Sharkey % (Auto) Lymph # Seg Neutrophils % Seg Neuts % (Manual) Lymphocytes % (Manual) Seg Neutrophils # Man Lymphocytes # (Manual) POC ABG pH POC ABG pCO2 POC ABG pO2 Sodium Potassium Chloride Carbon Dioxide BUN Glucose POC Glucose 406 H 424 H 234 H Hemoglobin A1c Calcium Phosphorus AST 06/17/17 06/17/17 06/17/17 13:28 16:22 18:28 WBC RDW Lymph % (Auto) Sharkey % (Auto) Lymph # Seg Neutrophils % Seg Neuts % (Manual) Lymphocytes % (Manual) Seg Neutrophils # Man Lymphocytes # (Manual) POC ABG pH POC ABG pCO2 POC ABG pO2 Sodium Potassium Chloride Carbon Dioxide 11 L BUN Glucose 170 H POC Glucose 67 L 157 H Hemoglobin A1c Calcium 8.0 L Phosphorus AST 06/17/17 06/18/17 06/18/17 22:19 06:15 06:59 WBC RDW Lymph % (Auto) Sharkey % (Auto) Lymph # Seg Neutrophils % Seg Neuts % (Manual) Lymphocytes % (Manual) Seg Neutrophils # Man Lymphocytes # (Manual) POC ABG pH POC ABG pCO2 POC ABG pO2 Sodium 133 L Potassium Chloride 95.9 L Carbon Dioxide 10 L BUN Glucose 426 H POC Glucose 328 H 447 H Hemoglobin A1c Calcium 8.1 L Phosphorus AST 06/18/17 06/18/17 06/18/17 12:45 13:18 14:21 WBC RDW Lymph % (Auto) Sharkey % (Auto) Lymph # Seg Neutrophils % Seg Neuts % (Manual) Lymphocytes % (Manual) Seg Neutrophils # Man Lymphocytes # (Manual) POC ABG pH 7.249 L POC ABG pCO2 23.3 L POC ABG pO2 109 H Sodium Potassium Chloride Carbon Dioxide BUN Glucose POC Glucose 176 H 165 H Hemoglobin A1c Calcium Phosphorus AST 06/18/17 06/18/17 06/18/17 15:55 16:47 17:11 WBC RDW Lymph % (Auto) Sharkey % (Auto) Lymph # Seg Neutrophils % Seg Neuts % (Manual) Lymphocytes % (Manual) Seg Neutrophils # Man Lymphocytes # (Manual) POC ABG pH POC ABG pCO2 POC ABG pO2 Sodium Potassium Chloride Carbon Dioxide BUN Glucose POC Glucose 150 H 111 H Hemoglobin A1c Calcium Phosphorus 1.10 L AST 06/18/17 06/18/17 06/18/17 17:11 19:40 20:31 WBC RDW Lymph % (Auto) Sharkey % (Auto) Lymph # Seg Neutrophils % Seg Neuts % (Manual) Lymphocytes % (Manual) Seg Neutrophils # Man Lymphocytes # (Manual) POC ABG pH POC ABG pCO2 POC ABG pO2 Sodium Potassium Chloride Carbon Dioxide 15 L BUN Glucose 112 H POC Glucose 116 H 153 H Hemoglobin A1c Calcium 8.3 L Phosphorus AST 06/18/17 06/18/17 06/18/17 20:36 21:42 23:09 WBC RDW Lymph % (Auto) Sharkey % (Auto) Lymph # Seg Neutrophils % Seg Neuts % (Manual) Lymphocytes % (Manual) Seg Neutrophils # Man Lymphocytes # (Manual) POC ABG pH POC ABG pCO2 POC ABG pO2 Sodium 136 L Potassium Chloride Carbon Dioxide 14 L BUN Glucose POC Glucose 144 H 124 H Hemoglobin A1c Calcium 8.1 L Phosphorus AST 06/19/17 06/19/17 06/19/17 00:01 01:06 03:02 WBC RDW 13.0 L Lymph % (Auto) 42.0 H Sharkey % (Auto) 7.7 H Lymph # Seg Neutrophils % Seg Neuts % (Manual) Lymphocytes % (Manual) Seg Neutrophils # Man Lymphocytes # (Manual) POC ABG pH POC ABG pCO2 POC ABG pO2 Sodium Potassium Chloride Carbon Dioxide BUN Glucose POC Glucose 136 H 131 H Hemoglobin A1c Calcium Phosphorus AST 06/19/17 06/19/17 06/19/17 03:02 03:25 04:39 WBC RDW Lymph % (Auto) Sharkey % (Auto) Lymph # Seg Neutrophils % Seg Neuts % (Manual) Lymphocytes % (Manual) Seg Neutrophils # Man Lymphocytes # (Manual) POC ABG pH POC ABG pCO2 POC ABG pO2 Sodium Potassium Chloride Carbon Dioxide 15 L BUN Glucose 128 H POC Glucose 171 H 186 H Hemoglobin A1c Calcium Phosphorus AST 06/19/17 06/19/17 06/19/17 07:55 10:14 11:09 WBC RDW Lymph % (Auto) Sharkey % (Auto) Lymph # Seg Neutrophils % Seg Neuts % (Manual) Lymphocytes % (Manual) Seg Neutrophils # Man Lymphocytes # (Manual) POC ABG pH POC ABG pCO2 POC ABG pO2 Sodium 136 L Potassium 3.4 L D Chloride Carbon Dioxide 18 L BUN 5 L Glucose 149 H POC Glucose 170 H 116 H Hemoglobin A1c Calcium 8.1 L Phosphorus AST 06/19/17 06/19/17 06/19/17 13:07 14:52 16:11 WBC RDW Lymph % (Auto) Sharkey % (Auto) Lymph # Seg Neutrophils % Seg Neuts % (Manual) Lymphocytes % (Manual) Seg Neutrophils # Man Lymphocytes # (Manual) POC ABG pH POC ABG pCO2 POC ABG pO2 Sodium 136 L Potassium 3.5 L Chloride Carbon Dioxide BUN 5 L Glucose 206 H POC Glucose 310 H 210 H Hemoglobin A1c Calcium 8.2 L Phosphorus AST 06/19/17 06/19/17 17:02 22:23 WBC RDW Lymph % (Auto) Sharkey % (Auto) Lymph # Seg Neutrophils % Seg Neuts % (Manual) Lymphocytes % (Manual) Seg Neutrophils # Man Lymphocytes # (Manual) POC ABG pH POC ABG pCO2 POC ABG pO2 Sodium Potassium Chloride Carbon Dioxide BUN Glucose POC Glucose 214 H 62 L Hemoglobin A1c Calcium Phosphorus AST
--- NOTE | 2017-06-20 01:50 | Consultation ---
PULMONARY CRITICAL CARE EVALUATION NOTE CONSULTING PHYSICIAN: Dr. Victoria. REASON FOR CONSULTATION: DKA. CHIEF COMPLAINT AND HISTORY OF PRESENT ILLNESS: The patient is a 27-year-old -[place] female with past medical history indeed significant for diabetes, brought in by her mother with a complaint of about one day of nausea, vomiting, abdominal pain, and elevated blood sugars. She has been compliant with her insulin therapy, but was not taking it in the preceding 24 hours due to her illness. She denied any fevers or chills. She denied any sick contact. She denies any open sores or boils on her body. She denied any real chest pain, denied cough or expectoration. She was evaluated in the Emergency Room, found to be with diabetic ketoacidosis and request was made for ICU admission for IV insulin therapy. She was actually managed in the ER initially. When I stopped by to see her, she was resting peacefully in bed. She certainly did look distressed, but not in overt respiratory extremis. When asked about tobacco use/abuse history, she had denied any tobacco use. That really is as much of the history of presentation as I have. PAST MEDICAL HISTORY: Diabetes. PAST SURGICAL HISTORY: Denies. MEDICATIONS: She was on at the time were reviewed. Pertinent medications included I believe she was on IV insulin drip at about 4 units per hour. She was on normal saline. Tylenol 650 mg p.o. q.4 hours p.r.n. mild pain or fevers, Reglan 10 mg IV q. 4 hours p.r.n. nausea and vomiting, and Zofran 4 mg IV q. 4 hours p.r.n. nausea and vomiting. ALLERGIES: No known drug allergies. DIET: Well-built lady. Denied acute weight loss or gain in the preceding few weeks to months. FAMILY AND SOCIAL HISTORY: Lives in the community. She is a nonsmoker, drinks alcohol occasionally. Denies illicit drug use or abuse. Family history is otherwise significant for diabetes. REVIEW OF SYSTEMS: A little difficult to obtain secondary to her distress at the time, but as mentioned above otherwise, denied gross hematochezia or melena. Denied any vaginal discharge or pain. Complete 13-review of systems obtained. Pertinent positives and/or negatives as in body of history above, otherwise they are noncontributory. PHYSICAL EXAMINATION: VITAL SIGNS: At initial presentation in the Emergency Room and since she has been afebrile, temperature was 98.3 at admission Fahrenheit with a pulse of 87, respiratory rate of 18 and blood pressure 133/78, oxygen sats were 99%, and inspired oxygen concentration at that time was not recorded at the time I saw her, she was on room air. GENERAL: She is a well-built -[place] female, normocephalic, atraumatic, lying in bed in a semi- position, in mild to moderate nonrespiratory distress. HEAD, EYES, EARS, NOSE AND THROAT: She is anicteric. No conjunctival erythema. No gross jugular venous distention. Oropharynx was moist. No thyromegaly, no palpable lymph nodes again in the supraclavicular or submandibular lymph node chains. LUNGS: Auscultation of both lung fenton unremarkable. Lungs were clear bilaterally. HEART: Heart sounds 1 and 2 are heard at the time of my evaluation, regular rate and rhythm. No rubs, no murmurs. ABDOMEN: Soft, mildly tender diffusely. Bowel sounds are positive, but hypoactive. No palpable hepatosplenomegaly. EXTREMITIES: Without overt digital clubbing, cyanosis, or pedal edema bilaterally. Dorsalis pedis pulses were palpable. NEUROLOGIC: Pupils are equal, round, about 4 mm, reactive to light. Extraocular muscle movements were intact. She moves all 4 extremities spontaneously. Her mood was depressed mood, affect was anxious. LABORATORY DATA: From my review are as follows: Admission white cell count was 8.8, hemoglobin 11.5, hematocrit 34.8 and platelet count 170. No band forms reported. Venous blood gas was 7.37. Serum sodium was 140, potassium 3.7, chloride 104, bicarbonate was 16, BUN 10, creatinine 0.8, anion gap was up at 20 to 24 depending on what the calculation used. Glucose was 422. Liver function tests were essentially within normal limits. AST was slightly elevated at 45. Urinalysis, she was spilling glucose, large blood, small leukocyte esterase, only 2 white cells per high power field. Urine test was negative. No microbiology studies. Abdominal x-ray was done in the Emergency Room. I have reviewed the x-ray, essentially nonspecific bowel gas pattern and the lower lung fenton are unremarkable. An x-ray of the chest was also done and I have reviewed the x-ray of the chest, essentially a normal chest x-ray. It is a 2-view chest x-ray and perhaps a cardiovascular silhouette is a little bit on the enlarged side, but all the same. No overt cardiomegaly. ASSESSMENT AND PLAN: 1. Poorly controlled diabetes. 2. Diabetic ketoacidosis. 3. Nausea and vomiting. 4. Probable gastroparesis. PLAN: Continue treatment via the DKA protocol with IV insulin therapy and volume resuscitation. I am suspecting that this is going to be broken pretty fast and she may end up transferring to a regular floor before coming to the ICU. We will continue antiemetics. We will continue p.r.n. analgesics. Serial chemistries per DKA protocol. She will be placed on DVT prophylaxis. GI prophylaxis will also be in order. Flu and pneumonia vaccination will be per protocol. Thank you very much for the consult. We will follow along while she is in the intensive care unit and make further recommendations as picture progresses/becomes clearer. JOB# [id number] LIDIA/QUINTEN
[2017-06-20] MEDS: ZOFRAN IV PRN (03:47)
[2017-06-20 06:11] LABS: BUN/Creatinine Ratio 6; Blood Urea Nitrogen 5 mg/dL (7-17); Calcium 8.3 mg/dL (8.4-10.2); Carbon Dioxide 22 mmol/L (22-30); Glucose 212 mg/dL (65-100)
[2017-06-20 06:12] LABS: Anion Gap 20 mmol/L; Chloride 97.6 mmol/L (98-107); Potassium 3.2 mmol/L (3.6-5.0); Sodium 136 mmol/L (137-145)
[2017-06-20] MEDS ORDERED: K-DUR PO ONE (09:00)
[2017-06-20] MEDS: NOVOLOG SUB-Q SCH (09:13)
[2017-06-20] MEDS: LOVENOX SUB-Q SCH (09:14)
--- NOTE | 2017-06-20 09:49 | Discharge Summary ---
Providers - Providers Date of Admission: 06/15/17 03:13 Date of discharge: 06/20/17 Attending physician: YESI LEWIS MD 06/15/17 03:13 Consult to Physician [CONS] Routine Consulting Provider: LUCIUS HUYNH Reason For Exam: cc Place consult to:: Dr. Huynh Notified:: Answering Service Phone number called:: [phone] Was contact made?: No 06/18/17 11:54 Consult to Dietitian/Nutrition [CONS] Routine Physician Instructions: Reason For Exam: DKA Reason for Consult: Nutrition Recommendations Reason for Consult: Diet education Primary care physician: GENERAL EDUCATION INSTRUCTOR Hospitalization Condition: Fair Hospital course: 27-year-old AAF with a history of diabetes comes to the emergency room with complaints of persistent nausea and vomiting 2 days, unable to tolerate oral intake. Stated that she is compliant with medications. Abdominal X-Ray revealed no acute abnormalities. Chest X ray was negative. Patient was treated with Insulin and antinausea medication. Patient was also treated with IVF and Lovenox for DVT prophylaxis. Discharge diagnosis DKA, type 1 Dehydration Resolved secondary to prerenal azotemia Nausea & vomiting Uncontrolled diabetes mellitus LORNA (acute kidney injury) Disposition: DC- TO HOME OR SELFCARE Core Measure Documentation - Palliative Care Palliative Care/ Comfort Measures: Not Applicable - Core Measures Any of the following diagnoses?: none Exam - Constitutional Vitals: Temp Pulse Resp BP Pulse Ox 98.6 F 73 20 101/59 99 06/20/17 07:24 06/20/17 07:24 06/20/17 07:24 06/20/17 07:24 06/20/17 07:24 General appearance: Present: no acute distress, well-nourished - EENT Eyes: Present: PERRL ENT: hearing intact, clear oral mucosa - Neck Neck: Present: supple, normal ROM - Respiratory Respiratory effort: normal Respiratory: bilateral: CTA - Cardiovascular Heart Sounds: Present: S1 & S2. Absent: rub, click - Extremities Extremities: pulses symmetrical, No edema Peripheral Pulses: within normal limits - Abdominal General gastrointestinal: Present: soft, non-tender, non-distended, normal bowel sounds Female genitourinary: Present: deferred - Rectal Rectal Exam: deferred - Integumentary Integumentary: Present: clear, warm, dry - Musculoskeletal Musculoskeletal: gait normal, strength equal bilaterally - Psychiatric Psychiatric: appropriate mood/affect, intact judgment & insight - Neurologic Neurologic: CNII-XII intact, moves all extremities - Allied Health Allied health notes reviewed: nursing Plan Activity: fall precautions Weight Bearing Status: Full Weight Bearing Diet: low fat, low cholesterol, diabetic Follow up with: PRIMARY CARE, [Primary Care Provider] - 3-5 Days Forms: Work/School Release Form
--- NOTE | 2017-06-20 11:08 | Progress Note ---
Assessment and Plan DKA N&V Probable gastroparesis - continue long acting insulin therapy - continue SSI with qhs and qac accuchecks - follow electrolytes and correct as necessary - continue prn antiemetics - prn analgesia - continue aspiration precautions - continue GI & VTE prophylaxis - flu & pneumovax per protocol - d/c planning per attending Subjective Date of service: 06/20/17 Principal diagnosis: DKA; N&V Interval history: Patient is seen today for: DKA Seen and examined at bedside; 24hour events reviewed; nursing and respiratory care staff consulted; no adverse overnight events reported to me; resting peacefully; No N/V/F/C; denies acute chest pains or increased SOB Objective Vital Signs - 12hr 06/20/17 06/20/17 00:00 07:24 Temperature 98.6 F Pulse Rate 73 Pulse Rate [ 72 Right Radial] Respiratory 20 Rate Blood Pressure 101/59 O2 Sat by Pulse 99 Oximetry Constitutional: no acute distress, alert Eyes: non-icteric ENT: oropharynx moist Neck: supple, no lymphadenopathy Effort: normal Ascultation: Bilateral: clear Percussion: Bilateral: not dull Cardiovascular: regular rate and rhythm, other (no rubs / murmurs) Gastrointestinal: normoactive bowel sounds, soft, non-tender, other (No HSM) Integumentary: normal Extremities: no cyanosis, no edema, pulses normal, no ischemia or petechiae Neurologic: normal mental status, non-focal exam, pupils equal and round, CN II- XII normal Psychiatric: mood appropriate, affect normal CBC and BMP: 06/19/17 03:02 06/20/17 04:44 ABG, PT/INR, D-dimer: ABG POC ABG pH 7.249 (7.35-7.45) L 06/18/17 13:18 POC ABG pCO2 23.3 (35-45) L 06/18/17 13:18 POC ABG pO2 109 (80-105) H 06/18/17 13:18 POC ABG HCO3 10.2 06/18/17 13:18 POC ABG Total CO2 11 06/18/17 13:18 POC ABG O2 Sat 98 06/18/17 13:18 Abnormal lab findings: Abnormal Labs 06/14/17 06/14/17 06/14/17 14:30 14:30 14:46 WBC RDW 12.7 L Lymph % (Auto) 12.0 L [place] % (Auto) Lymph # 1.1 L Seg Neutrophils % 85.1 H Seg Neuts % (Manual) Lymphocytes % (Manual) Seg Neutrophils # Man Lymphocytes # (Manual) POC ABG pH POC ABG pCO2 POC ABG pO2 Sodium Potassium Chloride Carbon Dioxide 16 L BUN Glucose 422 H POC Glucose 409 H Hemoglobin A1c Calcium 7.7 L Phosphorus AST 45 H 06/14/17 06/15/17 06/15/17 18:15 00:35 01:36 WBC RDW Lymph % (Auto) [place] % (Auto) Lymph # Seg Neutrophils % Seg Neuts % (Manual) Lymphocytes % (Manual) Seg Neutrophils # Man Lymphocytes # (Manual) POC ABG pH POC ABG pCO2 POC ABG pO2 Sodium Potassium Chloride Carbon Dioxide BUN Glucose POC Glucose 249 H 343 H 290 H Hemoglobin A1c Calcium Phosphorus AST 06/15/17 06/15/17 06/15/17 02:14 03:45 04:12 WBC RDW Lymph % (Auto) [place] % (Auto) Lymph # Seg Neutrophils % Seg Neuts % (Manual) Lymphocytes % (Manual) Seg Neutrophils # Man Lymphocytes # (Manual) POC ABG pH POC ABG pCO2 POC ABG pO2 Sodium Potassium Chloride Carbon Dioxide 14 L 10 L BUN Glucose 260 H 318 H POC Glucose 319 H Hemoglobin A1c Calcium 8.3 L Phosphorus AST 06/15/17 06/15/17 06/15/17 05:24 06:15 06:21 WBC RDW Lymph % (Auto) [place] % (Auto) Lymph # Seg Neutrophils % Seg Neuts % (Manual) Lymphocytes % (Manual) Seg Neutrophils # Man Lymphocytes # (Manual) POC ABG pH POC ABG pCO2 POC ABG pO2 Sodium Potassium Chloride 108.1 H Carbon Dioxide 13 L BUN Glucose 183 H POC Glucose 284 H 201 H Hemoglobin A1c Calcium 8.3 L Phosphorus AST 06/15/17 06/15/17 06/15/17 07:27 08:36 09:24 WBC RDW Lymph % (Auto) [place] % (Auto) Lymph # Seg Neutrophils % Seg Neuts % (Manual) Lymphocytes % (Manual) Seg Neutrophils # Man Lymphocytes # (Manual) POC ABG pH POC ABG pCO2 POC ABG pO2 Sodium Potassium Chloride Carbon Dioxide BUN Glucose POC Glucose 177 H 172 H 147 H Hemoglobin A1c Calcium Phosphorus AST 06/15/17 06/15/17 06/15/17 10:28 11:31 12:44 WBC RDW Lymph % (Auto) [place] % (Auto) Lymph # Seg Neutrophils % Seg Neuts % (Manual) Lymphocytes % (Manual) Seg Neutrophils # Man Lymphocytes # (Manual) POC ABG pH POC ABG pCO2 POC ABG pO2 Sodium Potassium Chloride Carbon Dioxide BUN Glucose POC Glucose 129 H 164 H 157 H Hemoglobin A1c Calcium Phosphorus AST 06/15/17 06/15/17 06/15/17 13:36 14:01 14:26 WBC RDW Lymph % (Auto) [place] % (Auto) Lymph # Seg Neutrophils % Seg Neuts % (Manual) Lymphocytes % (Manual) Seg Neutrophils # Man Lymphocytes # (Manual) POC ABG pH POC ABG pCO2 POC ABG pO2 Sodium Potassium Chloride Carbon Dioxide 16 L BUN Glucose 291 H POC Glucose 173 H 288 H Hemoglobin A1c Calcium 8.2 L Phosphorus AST 06/15/17 06/15/17 06/15/17 15:26 16:25 17:30 WBC RDW Lymph % (Auto) [place] % (Auto) Lymph # Seg Neutrophils % Seg Neuts % (Manual) Lymphocytes % (Manual) Seg Neutrophils # Man Lymphocytes # (Manual) POC ABG pH POC ABG pCO2 POC ABG pO2 Sodium Potassium Chloride Carbon Dioxide BUN Glucose POC Glucose 286 H 200 H 114 H Hemoglobin A1c Calcium Phosphorus AST 06/15/17 06/15/17 06/15/17 18:32 18:50 20:05 WBC RDW Lymph % (Auto) [place] % (Auto) Lymph # Seg Neutrophils % Seg Neuts % (Manual) Lymphocytes % (Manual) Seg Neutrophils # Man Lymphocytes # (Manual) POC ABG pH POC ABG pCO2 POC ABG pO2 Sodium Potassium 3.3 L D Chloride Carbon Dioxide 19 L BUN Glucose 149 H POC Glucose 141 H 147 H Hemoglobin A1c Calcium 8.3 L Phosphorus AST 06/15/17 06/15/17 06/16/17 21:29 22:41 01:51 WBC RDW Lymph % (Auto) [place] % (Auto) Lymph # Seg Neutrophils % Seg Neuts % (Manual) Lymphocytes % (Manual) Seg Neutrophils # Man Lymphocytes # (Manual) POC ABG pH POC ABG pCO2 POC ABG pO2 Sodium Potassium Chloride Carbon Dioxide 14 L BUN Glucose 396 H POC Glucose 146 H 142 H Hemoglobin A1c Calcium 7.9 L Phosphorus AST 1206/16/17 06/16/17 05:01 05:49 05:49 WBC 16.8 H RDW Lymph % (Auto) [place] % (Auto) Lymph # Seg Neutrophils % Seg Neuts % (Manual) 94.0 H Lymphocytes % (Manual) 4.0 L Seg Neutrophils # Man 15.8 H Lymphocytes # (Manual) 0.7 L POC ABG pH POC ABG pCO2 POC ABG pO2 Sodium Potassium Chloride Carbon Dioxide BUN Glucose POC Glucose 374 H Hemoglobin A1c 11.2 H Calcium Phosphorus AST 06/16/17 06/16/17 06/16/17 05:49 08:46 11:54 WBC RDW Lymph % (Auto) [place] % (Auto) Lymph # Seg Neutrophils % Seg Neuts % (Manual) Lymphocytes % (Manual) Seg Neutrophils # Man Lymphocytes # (Manual) POC ABG pH POC ABG pCO2 POC ABG pO2 Sodium Potassium Chloride Carbon Dioxide 10 L BUN Glucose 405 H POC Glucose 368 H 287 H Hemoglobin A1c Calcium Phosphorus AST 06/16/17 06/16/17 06/16/17 14:55 16:29 21:22 WBC RDW Lymph % (Auto) [place] % (Auto) Lymph # Seg Neutrophils % Seg Neuts % (Manual) Lymphocytes % (Manual) Seg Neutrophils # Man Lymphocytes # (Manual) POC ABG pH POC ABG pCO2 POC ABG pO2 Sodium Potassium Chloride Carbon Dioxide 13 L BUN Glucose 160 H POC Glucose 118 H 265 H Hemoglobin A1c Calcium 8.3 L Phosphorus AST 06/17/17 06/17/17 06/17/17 05:55 08:08 11:02 WBC RDW Lymph % (Auto) [place] % (Auto) Lymph # Seg Neutrophils % Seg Neuts % (Manual) Lymphocytes % (Manual) Seg Neutrophils # Man Lymphocytes # (Manual) POC ABG pH POC ABG pCO2 POC ABG pO2 Sodium Potassium Chloride Carbon Dioxide BUN Glucose POC Glucose 406 H 424 H 234 H Hemoglobin A1c Calcium Phosphorus AST 06/17/17 06/17/17 06/17/17 13:28 16:22 18:28 WBC RDW Lymph % (Auto) [place] % (Auto) Lymph # Seg Neutrophils % Seg Neuts % (Manual) Lymphocytes % (Manual) Seg Neutrophils # Man Lymphocytes # (Manual) POC ABG pH POC ABG pCO2 POC ABG pO2 Sodium Potassium Chloride Carbon Dioxide 11 L BUN Glucose 170 H POC Glucose 67 L 157 H Hemoglobin A1c Calcium 8.0 L Phosphorus AST 06/17/17 06/18/17 06/18/17 22:19 06:15 06:59 WBC RDW Lymph % (Auto) [place] % (Auto) Lymph # Seg Neutrophils % Seg Neuts % (Manual) Lymphocytes % (Manual) Seg Neutrophils # Man Lymphocytes # (Manual) POC ABG pH POC ABG pCO2 POC ABG pO2 Sodium 133 L Potassium Chloride 95.9 L Carbon Dioxide 10 L BUN Glucose 426 H POC Glucose 328 H 447 H Hemoglobin A1c Calcium 8.1 L Phosphorus AST 06/18/17 06/18/17 06/18/17 12:45 13:18 14:21 WBC RDW Lymph % (Auto) [place] % (Auto) Lymph # Seg Neutrophils % Seg Neuts % (Manual) Lymphocytes % (Manual) Seg Neutrophils # Man Lymphocytes # (Manual) POC ABG pH 7.249 L POC ABG pCO2 23.3 L POC ABG pO2 109 H Sodium Potassium Chloride Carbon Dioxide BUN Glucose POC Glucose 176 H 165 H Hemoglobin A1c Calcium Phosphorus AST 06/18/17 06/18/17 06/18/17 15:55 16:47 17:11 WBC RDW Lymph % (Auto) [place] % (Auto) Lymph # Seg Neutrophils % Seg Neuts % (Manual) Lymphocytes % (Manual) Seg Neutrophils # Man Lymphocytes # (Manual) POC ABG pH POC ABG pCO2 POC ABG pO2 Sodium Potassium Chloride Carbon Dioxide BUN Glucose POC Glucose 150 H 111 H Hemoglobin A1c Calcium Phosphorus 1.10 L AST 06/18/17 06/18/17 06/18/17 17:11 19:40 20:31 WBC RDW Lymph % (Auto) [place] % (Auto) Lymph # Seg Neutrophils % Seg Neuts % (Manual) Lymphocytes % (Manual) Seg Neutrophils # Man Lymphocytes # (Manual) POC ABG pH POC ABG pCO2 POC ABG pO2 Sodium Potassium Chloride Carbon Dioxide 15 L BUN Glucose 112 H POC Glucose 116 H 153 H Hemoglobin A1c Calcium 8.3 L Phosphorus AST 06/18/17 06/18/17 06/18/17 20:36 21:42 23:09 WBC RDW Lymph % (Auto) [place] % (Auto) Lymph # Seg Neutrophils % Seg Neuts % (Manual) Lymphocytes % (Manual) Seg Neutrophils # Man Lymphocytes # (Manual) POC ABG pH POC ABG pCO2 POC ABG pO2 Sodium 136 L Potassium Chloride Carbon Dioxide 14 L BUN Glucose POC Glucose 144 H 124 H Hemoglobin A1c Calcium 8.1 L Phosphorus AST 06/19/17 06/19/17 06/19/17 00:01 01:06 03:02 WBC RDW 13.0 L Lymph % (Auto) 42.0 H [place] % (Auto) 7.7 H Lymph # Seg Neutrophils % Seg Neuts % (Manual) Lymphocytes % (Manual) Seg Neutrophils # Man Lymphocytes # (Manual) POC ABG pH POC ABG pCO2 POC ABG pO2 Sodium Potassium Chloride Carbon Dioxide BUN Glucose POC Glucose 136 H 131 H Hemoglobin A1c Calcium Phosphorus AST 06/19/17 06/19/17 06/19/17 03:02 03:25 04:39 WBC RDW Lymph % (Auto) [place] % (Auto) Lymph # Seg Neutrophils % Seg Neuts % (Manual) Lymphocytes % (Manual) Seg Neutrophils # Man Lymphocytes # (Manual) POC ABG pH POC ABG pCO2 POC ABG pO2 Sodium Potassium Chloride Carbon Dioxide 15 L BUN Glucose 128 H POC Glucose 171 H 186 H Hemoglobin A1c Calcium Phosphorus AST 06/19/17 06/19/17 06/19/17 07:55 10:14 11:09 WBC RDW Lymph % (Auto) [place] % (Auto) Lymph # Seg Neutrophils % Seg Neuts % (Manual) Lymphocytes % (Manual) Seg Neutrophils # Man Lymphocytes # (Manual) POC ABG pH POC ABG pCO2 POC ABG pO2 Sodium 136 L Potassium 3.4 L D Chloride Carbon Dioxide 18 L BUN 5 L Glucose 149 H POC Glucose 170 H 116 H Hemoglobin A1c Calcium 8.1 L Phosphorus AST 06/19/17 06/19/17 06/19/17 13:07 14:52 16:11 WBC RDW Lymph % (Auto) [place] % (Auto) Lymph # Seg Neutrophils % Seg Neuts % (Manual) Lymphocytes % (Manual) Seg Neutrophils # Man Lymphocytes # (Manual) POC ABG pH POC ABG pCO2 POC ABG pO2 Sodium 136 L Potassium 3.5 L Chloride Carbon Dioxide BUN 5 L Glucose 206 H POC Glucose 310 H 210 H Hemoglobin A1c Calcium 8.2 L Phosphorus AST 06/19/17 06/19/17 06/20/17 17:02 22:23 04:44 WBC RDW Lymph % (Auto) [place] % (Auto) Lymph # Seg Neutrophils % Seg Neuts % (Manual) Lymphocytes % (Manual) Seg Neutrophils # Man Lymphocytes # (Manual) POC ABG pH POC ABG pCO2 POC ABG pO2 Sodium 136 L Potassium 3.2 L Chloride 97.6 L Carbon Dioxide BUN 5 L Glucose 212 H POC Glucose 214 H 62 L Hemoglobin A1c Calcium 8.3 L Phosphorus AST 06/20/17 06:38 WBC RDW Lymph % (Auto) [place] % (Auto) Lymph # Seg Neutrophils % Seg Neuts % (Manual) Lymphocytes % (Manual) Seg Neutrophils # Man Lymphocytes # (Manual) POC ABG pH POC ABG pCO2 POC ABG pO2 Sodium Potassium Chloride Carbon Dioxide BUN Glucose POC Glucose 223 H Hemoglobin A1c Calcium Phosphorus AST Allied health notes reviewed: nursing
[2017-06-20 11:55] VITALS: BP 103/52
== END 2017-06-20 12:10 | disposition home or self-care (01) | DRG 637 ==
LOC: ED 13:31 → CC1 06-15 03:13 → 3A 06-16 00:29 → CC1 06-18 12:12 → 3A 06-19 21:17
PROVIDERS: ADMIT Internal Medicine; ATTEND Internal Medicine
PROC: 4A033R1 Measurement of Arterial Saturation, Peripheral, Percutaneous Approach (ICD-10-PCS; principal; 2017-06-18)
DX: E10.10 Type 1 diabetes mellitus with ketoacidosis without coma (principal); G93.41 Metabolic encephalopathy; K31.84 Gastroparesis; N17.9 Acute kidney failure, unspecified; E86.0 Dehydration; K21.9 Gastro-esophageal reflux disease without esophagitis; R11.2 Nausea with vomiting, unspecified; E10.43 Type 1 diabetes mellitus with diabetic autonomic (poly)neuropathy
CPT/HCPCS: 36415; 36600; 71020; 74020; 80048; 80053; 81001; 81025; 82803; 82805; 82962; 83036; 83735; 84100; 85007; 85025; 94760; J1650; J1815; J1818; J1885; J2405; J2765; J7030; J7040

== ENCOUNTER 2018-02-18 02:59 | Emergency (ER) | payer MEDICAID ==
[2018-02-18] MEDS ORDERED: MORPHINE ONE (05:07)
[2018-02-18] MEDS ORDERED: ZOFRAN ONE (05:07)
[2018-02-18] MEDS ORDERED: MORPHINE IV ONE ×2 (05:15→07:17)
[2018-02-18] MEDS ORDERED: ZOFRAN IV ONE ×2 (05:15→07:17)
[2018-02-18 05:29] LABS: Hematocrit 28.2 % (30.3-42.9); Hemoglobin 9.8 gm/dl (10.1-14.3); Mean Corpuscular HGB Conc 35 % (30-34); Mean Corpuscular Hemoglobin 31 pg (28-32); Mean Corpuscular Volume 88 fl (79-97); Platelet Count 240 K/mm3 (140-440); Red Cell Distribution Width 13.6 % (13.2-15.2)
[2018-02-18 06:39] LABS: Band Neutrophils # (Manual) 1.2 K/mm3; Basophils % (Manual) 0 % (0.0-1.8); Eosinophils % (Manual) 0 % (0.0-4.3); Total Cells Counted 100
[2018-02-18 06:40] LABS: RBC Morphology Normal
[2018-02-18] MEDS ORDERED: NACL 0.9% 1000 ML 1,000 ML IV ONE (07:17)
--- NOTE | 2018-02-18 07:19 | Ultrasound Report ---
FINAL REPORT PROCEDURE: US OB < = 14 WEEKS FETUS TECHNIQUE: Real-time transabdominal sonography of the uterus, placenta, amniotic fluid, adnexa, and fetus was performed with image documentation. Measurements were obtained to determine age/size. M-mode Doppler was used to document heartbeat. CPT 28974 HISTORY: vag bleed poss misscarriage COMPARISON: No prior studies are available for comparison. FINDINGS: No intrauterine is identified. The endometrium is thickened at 2 centimeters. There is no endometrial fluid. Cervix: Normal. Right Ovary: Normal. Left Ovary: There is a 1.5 centimeter complex left ovarian cyst. There is no evidence of retained products of conception. IMPRESSION: There are no retained products of conception.
--- NOTE | 2018-02-18 07:54 | Emergency Department Report ---
ED General Adult HPI - General Chief complaint: Vaginal Bleeding Stated complaint: VAGINAL BLEEDING Time Seen by Provider: 02/18/18 07:05 Source: patient, EMS Mode of arrival: Stretcher Limitations: No Limitations - History of Present Illness Initial comments: The patient is a 28-year-old female that has had care. She states that she has had 1 live children and uses a hand motion to indicate perhaps for previous abortions or miscarriages. She had vaginal bleeding overnight. She did complain of some suprapubic discomfort but not sparkle pain at the time of my encounter. She is not nauseated. Fever. Did not refer any recent injury. -: hour(s) Radiation: abdomen Quality: dull Consistency: intermittent Improves with: none Worsens with: none Associated Symptoms: denies other symptoms (except for the vaginal bleeding) - Related Data Home Medications Medication Instructions Recorded Confirmed Last Taken Insulin Glargine [Lantus VIAL] 22 units SUB-Q QHS 09/07/16 09/07/16 Unknown Insulin Lispro [HumaLOG VIAL] 0 units SUB-Q TIDHS 09/07/16 09/07/16 Unknown Previous Rx's Medication Instructions Recorded Last Taken Type Cefuroxime Axetil [Ceftin] 500 mg PO Q12H #14 tablet 10/15/16 Unknown Rx Detemir (Nf) [Levemir (Nf)] 22 units SUB-Q QHS #30 units 10/15/16 Unknown Rx Pantoprazole [Protonix TAB] 40 mg PO QDAY #30 tablet 10/15/16 Unknown Rx Sucralfate [Carafate] 1 gm PO ACHS #1 bottle 10/15/16 Unknown Rx oxyCODONE /ACETAMINOPHEN [Percocet 1 tab PO Q4H PRN #30 tablet 10/15/16 Unknown Rx 5/325 mg] HYDROcodone/APAP 5-325 [[place] 1 each PO Q6HR PRN #7 tablet 02/18/18 Unknown Rx 5/325] Allergies Allergy/AdvReac Type Severity Reaction Status Date / Time No Known Allergies Allergy Verified 02/18/18 04:48 ED Review of Systems ROS: Stated complaint: VAGINAL BLEEDING Other details as noted in HPI Constitutional: denies: chills, fever Eyes: denies: eye pain, eye discharge, vision change ENT: denies: ear pain, throat pain Respiratory: denies: cough, shortness of breath, wheezing Cardiovascular: denies: chest pain, palpitations Endocrine: no symptoms reported Gastrointestinal: abdominal pain. denies: nausea, diarrhea Genitourinary: abnormal menses (vaginal bleeding). denies: urgency, dysuria, discharge Musculoskeletal: denies: back pain, joint swelling, arthralgia Skin: denies: rash, lesions Neurological: denies: headache, weakness, paresthesias Psychiatric: denies: anxiety, depression Hematological/Lymphatic: denies: easy bleeding, easy bruising ED Past Medical Hx - Past Medical History Previous Medical History?: Yes Hx Heart Attack/AMI: No Hx Congestive Heart Failure: No Hx Diabetes: Yes Hx GERD: Yes Hx Asthma: No Hx COPD: No - Surgical History Past Surgical History?: No - Social History Smoking Status: Never Smoker Substance Use Type: None - Medications Home Medications: Home Medications Medication Instructions Recorded Confirmed Last Taken Type Insulin Glargine [Lantus VIAL] 22 units SUB-Q QHS 09/07/16 09/07/16 Unknown History Insulin Lispro [HumaLOG VIAL] 0 units SUB-Q TIDHS 09/07/16 09/07/16 Unknown History Cefuroxime Axetil [Ceftin] 500 mg PO Q12H #14 tablet 10/15/16 Unknown Rx Detemir (Nf) [Levemir (Nf)] 22 units SUB-Q QHS #30 units 10/15/16 Unknown Rx Pantoprazole [Protonix TAB] 40 mg PO QDAY #30 tablet 10/15/16 Unknown Rx Sucralfate [Carafate] 1 gm PO ACHS #1 bottle 10/15/16 Unknown Rx oxyCODONE /ACETAMINOPHEN [Percocet 1 tab PO Q4H PRN #30 tablet 10/15/16 Unknown Rx 5/325 mg] HYDROcodone/APAP 5-325 [[place] 1 each PO Q6HR PRN #7 tablet 02/18/18 Unknown Rx 5/325] ED Physical Exam - General Limitations: No Limitations General appearance: alert, in no apparent distress - Head Head exam: Present: atraumatic, normocephalic - Eye Eye exam: Present: normal appearance, PERRL, EOMI. Absent: scleral icterus - ENT ENT exam: Present: mucous membranes moist - Neck Neck exam: Present: normal inspection. Absent: tenderness, meningismus - Respiratory Respiratory exam: Present: normal lung sounds bilaterally. Absent: respiratory distress - Cardiovascular Cardiovascular Exam: Present: regular rate, normal rhythm. Absent: systolic murmur, diastolic murmur, rubs, gallop - GI/Abdominal GI/Abdominal exam: Present: soft, normal bowel sounds. Absent: distended, tenderness, guarding, rebound, rigid - Extremities Exam Extremities exam: Present: normal inspection - Back Exam Back exam: Present: normal inspection - Neurological Exam Neurological exam: Present: alert, oriented X3, CN II-XII intact. Absent: motor sensory deficit - Psychiatric Psychiatric exam: Present: normal affect, normal mood - Skin Skin exam: Present: warm, dry, intact, normal color. Absent: rash ED Course Vital Signs 02/18/18 02/18/18 04:15 05:39 Pulse Rate 87 Respiratory 16 16 Rate Blood Pressure 122/86 O2 Sat by Pulse 97 Oximetry - Reevaluation(s) Reevaluation #1: 02/18/18 07:52 Ultrasound showed a thickened endometrium but empty uterus without retained products of conception. No signs of any other intrapelvic process seen. Reevaluation #2: The patient is clinically stable for discharge. She will be given miscarriage instructions. A spot sugar will be obtained prior to discharge. She will be given a few pills for analgesia as needed. OB to follow up. 02/18/18 07:53 ED Medical Decision Making - Lab Data Result diagrams: 02/18/18 05:12 Critical care attestation.: If time is entered above; I have spent that time in minutes in the direct care of this critically ill patient, excluding procedure time. ED Disposition Clinical Impression: Complete , Insulin dependent diabetes mellitus Disposition: DC- TO HOME OR SELFCARE Is pt being admited?: No Does the pt Need Aspirin: No Condition: Stable Instructions: Diabetes Mellitus Type 2 in Adults (ED), Spontaneous Miscarriage (ED) Additional Instructions: Do not bathe or have intercourse for at least one week or as per your [employer]. See your [employer] further instruction in the next 2-3 days. Rx as needed for pain. Prescriptions: HYDROcodone/APAP 5-325 [[place] 5/325] 1 each PO Q6HR PRN #7 tablet PRN Reason: Pain Referrals: PRIMARY CARE, [Primary Care Provider] - 3-5 Days Time of Disposition: 07:55
[2018-02-18 09:15] VITALS: BP 119/69
== END 2018-02-18 10:59 | disposition home or self-care (01) ==
LOC: ED 02:59
DX: O03.9 Complete or unspecified spontaneous abortion without complication (principal); K21.9 Gastro-esophageal reflux disease without esophagitis; E11.9 Type 2 diabetes mellitus without complications; Z79.4 Long term (current) use of insulin; Z3A.01 Less than 8 weeks gestation of pregnancy
CPT/HCPCS: 36415; 76801; 84702; 85007; 85025; 86850; 86870; 86900; 86901; 86922; 88305; 96374; 96375; 96376; 99284; J2270; J2405; J7030; 96361

== ENCOUNTER 2021-02-19 22:03 | Emergency (ER) | payer MEDICAID ==
[2021-02-19 22:46] VITALS: BP 131/88
[2021-02-19] MEDS ORDERED: METOCLOPRAMIDE 10 MG/2 ML INJ IV ONE (22:59)
[2021-02-19 23:39] LABS: Alanine Aminotransferase 15 units/L (7-56); BUN/Creatinine Ratio 8; Blood Urea Nitrogen 9 mg/dL (7-17); Calcium 8.6 mg/dL (8.4-10.2)
[2021-02-19 23:40] LABS: Albumin 4.3 g/dL (3.9-5); Hemolysis Index 71
== END 2021-02-20 00:10 ==
LOC: ED 22:03
DX: R73.9 Hyperglycemia, unspecified (principal); Z53.21 Procedure and treatment not carried out due to patient leaving prior to being seen by health care provider
CPT/HCPCS: 36415; 80053; 82962; 83690; 84703; J2765